=== PATIENT | female | born 1930 | race Caucasian/White ===

== ENCOUNTER → 2017-08-15 | Outpatient (CLI) | payer OTHER ==
[~2017-08-15] MED LIST: ACET-1256 PO; ASCO500T16 PO; ASPI81TA82 PO; ATEN25TA PO; CALCTAB7 PO; COEN100C15 PO; DORZ2SOL20 OPL; FESO8TAB PO; FISH OI1 PO; GABA100C13 PO; HYDR25TA4 PO; ISOS60TA PO; LATA0.009 OPL; LOSA50TA6 PO; MULTTAB58 PO; NTRGSL/4 UT; NXM/40 PO; SIMV40TA2 PO; ZNT/150 PO
--- NOTE | 2017-08-15 11:21 | DIAGNOSTIC IMAGING REPORT ---
MRI OF THE LUMBAR SPINE WITHOUT IV CONTRAST CLINICAL HISTORY: Low back pain. Bilateral lower extremity radiculopathy. COMPARISON STUDY: No priors. TECHNIQUE: MRI of the lumbar spine is performed utilizing various T1 and T2 weighted sequences in the axial and sagittal planes. IV contrast was not administered for this examination. FINDINGS: Lumbar spine: Vertebral body height is maintained throughout the lumbar spine. Marrow signal intensity is slightly heterogeneous. There is 5 mm of anterolisthesis at L4-L5. Minimal anterolisthesis is seen at L5-S1. Tiny anterior osteophytes are noted in the lower lumbar spine. Small hemangiomas are seen in the bodies of L1 and L4. No destructive osseous lesion is identified. The transverse and spinous processes appear intact. There is no evidence of spondylolysis. Mild degenerative endplate edema is seen at L5-S1. Intervertebral discs: Degenerative disc desiccation and loss of height is seen throughout the lumbar spine. Moderate loss of height is noted at L5-S1. Loss of height is moderate at the remaining lumbar levels. Spinal cord: The visualized spinal cord is normal in morphology and signal intensity. The conus medullaris terminates at the level of L1-L2. There is tethering of the nerve roots of the cauda equina at L4-L5. T12-L1: There is a small posterior disc bulge, only seen on the sagittal series. There is no significant acquired compromise of the central canal. L1-L2: There is broad-based posterior disc bulge. There is no significant acquired compromise of the central canal at this level. The disc bulge may abut the transiting bilateral nerve roots. There is mild bilateral subarticular stenosis. The neural foramina are patent. L2-L3: There is minimal posterior disc bulge. The central canal and neural foramina are patent. Facet arthropathy is of no consequence. L3-L4: There is a small posterior disc bulge with annular fissure. In conjunction with hypertrophy of the ligamentum flavum there is moderate central canal stenosis at this level with a minimum AP diameter of 4 mm. There is bilateral subarticular stenosis, left greater right. The disc bulge abuts the transiting bilateral nerve roots and the exiting left L3 nerve root. L4-L5: There is a small posterior disc bulge. In conjunction with anterolisthesis and hypertrophy of the ligamentum flavum there is severe central canal stenosis at this level with tethering of the nerve roots of the cauda equina. The minimum AP canal diameter measures 3 mm. There is bilateral subarticular stenosis, with probable impingement on the exiting bilateral L4 nerve roots. Facet arthropathy causes moderate right and mild left neural foraminal stenosis at this level. There are facet joint effusions. L5-S1: There is broad-based posterior disc bulge. In conjunction with hypertrophy of the ligamentum flavum there is moderate central canal stenosis at this level. The minimum AP diameter measures 6 mm. There is severe bilateral subarticular stenosis, left greater than right. This impinges on the exiting bilateral L5 nerve roots as well as a transiting sacral nerve roots. Bulky facet arthropathy causes at least moderate bilateral neural foraminal stenosis. Facet joint effusions are identified. Sacrum: The visualized sacrum is normal in morphology and signal intensity. Soft tissues: There is fatty atrophy of the paraspinous and iliopsoas musculature. The partially imaged kidneys demonstrate mild cortical atrophy. IMPRESSION: 1. 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 This is greatest at L4-L5. See discussion for detailed level by level analysis. 2. No large disc herniation is seen. 3. No destructive bony lesion is identified. Dictated: 08/15/2017 10:37 AM Transcribed: 08/15/2017 11:21 AM Shira Electronically signed by: Juan Carlos Whitmore M.D. 08/15/2017 11:49 AM Dictated Date/Time: 08/15/2017 10:37 AM
== END | disposition home or self-care (01) ==
LOC: C.MRIBC 09:33
PROVIDERS: ATTEND Pain Medicine Interventional Pain Medicine
DX: M48.061 Spinal stenosis, lumbar region without neurogenic claudication (principal); M47.897 Other spondylosis, lumbosacral region

== ENCOUNTER 2017-09-22 05:49 | Inpatient (IN) | payer OTHER ==
[2017-09-12 15:36] VITALS: BMI 37.0
--- NOTE | 2017-09-12 16:11 | PAT Medication Instructions ---
Service Date Sep 12, 2017. Current Home Medication List Acetaminophen (Tylenol), 1,000 MG PO PRN PRN for Pain Amlodipine (Norvasc), 2.5 MG PO QAM Ascorbic Acid (Ascorbic Acid), 500-1,500 MG PO DAILY PRN for Cold Aspirin (Aspirin Ec), 81 MG PO QPM Atorvastatin (Lipitor), 20 MG PO QPM Calcium Carbonate-Vitamin D W/ (Caltrate 600 Plus), 1 TAB PO BID Coenzyme Q10 (Ubidecarenone) (Co Q10), 100 MG PO QAM Dorzolamide Hcl-Timolol Maleat (Cosopt Oph), 1 DROP OPL BID Gabapentin (Neurontin), 200 MG PO BID Aufvwaoghoc-Zgycxcekwiu-Lps C- (Glucosamine Chondroitin), 1 TAB PO BID Hydrochlorothiazide (Hctz), 25 MG PO QAM Isosorbide Mononitrate (Imdur Ext Rel), 60 MG PO QPM Latanoprost (Xalatan 0.005% Oph Bessy), 1 DROPS OPL HS Losartan Potassium (Cozaar), 100 MG PO HS Metoprolol Tartrate (Lopressor) (Lopressor), 25 MG PO BID Multiple Vitamin (Multivitamin), 1 TAB PO QAM Nitroglycerin (Nitrostat), 0.4 MG UT UD PRN for Chest Pain [place]-3 Fatty Acids (Fish Oil), 1,000 MG PO HS Potassium Chloride (K-Tabs), 10 MEQ PO QPM Ranitidine Hcl (Zantac), 300 MG PO QAM [Prednisone Forte], 1 DROP OPR HS Medication Instructions For Your Scheduled Surgery -Continue as directed: Nitroglycerin (Nitrostat), 0.4 MG UT UD PRN for Chest Pain - Hold the following medications 2 weeks prior to surgery: Coenzyme Q10 (Ubidecarenone) (Co Q10), 100 MG PO QAM Abspkwaujfr-Zcnsacqinnm-Tuh C- (Glucosamine Chondroitin), 1 TAB PO BID [place]-3 Fatty Acids (Fish Oil), 1,000 MG PO HS - Hold the following medications 24 hours prior to surgery: Hydrochlorothiazide (Hctz), 25 MG PO QAM - Hold the following medications THE NIGHT BEFORE surgery: Losartan Potassium (Cozaar), 100 MG PO HS - Hold the following medications the morning of surgery: Ascorbic Acid (Ascorbic Acid), 500-1,500 MG PO DAILY PRN for Cold Calcium Carbonate-Vitamin D W/ (Caltrate 600 Plus), 1 TAB PO BID Multiple Vitamin (Multivitamin), 1 TAB PO QAM - Take the following medications the morning of surgery with a sip of water: Acetaminophen (Tylenol), 1,000 MG PO PRN PRN for Pain (if needed, can be taken up to four hours before surgery) Amlodipine (Norvasc), 2.5 MG PO QAM Dorzolamide Hcl-Timolol Maleat (Cosopt Oph), 1 DROP OPL BID (bring with you to the hospital) Gabapentin (Neurontin), 200 MG PO BID Metoprolol Tartrate (Lopressor) (Lopressor), 25 MG PO BID Ranitidine Hcl (Zantac), 300 MG PO QAM - Take the following medications as scheduled the night before surgery: Acetaminophen (Tylenol), 1,000 MG PO PRN PRN for Pain (if needed) Ascorbic Acid (Ascorbic Acid), 500-1,500 MG PO DAILY PRN for Cold (if needed) Aspirin (Aspirin Ec), 81 MG PO QPM Atorvastatin (Lipitor), 20 MG PO QPM Calcium Carbonate-Vitamin D W/ (Caltrate 600 Plus), 1 TAB PO BID Dorzolamide Hcl-Timolol Maleat (Cosopt Oph), 1 DROP OPL BID Gabapentin (Neurontin), 200 MG PO BID Isosorbide Mononitrate (Imdur Ext Rel), 60 MG PO QPM Latanoprost (Xalatan 0.005% Oph Bessy), 1 DROPS OPL HS (bring with you to the hospital) Metoprolol Tartrate (Lopressor) (Lopressor), 25 MG PO BID Potassium Chloride (K-Tabs), 10 MEQ PO QPM [Prednisone Forte], 1 DROP OPR HS (bring with you to the hospital) If you have any questions please call us at [phone] or [phone] or [phone]
[2017-09-12 16:54] LABS: BASO % 0.1 %; BASO ABS # 0.01 K/uL (0-0.2); EOS % 0.1 %; EOS ABS # 0.01 K/uL (0-0.5); HEMATOCRIT 39.1 % (37-47); HEMOGLOBIN 13.2 g/dL (12.0-16.0); IG# 0.03 K/uL (0.00-0.02); LYMPH % 24.4 %; LYMPH ABS # 2.14 K/uL (1.2-3.4); MEAN CELL VOLUME 86.9 fL (80-100); MEAN CORPUSCULAR HEMOGLOBIN 29.3 pg (25-34); MEAN CORPUSCULAR HGB CONC 33.8 g/dl (32-36); MEAN PLATELET VOLUME 9.6 fL (7.4-10.4); MONO % 5.9 %; MONO ABS # 0.52 K/uL (0.11-0.59); NEUT % 69.2 %; NEUT ABS # 6.06 K/uL (1.4-6.5); PLATELET COUNT 252 K/uL (130-400); RED CELL DISTRIBUTION WIDTH CV 14.7 % (11.5-14.5); RED CELL DISTRIBUTION WIDTH SD 46.2 fL (36.4-46.3); WHITE BLOOD COUNT 8.77 K/uL (4.8-10.8)
--- NOTE | 2017-09-12 17:03 | DIAGNOSTIC IMAGING REPORT ---
TWO VIEW CHEST CLINICAL HISTORY: Preoperative examination. FINDINGS: PA and lateral chest radiographs are compared to study dated 12/05/2013 and correlated with chest CT dated 08/04/2009. The heart is enlarged and there is atherosclerotic calcification of the thoracic aorta. The pulmonary vasculature is noncongested. Chronic interstitial thickening is similar to previous. No airspace consolidation or pleural effusion is identified. There is no pneumothorax. The skeletal structures are osteopenic. The bony thorax appears intact. IMPRESSION: Cardiomegaly with no active disease in the chest. Electronically signed by: Juan Carlos Whitmore M.D. 09/12/2017 5:01 PM Dictated Date/Time: 09/12/2017 5:01 PM
[2017-09-12 17:21] LABS: CALCIUM 9.4 mg/dl (8.5-10.1); CREATININE 0.86 mg/dl (0.60-1.20); POTASSIUM 4.6 mmol/L (3.5-5.1)
[~2017-09-22] VITALS: Ht 152.4 cm; Wt 87.7 kg
[2017-09-22] VITALS (10 sets, daily range): BP systolic 94–158; BP diastolic 58–85; PULSE 52–66; TEMP 36.3–37; O2SAT 95–100; Ht 152.4 cm; Wt 87.7 kg
[~2017-09-22 05:49] MED LIST changes: +AMLO2.5T PO; +ASPI81TA28 PO; -ASPI81TA82 PO; -ATEN25TA PO; +ATOR-22 PO; -FESO8TAB PO; -FISH OI1 PO; +GLUCTAB7 PO; -ISOS60TA PO; +ISOS60TA2 PO; +METO25TA56 PO; -NXM/40 PO; +OMEGCAP2 PO; +POTA10TA PO; -SIMV40TA2 PO; +[UNRECOGNIZED DRUG - OTHER] OPR
[2017-09-22] MEDS ORDERED: GABAPENTIN 300 MG CAP PO SCH (06:00)
[2017-09-22] MEDS ORDERED: ACETAMINOPHEN 500 MG TAB PO SCH (06:00)
[2017-09-22] MEDS ORDERED: LACTATED RINGER'S 1000ML 1,000 ML IV SCH (06:00)
[2017-09-22] MEDS ORDERED: CeleBREX 200 MG CAP PO SCH (06:00)
[2017-09-22] MEDS ORDERED: CEFAZOLIN 2000MG IV PUSH 15 ML IV SCH (06:00)
[2017-09-22] MEDS ORDERED: FENTANYL CITRATE INJ 50 MCG/1 ML 2 ML VIAL ONE ×3 (06:37→09:38)
[2017-09-22] MEDS ORDERED: MIDAZOLAM HCL 1 MG/ML 2ML VIAL ONE (06:37)
[2017-09-22] MEDS ORDERED: BUPIVACAINE/EPINEPHRINE 0.5% MPF 1:200,000 30 ML VIAL ONE (07:03)
[2017-09-22] MEDS ORDERED: BACITRACIN 50000 UNIT VIAL ONE (07:03)
[2017-09-22] MEDS ORDERED: ATROPINE SULFATE 0.1 MG/ML 5ML SYR IV PRN (07:15)
[2017-09-22] MEDS ORDERED: HYDROmorphone INJ 0.5 MG/0.5 ML SYR IV PRN (07:15)
[2017-09-22] MEDS ORDERED: EpHEDrine SULFATE INJ 50 MG/ML AMP IV PRN (07:15)
[2017-09-22] MEDS ORDERED: FENTANYL CITRATE INJ 50 MCG/1 ML 2 ML VIAL IV PRN (07:15)
--- NOTE | 2017-09-22 07:31 | History & Physical Bridge Note ---
H&P Re-Evaluation Bridge Note: I have examined the patient, reviewed the History & Physical and in the interval since the performance of the History & Physical I have noted the following changes of clinical significance: No changes noted
--- NOTE | 2017-09-22 07:32 | History and Physical ---
History & Physical Date Sep 22, 2017. Chief Complaint Back and leg pain History of Present Illness The patient is a 86 year old female with complaints of back and leg pain Additional History Hepatic Disease: No Endocrine Disorder: No Kidney Disease: No Hypertension: Yes Heart Disease: No Bleeding Tendencies: No Infectious Diseases: No Allergies Coded Allergies: Brimonidine (Verified Allergy, Unknown, RED ITCHY EYE, 09/22/17) Amoxicillin (Verified Adverse Reaction, Unknown, headache, 09/22/17) Clavulanic Acid (Verified Adverse Reaction, Unknown, headache, 09/22/17) Home Medications Scheduled Amlodipine (Norvasc), 2.5 MG PO QAM Aspirin (Aspirin Ec), 81 MG PO QPM Atorvastatin (Lipitor), 20 MG PO QPM Calcium Carbonate-Vitamin D W/ (Caltrate 600 Plus), 1 TAB PO BID Coenzyme Q10 (Ubidecarenone) (Co Q10), 100 MG PO QAM Dorzolamide Hcl-Timolol Maleat (Cosopt Oph), 1 DROP OPL BID Gabapentin (Neurontin), 200 MG PO BID Croihqysgmx-Tclkjnssatl-Vmq C- (Glucosamine Chondroitin), 1 TAB PO BID Hydrochlorothiazide (Hctz), 25 MG PO QAM Isosorbide Mononitrate (Imdur Ext Rel), 60 MG PO QPM Latanoprost (Xalatan 0.005% Oph Bessy), 1 DROPS OPL HS Losartan Potassium (Cozaar), 100 MG PO HS Metoprolol Tartrate (Lopressor) (Lopressor), 25 MG PO BID Multiple Vitamin (Multivitamin), 1 TAB PO QAM [place]-3 Fatty Acids (Fish Oil), 1,000 MG PO HS Potassium Chloride (K-Tabs), 10 MEQ PO QPM Ranitidine Hcl (Zantac), 300 MG PO QAM [Prednisone Forte], 1 DROP OPR HS Scheduled PRN Acetaminophen (Tylenol), 1,000 MG PO PRN PRN for Pain Ascorbic Acid (Ascorbic Acid), 500-1,500 MG PO DAILY PRN for Cold Nitroglycerin (Nitrostat), 0.4 MG UT UD PRN for Chest Pain Physical Examination Skin: warm/dry, no rash Eyes: normal inspection, EOMI, sclerae normal ENT: normal ENT inspection, pharynx normal Head: normocephalic, atraumatic Neck: supple, no adenopathy, trachea midline Respiratory/Chest: lungs clear, normal breath sounds, no respiratory distress Cardiovascular: regular rate, rhythm, no edema, no murmur Abdomen / GI: normal bowel sounds, non tender Back: normal inspection Extremities: normal inspection, normal range of motion Neurologic/Psych: no motor/sensory deficits, alert, normal reflexes, oriented x 3 Diagnosis Lumbar spinal stenosis with neurogenic claudication Plan of Treatment L3 S1 decompression and fusion
[2017-09-22] MEDS ORDERED: HYDROmorphone INJ 2 MG/ML SYR/VIAL ONE ×3 (08:14→11:04)
[2017-09-22] MEDS ORDERED: FLOSEAL HEMOSTATIC MATRIX 10ML TOP ONE (10:47)
[2017-09-22] MEDS ORDERED: SODIUM CHLORIDE 0.9% 1000ML 1,000 ML IV SCH (10:50)
[2017-09-22] MEDS: SODIUM CHLORIDE 0.9% 1000ML 1,000 ML IV SCH ×3 (10:50→18:34)
--- NOTE | 2017-09-22 10:50 | [facility] Operative Report ---
Operative Report Operative Date Sep 22, 2017. Pre-Operative Diagnosis Lumbar Spinal Stenosis with Neurogenic Claudication Post-Operative Diagnosis Lumbar Spinal Stenosis with Neurogenic Claudication Procedure(s) Performed 1. Lumbar decompression medial facetectomies foraminotomies L2-3 L3-4 L4-5 L5-S1. #2 posterior spinal fusion L3-4 L4-5 L5-S1. #3 placement posterior segmental instrumentation L3-S1. #4 interbody fusion L5-S1. #5 placement peek cage 11 x 26 mm at L5-S1. #6 placement of locally harvested morselized autograft in the posterior gutters. #7 placement InFUSE collagen sponge, master graft in the posterior lateral gutters and ostial amp in the interbody space. Surgeon Dr. Sommers Box Puller Surgeon(s) Kota Trinidad PA-C Estimated Blood Loss 400 Findings Severe spinal stenosis Specimens none per surgeon Description of Procedure Patient was met with preoperatively case discussed all questions addressed. After informed consent obtained patient was taken to the operative suite underwent intubation and placed in the prone position on the Ethan table on top of the Jorge frame. All bony prominences were well-padded eyes inspected to ensure no external pressure placed upon them. This point the lumbar spine was prepped and draped in the normal sterile fashion. Sharp dissection with the assistance Bovie cautery was performed down to and exposing the lamina and transverse processes of L3-L4-L5 and sacral ala bilaterally. From a caudal to cephalad fashion complete laminectomy of L5 L4 L3 and partial laminectomy of L2 was performed addressing severe lateral recess and foraminal disease. Pedicle screws were then placed in L3-L4 L5-S1 levels bilaterally with the assistance of fluoroscopy and the purposes anselmo placed. Through a transforaminal approach on the left complete discectomy of L5-S1 was performed endplates created to subcortical bleeding bone and a 11 x 26 mm peek cage filled with ostial amp bone graft tapped into position. Rods were then locked in position. Cross- link locked in position. The transverse processes of L3-L4-L5 and sacral ala burred to subcortical bleeding bone. Infuse collagen sponge mesh graft and locally harvested morselized autograft t was placed in the posterior lateral gutters. A 15 round GIANNA drain was inserted. Incision was closed with 1 Vicryl fascia 2-0 Vicryl subcutaneous 3 4-0 Monocryl for fashion closure Steri-Strips sterile dressing placed. Patient weakened the PACU in stable condition. Please note Danny Trinidad was present throughout the entire procedure involved in patient positioning complex portions of the surgery and final skin closure. I attest to the content of the Intraoperative Record and any orders documented therein. Any exceptions are noted below.
[2017-09-22] MEDS ORDERED: LIDOCAINE HCL 2% 2 ML VIAL (20MG/ML) ONE (10:52)
[2017-09-22] MEDS ORDERED: PROPOFOL IV EMULSION 10 MG/ML 20 ML VIAL IV ONE (10:52)
[2017-09-22] MEDS ORDERED: ONDANSETRON INJ 2 MG/ML 2 ML VIAL ONE ×2 (10:52→11:05)
[2017-09-22] MEDS ORDERED: DEXAMETHASONE SOD INJ 4 MG/ML VIAL ONE (10:52)
[2017-09-22] MEDS ORDERED: ROCURONIUM BROMIDE 10 MG/ML 5 ML VIAL IV ONE (10:52)
[2017-09-22] MEDS ORDERED: ACETAMINOPHEN IV 100 ML IV PRN (11:00)
[2017-09-22] MEDS ORDERED: MAGNESIUM HYDROXIDE SUSP 30 ML UDC PO PRN (11:00)
[2017-09-22] MEDS ORDERED: BISACODYL 10 MG SUPP PR PRN (11:00)
[2017-09-22] MEDS ORDERED: SOD PHOSPHATE/SOD BIPHOSPHATE ENEMA 132 ML BTL PR PRN (11:00)
[2017-09-22] MEDS ORDERED: LORAZEPAM INJ 0.5 MG in SYRINGE 0.75 ML IV PRN (11:00)
[2017-09-22] MEDS ORDERED: ALUMINUM/MAGNESIUM SUSP 30 ML UDC PO PRN (11:00)
[2017-09-22] MEDS ORDERED: DO NOT ADMINISTER FLU VACCINE PRN (11:00)
[2017-09-22] MEDS ORDERED: LORAZEPAM 0.5 MG TAB PO PRN (11:00)
[2017-09-22] MEDS ORDERED: DO NOT ADMINISTER PNEUMOCOCCAL VACCINE PRN (11:00)
[2017-09-22] MEDS ORDERED: ONDANSETRON INJ 2 MG/ML 2 ML VIAL IV PRN (11:00)
[2017-09-22] MEDS ORDERED: PROMETHAZINE HCL INJ 12.5 MG in SODIUM CHLORIDE 0.9% 50ML 50 ML IV PRN (11:00)
[2017-09-22] MEDS ORDERED: hydrOXYzine HCL 25 MG TAB PO PRN (11:00)
[2017-09-22] MEDS ORDERED: NALOXONE HCL 0.4 MG/1 ML VIAL/CARP IV PRN ×2 (11:00)
[2017-09-22] MEDS ORDERED: ACETAMINOPHEN 500 MG TAB PO PRN (11:00)
[2017-09-22] MEDS ORDERED: NITROGLYCERIN 0.4 MG SL PER TAB CHARGE UT PRN (11:00)
[2017-09-22] MEDS ORDERED: METOCLOPRAMIDE HCL INJ 5 MG/ML 2 ML VIAL IV PRN (11:00)
[2017-09-22] MEDS ORDERED: FAMOTIDINE 20 MG TAB PO PRN (11:00)
--- NOTE | 2017-09-22 11:03 | DIAGNOSTIC IMAGING REPORT ---
LUMBAR SPINE 2 OR 3 VIEW CLINICAL HISTORY: 86 years-old Female presenting with L3-5 DECOMPRESSION/FUSION. TECHNIQUE: 3 fluoroscopic image(s) recorded as part of an intraoperative procedure. COMPARISON: MR from 08/15/2017. FINDINGS/IMPRESSION: Bilateral transpedicular screw and anselmo fixation of L3-S1 with interbody spacer at L5-S1. Laminectomy defects from L3 to L5. Grossly normal anatomic alignment. Postsurgical changes are new from prior MR. Please see surgical report for further details. Fluoroscopy dosage (mGy): 20.99. Fluoroscopy time: 22.6 seconds. Number of fluoroscopic spot images: 0. Electronically signed by: Cayden White M.D. 09/22/2017 11:01 AM Dictated Date/Time: 09/22/2017 11:00 AM
[2017-09-22] MEDS ORDERED: GLYCOPYRROLATE INJ 0.2 MG/ML VIAL ONE (11:05)
[2017-09-22] MEDS ORDERED: NEOSTIGMINE METHYLSULFATE 1 MG/ML 10ML VIAL ONE (11:05)
[2017-09-22] MEDS ORDERED: HYDROmorphone HCL 0.5MG/ML 50 ML CASSETTE ONE (11:16)
--- NOTE | 2017-09-22 12:11 | Anesthesiology Progress Note ---
Anesthesia Post Op Note Date & Time Sep 22, 2017 at 12:10 Vital Signs Pain Intensity: 0 Vital Signs Past 12 Hours Date Time Temp Pulse Resp B/P (MAP) Pulse Ox O2 Delivery O2 Flow Rate FiO2 09/22/17 11:52 121/61 09/22/17 11:48 57 14 100 09/22/17 11:48 56 14 09/22/17 11:47 57 21 09/22/17 11:47 57 21 129/64 98 09/22/17 11:43 36.2 58 16 129/64 (81) 99 Nasal Cannula 4 09/22/17 11:42 58 13 99 09/22/17 11:42 58 13 09/22/17 11:41 139/76 09/22/17 11:37 59 13 09/22/17 11:37 59 13 99 09/22/17 11:36 138/78 09/22/17 11:32 59 13 99 09/22/17 11:32 59 13 09/22/17 11:31 60 15 136/78 100 09/22/17 11:31 60 15 136/78 100 09/22/17 11:31 60 15 09/22/17 11:31 60 15 09/22/17 11:26 62 16 122/88 100 09/22/17 11:26 62 16 09/22/17 11:26 62 16 122/88 100 09/22/17 11:26 62 16 09/22/17 11:22 156/81 09/22/17 11:22 156/81 09/22/17 11:21 65 20 100 09/22/17 11:21 65 20 09/22/17 11:21 65 20 09/22/17 11:21 65 20 100 09/22/17 11:16 66 17 09/22/17 11:16 66 17 145/96 100 09/22/17 11:16 36.2 66 16 145/96 (111) 100 Oxymask 10 09/22/17 11:16 66 17 09/22/17 11:16 66 17 145/96 100 09/22/17 06:15 37 66 20 158/82 97 Room Air Notes Mental Status: alert / awake / arousable, participated in evaluation Pt Amnestic to Procedure: Yes Nausea / Vomiting: adequately controlled Pain: adequately controlled Airway Patency, RR, SpO2: stable & adequate BP & HR: stable & adequate Hydration State: stable & adequate Anesthetic Complications: no major complications apparent Anesthetic Complications: Patient reports normal vision and no complaints of eye pain in PACU.
[2017-09-22] MEDS ORDERED: PRED1SUS3 OPR (13:32)
--- NOTE | 2017-09-22 13:55 | Medical Consult ---
Consultation Date of Consultation: Sep 22, 2017. Attending Physician: Garrett Sommers D.O. Reason for Consultation: Postoperative medical management History of Present Illness 86-year-old female who is status post L2 through S1 decompression and fusion today by Dr. Sommers. Postoperatively the patient is doing well. She reports her pain is well controlled. She denies numbness and tingling to the lower extremities. She denies chest pain and shortness of breath. No lightheadedness or dizziness. No abdominal pain or nausea. 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 (9) Mild aortic stenosis Status: Chronic (10) Osteoarthritis Status: Chronic (11) PVD (peripheral vascular disease) Status: Chronic Surgical Problems: (1) H/O hernia repair Status: Chronic (2) History of bladder surgery Status: Chronic (3) History of cataract surgery Status: Chronic (4) History of hysterectomy Status: Chronic (5) Hx of tubal ligation Status: Chronic (6) S/P tonsillectomy and adenoidectomy Status: Chronic Family History Noncontributory secondary to patient's advanced age Social History Smoking Status: Never Smoker Alcohol Use: none Allergies Coded Allergies: Brimonidine (Verified Allergy, Unknown, RED ITCHY EYE, 09/22/17) Amoxicillin (Verified Adverse Reaction, Unknown, headache, 09/22/17) Clavulanic Acid (Verified Adverse Reaction, Unknown, headache, 09/22/17) Home Medications Pred Forte 1% Oph (Prednisolone Acetate (Ophth)) 1 % Jaclyn 1 Drops OPR Q2D Fish Oil (Speed-3 Fatty Acids) 1 Cap Cap 1,000 Mg PO HS K-Tabs (Potassium Chloride) 10 Meq Tab 10 Meq PO QPM Lopressor (Metoprolol Tartrate) 25 Mg Tab 25 Mg PO BID Glucosamine Chondroitin (Nkauyfoeyeh-Ncrahruxnay-Vbs C-) 1 Tab Tab 1 Tab PO BID Xalatan 0.005% Oph Bessy (Latanoprost) 0.005 % Bessy 1 Drops OPL HS 90 Days Imdur Ext Rel (Isosorbide Mononitrate) 60 Mg Tab 60 Mg PO QPM Lipitor (Atorvastatin Calcium) 20 Mg Tab 20 Mg PO QPM Aspirin Ec (Aspirin) 81 Mg Tab 81 Mg PO QPM Norvasc (Amlodipine Besylate) 2.5 Mg Tab 2.5 Mg PO QAM Multivitamin (Multiple Vitamin) 1 Tab Tab 1 Tab PO QAM Ascorbic Acid 500 Mg Tab 500-1,500 Mg PO DAILY PRN Cosopt Oph (Dorzolamide Hcl-Timolol Maleat) 1 Bessy Bessy 1 Drop OPL BID Zantac (Ranitidine Hcl) 150 Mg Tab 300 Mg PO QAM Hctz (Hydrochlorothiazide) 25 Mg Tab 25 Mg PO QAM Co Q10 (Coenzyme Q10 (Ubidecarenone)) 100 Mg Cap 100 Mg PO QAM Neurontin (Gabapentin) 100 Mg Cap 200 Mg PO BID Cozaar (Losartan Potassium) 50 Mg Tab 100 Mg PO HS Caltrate 600 Plus (Calcium Carbonate-Vitamin D W/) 1 Tab Tab 1 Tab PO BID TAKE THIS MEDICATION WITH FOOD. Nitrostat (Nitroglycerin) 0.4 Mg Tab 0.4 Mg UT UD PRN PLACE ONE TABLET UNDER THE TONGUE EVERY 5 MINUTES FOR UP TO 3 DOSES IF NEEDED FOR CHEST PAIN. Tylenol (Acetaminophen) 500 Mg Tab 1,000 Mg PO PRN PRN Current Inpatient Medications Current Inpatient Medications Medications (Trade) Dose Ordered Sig/Akil Route Start Time Stop Time Status Last Admin Dose Admin Clindamycin Phosphate 600 mg/ Dextrose 54 ml @ 100 mls/hr Q8H IV 09/22/17 18:00 09/23/17 02:33 Promethazine HCl 12.5 mg/Sodium Chloride 50.5 ml @ 202 mls/hr Q6H PRN IV 09/22/17 11:00 10/22/17 10:59 Ondansetron HCl (Zofran Inj) 4 mg Q6H PRN IV 09/22/17 11:00 10/22/17 10:59 Metoclopramide HCl (Reglan Inj) 10 mg Q6H PRN IV 09/22/17 11:00 10/22/17 10:59 Lorazepam (Ativan Tab) 0.5 mg Q8H PRN PO 09/22/17 11:00 10/22/17 10:59 Lorazepam 0.5 mg/ Syringe 1 ml @ 1 mls/min Q8H PRN IV 09/22/17 11:00 10/22/17 10:59 Pneumococcal Polysaccharide Vaccine 1 ea PRN PRN N/A 09/22/17 11:00 10/22/17 10:59 Influenza Virus Vacc Triv Types A&B 1 ea PRN PRN N/A 09/22/17 11:00 10/22/17 10:59 Polyethylene (Miralax Powder Packet) 17 gm Q6 PO 09/24/17 06:00 10/24/17 05:59 Bisacodyl (Dulcolax Supp) 10 mg DAILY PRN ID 09/22/17 11:00 10/22/17 10:59 Magnesium Hydroxide (Milk Of Magnesia Susp) 30 ml DAILY PRN PO 09/22/17 11:00 10/22/17 10:59 Hydromorphone HCl (Dilaudid Inj) 0.5-1mg prn moder... Q3H PRN IV 09/23/17 06:00 10/07/17 05:59 Oxycodone HCl (Roxicodone Immediate Rel Tab) 5-10mg prn moderate to sev... Q4H PRN PO 09/23/17 06:00 10/07/17 05:59 Sodium Chloride 1,000 ml @ 150 mls/hr Q6H40M IV 09/22/17 10:50 10/22/17 10:49 Acetaminophen (Tylenol Tab) 1,000 mg Q8H PRN PO 09/22/17 11:00 10/22/17 10:59 Acetaminophen 100 ml @ 400 mls/hr Q8H PRN IV 09/22/17 11:00 10/22/17 10:59 Naloxone HCl (Narcan Inj) 0.1 mg Q5M PRN IV 09/22/17 11:00 10/22/17 10:59 Senna/Docusate Sodium (Senokot S Tab) 2 tab HS PO 09/22/17 21:00 10/22/17 20:59 Sodium Biphosphate/ Sodium Phosphate (Fleet Enema) 132 ml ONE PRN ID 09/22/17 11:00 10/22/17 10:59 Hydroxyzine HCl (Vistaril Tab) 25 mg Q8H PRN PO 09/22/17 11:00 10/22/17 10:59 Al Hydroxide/Mg Hydroxide (Maalox Susp) 30 ml Q6H PRN PO 09/22/17 11:00 10/22/17 10:59 Famotidine (Pepcid Tab) 20 mg Q12 PRN PO 09/22/17 11:00 10/22/17 10:59 Diphenhydramine HCl (Benadryl Cap) 25 mg Q6H PRN PO 09/22/17 11:00 10/22/17 10:59 Miscellaneous Information (Discontinue STATE EDITOR) 1 ea TODAY@0600 N/A 09/23/17 06:00 09/23/17 06:01 Naloxone HCl (Narcan Inj) 0.1 mg Q5M PRN IV 09/22/17 11:00 09/23/17 06:00 Hydromorphone HCl (Dilaudid Car Storer) 25 mg PRN PRN IV 09/22/17 11:00 09/23/17 06:00 Sodium Chloride 1,000 ml @ 15 mls/hr Q24H IV 09/22/17 10:50 09/23/17 06:00 Amlodipine Besylate (Norvasc Tab) 2.5 mg QAM PO 09/23/17 09:00 10/23/17 08:59 Aspirin (Ecotrin Tab) 81 mg QPM PO 09/22/17 21:00 10/22/17 20:59 Atorvastatin Calcium (Lipitor Tab) 20 mg QPM PO 09/22/17 21:00 10/22/17 20:59 Gabapentin (Neurontin Cap) 200 mg BID PO 09/22/17 21:00 10/22/17 20:59 Isosorbide Mononitrate (Imdur Ext Rel Tab) 60 mg QPM PO 09/22/17 21:00 10/22/17 20:59 Latanoprost (Xalatan Oph Soln) 1 drops HS OPL 09/22/17 21:00 10/22/17 20:59 Losartan Potassium (coZAAR TAB) 100 mg HS PO 09/22/17 21:00 10/22/17 20:59 Metoprolol Tartrate (Lopressor Tab) 25 mg BID PO 09/22/17 21:00 10/22/17 20:59 Nitroglycerin (Nitrostat Tab) 0.4 mg UD PRN UT 09/22/17 11:00 10/22/17 10:59 Ranitidine HCl (zANTac TAB) 300 mg QAM PO 09/23/17 09:00 10/23/17 08:59 Prednisolone Acetate (Pred Forte 1% Oph Susp) 1 drops Q2D OPR 09/22/17 13:45 10/22/17 13:44 UNV Non-Formulary Medication 1 ea UD N/A 09/22/17 13:45 10/22/17 13:44 UNV Review of Systems ROS per HPI, all other systems reviewed and negative Physical Exam Date Time Temp Pulse Resp B/P (MAP) Pulse Ox O2 Delivery O2 Flow Rate FiO2 09/22/17 13:29 61 15 126/72 (90) 100 Nasal Cannula 4.0 09/22/17 12:47 52 14 119/71 (87) 100 Nasal Cannula 4.0 09/22/17 12:30 Nasal Cannula 4.0 09/22/17 12:30 Nasal Cannula 4.0 09/22/17 12:25 36.3 55 18 135/77 (96) 100 Nasal Cannula 4.0 09/22/17 12:13 53 10 09/22/17 12:13 53 10 100 09/22/17 12:11 126/67 09/22/17 12:08 57 25 99 09/22/17 12:08 58 25 09/22/17 12:07 115/54 09/22/17 12:03 52 9 09/22/17 12:03 52 9 100 09/22/17 12:01 131/62 09/22/17 12:00 129/63 09/22/17 11:58 53 13 99 09/22/17 11:58 53 13 09/22/17 11:53 54 12 09/22/17 11:53 54 12 100 09/22/17 11:52 121/61 09/22/17 11:48 57 14 100 09/22/17 11:48 56 14 09/22/17 11:47 57 21 09/22/17 11:47 57 21 129/64 98 09/22/17 11:43 36.2 58 16 129/64 (81) 99 Nasal Cannula 4 09/22/17 11:42 58 13 99 09/22/17 11:42 58 13 09/22/17 11:41 139/76 09/22/17 11:37 59 13 09/22/17 11:37 59 13 99 09/22/17 11:36 138/78 09/22/17 11:32 59 13 99 09/22/17 11:32 59 13 09/22/17 11:31 60 15 136/78 100 09/22/17 11:31 60 15 136/78 100 09/22/17 11:31 60 15 09/22/17 11:31 60 15 09/22/17 11:26 62 16 122/88 100 09/22/17 11:26 62 16 09/22/17 11:26 62 16 122/88 100 09/22/17 11:26 62 16 09/22/17 11:22 156/81 09/22/17 11:22 156/81 09/22/17 11:21 65 20 100 09/22/17 11:21 65 20 09/22/17 11:21 65 20 09/22/17 11:21 65 20 100 09/22/17 11:16 66 17 09/22/17 11:16 66 17 145/96 100 09/22/17 11:16 36.2 66 16 145/96 (111) 100 Oxymask 10 09/22/17 11:16 66 17 09/22/17 11:16 66 17 145/96 100 09/22/17 06:15 37 66 20 158/82 97 Room Air General Appearance: WD/WN, no apparent distress Head: normocephalic, atraumatic Eyes: normal inspection, EOMI, sclerae normal ENT: hearing grossly normal, + pertinent finding (Mucous membranes moist) Neck: supple, no JVD, trachea midline Respiratory/Chest: lungs clear, normal breath sounds, no respiratory distress Cardiovascular: regular rate, rhythm, no edema, normal peripheral pulses Abdomen/GI: normal bowel sounds, non tender, soft, no organomegaly Back: + pertinent finding (S/P back surgery, drain in place draining bloody drainage, pedal pushes and pulls strong bilaterally) Extremities/Musculoskelatal: no calf tenderness, normal capillary refill, no pedal edema Neurologic/Psych: no motor/sensory deficits, alert, normal mood/affect, oriented x 3 Skin: normal color, warm/dry Assessment & Plan S/P L2 - S1 DECOMPRESSION AND FUSION - POD#0 - activity and wound care orders as per ortho - pain control with bowel regimen - PT/OT - monitor H/H for acute blood loss anemia and transfuse blood products PRN - 400 cc EBL HISTORY CAD -Appears stable, no reports of chest pain -Continue aspirin, statin, beta-laura, and nitrate HYPERTENSION -BP controlled -Continue amlodipine, isosorbide, metoprolol -Will hold hydrochlorothiazide to prevent perioperative dehydration, resume as renal functions allow HISTORY CVA -Continue aspirin and statin DVT PROPHYLAXIS -Teds and SCDs as per spine orthopedics Thank you for this consultation. We will follow the patient with you during their hospital stay. You can reach a member of the [facility] Hospitalist Team 26/12 via pager @ . ADDENDUM: I have seen and examined the patient and agree with the assessment and plan as stated above. Deni,
[2017-09-22] MEDS: HYDROmorphone HCL 0.5MG/ML 50 ML CASSETTE IV PRN ×2 (15:05→23:10)
[2017-09-22] MEDS: CLINDAMYCIN IV 600 MG in DEXTROSE 5% 50ML 50 ML IV SCH (18:35)
[2017-09-22] MEDS: DORZOLAMIDE/TIMOLOL 22.3/6.8MG/ML 10 ML BTL OPL SCH (20:56)
[2017-09-22] MEDS: LATANOPROST 0.005% OP SOLN 2.5 ML BTL OPL SCH (21:03)
[2017-09-22] MEDS: DOCUSATE SODIUM/SENNA 50/8.6MG TAB PO SCH (21:05)
[2017-09-22] MEDS: ASPIRIN 81 MG ECTAB PO SCH (21:05)
[2017-09-22] MEDS: LOSARTAN POTASSIUM 50 MG TAB PO SCH (21:05)
[2017-09-22] MEDS: GABAPENTIN 100 MG CAP PO SCH (21:05)
[2017-09-22] MEDS: ATORVASTATIN 20 MG TAB PO SCH (21:05)
[2017-09-22] MEDS: RANITIDINE HCL 150 MG TAB PO SCH (21:50)
[2017-09-22] MEDS: METOPROLOL TARTRATE 25 MG TAB PO SCH (21:50)
[2017-09-22] MEDS: DOCUSATE SODIUM 100 MG CAP PO SCH (21:50)
[2017-09-22] MEDS: ISOSORBIDE MONONITRATE 60 MG TABCR PO SCH (21:50)
[2017-09-23] MEDS: SODIUM CHLORIDE 0.9% 1000ML 1,000 ML IV SCH (00:04)
[2017-09-23] MEDS: CLINDAMYCIN IV 600 MG in DEXTROSE 5% 50ML 50 ML IV SCH (02:25)
[2017-09-23 03:23] VITALS: BP 129/76; PULSE 72; TEMP 36.9; O2SAT 97
[2017-09-23] MEDS ORDERED: DC PCA SCH (06:00)
[2017-09-23] MEDS ORDERED: NURSING DECISION MEDICATION ORDER SCH ×2 (06:00→13:15)
[2017-09-23] MEDS ORDERED: HYDROmorphone INJ 0.5 MG/0.5 ML SYR IV PRN (06:00)
[2017-09-23 06:31] LABS: HEMATOCRIT 25.3 % (37-47); HEMOGLOBIN 8.7 g/dL (12.0-16.0); IG# 0.02 K/uL (0.00-0.02); LYMPH % 12.1 %; LYMPH ABS # 1.17 K/uL (1.2-3.4); MEAN CELL VOLUME 84.9 fL (80-100); MEAN CORPUSCULAR HEMOGLOBIN 29.2 pg (25-34); MEAN CORPUSCULAR HGB CONC 34.4 g/dl (32-36); MEAN PLATELET VOLUME 9.5 fL (7.4-10.4); MONO % 10.1 %; MONO ABS # 0.98 K/uL (0.11-0.59); NEUT % 77.6 %; NEUT ABS # 7.49 K/uL (1.4-6.5); PLATELET COUNT 240 K/uL (130-400); RED CELL DISTRIBUTION WIDTH CV 14.2 % (11.5-14.5); RED CELL DISTRIBUTION WIDTH SD 44.5 fL (36.4-46.3); WHITE BLOOD COUNT 9.66 K/uL (4.8-10.8)
[2017-09-23 06:51] VITALS: BP 148/77; PULSE 66; TEMP 36.9; O2SAT 92
[2017-09-23 07:01] LABS: CREATININE 0.77 mg/dl (0.60-1.20); POTASSIUM 4.2 mmol/L (3.5-5.1)
[2017-09-23] MEDS ORDERED: RANITIDINE HCL 150 MG TAB PO SCH (09:00)
[2017-09-23] MEDS ORDERED: HYDROCHLOROTHIAZIDE 25 MG TAB PO SCH (09:00)
[2017-09-23] MEDS ORDERED: PrednisoLONE ACET 1% OP SUSP 5 ML BTL OPR SCH ×2 (09:00→21:00)
--- NOTE | 2017-09-23 09:07 | Anesthesiology Progress Note ---
Anesthesia Post Op Note Date & Time Sep 23, 2017 at 09:06 Vital Signs Pain Intensity: 0.0 Vital Signs Past 12 Hours Date Time Temp Pulse Resp B/P (MAP) Pulse Ox O2 Delivery O2 Flow Rate FiO2 09/23/17 06:51 36.9 66 20 148/77 (100) 92 Room Air 09/23/17 03:23 36.9 72 14 129/76 (93) 97 Room Air 09/22/17 23:50 Room Air 09/22/17 22:48 36.5 60 14 142/85 (104) 95 Room Air Notes Mental Status: alert / awake / arousable, participated in evaluation Pt Amnestic to Procedure: Yes Nausea / Vomiting: adequately controlled Pain: adequately controlled Airway Patency, RR, SpO2: stable & adequate BP & HR: stable & adequate Hydration State: stable & adequate Anesthetic Complications: no major complications apparent Pt states her vision is "better" than it was preop.
--- NOTE | 2017-09-23 10:20 | Progress Note ---
Progress Note Date of Service Sep 23, 2017. Progress Note Patient's back pain is controlled. She is denying any leg pain. Vital signs are stable. On exam she is in the chair at the bedside. She demonstrates good strength testing. She appears comfortable. Assessment status post multilevel lumbar decompression fusion. Plan at this time will continue physical therapy throughout the weekend monitor her hemoglobin. Hope to have her discharged to rehab on Monday.
[2017-09-23] MEDS: DORZOLAMIDE/TIMOLOL 22.3/6.8MG/ML 10 ML BTL OPL SCH ×2 (11:43→20:47)
[2017-09-23] MEDS: METOPROLOL TARTRATE 25 MG TAB PO SCH ×2 (11:44→20:51)
[2017-09-23] MEDS: DOCUSATE SODIUM 100 MG CAP PO SCH ×2 (11:44→20:49)
[2017-09-23] MEDS: GABAPENTIN 100 MG CAP PO SCH ×2 (11:45→20:54)
[2017-09-23] MEDS: AMLODIPINE BESYLATE 5 MG TAB PO SCH (11:46)
[2017-09-23] MEDS: OXYCODONE HCL IR 5 MG TAB (IMMEDIATE RELEASE) PO PRN (15:06)
[2017-09-23 16:17] VITALS: BP 116/70; PULSE 58; TEMP 36.4; O2SAT 95
--- NOTE | 2017-09-23 20:12 | Progress Note ---
Internal Med Progress Note Date of Service: Sep 23, 2017. Provider Documentation: SUBJECTIVE: Very pleasant, denies of any discomfort No fever No shortness of breath or chest discomfort OBJECTIVE: Vital Signs-as noted below Exam: General-elderly female, no sign of distress Eyes-sclera is nonicteric ENT-moist oral mucosa Neck-neck supple no JVD Lungs-clear to auscultate, no wheeze or rales Heart-regular S1 and Abdomen-soft nontender Extremities-no lower extremity Neuro-alert awake oriented 3, no focal neurological deficit Lab data as noted below. ASSESSMENT & PLAN: S/P L2 - S1 DECOMPRESSION AND FUSION - POD#1 - activity and wound care orders as per ortho - pain control with bowel regimen - PT/OT -Post of H&H remained stable ACUTE BLOOD LOSS ANEMIA: Hemoglobin dropped from 13 to 8.7 Due to juan ramon and postop surgical blood loss due to surgery Continue to monitor Transfuse for hemoglobin less than 8 or any symptom of dizziness spell dyspnea on exertion /poor exercise tolerance HYPONATREMIA -Possible secondary to volume -Was on HCTZ which has been kept on hold -Given IV fluid -Repeat PRP in a.m. HISTORY CAD -Appears stable, -Continue aspirin, statin, beta-laura, and nitrate HYPERTENSION -BP stable -Continue amlodipine, isosorbide, metoprolol -HCTZ kept on hold secondary to hyponatremia HISTORY CVA -Continue aspirin and statin DVT PROPHYLAXIS -Teds and SCDs as per spine orthopedics DISPOSITION Per primary team Vital Signs: Date Time Temp Pulse Resp B/P (MAP) Pulse Ox O2 Delivery O2 Flow Rate FiO2 09/23/17 16:17 36.4 58 16 116/70 (85) 95 Room Air 09/23/17 16:00 Room Air 09/23/17 10:22 Room Air 09/23/17 06:51 36.9 66 20 148/77 (100) 92 Room Air 09/23/17 03:23 36.9 72 14 129/76 (93) 97 Room Air 09/22/17 23:50 Room Air 09/22/17 22:48 36.5 60 14 142/85 (104) 95 Room Air Lab Results: Results Past 24 Hours Test 09/23/17 05:57 Range/Units White Blood Count 9.66 4.8-10.8 K/uL Red Blood Count 2.98 4.2-5.4 M/uL Hemoglobin 8.7 12.0-16.0 g/dL Hematocrit 25.3 37-47 % Mean Corpuscular Volume 84.9 80-100 fL Mean Corpuscular Hemoglobin 29.2 25-34 pg Mean Corpuscular Hemoglobin Concent 34.4 32-36 g/dl Platelet Count 240 130-400 K/uL Mean Platelet Volume 9.5 7.4-10.4 fL Neutrophils (%) (Auto) 77.6 % Lymphocytes (%) (Auto) 12.1 % Monocytes (%) (Auto) 10.1 % Eosinophils (%) (Auto) 0.0 % Basophils (%) (Auto) 0.0 % Neutrophils # (Auto) 7.49 1.4-6.5 K/uL Lymphocytes # (Auto) 1.17 1.2-3.4 K/uL Monocytes # (Auto) 0.98 0.11-0.59 K/uL Eosinophils # (Auto) 0.00 0-0.5 K/uL Basophils # (Auto) 0.00 0-0.2 K/uL RDW Standard Deviation 44.5 36.4-46.3 fL RDW Coefficient of Variation 14.2 11.5-14.5 % Immature Granulocyte % (Auto) 0.2 % Immature Granulocyte # (Auto) 0.02 0.00-0.02 K/uL Red Blood Cell Morphology Unremarkable Sodium Level 130 136-145 mmol/L Potassium Level 4.2 3.5-5.1 mmol/L Chloride Level 97 98-107 mmol/L Carbon Dioxide Level 28 21-32 mmol/L Anion Gap 5.0 3-11 mmol/L Blood Urea Nitrogen 14 7-18 mg/dl Creatinine 0.77 0.60-1.20 mg/dl Est Creatinine Clear Calc Drug Dose 53.6 ml/min Estimated GFR () 82.2 Estimated GFR (Non- 70.9 BUN/Creatinine Ratio 17.8 10-20 Random Glucose 126 70-99 mg/dl Calcium Level 8.0 8.5-10.1 mg/dl
[2017-09-23] MEDS: LATANOPROST 0.005% OP SOLN 2.5 ML BTL OPL SCH (20:48)
[2017-09-23] MEDS: LOSARTAN POTASSIUM 50 MG TAB PO SCH (20:50)
[2017-09-23] MEDS: ATORVASTATIN 20 MG TAB PO SCH (20:50)
[2017-09-23] MEDS: ASPIRIN 81 MG ECTAB PO SCH (20:50)
[2017-09-23] MEDS: ISOSORBIDE MONONITRATE 60 MG TABCR PO SCH (20:50)
[2017-09-23] MEDS: RANITIDINE HCL 150 MG TAB PO SCH (20:51)
[2017-09-23] MEDS: DOCUSATE SODIUM/SENNA 50/8.6MG TAB PO SCH (20:54)
[2017-09-23] MEDS ORDERED: SODIUM CHLORIDE 0.9% 1000ML 1,000 ML IV SCH (21:00)
[2017-09-23 22:46] VITALS: BP 152/61; PULSE 71; TEMP 37.3; O2SAT 94
[2017-09-24] MEDS: POLYETHYLENE (MIRALAX) 17 GM PACK PO SCH ×4 (06:01→23:27)
[2017-09-24] MEDS: OXYCODONE HCL IR 5 MG TAB (IMMEDIATE RELEASE) PO PRN ×2 (06:06→11:44)
[2017-09-24 06:29] VITALS: BP 148/72; PULSE 78; TEMP 37.3; O2SAT 96
[2017-09-24 07:14] VITALS: BP 146/83; PULSE 61; TEMP 36.6; O2SAT 97
[2017-09-24 07:40] LABS: HEMATOCRIT 25.8 % (37-47); HEMOGLOBIN 8.7 g/dL (12.0-16.0); MEAN CELL VOLUME 85.1 fL (80-100); MEAN CORPUSCULAR HEMOGLOBIN 28.7 pg (25-34); MEAN CORPUSCULAR HGB CONC 33.7 g/dl (32-36); MEAN PLATELET VOLUME 9.3 fL (7.4-10.4); PLATELET COUNT 263 K/uL (130-400); RED CELL DISTRIBUTION WIDTH CV 14.5 % (11.5-14.5); RED CELL DISTRIBUTION WIDTH SD 45.5 fL (36.4-46.3); WHITE BLOOD COUNT 13.77 K/uL (4.8-10.8)
[2017-09-24] MEDS: DOCUSATE SODIUM 100 MG CAP PO SCH ×2 (07:46→21:07)
[2017-09-24] MEDS: DORZOLAMIDE/TIMOLOL 22.3/6.8MG/ML 10 ML BTL OPL SCH ×2 (07:46→21:20)
[2017-09-24] MEDS: GABAPENTIN 100 MG CAP PO SCH ×2 (07:46→21:08)
[2017-09-24] MEDS: METOPROLOL TARTRATE 25 MG TAB PO SCH ×2 (07:46→21:08)
[2017-09-24] MEDS: AMLODIPINE BESYLATE 5 MG TAB PO SCH (07:47)
[2017-09-24 08:05] LABS: CALCIUM 8.1 mg/dl (8.5-10.1); CREATININE 0.67 mg/dl (0.60-1.20); POTASSIUM 3.8 mmol/L (3.5-5.1)
--- NOTE | 2017-09-24 10:01 | Progress Note ---
Progress Note Date of Service Sep 24, 2017. Progress Note Patient's back pain is controlled. Leg symptoms improved. On exam she is good strength testing appears comfortable. Assessment status post multilevel lumbar decompression fusion. Plan at this time will continue physical therapy maintain the drain another 24 hours anticipate rehab Monday or Monday.
[2017-09-24] MEDS ORDERED: RXC5 PO (10:07)
--- NOTE | 2017-09-24 10:08 | Discharge Instructions ---
Discharge Instructions Date of Service Sep 24, 2017. Admission Reason for Admission: Lumbar Spinal Stenosis Discharge Discharge Diagnosis / Problem: lumbar stenosis Discharge Goals Goal(s): Improve function Activity Recommendations Activity Limitations: per Instructions/Follow-up section . Instructions / Follow-Up Instructions / Follow-Up ACTIVITY RECOMMENDATIONS: SELF CARE INSTRUCTIONS AFTER THORACIC/LUMBAR FUSIONS 1. You may walk to your tolerance. It is good exercise for your legs and back. Expect some back and intermittent leg aches and pains. 2. You may perform "counter-top" level activities (make a sandwich, stan with a project, etc.). 3. No bending or lifting of more than 10 pounds or back twisting of any nature (roll like a log when turning in bed). 4. You may ride in a car for 20-30 minutes at a time. No driving until after your first visit with your doctor. 5. Frequent changes of position and restricting sitting to 30 minutes at a time will help limit the amount of back spasms and stiffness you may experience. 6. You may discontinue the use of ambulatory aids (cane, crutches, etc.) once your strength and confidence allow. 7. You may geographic information system surveyor the shower and let water strike your incision when you arrive home at least once daily. Do not take a tub bath, sit in a hot tub or go into a swimming pool until after your first recheck in the office. SPECIAL CARE INSTRUCTIONS: VERY IMPORTANT TO READ AND REVIEW A. Your surgical incision has been closed with a cosmetic suture under the skin that will dissolve in about 6 weeks. In 14 days, you can use a pair of clean scissors and cut the suture that is left outside of the skin at the ends of your incision. 1. The small skin tapes can be removed 7 days after surgery if they have not fallen off by that point. 2. You may keep the wound open to air as much as possible to promote healing after post-op day number 5 unless told otherwise by your doctor. 3. If you think the wound looks like it is becoming infected (redness or worsening drainage) and/or you are experiencing fever, chill or worsening back pain and muscle spasms, contact the office so that we may evaluate you as soon as possible. B. Complications are uncommon, but please contact us if you have any signs or symptoms of: 1. wound infection (fever higher than 102.5 degrees F, redness, separation of wound, drainage, or increasing pain from the incision) 2. blood clots in legs (pain, swelling, redness and warmth in legs) 3. urinary tract infection (fever higher than 102.5 degrees F, burning upon urination or increased frequency of urination) 4. nerve problems (inability to walk on your toes or heels, numbness, loss of bowel or bladder control) 5. any other symptoms that concern you C. Please call the office at if you have any concerns or questions about your operation or recovery. D. No smoking! Smoking drastically decreases the chance of a solid fusion. E. Do not take any anti-inflammatory medications (Indocin, Advil, Motrin, Aspirin, Naprosyn, etc.) as these may inhibit the chance of a solid fusion. Tylenol is okay to take for pain. MANAGING PAIN AFTER SPINAL SURGERY 1. Narcotic medication is intended for short-term use and will be provided for surgical pain. Surgical pain usually lasts for a period of 4-6 weeks. Narcotic medication includes Percocet, Vicodin, Darvocet, Tylenol #3 or Lortab. 2. Longer-term pain is more appropriately treated with non-narcotic medication such as Tylenol ES. 3. Muscle spasm is not appropriately treated with narcotics. Muscle relaxers such as Soma, Flexeril or Skelaxin can be used along with Tylenol ES. 4. Remember that we all live with some "aches and pains". This is not unusual or uncommon after an injury or as we get older. a. Back pain is expected and may include muscle spasms for 4 to 6 weeks after surgery. The pain should gradually improve. If the pain worsens for no apparent reason, please contact the office. b. Intermittent leg pain may also be experienced and should not be concerned about unless it worsens for no apparent reason. If so, please contact the office. 5. We will provide appropriate medication within the normal guidelines of their prescribed use. We will also be very cautious and aware of potential abuse and extended duration of patients' medication needs. a. Pain medications are for your comfort and to assist with sleep and rest so that the tissue can heal. They are not provided in order to return to normal activity and should not be used through the day. To do so or worsening pain at night can result from ongoing tissue damage and development of tolerance to the prescribed medicine. 6. Please allow 2-3 days to process refills. Prescriptions will not be mailed but must be picked up at the office. FOLLOW UP VISIT: Keep your scheduled follow-up appointment. Any questions, please call the office at . Current Hospital Diet Patient's current hospital diet: Regular Diet Discharge Diet Recommended Diet: Regular Diet Procedures Procedures Performed: 1. Lumbar decompression medial facetectomies foraminotomies L2-3 L3-4L4-5 L5-S1. #2 posterior spinal fusion L3-4 L4-5 L5-S1. #3 placementposterior segmental instrumentation L3-S1. #4 interbody fusion L5-S1. #5placement peek cage 11 x 26 mm at L5-S1. #6 placement of locallyharvested morselized autograft in the posterior gutters. #7 placementInFUSE collagen sponge, master graft in the posterior lateral gutters andostial amp in the interbody space. Pending Studies Studies pending at discharge: no Medical Emergencies . Who to Call and When: Medical Emergencies: If at any time you feel your situation is an emergency, please call 911 immediately. . Non-Emergent Contact Non-Emergency issues call your: Primary Care Provider . "Provider Documentation" section prepared by Garrett Sommers. .
[2017-09-24 16:27] VITALS: BP 148/74; PULSE 68; TEMP 37.1; O2SAT 92
[2017-09-24 21:05] VITALS: BP 124/71; PULSE 69
[2017-09-24] MEDS: LATANOPROST 0.005% OP SOLN 2.5 ML BTL OPL SCH (21:05)
[2017-09-24] MEDS: ASPIRIN 81 MG ECTAB PO SCH (21:07)
[2017-09-24] MEDS: RANITIDINE HCL 150 MG TAB PO SCH (21:08)
[2017-09-24] MEDS: DOCUSATE SODIUM/SENNA 50/8.6MG TAB PO SCH (21:08)
[2017-09-24] MEDS: ISOSORBIDE MONONITRATE 60 MG TABCR PO SCH (21:08)
[2017-09-24] MEDS: LOSARTAN POTASSIUM 50 MG TAB PO SCH (21:09)
[2017-09-24] MEDS: ATORVASTATIN 20 MG TAB PO SCH (21:09)
--- NOTE | 2017-09-24 21:11 | Progress Note ---
Internal Med Progress Note Date of Service: Sep 24, 2017. Provider Documentation: SUBJECTIVE: very pleasant sitting on chair has minimum pain at back , surgical site doing well with PT/OT denies of any complain of dizzy spell ,lightheadedness or PARRA OBJECTIVE: Vital Signs-as noted below Exam: General-elderly female, no sign of distress Eyes-sclera is nonicteric ENT-moist oral mucosa Neck-neck supple no JVD Lungs-clear to auscultate, no wheeze or rales Heart-regular S1 and Abdomen-soft nontender Extremities-no lower extremity Neuro-alert awake oriented 3, no focal neurological deficit Lab data as noted below. ASSESSMENT & PLAN: S/P L2 - S1 DECOMPRESSION AND FUSION - POD# 2 - activity and wound care orders as per ortho - pain control with bowel regimen - PT/OT -Post of H&H remained stable ACUTE BLOOD LOSS ANEMIA: Hemoglobin dropped from 13 to 8.7 -> 8.7 Due to juan ramon and postop surgical blood loss due to surgery pt denies of any symptoms of dizziness spell dyspnea on exertion /poor exercise tolerance Continue to monitor Transfuse for hemoglobin less than 8 HYPONATREMIA -Possible secondary to volume -Was on HCTZ which has been kept on hold -Given IV fluid, Na level dropped to 130-129 IV fluid D/donato remove Salt restriction -Repeat PRP in a.m. HISTORY CAD -Appears stable, -Continue aspirin, statin, beta-laura, and nitrate HYPERTENSION -BP stable -Continue amlodipine, isosorbide, metoprolol -HCTZ kept on hold secondary to hyponatremia HISTORY CVA -Continue aspirin and statin DVT PROPHYLAXIS -Teds and SCDs as per spine orthopedics DISPOSITION Per primary team Vital Signs: Date Time Temp Pulse Resp B/P (MAP) Pulse Ox O2 Delivery O2 Flow Rate FiO2 09/25/17 07:30 Room Air 09/25/17 06:13 36.9 61 16 161/88 (112) 95 Room Air 09/24/17 23:20 Room Air 09/24/17 22:54 36.8 54 16 146/82 (103) 93 Room Air 09/24/17 21:05 69 124/71 (88) 09/24/17 16:27 37.1 68 17 148/74 (98) 92 Room Air 09/24/17 16:10 Room Air Lab Results: Results Past 24 Hours Test 09/25/17 05:15 Range/Units Sodium Level 128 136-145 mmol/L Potassium Level 3.6 3.5-5.1 mmol/L Chloride Level 96 98-107 mmol/L Carbon Dioxide Level 28 21-32 mmol/L Anion Gap 4.0 3-11 mmol/L Blood Urea Nitrogen 13 7-18 mg/dl Creatinine 0.58 0.60-1.20 mg/dl Est Creatinine Clear Calc Drug Dose 71.1 ml/min Estimated GFR () 98.1 Estimated GFR (Non- 84.6 BUN/Creatinine Ratio 22.7 10-20 Random Glucose 145 70-99 mg/dl Calcium Level 8.4 8.5-10.1 mg/dl
[2017-09-24 21:13] VITALS: BP 124/71
[2017-09-24 22:54] VITALS: BP 146/82; PULSE 54; TEMP 36.8; O2SAT 93
[2017-09-25] MEDS: POLYETHYLENE (MIRALAX) 17 GM PACK PO SCH (05:41)
[2017-09-25] MEDS ORDERED: NURSING VERBAL MED ORDER ONE (06:00)
[2017-09-25 06:13] VITALS: BP 161/88; PULSE 61; TEMP 36.9; O2SAT 95
[2017-09-25 06:18] LABS: CALCIUM 8.4 mg/dl (8.5-10.1); CREATININE 0.58 mg/dl (0.60-1.20); POTASSIUM 3.6 mmol/L (3.5-5.1)
[2017-09-25] MEDS: DORZOLAMIDE/TIMOLOL 22.3/6.8MG/ML 10 ML BTL OPL SCH (07:28)
[2017-09-25] MEDS: GABAPENTIN 100 MG CAP PO SCH (07:29)
[2017-09-25] MEDS: DOCUSATE SODIUM 100 MG CAP PO SCH (07:29)
[2017-09-25] MEDS: AMLODIPINE BESYLATE 5 MG TAB PO SCH (07:29)
[2017-09-25] MEDS: METOPROLOL TARTRATE 25 MG TAB PO SCH (07:29)
[2017-09-25 12:13] VITALS: BP 161/88; PULSE 61; TEMP 36.9; O2SAT 95
--- NOTE | 2017-09-25 13:02 | Consultant Recommendations ---
Boiler Room Operator Recommendations Date of Service Sep 25, 2017. Boiler Room Operator Recommendations HYPONATREMIA/LOW SODIUM LEVEL -DO NOT TAKE HYDROCHLOROTHIAZIDE TILL EVALUATED BY YOUR FAMILY PHYSICIAN HOSPITAL FOLLOW UP : 09/28/2017 @ 9:[address] Linden Jarrell DO General Internal Medicine [facility] -NEED REPEAT LAB WORK : CBC /BASIC METABOLIC PANEL IN Monday09/28/17
--- NOTE | 2017-09-25 13:11 | Progress Note ---
Progress Note Date of Service Sep 25, 2017. Progress Note INTERNAL MEDICINE NOTE /RECOMMENDATION AM Lab reviewed : Na level continues to decline -Na 134-> 130-> 129-> 128 HCTZ has been kept on hold since admission pt is asked not to take HCTZ has Appointment scheduled with Her family physician on 09/28/17 /lab check on same day for CBC ( anemia ) /BMP ) ( hyponatremia ) may need out pt Nephrology follow up with Na level continues be low OK to discharge to rehab today
--- NOTE | 2017-09-25 15:52 | Discharge Summary ---
Orthopedic Discharge Summary Admission Date/Reason Sep 22, 2017 at 07:30 Lumbar Spinal Stenosis. Discharge Date/Disposition Sep 25, 2017 Rehab Diagnosis Principal Diagnosis: Lumbar spinal stenosis with neurogenic claudication Admission Physical Exam As per Admitting History & Physical. Hospital Course Patient underwent lumbar decompression and fusion tolerated as well as taken to the orthopedic floor postoperatively. Postop day #1 she was up and ambulatory progress throughout the weekend. The GIANNA drain decreased appropriately. Pain well controlled. Subsequently she was discharged to rehab. Discharge orders and instructions can be found in the chart for further review. Discharge Instructions Please refer to the electronic Patient Visit Report (Discharge Instructions) for additional information.
== END 2017-09-25 15:11 | DRG 454 ==
LOC: C.ACU 05:49 → C.3E 07:30 → ENRESERV 11:48
PROVIDERS: ADMIT Orthopaedic Surgery Orthopaedic Surgery of the Spine; ATTEND Orthopaedic Surgery Orthopaedic Surgery of the Spine
PROC: 0ST40ZZ Resection of Lumbosacral Disc, Open Approach (ICD-10-PCS; principal; 2017-09-22 07:45)
PROC: 0SG1071 Fusion of 2 or more Lumbar Vertebral Joints with Autologous Tissue Substitute, Posterior Approach, Posterior Column, Open Approach (ICD-10-PCS; principal; 2017-09-22 07:45)
PROC: 0SG3071 Fusion of Lumbosacral Joint with Autologous Tissue Substitute, Posterior Approach, Posterior Column, Open Approach (ICD-10-PCS; principal; 2017-09-22 07:45)
PROC: 0SG30AJ Fusion of Lumbosacral Joint with Interbody Fusion Device, Posterior Approach, Anterior Column, Open Approach (ICD-10-PCS; principal; 2017-09-22 07:45)
DX: M48.062 Spinal stenosis, lumbar region with neurogenic claudication (principal); D62 Acute posthemorrhagic anemia; E87.1 Hypo-osmolality and hyponatremia; I25.10 Atherosclerotic heart disease of native coronary artery without angina pectoris; K21.9 Gastro-esophageal reflux disease without esophagitis; H40.9 Unspecified glaucoma; I10 Essential (primary) hypertension; I73.9 Peripheral vascular disease, unspecified; Z79.82 Long term (current) use of aspirin; Z79.899 Other long term (current) drug therapy; Z85.3 Personal history of malignant neoplasm of breast; Z86.73 Personal history of transient ischemic attack (TIA), and cerebral infarction without residual deficits; Z88.1 Allergy status to other antibiotic agents; Z88.8 Allergy status to other drugs, medicaments and biological substances

== ENCOUNTER → 2017-10-24 | Outpatient (CLI) | payer OTHER ==
[~2017-10-24] MED LIST changes: -HYDR25TA4 PO; +PRED1SUS3 OPR; +RXC5 PO; -[UNRECOGNIZED DRUG - OTHER] OPR
[2017-10-24 13:16] LABS: BLOOD UREA NITROGEN 16 mg/dl (7-18); CALCIUM 8.9 mg/dl (8.5-10.1); CARBON DIOXIDE 28 mmol/L (21-32); GLUCOSE 111 mg/dl (70-99); POTASSIUM 3.9 mmol/L (3.5-5.1); SODIUM 136 mmol/L (136-145)
== END | disposition home or self-care (01) ==
LOC: C.LABOAKS 18:02
PROVIDERS: ATTEND Internal Medicine
DX: R79.9 Abnormal finding of blood chemistry, unspecified (principal)

== ENCOUNTER 2020-08-07 16:30 | Inpatient (IN) ==
[2020-08-07] MEDS ORDERED: SODIUM CHLORIDE 0.9% 500 ML IV SCH (17:00)
[2020-08-07] MEDS ORDERED: SODIUM CHLORIDE 0.9% 1000ML 1,000 ML IV SCH (17:00)
--- NOTE | 2020-08-07 17:10 | Emergency Department Note ---
Impression & Plan AMS (altered mental status), UTI (urinary tract infection) ED Provider Note INFORMANT: Patient ED PROVIDER(S): Jose Otero MD CHIEF COMPLAINT: UTI, confusion PLAN: Disposition: Admitted Condition: Good Outpatient prescription management: none Referral: None MEDICAL DECISION MAKING: Patient presented in department with complaints of urinary symptoms and confusion. She has a history of UTI. She was concerned that she lives alone. An IV was tablets. Twelve-lead ECG performed. The patient underwent blood work, cath urinalysis specimen, and head CT chest x-ray imaging. ECG unremarkable for acute problems. Patient's blood work was unremarkable except for a mild elevation of her total CK. Imaging did not reveal any acute findings. Her urinalysis was very concerning for infection. The patient was started on IV Rocephin. Given her confusion and the fact that she lives alone further treatment in the hospital is warranted. Consultation was made with the [facility] hospitalist service. Case was discussed with Dr. Zhu. The patient was evaluated in the ER for further management. Triage Nursing notes reviewed and agree them. Vital Signs: reviewed and remarkable for significant hypertension Differential diagnosis: Infection, hypoglycemia, electrolyte abnormalities, toxicologic, cardiac sources, intracerebral event, neurologic, trauma, as well as other pathologies. Diagnostics interpreted by me: ECG: Twelve-lead ECG reveals sinus rhythm with first-degree block at 72 bpm. LVH present. Poor R wave progression. No ST elevation or depression. Normal axis. No PVCs or PACs. Cardiac Monitoring: Cardiac monitoring ordered by me: The patient was placed on continuous cardiac monitoring and observed. It revealed a normal sinus rhythm at 87 beats per minute without ectopy or evidence of dysrhythmia. Imaging studies: Chest x-ray. Findings: A chest x-ray was performed and revealed no pneumothorax, effusion, infiltrate, pulmonary edema, free air under the diaphragm, or wide mediastinum. Impression: No acute disease. Head CT: A noncontrast CT scan of the head was performed and was negative for tumor, fracture, intracranial hemorrhage, or other acute pathology. Consultation(s): Hospitalist service HPI: The patient is a 89 year old female who presents to the Emergency Room with complaints of confusion and UTI symptoms. This started over the last few days and is persisting. The patient also notes the following associated symptoms, poor sleep 4 days ago, generalized weakness. The patient question if this was from receiving her second Covid vaccination although she noted feeling well the day of and day after. The patient has found no relieving factors. Current pain is rated as 0/10. Patient was concerned as she lives alone. She noted that she had periods of confusion. Attempts were made to contact the patient yesterday by friends and they were unsuccessful. Pt denies LOC, headache, fevers, chills, diaphoresis, visual changes, neck pain, chest pain, breathing difficulties, nausea, vomiting, abdominal pain, back pain, melena, hematochezia, numbness, focal weakness, lymphadenopathy, rash, or other complaints. ROS: See above HPI for pertinent positives & negatives. A total of 10 systems reviewed and were otherwise negative. PAST MEDICAL HISTORY:See Below , UTI, SC PAST SURGICAL HISTORY:See Below, FAMILY HISTORY:See Below SOCIAL HISTORY:See Below, lives alone HOME MEDICATIONS:See Below ALLERGIES:See Below VITALS:See Below PHYSICAL EXAMINATION: GENERAL: Awake, alert, tired-appearing, in no distress HENT: Normocephalic, atraumatic. Oropharynx unremarkable. EYES: Normal conjunctiva. Sclera non-icteric. NECK: Inspection normal. Non-tender. Supple. No nuchal rigidity. FROM. No masses. RESPIRATORY: Clear to auscultation. No wheezes. No rales. Normal respiratory effort. CARDIAC: Normal rate. Normal rhythm. No murmurs. No rubs. Extremities warm and well perfused. Pulses equal. No JVD. GI: Soft, non-distended. No tenderness to palpation. No rebound or guarding. No masses. RECTAL: Deferred. MUSCULOSKELETAL: Atraumatic. Chest examination reveals no tenderness. The back is symmetrical on inspection without obvious abnormality. There is no CVA tenderness to palpation. No joint edema. LOWER EXTREMITIES: Calves are equal size bilaterally and non-tender. 1+ edema. No discoloration. NEURO: Relatively normal sensorium. No sensory or motor deficits noted. SKIN: No rash or jaundice noted. Jose Otero MD Past Med/Surg History Social History Smoking Status: Never smoker Feels Safe at Home: Yes Allergies Allergies Allergy/AdvReac Type Severity Reaction Status Date / Time brimonidine Allergy Mild RED ITCHY Verified 08/07/20 17:40 EYE clavulanic acid Allergy Mild headache Verified 08/07/20 17:40 sulfamethoxazole AdvReac Intermediate CHILLS/RIGORS-PER Verified 08/07/20 17:40 [From Bactrim] GMG trimethoprim [From Bactrim] AdvReac Intermediate CHILLS/RIGORS-PER Verified 08/07/20 17:40 GMG amoxicillin AdvReac Mild headache Verified 08/07/20 17:40 Home Meds Home Medications Medication Instructions Recorded Confirmed Stool Softener W/Additives 1 tab PO DAILY 08/07/20 08/07/20 acetaminophen [Tylenol Extra 1,000 mg PO Q4H PRN 08/07/20 08/07/20 Strength] amlodipine 2.5 mg PO DAILY 08/07/20 08/07/20 aspirin 81 mg PO HS 08/07/20 08/07/20 atorvastatin 20 mg PO DAILY 08/07/20 08/07/20 baclofen 10 mg PO HS PRN 08/07/20 08/07/20 calcium carbonate-vitamin D3 1 tab PO BIDM 08/07/20 08/07/20 [Calcium 600 + D(3)] coenzyme Q10 [CoQ-10] 100 mg PO DAILY 08/07/20 08/07/20 dorzolamide-timolol [Cosopt] 1 drp OPL BID 08/07/20 08/07/20 gabapentin 600 mg PO DAILY 08/07/20 08/07/[address]os sul [id number] 1 cap PO BID 08/07/20 08/07/20 [Glucosamine Chondroitin] hydrochlorothiazide 25 mg PO DAILY 08/07/20 08/07/20 isosorbide mononitrate 60 mg PO DAILY 08/07/20 08/07/20 latanoprost 1 drp OPHTHALMIC (EYE) DIRECTED 08/07/20 08/07/20 losartan 100 mg PO DAILY 08/07/20 08/07/20 multivitamin 1 tab PO DAILY 08/07/20 08/07/20 nitroglycerin [Nitrostat] 0.4 mg SUBLINGUAL DIRECTED PRN 08/07/20 08/07/20 pantoprazole [Protonix] 20 mg PO DAILY 08/07/20 08/07/20 potassium chloride 10 meq PO DAILY 08/07/20 08/07/20 prednisolone acetate [Pred Forte] 1 drp OPHTHALMIC (EYE) DIRECTED 08/07/20 08/07/20 sotalol 80 mg PO BID 08/07/20 08/07/20 warfarin See Rx Instructions .ROUTE .COMPLEX 08/07/20 08/07/20 Results & Data (ED) Vital Signs Vital Signs - 24 hr 08/07/20 16:32 08/07/20 17:34 Temperature 36.7 C Temperature Source Temporal Artery Scan Pulse Rate 87 87 Pulse Rhythm Regular Regular Pulse Strength Normal Respiratory Rate 18 18 Respiratory Effort / Characteristics Non-Labored Spontaneous Respiratory Depth Normal Respiratory Pattern Regular Blood Pressure 195/125 H Blood Pressure Mean 148 Blood Pressure Position Sitting Pulse Oximetry 95 95 Oxygen Delivery Method Room Air Room Air Sepsis Recent Fever Within 48 Hours No Sepsis New/Unexplained Change in Mental Status N/A Sepsis Action Taken by Nursing No Action Required Laboratory Data Result diagrams: 08/07/20 17:20 08/07/20 17:20 Lab Results 08/07/20 08/07/20 08/07/20 Range/Units 17:20 17:20 17:20 WBC 6.34 (4.8-10.8) K/uL RBC 5.04 (4.2-5.4) M/uL Hgb 14.2 (12.0-16.0) g/dL Hct 40.9 (37-47) % MCV 81.2 (80-100) fL MCH 28.2 (25-34) pg MCHC 34.7 (32-36) g/dL RDW Std Deviation 44.0 (36.4-46.3) fL RDW Coeff of Elke 14.8 H (11.5-14.5) % Plt Count 239 (130-400) K/uL MPV 9.6 (7.4-10.4) fL Immature Gran % (Auto) 0.2 % Neut % (Auto) 46.4 % Lymph % (Auto) 36.1 % Gilliam % (Auto) 16.2 % Eos % (Auto) 0.8 % Baso % (Auto) 0.3 % Neut # (Auto) 2.94 (1.4-6.5) K/uL Lymph # (Auto) 2.29 (1.2-3.4) K/uL Gilliam # (Auto) 1.03 H (0.11-0.59) K/uL Eos # (Auto) 0.05 (0-0.5) K/uL Baso # (Auto) 0.02 (0-0.2) K/uL Immature Gran # (Auto) 0.01 (0.00-0.02) K/uL PT 15.6 H (9.0-12.0) Seconds INR 1.6 H (0.9-1.1) Sodium 132 L (136-145) mmol/L Potassium 3.6 (3.5-5.1) mmol/L Chloride 98 (98-107) mmol/L Carbon Dioxide 26 (21-32) mmol/L Anion Gap 8.0 (3-11) BUN 16 (7-18) mg/dl Creatinine 0.69 (0.6-1.2) mg/dl Est Cr Clr Drug Dosing Not Reportable Est GFR ( Amer) 90.7 Est GFR (Non-Af Amer) 78.3 BUN/Creatinine Ratio 23.4 H (10-20) Glucose 99 (70-99) mg/dl Calcium 8.9 (8.5-10.1) mg/dl Magnesium 2.1 (1.8-2.4) mg/dl Total Bilirubin 0.5 (0.2-1) mg/dl AST 30 (15-37) U/L ALT 23 (12-78) U/L Alkaline Phosphatase 80 (45-117) U/L Total Creatine Kinase 496 H (26-192) U/L Troponin I < 0.015 (0-0.045) ng/ml Total Protein 7.8 (6.4-8.2) gm/dl Albumin 3.5 (3.4-5.0) gm/dl Globulin 4.3 H (2.5-4.0) gm/dl Albumin/Globulin Ratio 0.8 L (0.9-2) TSH 1.720 (0.300-4.500) uIu/ml Urine Color Urine Appearance (Clear) Urine pH (4.5-7.5) Ur Specific [place] (1.000-1.030) Urine Protein (Negative) Urine Glucose (UA) (Negative) Urine Ketones (Negative) Urine Blood (Negative) Urine Nitrite (Negative) Urine Bilirubin (Negative) Urine Urobilinogen (Negative) Ur Leukocyte Esterase (Negative) Urine WBC (Auto) (0-5) /hpf Urine RBC (Auto) (0-4) /hpf U Hyaline Cast (Auto) (0-5) /lpf U Epithel Cells (Auto) (0-5) /lpf Urine Bacteria (Auto) (Negative) 08/07/20 Range/Units 17:45 WBC (4.8-10.8) K/uL RBC (4.2-5.4) M/uL Hgb (12.0-16.0) g/dL Hct (37-47) % MCV (80-100) fL MCH (25-34) pg MCHC (32-36) g/dL RDW Std Deviation (36.4-46.3) fL RDW Coeff of Elke (11.5-14.5) % Plt Count (130-400) K/uL MPV (7.4-10.4) fL Immature Gran % (Auto) % Neut % (Auto) % Lymph % (Auto) % Gilliam % (Auto) % Eos % (Auto) % Baso % (Auto) % Neut # (Auto) (1.4-6.5) K/uL Lymph # (Auto) (1.2-3.4) K/uL Gilliam # (Auto) (0.11-0.59) K/uL Eos # (Auto) (0-0.5) K/uL Baso # (Auto) (0-0.2) K/uL Immature Gran # (Auto) (0.00-0.02) K/uL PT (9.0-12.0) Seconds INR (0.9-1.1) Sodium (136-145) mmol/L Potassium (3.5-5.1) mmol/L Chloride (98-107) mmol/L Carbon Dioxide (21-32) mmol/L Anion Gap (3-11) BUN (7-18) mg/dl Creatinine (0.6-1.2) mg/dl Est Cr Clr Drug Dosing Est GFR ( Amer) Est GFR (Non-Af Amer) BUN/Creatinine Ratio (10-20) Glucose (70-99) mg/dl Calcium (8.5-10.1) mg/dl Magnesium (1.8-2.4) mg/dl Total Bilirubin (0.2-1) mg/dl AST (15-37) U/L ALT (12-78) U/L Alkaline Phosphatase (45-117) U/L Total Creatine Kinase (26-192) U/L Troponin I (0-0.045) ng/ml Total Protein (6.4-8.2) gm/dl Albumin (3.4-5.0) gm/dl Globulin (2.5-4.0) gm/dl Albumin/Globulin Ratio (0.9-2) TSH (0.300-4.500) uIu/ml Urine Color Yellow Urine Appearance Turbid A (Clear) Urine pH 6.0 (4.5-7.5) Ur Specific [place] 1.018 (1.000-1.030) Urine Protein 1+ H (Negative) Urine Glucose (UA) Negative (Negative) Urine Ketones 1+ H (Negative) Urine Blood 1+ H (Negative) Urine Nitrite Positive A (Negative) Urine Bilirubin Negative (Negative) Urine Urobilinogen Negative (Negative) Ur Leukocyte Esterase 3+ H (Negative) Urine WBC (Auto) >30 H (0-5) /hpf Urine RBC (Auto) 0-4 (0-4) /hpf U Hyaline Cast (Auto) 1-5 (0-5) /lpf U Epithel Cells (Auto) 0-5 (0-5) /lpf Urine Bacteria (Auto) 1+ H (Negative) Administered Medications Sodium Chloride (Nss 1000ml) 1,000 mls @ 125 mls/hr IV .Q8H REPLACED BY [facility] Stop: 08/08/20 00:59 Last Admin: 08/07/20 17:27 Dose: 125 mls/hr Documented by: [id number] Discontinued Medications Sodium Chloride (Nss) 500 mls @ 999 mls/hr IV .Q31M REPLACED BY [facility] Stop: 08/07/20 17:30 Last Admin: 08/07/20 17:27 Dose: 999 mls/hr Documented by: [id number] Discharge Plan Visit Data Chief Complaint: Urinary Symptoms Stated Complaint: uti, altered mental status ED Provider: Jose Otero Discharge Problem: AMS (altered mental status), UTI (urinary tract infection) Forms Stand Alone Forms: [facility] Prescriptions Prescriptions: No Action multivitamin Tablet 1 tab PO DAILY RF: 0 latanoprost 0.005 % Drops 1 drp OPHTHALMIC (EYE) DIRECTED RF: 0 gabapentin 600 mg Tablet 600 mg PO DAILY RF: 0 atorvastatin 20 mg Tablet 20 mg PO DAILY RF: 0 sotalol 80 mg Tablet 80 mg PO BID RF: 0 amlodipine 2.5 mg Tablet 2.5 mg PO DAILY RF: 0 potassium chloride 10 mEq Tablet Extended Release 10 meq PO DAILY RF: 0 aspirin 81 mg Tablet,Delayed Release (Dr/Ec) 81 mg PO HS RF: 0 acetaminophen [Tylenol Extra Strength] 500 mg Tablet 1,000 mg PO Q4H PRN (Reason: FEVER/PAIN) RF: 0 pantoprazole [Protonix] 20 mg Tablet,Delayed Release (Dr/Ec) 20 mg PO DAILY RF: 0 isosorbide mononitrate 60 mg Tablet Extended Release 24 Hr 60 mg PO DAILY RF: 0 prednisolone acetate [Pred Forte] 1 % Drops,Suspension 1 drp OPHTHALMIC (EYE) DIRECTED RF: 0 baclofen 10 mg Tablet 10 mg PO HS PRN (Reason: LEG CRAMPS) RF: 0 nitroglycerin [Nitrostat] 0.4 mg Tablet, Sublingual 0.4 mg sublingual DIRECTED PRN (Reason: Chest Pain) RF: 0 dorzolamide-timolol [Cosopt] 22.3-6.8 mg/mL Drops 1 drp OPL BID RF: 0 hydrochlorothiazide 25 mg Tablet 25 mg PO DAILY RF: 0 losartan 100 mg Tablet 100 mg PO DAILY RF: 0 coenzyme Q10 [CoQ-10] 100 mg Capsule 100 mg PO DAILY RF: 0 calcium carbonate-vitamin D3 [Calcium 600 + D(3)] 600 mg(1,500mg) -400 unit Tablet 1 tab PO BIDM RF: 0 Glucosamine Chondroitin 550-30-1 mg Capsule 1 cap PO BID RF: 0 warfarin 7.5 mg tablet 7.5 mg PO SUMOFR RF: 0 warfarin 7.5 mg tablet 3.75 mg PO TUWETHSA RF: 0
[2020-08-07 17:32] LABS: Basophils # (auto) 0.02 K/uL (0-0.2); Basophils % (auto) 0.3 %; Eosinophils # (auto) 0.05 K/uL (0-0.5); Eosinophils % (auto) 0.8 %; Hematocrit (blood only) 40.9 % (37-47); Hemoglobin 14.2 g/dL (12.0-16.0); Immature Granulocytes # (auto) 0.01 K/uL (0.00-0.02); Immature Granulocytes % (auto) 0.2 %; Lymphocytes # (auto) 2.29 K/uL (1.2-3.4); Lymphocytes % (auto) 36.1 %; Mean Corpuscular Hemoglobin 28.2 pg (25-34); Mean Corpuscular Hgb Conc 34.7 g/dL (32-36); Mean Corpuscular Volume 81.2 fL (80-100); Mean Platelet Volume 9.6 fL (7.4-10.4); Monocytes # (auto) 1.03 K/uL (0.11-0.59); Monocytes % (auto) 16.2 %; Neutrophils # (auto) 2.94 K/uL (1.4-6.5); Neutrophils % (auto) 46.4 %; Platelet Count 239 K/uL (130-400); RDW Coefficient of Variation 14.8 % (11.5-14.5); Red Blood Count 5.04 M/uL (4.2-5.4); White Blood Count 6.34 K/uL (4.8-10.8)
--- NOTE | 2020-08-07 17:47 | XRay Report ---
SINGLE VIEW CHEST CLINICAL HISTORY: Generalized weakness. FINDINGS: An AP, portable, upright chest radiograph is compared to study dated 11/06/2017. A 2-lead car diac pacemaker is new from previous. The heart is enlarged noting atherosclerotic calcification of th e thoracic aorta. The pulmonary vasculature is noncongested. Chronic residual thickening is similar t o previous. There is mild bibasilar scarring/atelectasis. No airspace consolidation or large pleural effusion is identified. Scattered calcified granulomas are noted. No pneumothorax is seen. The skelet al structures are osteopenic. The bony thorax is grossly intact. Arthritic change is seen in the left shoulder. IMPRESSION: 1. Cardiomegaly and cardiac pacemaker. There is no radiographic evidence of congestive failure. 2. No airspace consolidation or large pleural effusion is identified. ACT 112: Negative or not required by law. Electronically signed by: Juan Carlos Whitmore M.D. 08/07/2020 5:45 PM
[2020-08-07 17:56] LABS: Alanine Aminotransferase 23 U/L (12-78); Albumin Level 3.5 gm/dl (3.4-5.0); Aspartate Aminotransferase 30 U/L (15-37); BUN Creatinine Ratio 23.4 (10-20); Blood Urea Nitrogen 16 mg/dl (7-18); Calcium 8.9 mg/dl (8.5-10.1); Carbon Dioxide 26 mmol/L (21-32); Chloride 98 mmol/L (98-107); Est GFR (African American) 90.7; Est GFR (Non-African American) 78.3; Glucose 99 mg/dl (70-99); Magnesium 2.1 mg/dl (1.8-2.4); Potassium 3.6 mmol/L (3.5-5.1); Sodium 132 mmol/L (136-145)
[2020-08-07 17:57] LABS: Appearance Urine Turbid (Clear); Bacteria Urine Automated 1+ (Negative); Bilirubin Urine Negative (Negative); Blood Urine 1+ (Negative); Color Urine Yellow; Epithelial Cell Urine Auto 0-5 /lpf (0-5); Glucose Urine UA Negative (Negative); Ketones Urine 1+ (Negative); Leukocyte Esterase Urine 3+ (Negative); Nitrite Urine Positive (Negative); Protein Urine 1+ (Negative); RBC Urine Automated 0-4 /hpf (0-4); Specific Gravity Urine 1.018 (1.000-1.030); Urobilinogen Urine Negative (Negative); WBC Urine Automated >30 /hpf (0-5)
--- NOTE | 2020-08-07 17:59 | CT Scan Report ---
CT SCAN OF THE BRAIN WITHOUT IV CONTRAST CLINICAL HISTORY: Change in mental status. COMPARISON STUDY: CT of the brain dated 11/26/2017. TECHNIQUE: Unenhanced axial CT scan of the brain is performed from the vertex to the skull base. A do se lowering technique was utilized adhering to the principles of ALARA. CT DOSE: 537.48 mGy.cm FINDINGS: Brain parenchyma: There are age-related involutional changes noting moderate subcortical and periven tricular microangiopathic change. There is no hemorrhage, mass effect, or evidence of acute territori al ischemia by CT criteria. Nolan-white matter differentiation is preserved. No extra-axial fluid lydia ection is seen. Ventricles, sulci, cisterns: Prominent secondary to involutional change. Intracranial vasculature: There is atherosclerotic calcification of the cavernous carotid and vertebr al arteries. Calvarium: Unremarkable. Sinuses and mastoids: There is moderate mucosal thickening within the ethmoid sinuses. Mild mucosal t hickening is noted within the frontal, sphenoid, and maxillary sinuses. The mastoid air cells are wel l pneumatized. Orbits: The bony orbits are grossly intact. There are bilateral ocular lens implants. IMPRESSION: There is no hemorrhage, mass effect, or evidence of acute territorial ischemia by CT mckenna hoff. ACT 112: Negative or not required by law. Electronically signed by: Juan Carlos Whitmore M.D. 08/07/2020 5:58 PM
[2020-08-07] MEDS ORDERED: cefTRIAXone SODIUM 2,000 MG/70 ML BAG IV STA (18:04)
[2020-08-07 18:07] LABS: Albumin Globulin Ratio 0.8 (0.9-2); Alkaline Phosphatase 80 U/L (45-117); Bilirubin,Total 0.5 mg/dl (0.2-1); Creatine Kinase 496 U/L (26-192); Globulin 4.3 gm/dl (2.5-4.0); Total Protein 7.8 gm/dl (6.4-8.2); Troponin I < 0.015 ng/ml (0-0.045)
[2020-08-07] MEDS ORDERED: POLYETHYLENE (MIRALAX) 17 GM PACK PO PRN (18:14)
[2020-08-07] MEDS ORDERED: ONDANSETRON INJ 2 MG/ML 2 ML VIAL IV PRN (18:14)
[2020-08-07] MEDS ORDERED: ALUMINUM/MAGNESIUM SUSP 30 ML UDC PO PRN (18:14)
[2020-08-07] MEDS ORDERED: hydrALAZINE HCL 20 MG/ML VIAL IV STA ×2 (18:16→21:43)
[2020-08-07 18:43] LABS: INR 1.6 (0.9-1.1); Prothrombin Time 15.6 Seconds (9.0-12.0)
[2020-08-07 19:39] LABS: BUN Creatinine Ratio 22.3 (10-20); Blood Urea Nitrogen 15 mg/dl (7-18); Calcium 8.7 mg/dl (8.5-10.1); Carbon Dioxide 28 mmol/L (21-32); Chloride 99 mmol/L (98-107); Est GFR (African American) 91.2; Est GFR (Non-African American) 78.6; Glucose 95 mg/dl (70-99); Potassium 3.5 mmol/L (3.5-5.1); Sodium 133 mmol/L (136-145)
--- NOTE | 2020-08-07 19:46 | History & Physical Report ---
Date of Service August 07, 2020 Assessment & Plan (1) UTI (urinary tract infection): -Admit to [facility] w/ telemetry -Patient presenting from home with self-reports of confusion -In the ED, UA suggestive of UTI. Confusion likely due to metabolic encephalopathy from UTI. -Patient reports that she is near her baseline -Prior urine cultures reviewed, start IV ceftriaxone based upon previous sensitivities -Does not appear septic (2) COVID-19: -Tested positive for COVID-19 on admission screening -No symptoms, saturating well on room air therefore no indication for treatment -Received a second COVID-19 vaccination on 08/04 (3) Hypertension: -BP elevated, likely secondary to missed doses of medications -Hydralazine 10 mg IV x1 -Continue home medications HCTZ, losartan, isosorbide, amlodipine -make adju stments as needed (4) Paroxysmal atrial fibrillation: (5) Tachy-garret syndrome: (6) Pacemaker: -No acute issues -Rhythm controlled on sotalol, anticoagulated on Coumadin -INR 1.6 -Continue Coumadin, making adjustments as needed (7) CAD (coronary artery disease): -Appears stable, no reports of chest pain -Continue aspirin, statin, nitrate (8) DVT prophylaxis: -SQ heparin until INR > 2.0 History of Present Illness Chief Complaint: Confusion Primary Care Provider: Linden Jarrell DO 89-year-old female with PMH CAD, paroxysmal atrial fibrillation anticoagulant on Coumadin, tachybradycardia syndrome s/p pacemaker, history of CVA, glaucoma, HTN, history of breast cancer s/p partial mastectomy, and other problems listed below who presents to the ED for evaluation of confusion. Patient reports she received her second COVID-19 vaccination 4 days ago. Reports that shortly after she felt somewhat confused. Today, she had an appointment that her neighbor was going to take her to. Her neighbor came to check on her and found her in her living room unaware of having to go to the appointment. Patient reports she did not take her medications today and believes she did not take her medications yesterday either. Denies fevers and chills. No dysuria or urinary frequency. Denies chest pain or shortness of breath. No lightheadedness, dizziness, diaphoresis, syncopal events. Denies abdominal pain, nausea, vomiting, diarrhea. She reports that she is feeling back to her baseline mentally. In the ED, UA suggest UTI. BP is elevated, otherwise hemodynamically stable. Labs are unremarkable. Patient was given IV ceftriaxone and IVF. Allergies Allergy/AdvReac Type Severity Reaction Status Date / Time brimonidine Allergy Mild RED ITCHY Verified 08/07/20 17:40 EYE clavulanic acid Allergy Mild headache Verified 08/07/20 17:40 sulfamethoxazole AdvReac Intermediate CHILLS/RIGORS-PER Verified 08/07/20 17:40 [From Bactrim] GMG trimethoprim [From Bactrim] AdvReac Intermediate CHILLS/RIGORS-PER Verified 08/07/20 17:40 GMG amoxicillin AdvReac Mild headache Verified 08/07/20 17:40 Home Medications Medication Instructions Recorded Confirmed Type acetaminophen [Tylenol Extra 1,000 mg PO Q4H PRN 08/07/20 08/07/20 History Strength] amlodipine 2.5 mg PO DAILY 08/07/20 08/07/20 History aspirin 81 mg PO HS 08/07/20 08/07/20 History atorvastatin 20 mg PO DAILY 08/07/20 08/07/20 History baclofen 10 mg PO HS PRN 08/07/20 08/07/20 History calcium carbonate-vitamin D3 1 tab PO BIDM 08/07/20 08/07/20 History [Calcium 600 + D(3)] coenzyme Q10 [CoQ-10] 100 mg PO DAILY 08/07/20 08/07/20 History dorzolamide-timolol [Cosopt] 1 drp OPL BID 08/07/20 08/07/20 History gabapentin 600 mg PO DAILY 08/07/20 08/07/20 History glucos sul [id number] 1 cap PO BID 08/07/20 08/07/20 History [Glucosamine Chondroitin] hydrochlorothiazide 25 mg PO DAILY 08/07/20 08/07/20 History isosorbide mononitrate 60 mg PO DAILY 08/07/20 08/07/20 History latanoprost 1 drp OPHTHALMIC (EYE) DIRECTED 08/07/20 08/07/20 History losartan 100 mg PO DAILY 08/07/20 08/07/20 History multivitamin 1 tab PO DAILY 08/07/20 08/07/20 History nitroglycerin [Nitrostat] 0.4 mg SUBLINGUAL DIRECTED PRN 08/07/20 08/07/20 History pantoprazole [Protonix] 20 mg PO DAILY 08/07/20 08/07/20 History potassium chloride 10 meq PO DAILY 08/07/20 08/07/20 History prednisolone acetate [Pred Forte] 1 drp OPHTHALMIC (EYE) DIRECTED 08/07/20 08/07/20 History sotalol 80 mg PO BID 08/07/20 08/07/20 History warfarin 3.75 mg PO TUWETHSA 08/07/20 08/07/20 History warfarin 7.5 mg PO SUMOFR 08/07/20 08/07/20 History Past Med/Surg History Medical History CAD (coronary artery disease) "PTCA/stent to LAD, balloon angioplasty to LAD diagonal branch" Carotid stenosis, non-symptomatic CVA (cerebral vascular accident) GERD (gastroesophageal reflux disease) Glaucoma History of breast cancer Hypertension MGUS (monoclonal gammopathy of unknown significance) Mild aortic stenosis Osteoarthritis Pacemaker Paroxysmal atrial fibrillation PVD (peripheral vascular disease) Tachy-garret syndrome Surgical History H/O hernia repair H/O partial mastectomy History of bladder surgery History of cataract surgery History of hysterectomy History of spinal fusion Hx of tubal ligation Family History Father Heart disease Social History (Updated 08/07/20 @ 19:39 by CAMILLE Posada) Smoking Status: Never smoker Hx Alcohol Use: No Hx Substance Use: No Preferred Language: Azeri Communication Ability: Effective Drilling Fluids Specialist Required: No Beliefs That Will Affect Care: None Current Living Situation: Alone Feels Safe at Home: Yes Assistive Devices: Glasses Review of Systems Review of Systems: ROS per HPI, all other systems reviewed and negative Physical Exam Constitutional: WD/WN, vitals as above Eyes: PERRL, conjunctivae normal, anicteric sclerae ENMT: external ear and nose normal, oropharynx normal Respiratory: normal respiratory effort, lungs clear to auscultation Cardiovascular: Rate/Rhythm: regular rate and regular rhythm Vessels: normal peripheral pulses Extremities: no edema Gastrointestinal (Abdomen): normal bowel sounds, soft, nontender, no hepatosplenomegaly Musculoskeletal: no cyanosis or clubbing, extremities motor strength 5/5 Skin: no rashes, warm and dry Neurologic: PERRL, EOMI, accommodation nl, no face palsy, no dysarthria Psychiatric: A+Ox3, euthymic affect Results & Data Results & Data ([facility]) Vital Signs (Past 12 Hours) Vital Signs Temp Pulse Resp BP Pulse Ox 08/07/20 19:19 70 19 140/85 97 08/07/20 19:01 70 20 131/65 97 08/07/20 17:34 87 18 95 08/07/20 16:32 36.7 C 87 18 195/125 H 95 Laboratory Results Short CBC 08/07/20 Range/Units 17:20 WBC 6.34 (4.8-10.8) K/uL Hgb 14.2 (12.0-16.0) g/dL Hct 40.9 (37-47) % Plt Count 239 (130-400) K/uL BMP 08/07/20 08/07/20 17:20 19:11 Sodium 132 L 133 L Potassium 3.6 3.5 Chloride 98 99 Carbon Dioxide 26 28 BUN 16 15 Creatinine 0.69 0.68 Glucose 99 95 Calcium 8.9 8.7 Cardiac Enzymes 08/07/20 Range/Units 17:20 Total Creatine Kinase 496 H (26-192) U/L Troponin I < 0.015 (0-0.045) ng/ml Liver Function 08/07/20 Range/Units 17:20 Total Bilirubin 0.5 (0.2-1) mg/dl AST 30 (15-37) U/L ALT 23 (12-78) U/L Alkaline Phosphatase 80 (45-117) U/L Albumin 3.5 (3.4-5.0) gm/dl Urine 08/07/20 Range/Units 17:45 Urine Color Yellow Urine Appearance Turbid A (Clear) Urine pH 6.0 (4.5-7.5) Ur Specific [place] 1.018 (1.000-1.030) Urine Protein 1+ H (Negative) Urine Glucose (UA) Negative (Negative) Diagnostic Findings CXR IMPRESSION: 1. Cardiomegaly and cardiac pacemaker. There is no radiographic evidence of congestive failure. 2. No airspace consolidation or large pleural effusion is identified. HEAD CT IMPRESSION: There is no hemorrhage, mass effect, or evidence of acute territorial ischemia by CT criteria. Code Status & VTE Plan Code Status Patient is a full code as per my discussion with her. VTE Prophylaxis Plan VTE Prophylaxis will be ordered: Yes Supervising Physician Co-Signing Physician Notes pt admitted with weakness, confusion -metabolic encephalopathy due to UTI , infection CT head negative for acute change monitor in tele empiric Abx Please refer to futher documentation by Olga Kurtz for discussion of other medical issues , Mariosl Mei
[2020-08-07] MEDS ORDERED: BACLOFEN 10 MG TAB PO PRN (21:04)
[2020-08-07] MEDS ORDERED: NITROGLYCERIN SL 0.4 MG/TAB TAB SL PRN (21:04)
[2020-08-07] MEDS ORDERED: WARFARIN SOD 7.5 MG TAB PO SCH ×2 (21:04)
[2020-08-07] MEDS ORDERED: ACETAMINOPHEN 500 MG TAB PO PRN (21:26)
[2020-08-07] MEDS: SOTALOL HCL 80 MG TAB PO SCH (21:52)
[2020-08-07] MEDS: GLUCOSAMINE SULFATE 500 MG CAP PO SCH (21:53)
[2020-08-07] MEDS: ASPIRIN 81 MG ECTAB PO SCH (21:54)
[2020-08-07] MEDS: DORZOLAMIDE/TIMOLOL 22.3/6.8MG/ML 10 ML BTL OPL SCH (21:55)
[2020-08-07] MEDS: hydroCHLOROthiazide 25 MG TAB PO SCH (21:58)
[2020-08-07] MEDS: LATANOPROST 0.005% OP SOLN 2.5 ML BTL OP SCH (21:59)
[2020-08-07] MEDS: HEPARIN SOD 5,000 UNIT/0.5 ML VIAL SQ SCH (22:00)
[2020-08-07] MEDS: amLODIPine BESYLATE 5 MG TAB PO SCH (22:00)
[2020-08-08 06:36] LABS: INR 1.6 (0.9-1.1); Prothrombin Time 15.5 Seconds (9.0-12.0)
[2020-08-08 06:56] LABS: BUN Creatinine Ratio 20.9 (10-20); Calcium 8.3 mg/dl (8.5-10.1); Est GFR (African American) 97.2; Est GFR (Non-African American) 83.8; Potassium 3.1 mmol/L (3.5-5.1)
[2020-08-08] MEDS: DORZOLAMIDE/TIMOLOL 22.3/6.8MG/ML 10 ML BTL OPL SCH ×2 (07:51→20:01)
[2020-08-08] MEDS: GLUCOSAMINE SULFATE 500 MG CAP PO SCH ×2 (07:52→20:02)
[2020-08-08] MEDS: CALCIUM 600MG + VIT D 400 IU TAB PO SCH ×2 (07:53→17:43)
[2020-08-08] MEDS: DOCUSATE SODIUM 100 MG CAP PO SCH (07:53)
[2020-08-08] MEDS: hydroCHLOROthiazide 25 MG TAB PO SCH (07:53)
[2020-08-08] MEDS: SOTALOL HCL 80 MG TAB PO SCH ×2 (07:53→20:02)
[2020-08-08] MEDS: LOSARTAN POTASSIUM 50 MG TAB PO SCH (07:54)
[2020-08-08] MEDS: POTASSIUM CHLORIDE 10 MEQ TABCR PO SCH (07:54)
[2020-08-08] MEDS: PANTOprazole 40 MG TAB PO SCH (07:54)
[2020-08-08] MEDS: ISOSORBIDE MONO EXTENDED REL 60 MG TABCR PO SCH (07:55)
[2020-08-08] MEDS: amLODIPine BESYLATE 5 MG TAB PO SCH (07:56)
[2020-08-08] MEDS: MULTIVITAMIN TAB PO SCH (07:56)
[2020-08-08] MEDS: GABAPENTIN 600 MG TAB PO SCH (07:57)
[2020-08-08] MEDS: HEPARIN SOD 5,000 UNIT/0.5 ML VIAL SQ SCH (07:57)
[2020-08-08] MEDS: prednisoLONE acetate 1% OP SUSP 5 ML BTL OPR SCH (07:58)
[2020-08-08] MEDS ORDERED: NON-FORMULARY MEDICATION (Coenzyme Q10 [Coq-10] 100 mg Capsule) PO SCH (09:00)
[2020-08-08] MEDS ORDERED: ATORVASTATIN 20 MG TAB PO SCH (09:00)
[2020-08-08] MEDS ORDERED: PHARMACIST DISCHARGE MED REC CONSULT PRN (12:17)
--- NOTE | 2020-08-08 12:27 | CT Scan Report ---
CT head/brain wo con CLINICAL HISTORY: Strokelike symptoms COMPARISON STUDY: 08/07/2020 TECHNIQUE: Axial CT of the brain is performed from the vertex to the skull base. IV contrast was not administered for this examination. A dose lowering technique was utilized adhering to the principles of ALARA. CT DOSE: 537.48 mGy.cm FINDINGS: No intra or extra-axial mass lesions are visualized. There is no CT evidence of acute cortical infarc tion. There is no evidence of midline shift. There is no acute hemorrhage. No calvarial fractures ar e visualized. There are patchy white matter hypodensities likely on a small vessel basis. Is an old left basal gang joselito infarct. There are prominent carotid and vertebral atheromatous calcifications. There is no evidence of pathologic ventricular dilatation. There is a small left maxillary sinus air-fluid level. IMPRESSION: No acute intracranial findings ACT 112: Negative or not required by law. Electronically signed by: Bashir Sorto M.D. 08/08/2020 12:24 PM
[2020-08-08] MEDS ORDERED: OPTIRAY 320 125ml IV ONE (12:28)
--- NOTE | 2020-08-08 12:37 | Communication Note ---
Date of Service: August 08, 2020 Attending note : pt was awake and alert , fluent speech this AM per nursing evaluation @ 12 pM Lunch was served ,pt was sitting on chair pt's Primary nurse was in the room , talking to patient , normal speech , nurse was on the computer in pt's s room documenting , as he turned around to check on pt found her staring blank , unable to follow instructions, Sudden onset slurred speech, no droop, confusion, slow motor response. 89/50 BP bilateral extremity weakness, no over flaccid paralysis CODE STROKE alert was called pt given IV NSS 1 liter wide open taken to stat CT head per stroke alert protocol CT head /CTA : shows no acute CVA , no hge monitor shows normal sinus rhythm Hx of Afib /tachybrady syndrome s/p Pacemaker , on Sotalol chronic Coumadin . INR 1.6 pt transferred to ICU room 103 did brief eval at bedside , no slurred speech , awake and alert , no facial droop pt does not remember brief episode at noon , recalls that lunch arrived , she was on the chair later Nurse was asking her name -and she could not talk bedside eval show no neurological deficit was hypoxic spo2 in low 80's briefly improved after supplement 02 on 4 o2 via nasal canula spo2 95% pt denies of any feeling of SOB , chest heaviness or chest tightness BP 146/82 HR 67 sinus I spoke with [facility] stroke team /Neurologist Dr Case pt is being evaluated by [facility] Marisol Mei MD
--- NOTE | 2020-08-08 12:43 | CT Scan Report ---
CT angio head w con CLINICAL HISTORY: Acute stroke like symptoms TECHNIQUE: CT angiography of the head was performed in a dynamic helical fashion during intravenous a dministration of 118 cc of Optiray 320. MIP imaging was performed. A dose lowering technique was util ized adhering to the principles of ALARA. CT DOSE: 539.23 mGy.cm COMPARISON STUDY: No previous studies for comparison. FINDINGS: There are extensive atheromatous calcifications within the distal vertebral arteries, as we ll as within the cavernous and supraclinoid carotids. There is mild bilateral internal carotid artery narrowing, and mild bilateral vertebral artery narrowing. There are no major intracranial branch occ lusions. There is mild atheromatous narrowing within the M1 segments bilaterally. No aneurysms are vi sualized. The dural venous sinuses appear patent as visualized. Inflammatory changes are present within the paranasal sinuses. IMPRESSION: 1. 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 2. No evidence of major branch occlusion 3. No evidence of aneurysm ACT 112: Negative or not required by law. Electronically signed by: Bashir Sorto M.D. 08/08/2020 12:41 PM
--- NOTE | 2020-08-08 12:57 | CT Scan Report ---
CT angio neck with con CLINICAL HISTORY: Acute stroke like symptoms COMPARISON STUDY: No previous studies for comparison. TECHNIQUE: CT angiography was performed from the aortic arch to the skull base. MIP imaging was perfo rmed. The patient was scanned in a dynamic helical fashion during intravenous administration of cc of Optiray 320. A dose lowering technique was utilized adhering to the principles of ALARA. CT DOSE: Technique: CT angiogram of the carotid and vertebral arteries was obtained using intravenous contrast and 3-D reconstruction. NASCET criteria was utilized. Findings: There is a multinodular thyroid gland. There is dense calcific plaque at the level the carotid bifurcation. This results in approximately 40 % diameter stenosis. There is no evidence of carotid dissection. There is calcification in the region of the cavernous carotids. There is extensive atheromatous calcification at the level of the left carotid bulb. This results in a less than 40% diameter stenosis. There is calcification within the cavernous carotids. There is atheromatous plaque involving both distal vertebral arteries, with a less than 50% stenosis. There is paranasal sinus inflammatory change. IMPRESSION: 1. Moderate atherosclerotic disease involving the carotid and vertebral arteries, with 40% or less di ameter stenoses of the internal carotids, and less than 50% stenoses of the distal vertebral arteries . ACT 112: Negative or not required by law. Electronically signed by: Bashir Sorto M.D. 08/08/2020 12:55 PM
[2020-08-08] MEDS ORDERED: Heparin IV Adult Wt-Based Low-Dose *NO* Bolus Protocol IV SCH (13:53)
[2020-08-08] MEDS ORDERED: HEPARIN SODIUM/DEXTROSE 25,000 UNITS/500 ML BAG IV SCH (14:00)
--- NOTE | 2020-08-08 14:03 | Hospitalist Progress Note ---
Date of Service August 08, 2020 Assessment & Plan (1) TIA (transient ischemic attack): Stroke like episode /TIA this morning please see Prior documenation for detail (2) UTI (urinary tract infection): UA positive -Prior urine cultures reviewed, start IV ceftriaxone based upon previous sensitivities -follow urine culture result (3) COVID-19: -Tested positive for COVID-19 on admission screening -symptomatic -Received a second COVID-19 vaccination on 08/04 -cont standard Isolation protocol per COVID 19 guideline (4) Hypertension: -presented with Hypertensive Urgency ( SBP in 190's ) brief period of hypotension noted during TIA BP improved after fluid bolus will hold off diuretics ( HCTZ ) and Norvasc to prevent low BP (5) Paroxysmal atrial fibrillation: rate controlled and sinus on Sotalol Coumadin continued , INR subtherapeutic IV heparin bridge therapy till INR ~2 (6) Tachy-garret syndrome: s/p Medtronic Pacemaker placement in 2018 (7) Pacemaker: (8) CAD (coronary artery disease): no acute issues - (9) DVT prophylaxis: -Coumadin /IV heparin update given to daughter over phone Admission and Anticipated Discharge Date Admission Date: August 07, 2020 Subjective Follow up visit for post stroke alert : pt is awake and alert conversing back to baseline , no weakness or paresthesia NIH stroke scale 0 evaluated by [facility] stroke Neurology-possible TIA , ( no tPA indicated : neurological symptoms resolved /on Coumadin already ) recommends IV heparin bridge therapy for subtherapeutic INR no EEG indicated as presentation highly unlikely for Seizure keep SBP between 130-140 ( does not need permissive Hypertension ) -No acute CVA in CT head and CTA prevent hypotension : pt is transferred back to PCU dysphagia screen negative diet resumed ECHO ordered per stroke work up , [facility] consulted has MEdtronic pacemaker -placed in 2018 @ [facility] will D/w Neurology if MRI and MRA brain needed will need to check MRI compatibility of the pacemaker Review of Systems Review of Systems: All systems reviewed & are unremarkable except as noted in Subjective Physical Exam Constitutional: WD/WN, vitals as above Eyes: PERRL, conjunctivae normal, anicteric sclerae ENMT: external ear and nose normal, oropharynx normal Neck: trachea midline, no thyromegaly Respiratory: normal respiratory effort, lungs clear to auscultation Cardiovascular: RRR, no murmur, no edema Gastrointestinal (Abdomen): normal bowel sounds, soft, nontender, no hepatosplenomegaly Musculoskeletal: no cyanosis or clubbing, extremities motor strength 5/5 Skin: no rashes, warm and dry Neurologic: PERRL, EOMI, accommodation nl, no face palsy, no dysarthria normal touch/pain/proprioception, moves all extremities and awake; no focal motor deficits Motor/Sensory: no pronator drift and no sensory deficit Cranial Nerves: EOM intact bilaterally, normal facial strength, tongue midline and able to elevate shoulders bilaterally; + no PERRL Psychiatric: A+Ox3, euthymic affect Results & Data Results & Data ([facility]) Vital Signs (Past 12 Hours) Vital Signs Temp Pulse Pulse Resp BP BP Pulse Ox 08/08/20 12:09 153/93 H 08/08/20 12:07 74/46 L 08/08/20 11:01 36.4 C L 65 18 143/75 H 95 08/08/20 08:00 62 08/08/20 07:44 08/08/20 07:42 36.7 C 63 18 175/102 H 96 08/08/20 03:58 36.6 C 58 L 19 136/84 95 Pulse Ox 08/08/20 12:09 08/08/20 12:07 08/08/20 11:01 08/08/20 08:00 08/08/20 07:44 96 08/08/20 07:42 08/08/20 03:58
[2020-08-08] MEDS ORDERED: POTASSIUM CHLORIDE CRTAB 20 MEQ TABCR PO STA (14:48)
[2020-08-08] MEDS ORDERED: NSS + 20MEQ KCL 20 MEQ/1,000 ML BAG IV SCH (15:00)
[2020-08-08 15:12] LABS: Basophils # (auto) 0.02 K/uL (0-0.2); Basophils % (auto) 0.2 %; Eosinophils # (auto) 0.07 K/uL (0-0.5); Eosinophils % (auto) 0.8 %; Hemoglobin 14.2 g/dL (12.0-16.0); Immature Granulocytes # (auto) 0.02 K/uL (0.00-0.02); Immature Granulocytes % (auto) 0.2 %; Lymphocytes # (auto) 2.56 K/uL (1.2-3.4); Lymphocytes % (auto) 28.9 %; Mean Corpuscular Hemoglobin 27.6 pg (25-34); Mean Corpuscular Volume 81.7 fL (80-100); Mean Platelet Volume 9.7 fL (7.4-10.4); Monocytes % (auto) 13.5 %; Neutrophils % (auto) 56.4 %; Platelet Count 262 K/uL (130-400); RDW Coefficient of Variation 14.8 % (11.5-14.5); RDW Standard Deviation 44.3 fL (36.4-46.3); Red Blood Count 5.14 M/uL (4.2-5.4); White Blood Count 8.87 K/uL (4.8-10.8)
[2020-08-08 15:19] LABS: Mean Corpuscular Hgb Conc 33.8 g/dL (32-36)
[2020-08-08 15:24] LABS: Partial Thromboplastin Ratio 1.4; Partial Thromboplastin Time 35.6 Seconds (21.0-31.0)
[2020-08-08] MEDS: WARFARIN SOD 7.5 MG TAB PO SCH (15:38)
[2020-08-08] MEDS ORDERED: cefTRIAXone SODIUM 2,000 MG in DEXTROSE 5% 50 ML IV SCH (18:00)
[2020-08-08] MEDS ORDERED: WARFARIN SOD 1.25 MG TAB PO SCH (19:02)
[2020-08-08] MEDS: ASPIRIN 81 MG ECTAB PO SCH (20:02)
[2020-08-08] MEDS: LATANOPROST 0.005% OP SOLN 2.5 ML BTL OP SCH (20:02)
[2020-08-08] MEDS: ACETAMINOPHEN 325 MG TAB PO PRN (20:06)
[2020-08-08 22:11] LABS: Partial Thromboplastin Ratio 2.6; Prothrombin Time 18.8 Seconds (9.0-12.0)
[2020-08-08 22:18] LABS: Partial Thromboplastin Time 67.8 Seconds (21.0-31.0)
[2020-08-09 06:27] LABS: Basophils # (auto) 0.01 K/uL (0-0.2); Basophils % (auto) 0.2 %; Eosinophils # (auto) 0.15 K/uL (0-0.5); Eosinophils % (auto) 3.1 %; Hematocrit (blood only) 38.9 % (37-47); Lymphocytes # (auto) 1.99 K/uL (1.2-3.4); Lymphocytes % (auto) 40.7 %; Mean Corpuscular Hemoglobin 27.1 pg (25-34); Mean Corpuscular Hgb Conc 33.4 g/dL (32-36); Mean Corpuscular Volume 81.2 fL (80-100); Mean Platelet Volume 9.5 fL (7.4-10.4); Monocytes % (auto) 14.3 %; Neutrophils # (auto) 2.04 K/uL (1.4-6.5); Neutrophils % (auto) 41.7 %; Platelet Count 210 K/uL (130-400); RDW Coefficient of Variation 14.5 % (11.5-14.5); RDW Standard Deviation 43.2 fL (36.4-46.3); Red Blood Count 4.79 M/uL (4.2-5.4); White Blood Count 4.89 K/uL (4.8-10.8)
[2020-08-09 06:35] LABS: INR 2.1 (0.9-1.1); Prothrombin Time 20.4 Seconds (9.0-12.0)
[2020-08-09 07:03] LABS: BUN Creatinine Ratio 24.1 (10-20); Calcium 9.1 mg/dl (8.5-10.1); Creatinine Clr Calc Pharmacy 54.1 ml/min; Est GFR (African American) 92.1; Est GFR (Non-African American) 79.4; Potassium 3.5 mmol/L (3.5-5.1)
[2020-08-09] MEDS: DORZOLAMIDE/TIMOLOL 22.3/6.8MG/ML 10 ML BTL OPL SCH ×2 (07:54→21:04)
[2020-08-09] MEDS: prednisoLONE acetate 1% OP SUSP 5 ML BTL OPR SCH (07:55)
[2020-08-09] MEDS: ASPIRIN 81 MG ECTAB PO SCH (07:55)
[2020-08-09] MEDS: SOTALOL HCL 80 MG TAB PO SCH ×2 (07:56→21:08)
[2020-08-09] MEDS: GLUCOSAMINE SULFATE 500 MG CAP PO SCH ×2 (07:56→21:07)
[2020-08-09] MEDS: POTASSIUM CHLORIDE 10 MEQ TABCR PO SCH (07:57)
[2020-08-09] MEDS: DOCUSATE SODIUM 100 MG CAP PO SCH (07:57)
[2020-08-09] MEDS: GABAPENTIN 600 MG TAB PO SCH (08:01)
[2020-08-09] MEDS: PANTOprazole 40 MG TAB PO SCH (08:01)
[2020-08-09] MEDS: MULTIVITAMIN TAB PO SCH (08:02)
[2020-08-09] MEDS: CALCIUM 600MG + VIT D 400 IU TAB PO SCH ×2 (08:03→17:04)
[2020-08-09] MEDS: LOSARTAN POTASSIUM 50 MG TAB PO SCH (08:18)
[2020-08-09] MEDS: amLODIPine BESYLATE 5 MG TAB PO SCH (08:19)
[2020-08-09] MEDS: ISOSORBIDE MONO EXTENDED REL 60 MG TABCR PO SCH (08:19)
[2020-08-09] MEDS ORDERED: ATORVASTATIN 40 MG TAB PO SCH (09:00)
--- NOTE | 2020-08-09 09:00 | Electrocardiogram Report ---
Test Reason : Blood Pressure : / mmHG Vent. Rate : 072 BPM Atrial Rate : 072 BPM P-R Int : 210 ms QRS Dur : 104 ms QT Int : 410 ms P-R-T Axes : 068 -06 032 degrees QTc Int : 448 ms Poor data quality, interpretation may be adversely affected Sinus rhythm with 1st degree A-V block Minimal voltage criteria for LVH, may be normal variant Cannot rule out Anterior infarct (cited on or before 07-AUG-2020) Abnormal ECG When compared with ECG of 01-DEC-2017 08:51, Sinus rhythm has replaced Electronic atrial pacemaker Confirmed by Giorgio Singh ([id number]) on 08/09/2020 9:00:32 AM Referred By: Linden Jarrell Confirmed By:Giorgio Singh
--- NOTE | 2020-08-09 09:04 | XRay Report ---
XR chest 1V portable HISTORY: cough COMPARISON: Chest 08/07/2020. FINDINGS: There is a left-sided dual-chamber pacemaker. The leads appear intact. The cardiac silhouet te remains mildly enlarged. Small linear scarlike density within the left lung base, unchanged. No ne w focal lung consolidations to suggest pneumonia. No evidence for pulmonary edema. No pleural effusio ns. No pneumothorax. IMPRESSION: No significant change compared to the prior study. No acute process. ACT 112: Negative or not required by law. Electronically signed by: Silviano Ramos M.D. 08/09/2020 9:03 AM
[2020-08-09] MEDS: DOXYCYCLINE HYCLATE 100 MG CAP PO SCH ×2 (09:07→21:08)
[2020-08-09] MEDS ORDERED: [UNRECOGNIZED DRUG - REMARK] ONE (09:30)
[2020-08-09] MEDS ORDERED: FUROSEMIDE 20 MG in SYRINGE 0 ML IV ONE (09:45)
[2020-08-09] MEDS: ACETAMINOPHEN 325 MG TAB PO PRN ×2 (10:11→21:00)
--- NOTE | 2020-08-09 13:28 | Consultation Report ---
DATE OF CONSULTATION: 08/09/2020 REASON FOR CONSULTATION: Possible transient ischemic attack. HISTORY OF PRESENT ILLNESS: The patient is an 89-year-old right-handed female with a history of coronary artery disease, paroxysmal atrial fibrillation on Coumadin and aspirin, tachybrady syndrome, status post pacemaker, glaucoma, hypertension, breast cancer, status post partial mastectomy, who presented to the Emergency Room after several days of confusion. Apparently, the patient received her COVID vaccine about 4 days prior to admission. Home health came to see her and reported her as not being at her baseline. She described a nonthrobbing headache of several days' duration without neck stiffness, nausea, vomiting or photophobia. She also had a cough for about 1 day. The patient was admitted, a CT of the head showed chronic vascular changes. When she was up in her room, she had an episode where she suddenly was staring blankly, unable to follow instructions then when she could speak, her speech was slurred and she was mildly generally weak. Her blood pressure was 89/50. The spell lasted 8-16 minutes and the patient improved when she was put in Trendelenburg and given fluids. The patient reports recalling this episode. She did not feel unwell specifically did not notice any symptoms of hypoperfusion such as visual dimming, hearing muffling, lightheadedness, vertigo, there was no change in vision, sudden blindness, double vision. She believes she had trouble finding the right words rather than having slurred speech per se. The headache was at its baseline. She was not overtly short of breath at that time. CT of the head shows chronic vascular changes. There is a left internal capsule lacune. CTA showed no high-grade vertebrobasilar stenosis. I have reviewed those images and shows mild narrowing of the distal verts, cavernous and clinoid, internal carotids, and both middle cerebral arteries. No evidence of major branch occlusion and no aneurysm. CTA of the neck showed moderate atherosclerotic disease involving the carotids and verts with 40% or less diameter stenosis of the internal carotid and less than 50% stenosis of the distal vertebral arteries. The patient's INR was 1.6. A stroke alert was called. I do not see the documentation for that. It appears that her blood sugar was normal and that her serum sodium was mildly low at 131. The patient reports a prior history of a transient ischemic attack with weakness on the left side and a change in speech. That episode was in 2009 and she was in atrial fibrillation at that time. She has otherwise been well, has not had any head or neck trauma, chest pain, palpitations or shortness of breath preceding this weight loss. She has no significant history of headache. When she had initially come to the Emergency Room, there was some transient hypoxemia, which was not reproduced at the time of her inpatient spell and she tested positive for COVID-19 in spite of the fact that she had just received her second vaccination. LABORATORY DATA: On admission were notable for normal white count, H and H, and platelet count. Her INR on admission was 1.6, but today it is 2.0. Her serum sodium was 133, BUN and creatinine 17/0.69, calcium 8.3. Her urinalysis showed 1+ ketones, 1+ blood, positive nitrites, leukocyte esterase positive, greater than 30 white cells. The culture is growing out E. coli. With regard to that the patient denies any symptoms of urinary tract infection such as frequency, urgency, burning or pain or fever. PAST MEDICAL HISTORY: As above. Additionally, transient ischemic attack, glaucoma, monoclonal gammopathy of uncertain significance, mild aortic stenosis, osteoarthritis, permanent pacemaker, peripheral vascular disease, history of hernia repair, mastectomy, bladder surgery, cataract surgery, hysterectomy, spinal fusion, tubal ligation. FAMILY HISTORY: No family history of stroke. SOCIAL HISTORY: The patient is a nonsmoker, rarely drinks alcohol. Lives alone, has a supportive family who lives out of state. ALLERGIES: BRIMONIDINE, CLAVULANIC ACID, SULFAMETHOXAZOLE, TRIMETHOPRIM, AMOXICILLIN. HOME MEDICATIONS: Tylenol, amlodipine, aspirin 81, atorvastatin, baclofen p.r.n., calcium, Cosopt, CoQ10, gabapentin, HCTZ, isosorbide, latanoprost, losartan, multiple vitamins, pantoprazole, sotalol and warfarin. PHYSICAL EXAMINATION: CURRENT VITAL SIGNS: 96/62, 36.4, pulse is 64, O2 sat 97 on room air. Her EKG on admission was a sinus rhythm. GENERAL: The patient is awake and alert, oriented x3. Speech and language are normal, naming, repetitions and 3-step commands are normal. NECK: There are no carotid bruits. HEART: No heart murmurs. Heart is regular rate and rhythm. NEUROLOGIC: Pupils are postsurgical. Visual prakash are full. Motility is normal. There is no facial asymmetry or dysarthria. Tongue is midline. Motor 5/5, no drift. Normal rapid alternating movements. Symmetric reflexes. Downgoing toes. Tyhgiq-tb-mgud and vfni-el-anyn are normal. Intact light touch bilaterally. IMPRESSION: Transient ischemic attack, most likely affecting the left hemisphere versus global hypoperfusion and selective neurologic deficit related to hypotension. PLAN: Agree with therapeutic anticoagulation with Coumadin, which has been achieved today. Good control of blood pressure, avoiding hypotension. Lipids seem well managed. Recommend EEG as there was some reported confusion at home. Rule out partial complex seizure. Echo,CPK was elevated on admission unclear if history of fall. I have ordered a repeat to make sure this returns to normal. If it does not, one could raise the question of whether or not it is related to statin use. We will sign off, but will check in to see the report of the CK and EEG tomorrow. LISA
--- NOTE | 2020-08-09 16:59 | Hospitalist Progress Note ---
Date of Service August 09, 2020 Assessment & Plan (1) UTI (urinary tract infection): Urine culture + E coli abx changed PO Keflex (2) COVID-19: -Tested positive for COVID-19 on admission screening -symptomatic -Received a second COVID-19 vaccination on 08/04 -cont standard Isolation protocol per COVID 19 guideline (3) Hypertension: -blood pressure been stable (4) Paroxysmal atrial fibrillation: rate controlled and sinus on Sotalol Coumadin continued , INR therapeutic IV heparin bridge therapy (5) Tachy-garret syndrome: s/p [employer] Pacemaker placement in 2018 (6) Pacemaker: -No acute issues -Rhythm controlled on sotalol, anticoagulated on Coumadin -INR 2.1 ' (7) CAD (coronary artery disease): no acute issues (8) DVT prophylaxis: -Coumadin called pt's daughter to give update , left message ` Admission and Anticipated Discharge Date Admission Date: August 07, 2020 Subjective pt reports she is feeling great no recurrence of TIA or stroke like symptoms no confusion or disorientation in room air , cough has improved independent in ADL's Review of Systems Review of Systems: All systems reviewed & are unremarkable except as noted in Subjective Physical Exam Constitutional: WD/WN, vitals as above Eyes: PERRL, conjunctivae normal, anicteric sclerae ENMT: external ear and nose normal, oropharynx normal Neck: trachea midline, no thyromegaly Respiratory: normal respiratory effort, lungs clear to auscultation Cardiovascular: RRR, no murmur, no edema Gastrointestinal (Abdomen): normal bowel sounds, soft, nontender, no hepatosplenomegaly Musculoskeletal: no cyanosis or clubbing, extremities motor strength 5/5 Skin: no rashes, warm and dry Neurologic: PERRL, EOMI, accommodation nl, no face palsy, no dysarthria normal touch/pain/proprioception, moves all extremities and awake; no focal motor deficits Motor/Sensory: no pronator drift and no sensory deficit Cranial Nerves: EOM intact bilaterally, normal facial strength, tongue midline and able to elevate shoulders bilaterally; + no PERRL Psychiatric: A+Ox3, euthymic affect Results & Data Results & Data ([facility]) Vital Signs (Past 12 Hours) Vital Signs Temp Pulse Pulse Resp BP Pulse Ox Pulse Ox 08/09/20 15:44 36.6 C 68 19 123/78 93 08/09/20 15:02 60 08/09/20 12:06 36.4 C L 64 19 96/62 L 97 08/09/20 07:51 36.6 C 61 19 175/95 H 97 08/09/20 07:06 61 08/09/20 07:00 96
[2020-08-09] MEDS: WARFARIN SOD 5 MG TAB PO SCH (17:01)
[2020-08-09] MEDS: WARFARIN SOD 7.5 MG TAB PO SCH (17:06)
[2020-08-09] MEDS: LATANOPROST 0.005% OP SOLN 2.5 ML BTL OP SCH (21:05)
[2020-08-09] MEDS: cephALEXin 250 MG CAP PO SCH (21:07)
[2020-08-10] MEDS: ACETAMINOPHEN 325 MG TAB PO PRN (06:17)
[2020-08-10 06:31] LABS: Estimated Average Glucose 126 mg/dl
[2020-08-10 06:39] LABS: INR 2.8 (0.9-1.1)
[2020-08-10 07:00] LABS: BUN Creatinine Ratio 24.3 (10-20); Calcium 8.8 mg/dl (8.5-10.1); Creatinine Clr Calc Pharmacy 51.5 ml/min; Est GFR (African American) 90.7; Est GFR (Non-African American) 78.3; Potassium 3.6 mmol/L (3.5-5.1)
[2020-08-10] MEDS: SOTALOL HCL 80 MG TAB PO SCH (08:30)
[2020-08-10] MEDS: DOXYCYCLINE HYCLATE 100 MG CAP PO SCH (08:30)
[2020-08-10] MEDS: ISOSORBIDE MONO EXTENDED REL 60 MG TABCR PO SCH (08:31)
[2020-08-10] MEDS: LOSARTAN POTASSIUM 50 MG TAB PO SCH (08:32)
[2020-08-10] MEDS: GABAPENTIN 600 MG TAB PO SCH (08:32)
[2020-08-10] MEDS: DOCUSATE SODIUM 100 MG CAP PO SCH (08:32)
[2020-08-10] MEDS: amLODIPine BESYLATE 5 MG TAB PO SCH (08:33)
[2020-08-10] MEDS: PANTOprazole 40 MG TAB PO SCH (08:34)
[2020-08-10] MEDS: MULTIVITAMIN TAB PO SCH (08:35)
[2020-08-10] MEDS: DORZOLAMIDE/TIMOLOL 22.3/6.8MG/ML 10 ML BTL OPL SCH (08:35)
[2020-08-10] MEDS: hydroCHLOROthiazide 25 MG TAB PO SCH (08:36)
[2020-08-10] MEDS: CALCIUM 600MG + VIT D 400 IU TAB PO SCH (08:36)
[2020-08-10] MEDS: POTASSIUM CHLORIDE 10 MEQ TABCR PO SCH (08:37)
[2020-08-10] MEDS: GLUCOSAMINE SULFATE 500 MG CAP PO SCH (08:37)
[2020-08-10] MEDS: prednisoLONE acetate 1% OP SUSP 5 ML BTL OPR SCH (08:38)
[2020-08-10] MEDS: cephALEXin 250 MG CAP PO SCH ×3 (08:38→16:08)
[2020-08-10] MEDS ORDERED: ATORVASTATIN 20 MG TAB PO SCH (09:00)
--- NOTE | 2020-08-10 13:19 | Electroencephalogram ---
EEG Procedure Note Date of Service August 10, 2020 Start / End Times Start Time: 1145 End Time: 1205 Referring Physician Nedra Encinas MD History Episodic confusion Home Medication List Medication Instructions Recorded Confirmed Type acetaminophen [Tylenol Extra 1,000 mg PO Q4H PRN 08/07/20 08/07/20 History Strength] amlodipine 2.5 mg PO DAILY 08/07/20 08/07/20 History aspirin 81 mg PO HS 08/07/20 08/07/20 History atorvastatin 20 mg PO DAILY 08/07/20 08/07/20 History baclofen 10 mg PO HS PRN 08/07/20 08/07/20 History calcium carbonate-vitamin D3 1 tab PO BIDM 08/07/20 08/07/20 History [Calcium 600 + D(3)] coenzyme Q10 [CoQ-10] 100 mg PO DAILY 08/07/20 08/07/20 History dorzolamide-timolol [Cosopt] 1 drp OPL BID 08/07/20 08/07/20 History gabapentin 600 mg PO DAILY 08/07/20 08/07/20 History glucos sul [id number] 1 cap PO BID 08/07/20 08/07/20 History [Glucosamine Chondroitin] hydrochlorothiazide 25 mg PO DAILY 08/07/20 08/07/20 History isosorbide mononitrate 60 mg PO DAILY 08/07/20 08/07/20 History latanoprost 1 drp OPHTHALMIC (EYE) DIRECTED 08/07/20 08/07/20 History losartan 100 mg PO DAILY 08/07/20 08/07/20 History multivitamin 1 tab PO DAILY 08/07/20 08/07/20 History nitroglycerin [Nitrostat] 0.4 mg SUBLINGUAL DIRECTED PRN 08/07/20 08/07/20 History pantoprazole [Protonix] 20 mg PO DAILY 08/07/20 08/07/20 History potassium chloride 10 meq PO DAILY 08/07/20 08/07/20 History prednisolone acetate [Pred Forte] 1 drp OPHTHALMIC (EYE) DIRECTED 08/07/20 08/07/20 History sotalol 80 mg PO BID 08/07/20 08/07/20 History warfarin 3.75 mg PO TUWETHSA 08/07/20 08/07/20 History warfarin 7.5 mg PO SUMOFR 08/07/20 08/07/20 History Inpatient Medication List Acetaminophen (Acetaminophen 325 Mg Tab) 650 mg PO Q4H PRN PRN Reason: Pain or Fever Stop: 09/06/20 18:13 Last Admin: 08/10/20 06:17 Dose: 650 mg Documented by: [id number] Admin: 08/09/20 21:00 Dose: 650 mg Documented by: [id number] Admin: 08/09/20 10:11 Dose: 650 mg Documented by: [id number] Admin: 08/08/20 20:06 Dose: 650 mg Documented by: [id number] Amlodipine Besylate (Amlodipine Besylate 5 Mg Tab) 2.5 mg PO DAILY RONDA Stop: 09/06/20 21:03 Last Admin: 08/10/20 08:33 Dose: 2.5 mg Documented by: [id number] Admin: 08/09/20 08:19 Dose: 2.5 mg Documented by: [id number] Admin: 08/08/20 07:56 Dose: 2.5 mg Documented by: [id number] Admin: 08/07/20 22:00 Dose: 2.5 mg Documented by: [id number] Aspirin (Aspirin 81 Mg Ectab) 81 mg PO HS [facility] Stop: 09/06/20 21:03 Last Admin: 08/09/20 07:55 Dose: 81 mg Documented by: [id number] Admin: 08/08/20 20:02 Dose: 81 mg Documented by: [id number] Admin: 08/07/20 21:54 Dose: 81 mg Documented by: [id number] Atorvastatin Calcium (Atorvastatin 20 Mg Tab) 20 mg PO DAILY RONDA Stop: 09/09/20 08:59 Last Admin: 08/10/20 08:35 Dose: 20 mg Documented by: [id number] Cephalexin HCl (Cephalexin 250 Mg Cap) 250 mg PO QID RONDA Stop: 08/14/20 20:59 Last Admin: 08/10/20 13:02 Dose: 250 mg Documented by: [id number] Admin: 08/10/20 08:38 Dose: 250 mg Documented by: [id number] Admin: 08/09/20 21:07 Dose: 250 mg Documented by: [id number] Docusate Sodium (Docusate Sodium 100 Mg Cap) 100 mg PO DAILY RONDA Stop: 09/07/20 08:59 Last Admin: 08/10/20 08:32 Dose: 100 mg Documented by: [id number] Admin: 08/09/20 07:57 Dose: 100 mg Documented by: [id number] Admin: 08/08/20 07:53 Dose: 100 mg Documented by: [id number] Dorzolamide/Timolol (Dorzolamide/Timolol 22.3/6.8mg/Ml 10 Ml Btl) 1 drops OPL BID [facility] Stop: 09/06/20 21:03 Last Admin: 08/10/20 08:35 Dose: 1 drops Documented by: [id number] Admin: 08/09/20 21:04 Dose: 1 drops Documented by: [id number] Admin: 08/09/20 07:54 Dose: 1 drops Documented by: [id number] Admin: 08/08/20 20:01 Dose: 1 drops Documented by: [id number] Admin: 08/08/20 07:51 Dose: 1 drops Documented by: [id number] Admin: 08/07/20 21:55 Dose: 1 drops Documented by: [id number] Doxycycline Hyclate (Doxycycline Hyclate 100 Mg Cap) 100 mg PO BID [facility]; Protocol Stop: 08/16/20 08:59 Last Admin: 08/10/20 08:30 Dose: 100 mg Documented by: [id number] Admin: 08/09/20 21:08 Dose: 100 mg Documented by: [id number] Admin: 08/09/20 09:07 Dose: 100 mg Documented by: [id number] Gabapentin (Gabapentin 600 Mg Tab) 600 mg PO DAILY [facility] Stop: 09/07/20 08:59 Last Admin: 08/10/20 08:32 Dose: 600 mg Documented by: [id number] Admin: 08/09/20 08:01 Dose: 600 mg Documented by: [id number] Admin: 08/08/20 07:57 Dose: 600 mg Documented by: [id number] Glucosamine Sulfate (Glucosamine Sulfate 500 Mg Cap) 500 mg PO BID [facility] Stop: 09/06/20 21:04 Last Admin: 08/10/20 08:37 Dose: 500 mg Documented by: [id number] Admin: 08/09/20 21:07 Dose: 500 mg Documented by: [id number] Admin: 08/09/20 07:56 Dose: 500 mg Documented by: [id number] Admin: 08/08/20 20:02 Dose: 500 mg Documented by: [id number] Admin: 08/08/20 07:52 Dose: 500 mg Documented by: [id number] Admin: 08/07/20 21:53 Dose: 500 mg Documented by: [id number] Hydrochlorothiazide (Hydrochlorothiazide 25 Mg Tab) 25 mg PO DAILY RONDA Stop: 09/06/20 21:03 Last Admin: 08/10/20 08:36 Dose: 25 mg Documented by: [id number] Admin: 08/08/20 07:53 Dose: 25 mg Documented by: [id number] Admin: 08/07/20 21:58 Dose: 25 mg Documented by: [id number] Isosorbide Mononitrate (Isosorbide Mcduffie Extended Rel 60 Mg Tabcr) 60 mg PO DAILY RONDA Stop: 09/07/20 08:59 Last Admin: 08/10/20 08:31 Dose: 60 mg Documented by: [id number] Admin: 08/09/20 08:19 Dose: 60 mg Documented by: [id number] Admin: 08/08/20 07:55 Dose: 60 mg Documented by: [id number] Latanoprost (Latanoprost 0.005% Op Soln 2.5 Ml Btl) 1 drops OP HS RONDA Stop: 09/06/20 21:03 Last Admin: 08/09/20 21:05 Dose: 1 drops Documented by: [id number] Admin: 08/08/20 20:02 Dose: 1 drops Documented by: [id number] Admin: 08/07/20 21:59 Dose: 1 drops Documented by: [id number] Losartan Potassium (Losartan Potassium 50 Mg Tab) 100 mg PO DAILY RONDA Stop: 09/07/20 08:59 Last Admin: 08/10/20 08:32 Dose: 100 mg Documented by: [id number] Admin: 08/09/20 08:18 Dose: 100 mg Documented by: [id number] Admin: 08/08/20 07:54 Dose: 100 mg Documented by: [id number] Multivitamins (Multivitamin Tab) 1 tab PO DAILY RONDA Stop: 09/07/20 08:59 Last Admin: 08/10/20 08:35 Dose: 1 tab Documented by: [id number] Admin: 08/09/20 08:02 Dose: 1 tab Documented by: [id number] Admin: 08/08/20 07:56 Dose: 1 tab Documented by: [id number] Multivitamins/Minerals (Calcium 600mg + Vit D 400 Iu Tab) 1 tab PO BIDM RONDA Stop: 09/07/20 07:59 Last Admin: 08/10/20 08:36 Dose: 1 tab Documented by: [id number] Admin: 08/09/20 17:04 Dose: 1 tab Documented by: [id number] Admin: 08/09/20 08:03 Dose: 1 tab Documented by: [id number] Admin: 08/08/20 17:43 Dose: 1 tab Documented by: [id number] Admin: 08/08/20 07:53 Dose: 1 tab Documented by: [id number] Pantoprazole Sodium (Pantoprazole 40 Mg Tab) 20 mg PO DAILY RONDA Stop: 09/07/20 08:59 Last Admin: 08/10/20 08:34 Dose: 20 mg Documented by: [id number] Admin: 08/09/20 08:01 Dose: 20 mg Documented by: [id number] Admin: 08/08/20 07:54 Dose: 20 mg Documented by: [id number] Potassium Chloride (Potassium Chloride 10 Meq Tabcr) 10 meq PO DAILY RONDA Stop: 09/07/20 08:59 Last Admin: 08/10/20 08:37 Dose: 10 meq Documented by: [id number] Admin: 08/09/20 07:57 Dose: 10 meq Documented by: [id number] Admin: 08/08/20 07:54 Dose: 10 meq Documented by: [id number] Prednisolone Acetate (Prednisolone Acetate 1% Op Susp 5 Ml Btl) 1 drops OPR DAILY RONDA Stop: 09/07/20 08:59 Last Admin: 08/10/20 08:38 Dose: 1 drops Documented by: [id number] Admin: 08/09/20 07:55 Dose: 1 drops Documented by: [id number] Admin: 08/08/20 07:58 Dose: 1 drops Documented by: [id number] Sotalol HCl (Sotalol Hcl 80 Mg Tab) 80 mg PO BID RONDA Stop: 09/06/20 21:03 Last Admin: 08/10/20 08:30 Dose: 80 mg Documented by: [id number] Admin: 08/09/20 21:08 Dose: 80 mg Documented by: [id number] Admin: 08/09/20 07:56 Dose: 80 mg Documented by: [id number] Admin: 08/08/20 20:02 Dose: 80 mg Documented by: [id number] Admin: 08/08/20 07:53 Dose: 80 mg Documented by: [id number] Admin: 08/07/20 21:52 Dose: 80 mg Documented by: [id number] Warfarin Sodium (Warfarin Sod 5 Mg Tab) 5 mg PO DAILY@1600 [facility] Stop: 09/08/20 16:29 Last Admin: 08/09/20 17:01 Dose: 5 mg Documented by: [id number] Discontinued Medications Atorvastatin Calcium (Atorvastatin 20 Mg Tab) 20 mg PO DAILY RONDA Stop: 09/07/20 08:59 Last Admin: 08/08/20 07:57 Dose: 20 mg Documented by: [id number] Atorvastatin Calcium (Atorvastatin 40 Mg Tab) 40 mg PO DAILY RONDA Stop: 09/08/20 08:59 Last Admin: 08/09/20 08:18 Dose: 40 mg Documented by: [id number] Heparin Sodium (Porcine) (Heparin Sod 5,000 Unit/0.5 Ml Vial) 5,000 units SQ Q8 RONDA Stop: 09/06/20 21:59 Last Admin: 08/08/20 07:57 Dose: 5,000 units Documented by: [id number] Admin: 08/07/20 22:00 Dose: 5,000 units Documented by: [id number] Hydralazine HCl (Hydralazine Hcl 20 Mg/Ml Vial) 10 mg IV NOW STA Stop: 08/07/20 18:17 Last Admin: 08/07/20 19:20 Dose: Not Given Documented by: [id number] Hydralazine HCl (Hydralazine Hcl 20 Mg/Ml Vial) 10 mg IV NOW STA Stop: 08/07/20 21:44 Last Admin: 08/07/20 21:49 Dose: 10 mg Documented by: [id number] Sodium Chloride (Nss) 500 mls @ 999 mls/hr IV .Q31M RONDA Stop: 08/07/20 17:30 Last Infusion: 08/07/20 19:05 Dose: 0 mls/hr Documented by: [id number] Admin: 08/07/20 17:27 Dose: 999 mls/hr Documented by: [id number] Sodium Chloride (Nss 1000ml) 1,000 mls @ 125 mls/hr IV .Q8H [facility] Stop: 08/08/20 00:59 Last Infusion: 08/07/20 20:01 Dose: 0 mls/hr Documented by: [id number] Admin: 08/07/20 17:27 Dose: 125 mls/hr Documented by: [id number] Ceftriaxone Sodium (Rocephin) 2,000 mg in 70 mls @ 140 mls/hr IV NOW STA Stop: 08/07/20 18:33 Last Infusion: 08/07/20 19:36 Dose: 0 mls/hr Documented by: [id number] Admin: 08/07/20 19:05 Dose: 140 mls/hr Documented by: [id number] Ceftriaxone Sodium 2,000 mg/ (Dextrose) 50 mls @ 100 mls/hr IV Q24H RONDA; Protocol Stop: 08/13/20 17:59 Last Infusion: 08/08/20 18:26 Dose: 0 mls/hr Documented by: [id number] Admin: 08/08/20 17:43 Dose: 100 mls/hr Documented by: [id number] Heparin Sodium/Dextrose (Heparin Sodium/Dextrose) 25,000 units in 500 mls @ 13 mls/hr IV .Q24H RONDA; Protocol Stop: 09/07/20 13:59 Last Titration: 08/08/20 22:25 Dose: 0 units/hr, 0 mls/hr Documented by: [id number] Cosigned by: [id number] Admin: 08/08/20 15:27 Dose: 650 units/hr, 13 mls/hr Documented by: [id number] Cosigned by: [id number] Potassium Chloride/Sodium Chloride (Normal Saline W/20 Meq Kcl) 20 meq in 1,000 mls @ 100 mls/hr IV .Q10H RONDA Stop: 08/09/20 00:59 Last Infusion: 08/09/20 01:38 Dose: 0 mls/hr Documented by: [id number] Admin: 08/08/20 15:37 Dose: 100 mls/hr Documented by: [id number] Furosemide 20 mg/ Syringe 2 mls @ 4 mls/min IV ONE ONE Stop: 08/09/20 09:46 Last Admin: 08/09/20 10:11 Dose: 4 mls/min Documented by: [id number] Ioversol (Optiray 320 125ml) 118 ml IV ONCE ONE Stop: 08/08/20 12:29 Last Admin: 08/08/20 12:28 Dose: 118 ml Documented by: [id number] Potassium Chloride (Potassium Chloride Crtab 20 Meq Tabcr) 20 meq PO NOW STA Stop: 08/08/20 14:49 Last Admin: 08/08/20 15:36 Dose: 20 meq Documented by: [id number] Warfarin Sodium (Warfarin Sod 7.5 Mg Tab) 7.5 mg PO MoFr@1600 [facility] Stop: 08/08/20 12:00 Last Admin: 08/07/20 21:55 Dose: 7.5 mg Documented by: [id number] Warfarin Sodium (Warfarin Sod 7.5 Mg Tab) 7.5 mg PO SUMOFR RONDA Stop: 09/06/20 21:03 Last Admin: 08/07/20 22:26 Dose: Not Given Documented by: [id number] Warfarin Sodium (Warfarin Sod 7.5 Mg Tab) 7.5 mg PO DAILY@1600 [facility] Stop: 09/07/20 15:59 Last Admin: 08/09/20 17:06 Dose: Not Given Documented by: [id number] Admin: 08/08/20 15:38 Dose: 7.5 mg Documented by: [id number] Description This is a 21 electrode EEG with a single channel dedicated to limited EKG. The electrodes were placed in accordance with the International 10-20 system. This EEG was done as it bedside tracing is of excellent technical quality with simultaneous video analysis of patient movement and behavior, performance of photic stimulation but drowsiness and light sleep not recorded. Under the conditions evidence for normal-appearing background rhythm in the alpha range of up to 10 Hz maximal frequency and 30 V maximal amplitude. This is maximum posterior head regions bilaterally symmetrical. Polymorphic mid frequency centrally predominant and symmetrical theta activity is seen. Beta activity seen bifrontally Photic simulation was minimal driving response There is no evidence for potentially epileptogenic activity at any time during the waking recording Interpretation Normal EEG during wakefulness Clinical Correlation This is normal EEG failing reveal evidence for focal/ generalized encephalopathy and with out evidence for potential epileptogenic activity Jose Harris MD
--- NOTE | 2020-08-10 14:25 | Communication Note ---
Date of Service: August 10, 2020 on tele monitor -pt remains sinus /paced rate controlled in 60's -70s No rapid A. fib or arrhythmia noted. Stable to transfer to medical floor Patient had OT evaluation, which showed some deconditioning, awaiting PT eval Plan to discharge home with home health end of today Marisol Mei MD
[2020-08-10] MEDS ORDERED: STROKE PATIENT DISCHARGE STA (14:45)
--- NOTE | 2020-08-10 14:49 | Communication Note ---
Date of Service: August 10, [address] Encinas note for exam and plan. EEG was done and findings as follows. This is a 21 electrode EEG with a single channel dedicated to limited EKG. The electrodes were placed in accordance with the International 10-20 system. This EEG was done as it bedside tracing is of excellent technical quality with simultaneous video analysis of patient movement and behavior, performance of photic stimulation but drowsiness and light sleep not recorded. Under the conditions evidence for normal-appearing background rhythm in the alpha range of up to 10 Hz maximal frequency and 30 V maximal amplitude. This is maximum posterior head regions bilaterally symmetrical. Polymorphic mid frequency centrally predominant and symmetrical theta activity is seen. Beta activity seen bifrontally Photic simulation was minimal driving response There is no evidence for potentially epileptogenic activity at any time during the waking recording CK was somewhat elevated on repeat normal. I have discussed above patient with Dr Nedra Encinas, neurology. No evidence of sz. LISE Encinas MD
--- NOTE | 2020-08-10 15:00 | Discharge Summary ---
Date of Service August 10, 2020 Admission HPI Per Admitting Provider 89-year-old female with PMH CAD, paroxysmal atrial fibrillation anticoagulant on Coumadin, tachybradycardia syndrome s/p pacemaker, history of CVA, glaucoma, HTN, history of breast cancer s/p partial mastectomy, and other problems listed below who presents to the ED for evaluation of confusion. Patient reports she received her second COVID-19 vaccination 4 days ago. Reports that shortly after she felt somewhat confused. Today, she had an appointment that her neighbor was going to take her to. Her neighbor came to check on her and found her in her living room unaware of having to go to the appointment. Patient reports she did not take her medications today and believes she did not take her medications yesterday either. Denies fevers and chills. No dysuria or urinary frequency. Denies chest pain or shortness of breath. No lightheadedness, dizziness, diaphoresis, syncopal events. Denies abdominal pain, nausea, vomiting, diarrhea. She reports that she is feeling back to her baseline mentally. In [facility] ED, UA suggest UTI. BP is elevated, otherwise hemodynamically stable. Labs are unremarkable. Patient was given IV ceftriaxone and IVF. Principal Diagnosis TIA UTI History of paroxysmal A. fib on Coumadin Discharge Exam Constitutional WD/WN, vitals as above Eyes PERRL, conjunctivae normal, anicteric sclerae ENMT external ear and nose normal, oropharynx normal Neck trachea midline, no thyromegaly Respiratory normal respiratory effort, lungs clear to auscultation Cardiovascular RRR, no murmur, no edema Gastrointestinal (Abdomen) normal bowel sounds, soft, nontender, no hepatosplenomegaly Musculoskeletal no cyanosis or clubbing, extremities motor strength 5/5 Skin no rashes, warm and dry Neurologic PERRL, EOMI, accommodation nl, no face palsy, no dysarthria normal touch/pain/proprioception, moves all extremities and awake; no focal motor deficits Motor/Sensory: no pronator drift and no sensory deficit Cranial Nerves: EOM intact bilaterally, normal facial strength, tongue midline and able to elevate shoulders bilaterally; + no PERRL Psychiatric A+Ox3, euthymic affect Discharge Data Allergies Allergy/AdvReac Type Severity Reaction Status Date / Time brimonidine Allergy Mild RED ITCHY Verified 08/07/20 17:40 EYE clavulanic acid Allergy Mild headache Verified 08/07/20 17:40 sulfamethoxazole AdvReac Intermediate CHILLS/RIGORS-PER Verified 08/07/20 17:40 [From Bactrim] GMG trimethoprim [From Bactrim] AdvReac Intermediate CHILLS/RIGORS-PER Verified 08/07/20 17:40 GMG amoxicillin AdvReac Mild headache Verified 08/07/20 17:40 Consultations 08/07/20 18:16 Consult Case Management - Discharge Planning Routine 08/07/20 18:23 ED Decision to Admit Stat 08/08/20 12:17 Consult Case Management - Discharge Planning Routine Consult Neurology Routine Ordered Studies 08/07/20 16:51 CT head/brain wo con Stat 08/08/20 12:17 CT head/brain wo con Stat 08/08/20 12:18 CT angio head w con Routine 08/08/20 12:19 CT angio neck with con Routine Hospital Course (1) UTI (urinary tract infection): Urine culture + E coli abx changed PO Keflex complete 5 days tx TIA like symptoms: no further episode no weakness , or numbness or paresthesia no episode of confusion , speech is fluent in agreement with recommendation with Neurology EEG shows no seizure like activity stable to be discharged home today (2) COVID-19: -Tested positive for COVID-19 on admission screening -no symptoms of cough , no fever or chills -Received a second COVID-19 vaccination on 08/04 -cont standard Isolation protocol per COVID 19 guideline stable to be discharged home today strict home quarantine can be discontinued after 10 days of positive test needs to be completely symptoms free , no fever with out fever reducing meds for 24 hrs pt will still continue on precaution -face mask , hand washing , social distancing while outside plan of care updated to pt TIA /stroke like symptoms : no complain of dizzy spell , no weakness or paresthesia speech is fluent , vitals stable CT head and CTA head/neck -no acute change no hemodynamically significant carotid artery stenosis /disease cont Aspirin , statin PT/OT eval appreciated, stable to be discharged home today with home health and Home PT . Hyperlipidemia CK level remains mildly elevated , improved after IV hydration Fasting lipid panel LDL within goal ( < 70) cont Statin Lipitor 20 mg daily High intensity statin ( Lipitor dose 40-80 mg daily treatment /CVA -not ordered (3) Hypertension: -blood pressure been stable continued home meds (4) Paroxysmal atrial fibrillation: rate controlled and sinus on Sotalol Coumadin continued , INR therapeutic IV heparin bridge therapy d/donato (5) Tachy-garret syndrome: s/p Med[employer] Pacemaker placement in 2018 (6) Pacemaker: -No acute issues -Rhythm controlled on sotalol, anticoagulated on Coumadin -INR 2.1 ' (7) CAD (coronary artery disease): no acute issues (8) DVT prophylaxis: -Coumadin stable to be discharged home today Total Time Total Time Spent Total Time Spent (In Minutes): 35 mins Total Time Includes: Examination of the Patient, Discharge Planning and Medication Reconciliation Discharge Plan Discharge Items Patient Disposition: Home - Home Health Services Reason For Visit: URINARY SYMPTOMS, HYPERTENSION Discharge Diagnosis: TIA UTI History of paroxysmal A. fib on Coumadin Activity: Resume your previous activity Non-emergency contact: Primary Care Provider Call non-emergency contact if: you have any medication questions Follow-up/Referrals: Linden Jarrell, [Primary Care Provider] - 08/14/20 9:00 am (Date & Time 08/14/2020 9:00 AM Provider Maria Elena Sierra MD Department General Internal Medicine [facility] PLEASE NOTE THAT THIS IS A TELEPHONE APPOINTMENT. YOUR PHYSICIAN WILL CALL YOU AT THE APPOINTMENT TIME. IF YOU HAVE ANY QUESTIONS REGARDING THIS APPOINTMENT, PLEASE CALL ) Diet: Heart Healthy Addtl Attending Provider Instructions: Risk Factors for Stroke: You can reduce your chances of stroke by working with your medical provider to adopt a healthy lifestyle. Some specific ways to lower your chance of stroke are: * If you are a smoker, now is the time to stop smoking cigarettes * If you are diabetic, improve the control of your blood sugars * Avoid excessive amounts of alcohol * Control high blood pressure * Lose weight if you are overweight * Be sure to lead an active lifestyle * Eat a healthy diet low in salt, cholesterol and fat You should know about other risk factors for stroke that you are unable to control. These include: * Age 55 years or older * Male gender * Certain racial groups: , or / * Family History of Stroke, Mini stroke or Heart Attack * Sickle Cell Disease Follow Up: It is important for you to keep your follow up appointments with your medical provider. Who to Call and When: Medical Emergencies: Call 911 immediately if you experience any of the following warning signs and symptoms of Stroke: * Sudden numbness or weakness of the face, arm or leg, especially on one side of the body * Sudden confusion, trouble speaking or understanding * Sudden trouble seeing in one or both eyes * Sudden trouble walking, dizziness, loss of balance or coordination * Sudden severe headache with no cause Do not delay calling 911 if you experience any warning signs or symptoms of a stroke. Delay in seeking medical attention may affect what treatments can be given to you. . Please take all medications as instructed on discharge list below. You were discharged with antibiotic: Keflex 250 mg 4 times daily for 3 days: For urine tract infection. Doxycycline 100 mg tablets twice daily for 3 days: Bronchitis Continue current dose of Lipitor 20 mg daily -your CPK level was high on admission ( need repeat lab BMP and CPK level check with next physician visit on 02/15/21 ) High intensity /Higher dose of Lipitor not utilized as LDL was already at goal , pt had mild elevation of CPK's Please take [id number] probiotics once daily while taking antibiotic to prevent diarrhea/loose stool Please call if you have any questions or problems. You can reach a [facility] hospitalist on duty at [facility] 24 hours a day by calling [phone] [facility] Requisition Approver Provider Instructions: Home Isolation COVID-19 Instructions The following information about Home Isolation is from the CDC Website: https://www.cdc.gov/coronavirus/2019-ncov/hcp/wzqsigpw-dyirghh-gkonem.html Stay home except to get medical care People who are mildly ill with COVID-19 are able to isolate at home during their illness. You should restrict activities outside your home, except for getting medical care. Do not go to work, school, or public areas. Avoid using public transportation, ride-sharing, or taxis. Separate yourself from other people and animals in your home People: As much as possible, you should stay in a specific room and away from other people in your home. Also, you should use a separate bathroom, if available. Animals: You should restrict contact with pets and other animals while you are sick with COVID-19, just like you would around other people. Although there have not been reports of pets or other animals becoming sick with COVID-19, it is still recommended that people sick with COVID-19 limit contact with animals until more information is known about the virus. When possible, have another member of your household care for your animals while you are sick. If you are sick with COVID-19, avoid contact with your pet, including petting, snuggling, being kissed or licked, and sharing food. If you must care for your pet or be around animals while you are sick, wash your hands before and after you interact with pets and wear a face mask. Call ahead before visiting your doctor If you have a medical appointment, call the healthcare provider and tell them that you have or may have COVID-19. This will help the healthcare providers office take steps to keep other people from getting infected or exposed. Wear a face mask You should wear a face mask when you are around other people (e.g., sharing a room or vehicle) or pets and before you enter a healthcare providers office. If you are not able to wear a face mask (for example, because it causes trouble breathing), then people who live with you should not stay in the same room with you, or they should wear a face mask if they enter your room. Cover your coughs and sneezes Cover your mouth and nose with a tissue when you cough or sneeze. Throw used tissues in a lined trash can. Immediately wash your hands with soap and water for at least 20 seconds or, if soap and water are not available, clean your hands with an alcohol-based hand finish carpenter that contains at least 60% alcohol. Clean your hands often Wash your hands often with soap and water for at least 20 seconds, especially after blowing your nose, coughing, or sneezing; going to the bathroom; and before eating or preparing food. If soap and water are not readily available, use an alcohol-based hand finish carpenter with at least 60% alcohol, covering all surfaces of your hands and rubbing them together until they feel dry. Soap and water are the best option if hands are visibly dirty. Avoid touching your eyes, nose, and mouth with unwashed hands. Avoid sharing personal household items You should not share dishes, drinking glasses, cups, eating utensils, towels, or bedding with other people or pets in your home. After using these items, they should be washed thoroughly with soap and water. Clean all high-touch surfaces everyday High touch surfaces include counters, tabletops, doorknobs, bathroom fixtures, toilets, phones, keyboards, tablets, and bedside tables. Also, clean any surfaces that may have blood, stool, or body fluids on them. Use a household cleaning spray or wipe, according to the label instructions. Labels contain instructions for safe and effective use of the cleaning product including precautions you should take when applying the product, such as wearing gloves and making sure you have good ventilation during use of the product. Monitor your symptoms Seek prompt medical attention if your illness is worsening (e.g., difficulty breathing).Beforeseeking care, call your healthcare provider and tell them that you have, or are being evaluated for, COVID-19. Put on a face mask before you enter the facility. These steps will help the healthcare providers office to keep other people in the office or waiting room from getting infected or exposed. Ask your healthcare provider to call the local or [facility] health department. Persons who are placed under active monitoring or facilitated self- monitoring should follow instructions provided by their local health department or occupational health professionals, as appropriate. When working with your local health department check their available hours. If you have a medical emergency and need to call 911, notify the dispatch personnel that you have, or are being evaluated for COVID-19. If possible, put on a face mask before emergency medical services arrive. Discontinuing home isolation Patients with confirmed COVID-19 should remain under home isolation precautions until the risk of secondary transmission to others is thought to be low. discontinue home isolation precautions can be done after 10 days of positive Covid test, need to be without fever or cough for 24 hours without any fever reducing medication before discontinuing home isolation Pending Studies at Discharge: No Stand-Alone Forms: Medications to Prevent Stroke, [facility] [employer], Smoking Cessation Medications and DC Order Prescriptions: New cephalexin 250 mg Capsule 250 mg PO QID 3 Days Qty: 12 RF: 0 doxycycline hyclate 100 mg Capsule 100 mg PO BID 3 Days Qty: 6 RF: 0 Continued multivitamin Tablet 1 tab PO DAILY RF: 0 latanoprost 0.005 % Drops 1 drp OPHTHALMIC (EYE) DIRECTED RF: 0 gabapentin 600 mg Tablet 600 mg PO DAILY RF: 0 atorvastatin 20 mg Tablet 20 mg PO DAILY RF: 0 sotalol 80 mg Tablet 80 mg PO BID RF: 0 amlodipine 2.5 mg Tablet 2.5 mg PO DAILY RF: 0 potassium chloride 10 mEq Tablet Extended Release 10 meq PO DAILY RF: 0 aspirin 81 mg Tablet,Delayed Release (Dr/Ec) 81 mg PO HS RF: 0 acetaminophen [Tylenol Extra Strength] 500 mg Tablet 1,000 mg PO Q4H PRN (Reason: FEVER/PAIN) RF: 0 pantoprazole [Protonix] 20 mg Tablet,Delayed Release (Dr/Ec) 20 mg PO DAILY RF: 0 isosorbide mononitrate 60 mg Tablet Extended Release 24 Hr 60 mg PO DAILY RF: 0 prednisolone acetate [Pred Forte] 1 % Drops,Suspension 1 drp OPHTHALMIC (EYE) DIRECTED RF: 0 baclofen 10 mg Tablet 10 mg PO HS PRN (Reason: LEG CRAMPS) RF: 0 nitroglycerin [Nitrostat] 0.4 mg Tablet, Sublingual 0.4 mg sublingual DIRECTED PRN (Reason: Chest Pain) RF: 0 dorzolamide-timolol [Cosopt] 22.3-6.8 mg/mL Drops 1 drp OPL BID RF: 0 hydrochlorothiazide 25 mg Tablet 25 mg PO DAILY RF: 0 losartan 100 mg Tablet 100 mg PO DAILY RF: 0 coenzyme Q10 [CoQ-10] 100 mg Capsule 100 mg PO DAILY RF: 0 calcium carbonate-vitamin D3 [Calcium 600 + D(3)] 600 mg(1,500mg) -400 unit Tablet 1 tab PO BIDM RF: 0 Glucosamine Chondroitin 550-30-1 mg Capsule 1 cap PO BID RF: 0 warfarin 7.5 mg tablet 7.5 mg PO SUMOFR RF: 0 warfarin 7.5 mg tablet 3.75 mg PO WEA RF: 0 Discharge Orders: Discharge Order (Routine); Ordered 08/10/20 Ordered By: Marisol Catherine/Other Patient Handouts: A1C Admission Data Admit Date/Time: 08/07/20 18:14 Attending Provider: Marisol Mei Admit Provider: Marisol Mei Primary Care Provider: Linden Jarrell Other Providers: Marisol Mei ; Nedra Parra ; Jose Harris ; Nedra Encinas ; Siva Chiu ; [facility] Other Interventions: Discharge Summary Assessment (RN) Last Done: 08/10/20 14:58
--- NOTE | 2020-08-10 15:07 | Pharmacy Report ---
Pharmacist Stroke Counseling - Date of Service August 10, 2020 - Scope: Pharmacy has been consulted to provide medication discharge counseling for this patient admitted with [ischemic stroke] [hemorrhagic stroke] [transient ischemic attack] as per the Pharmacist Discharge Counseling for Stroke Patients Flory martinez - Medications on Discharge: Home Medications Medication Instructions Recorded Confirmed acetaminophen [Tylenol Extra 1,000 mg PO Q4H PRN 08/07/20 08/07/20 Strength] amlodipine 2.5 mg PO DAILY 08/07/20 08/07/20 aspirin 81 mg PO HS 08/07/20 08/07/20 atorvastatin 20 mg PO DAILY 08/07/20 08/07/20 baclofen 10 mg PO HS PRN 08/07/20 08/07/20 calcium carbonate-vitamin D3 1 tab PO BIDM 08/07/20 08/07/20 [Calcium 600 + D(3)] coenzyme Q10 [CoQ-10] 100 mg PO DAILY 08/07/20 08/07/20 dorzolamide-timolol [Cosopt] 1 drp OPL BID 08/07/20 08/07/20 gabapentin 600 mg PO DAILY 08/07/20 08/07/[address] [id number] 1 cap PO BID 08/07/20 08/07/20 [Glucosamine Chondroitin] hydrochlorothiazide 25 mg PO DAILY 08/07/20 08/07/20 isosorbide mononitrate 60 mg PO DAILY 08/07/20 08/07/20 latanoprost 1 drp OPHTHALMIC (EYE) DIRECTED 08/07/20 08/07/20 losartan 100 mg PO DAILY 08/07/20 08/07/20 multivitamin 1 tab PO DAILY 08/07/20 08/07/20 nitroglycerin [Nitrostat] 0.4 mg SUBLINGUAL DIRECTED PRN 08/07/20 08/07/20 pantoprazole [Protonix] 20 mg PO DAILY 08/07/20 08/07/20 potassium chloride 10 meq PO DAILY 08/07/20 08/07/20 prednisolone acetate [Pred Forte] 1 drp OPHTHALMIC (EYE) DIRECTED 08/07/20 08/07/20 sotalol 80 mg PO BID 08/07/20 08/07/20 warfarin 3.75 mg PO TUWETHSA 08/07/20 08/07/20 warfarin 7.5 mg PO SUMOFR 08/07/20 08/07/20 New Rx's Medication Instructions Recorded cephalexin 250 mg PO QID 3 Days #12 cap 08/10/20 doxycycline hyclate 100 mg PO BID 3 Days #6 cap 08/10/20 - Action: The above medications, specifically ones for stroke treatment/prophylaxis, have been reviewed in detail with the patient prior to discharge. This includes indication, common adverse reactions, drug interactions, and medication administration. Medication counseling has been employed using the teach-back method to ensure understanding. - Outcome: The patient has demonstrated understanding of the medications. Additional comments: -reviewed antibiotics with patient including administration timing in regards to other medications. Instructed her to call warfarin clinic for any dose adjustments. -reviewed warfarin, aspirin, and Lipitor basics with the patient. She is understanding. -reviewed with Dr Mei why patient not on high intensity statin -- she will document accordingly. Thank you for allowing pharmacy to be involved in the care of this patient. Please call [phone] with any additional questions
[2020-08-10] MEDS: WARFARIN SOD 5 MG TAB PO SCH (16:07)
== END 2020-08-10 17:05 | disposition home health service (06) | DRG 689 ==
LOC: ED 16:30 → 2S 18:14

== ENCOUNTER 2021-10-05 12:56 | Inpatient (IN) ==
--- NOTE | 2021-10-05 13:09 | Emergency Department Note ---
Impression & Plan Weakness, Acute hyponatremia, Recurrent falls ED Provider Note NAME: JET MUNOZ AGE: 89 SEX: F : 1930 ARRIVES VIA: Ambulance INFORMANT: Patient ED PROVIDER(S): Christiano Calzada DO CHIEF COMPLAINT: fall HPI: Patient is an 87-year-old female who presents to the ER. She turned around in her house and started having tremors in her legs and lost her balance and went down. She has fallen 3 times in the past week. She has tremors that are getting worse. When she hit the ground and she fell onto her buttocks and hit her head. She did not lose consciousness. She does take Coumadin. Mild headache of the posterior aspect of her head. No neck pain. No chest pain, belly pain, nausea, vomiting, or diarrhea. No other exacerbating or remitting factors. She notes that she was not dizzy prior to falling but just lost her balance. When she hit the ground and open her eyes she felt like things were moving for about a second and that resolved. ROS: See above HPI for pertinent positives & negatives. A total of 10 systems re viewed and were otherwise negative. PAST MEDICAL HISTORY:See Below PAST SURGICAL HISTORY:See Below FAMILY HISTORY:See Below SOCIAL HISTORY:See Below HOME MEDICATIONS:See Below ALLERGIES:See Below VITALS:See Below PHYSICAL EXAMINATION: GENERAL: alert, well appearing, well nourished, no distress, non-toxic HEAD: normal cephalic, small contusion to posterior occiput EYE EXAM: normal conjunctiva, PERRL and EOM's grossly intact OROPHARYNX: no exudate, no erythema, lips, buccal mucosa, and tongue normal and mucous membranes are moist NECK: supple, no nuchal rigidity, no adenopathy, non-tender CHEST: stable to compression anteriorly and posteriorly LUNGS: clear to auscultation. Normal chest wall mechanics HEART: no murmurs, S1 normal and S2 normal ABDOMEN: abdomen soft, non-tender, normo-active bowel sounds, no masses, no rebound or guarding. PELVIS: stable to compression anteriorly and posteriorly BACK: Back is symmetrical on inspection and there is no deformity, no midline tenderness, no CVA tenderness. UPPER EXTREMITIES: full active and passive range of motion of all joints without tenderness to palpation LOWER EXTREMITIES: full active and passive range of motion of all joints without tenderness to palpation NEURO EXAM: Normal sensorium, cranial nerves II-XII intact, normal speech, no weakness of arms, no weakness of legs. GCS: 15. MEDICAL DECISION MAKING: Patient is an 89-year-old female who presents ER following mechanical fall but has recurrent falls. She also has worsening tremors. As she is taking Coumadin she was referred in. IV was established blood work was obtained. Labs show no significant leukocytosis or anemia. INR therapeutic at 2.4. BMP with mild hyponatremia 125. LFTs bilirubin and lipase are unremarkable. Troponin was negative. CT of the head was unremarkable. She had no C-spine tenderness. Chest x-ray was unremarkable as well. With the hyponatremia and recurrent falls and weakness and worsening tremors I discussed case with the hospitalist for further evaluation. Triage Nursing notes reviewed. Limited review of prior medical records performed Vital Signs: reviewed and remarkable for HTN Differential diagnosis: Differential diagnoses include major intracranial, cervical, spinal, thoracic, abdominal, pelvic and neurologic injury. Fracture, contusion, sprain, strain, laceration, abrasions included as well. ER treatment provided: See below Diagnostics interpreted by me: ECG: Atrial paced rate of 64 PVC Left axis Inferior Q waves QTC 460 Cardiac Monitoring: An order was placed for continuous cardiac monitoring. The monitor shows a rate of 64 with sinus rhythm. Laboratory studies: As stated above and show below. Imaging studies: CT head was negative Consultation(s): Discussed with [facility] hospitalist for further evaluation Procedures: none Critical Care: None Past Med/Surg History Medical History CAD (coronary artery disease) "PTCA/stent to LAD, balloon angioplasty to LAD diagonal branch" Carotid stenosis, non-symptomatic CVA (cerebral vascular accident) GERD (gastroesophageal reflux disease) Glaucoma History of breast cancer Hypertension MGUS (monoclonal gammopathy of unknown significance) Mild aortic stenosis Osteoarthritis Pacemaker Paroxysmal atrial fibrillation PVD (peripheral vascular disease) Tachy-garret syndrome Surgical History H/O hernia repair H/O partial mastectomy History of bladder surgery History of cataract surgery History of hysterectomy History of spinal fusion Hx of tubal ligation Family History Father Heart disease Social History (Reviewed 11/06/20 @ 18:38 by JOSHUA Cross Smoking Status: Never smoker Hx Alcohol Use: No Hx Substance Use: No Preferred Language: Ukrainian Communication Ability: Effective [employer] Required: No Beliefs That Will Affect Care: None Current Living Situation: Alone Feels Safe at Home: Yes Assistive Devices: Walker Allergies Allergies Allergy/AdvReac Type Severity Reaction Status Date / Time brimonidine Allergy Mild RED ITCHY Verified 10/05/21 14:54 EYE clavulanic acid Allergy Mild headache Verified 10/05/21 14:54 sulfamethoxazole AdvReac Intermediate CHILLS/RIGORS-PER Verified 10/05/21 14:54 [From Bactrim] GMG trimethoprim [From Bactrim] AdvReac Intermediate CHILLS/RIGORS-PER Verified 10/05/21 14:54 GMG amoxicillin AdvReac Mild headache Verified 10/05/21 14:54 Home Meds Home Medications Medication Instructions Recorded Confirmed acetaminophen 500 mg tablet 1,000 mg PO Q4H PRN 08/07/20 10/05/21 (Tylenol Extra Strength) amlodipine 2.5 mg tablet 2.5 mg PO QAM 08/07/20 10/05/21 aspirin 81 mg tablet,delayed 81 mg PO HS 08/07/20 10/05/21 release baclofen 10 mg tablet 10 mg PO HS PRN 08/07/20 10/05/21 calcium carbonate 600 mg-vitamin 1 tab PO BIDM 08/07/20 10/05/21 D3 10 mcg (400 unit) tablet (Calcium 600 + D(3)) coenzyme Q10 100 mg capsule 100 mg PO QAM 08/07/20 10/05/21 (CoQ-10) dorzolamide 22.3 mg-timolol 6.8 1 drp OPL BID 08/07/20 10/05/21 mg/mL eye drops (Cosopt) gabapentin 600 mg tablet 600 mg PO QAM 08/07/20 10/05/21 glucosamine sulf dipot 1 cap PO BID 08/07/20 10/05/21 chlr,msm,chond 550 mg-C 30 mg-farhad 1 mg capsule (Glucosamine Chondroitin) hydrochlorothiazide 25 mg tablet 25 mg PO QAM 08/07/20 10/05/21 isosorbide mononitrate 60 mg 60 mg PO QAM 08/07/20 10/05/21 tablet,extended release 24 hr latanoprost 0.005 % eye drops 1 drp OPL HS 08/07/20 10/05/21 losartan 100 mg tablet 100 mg PO QAM 08/07/20 10/05/21 multivitamin 1 tab PO QAM 08/07/20 10/05/21 nitroglycerin 0.4 mg sublingual 0.4 mg SUBLINGUAL DIRECTED PRN 08/07/20 10/05/21 tablet (Nitrostat) pantoprazole 20 mg tablet,delayed 20 mg PO QAM 08/07/20 10/05/21 release (Protonix) potassium chloride 10 mEq 10 meq PO QAM 08/07/20 10/05/21 tablet,extended release prednisolone acetate 1 % eye 1 drp OPR QAM 08/07/20 10/05/21 drops,suspension (Pred Forte) sotalol 80 mg tablet 80 mg PO BID 08/07/20 10/05/21 warfarin 7.5 mg tablet 3.75 mg PO TUWETHSA 08/07/20 10/05/21 warfarin 7.5 mg tablet 7.5 mg PO SUMOFR 08/07/20 10/05/21 Results & Data (ED) Vital Signs Vital Signs - 24 hr 10/05/21 13:02 10/05/21 13:29 10/05/21 13:34 Temperature 36.8 C Temperature Source Oral Pulse Rate 77 61 Pulse Rhythm Regular Pulse Strength Normal Respiratory Rate 18 14 Respiratory Effort / Characteristics Non-Labored Spontaneous Respiratory Depth Normal Blood Pressure 186/119 H 168/95 H Blood Pressure Mean 141 119 Blood Pressure Position Lying Pulse Oximetry 96 98 97 Oxygen Delivery Method Room Air Room Air Sepsis Recent Fever Within 48 Hours No Sepsis New/Unexplained Change in Mental Status No Sepsis Action Taken by Nursing No Action Required 10/05/21 14:00 10/05/21 14:31 10/05/21 15:00 Temperature Temperature Source Pulse Rate 60 60 59 L Pulse Rhythm Pulse Strength Respiratory Rate 22 18 14 Respiratory Effort / Characteristics Respiratory Depth Blood Pressure 149/104 H 171/92 H 180/101 H Blood Pressure Mean 119 118 127 Blood Pressure Position Pulse Oximetry 97 98 94 Oxygen Delivery Method Sepsis Recent Fever Within 48 Hours Sepsis New/Unexplained Change in Mental Status Sepsis Action Taken by Nursing 10/05/21 15:31 10/05/21 16:00 Temperature Temperature Source Pulse Rate 71 66 Pulse Rhythm Pulse Strength Respiratory Rate 17 19 Respiratory Effort / Characteristics Respiratory Depth Blood Pressure 160/84 H 162/89 H Blood Pressure Mean 109 113 Blood Pressure Position Pulse Oximetry 96 96 Oxygen Delivery Method Sepsis Recent Fever Within 48 Hours Sepsis New/Unexplained Change in Mental Status Sepsis Action Taken by Nursing Laboratory Data Result diagrams: 10/05/21 13:11 10/05/21 14:56 Lab Results 10/05/21 10/05/21 10/05/21 Range/Units 13:11 13:11 13:11 WBC 6.26 (4.8-10.8) K/uL RBC 4.98 (4.2-5.4) M/uL Hgb 13.6 (12.0-16.0) g/dL Hct 39.8 (37-47) % MCV 79.9 L (80-100) fL MCH 27.3 (25-34) pg MCHC 34.2 (32-36) g/dL RDW Std Deviation 47.9 H (36.4-46.3) fL RDW Coeff of Elke 16.6 H (11.5-14.5) % Plt Count 280 (130-400) K/uL MPV 10.0 (7.4-10.4) fL Immature Gran % (Auto) 0.2 % Neut % (Auto) 55.8 % Lymph % (Auto) 33.7 % [place] % (Auto) 8.8 % Eos % (Auto) 1.3 % Baso % (Auto) 0.2 % Neut # (Auto) 3.50 (1.4-6.5) K/uL Lymph # (Auto) 2.11 (1.2-3.4) K/uL [place] # (Auto) 0.55 (0.11-0.59) K/uL Eos # (Auto) 0.08 (0-0.5) K/uL Baso # (Auto) 0.01 (0-0.2) K/uL Immature Gran # (Auto) 0.01 (0.00-0.02) K/uL PT (9.0-12.0) Seconds INR (0.9-1.1) Sodium 125 L (136-145) mmol/L Potassium TNP Chloride 90 L (98-107) mmol/L Carbon Dioxide 29 (21-32) mmol/L Anion Gap 6 (3-11) BUN 23 (6-23) mg/dl Creatinine 0.78 (0.6-1.2) mg/dl Est Cr Clr Drug Dosing 43.7 ml/min Est GFR ( Amer) 78.1 ml/min Est GFR (Non-Af Amer) 67.4 ml/min BUN/Creatinine Ratio 29.5 H (10-20) Glucose 95 (70-99(Fasting)) mg/dl Calcium 9.5 (8.5-10.1) mg/dl Total Bilirubin 0.8 (0.2-1.0) mg/dl AST TNP ALT 12 (7-52) U/L Alkaline Phosphatase 62 (34-104) U/L Troponin I High Sens 5.7 (0-14) pg/ml Total Protein 7.2 (6.0-8.3) gm/dl Albumin 4.0 (3.4-5.0) gm/dl Globulin 3.2 (2.5-4.0) gm/dl Albumin/Globulin Ratio 1.3 (0.9-2) Lipase 51 (11-82) U/L 10/05/21 10/05/21 10/05/21 Range/Units 13:11 14:56 14:56 WBC (4.8-10.8) K/uL RBC (4.2-5.4) M/uL Hgb (12.0-16.0) g/dL Hct (37-47) % MCV (80-100) fL MCH (25-34) pg MCHC (32-36) g/dL RDW Std Deviation (36.4-46.3) fL RDW Coeff of Elke (11.5-14.5) % Plt Count (130-400) K/uL MPV (7.4-10.4) fL Immature Gran % (Auto) % Neut % (Auto) % Lymph % (Auto) % [place] % (Auto) % Eos % (Auto) % Baso % (Auto) % Neut # (Auto) (1.4-6.5) K/uL Lymph # (Auto) (1.2-3.4) K/uL [place] # (Auto) (0.11-0.59) K/uL Eos # (Auto) (0-0.5) K/uL Baso # (Auto) (0-0.2) K/uL Immature Gran # (Auto) (0.00-0.02) K/uL PT 24.0 H (9.0-12.0) Seconds INR 2.4 H (0.9-1.1) Sodium (136-145) mmol/L Potassium 3.9 Chloride (98-107) mmol/L Carbon Dioxide (21-32) mmol/L Anion Gap (3-11) BUN (6-23) mg/dl Creatinine (0.6-1.2) mg/dl Est Cr Clr Drug Dosing ml/min Est GFR ( Amer) ml/min Est GFR (Non-Af Amer) ml/min BUN/Creatinine Ratio (10-20) Glucose (70-99(Fasting)) mg/dl Calcium (8.5-10.1) mg/dl Total Bilirubin (0.2-1.0) mg/dl AST 18 ALT (7-52) U/L Alkaline Phosphatase (34-104) U/L Troponin I High Sens 5.6 (0-14) pg/ml Total Protein (6.0-8.3) gm/dl Albumin (3.4-5.0) gm/dl Globulin (2.5-4.0) gm/dl Albumin/Globulin Ratio (0.9-2) Lipase (11-82) U/L Imaging Data Radiologist's Impression: Chest X-Ray 10/05/21 13:03 XR chest 1V portable HISTORY: Atypical Chest Pain COMPARISON: Chest 11/06/2020. FINDINGS: There is a left-sided dual-chamber pacemaker. The heart remains mildly enlarged. Mild diffuse interstitial thickening which is likely chronic. Small linear density at the left lung base favor scarring or atelectasis. Otherwise, no new focal lung consolidations to suggest pneumonia. No evidence for pulmonary edema. No pleural effusions. No pneumothorax. IMPRESSION: Stable mild cardiomegaly. Otherwise, no acute process within the chest. ACT 112: Negative or not required by law. Electronically signed by: Silviano Ramos M.D. 10/05/2021 2:[address] 10/05/21 13:[address] DOSE: 614.27 mGy.cm HISTORY: dizzy TECHNIQUE: Multiaxial CT images of the head were performed without the use of intravenous contrast. Automated exposure control was utilized for this study. A dose lowering technique was utilized adhering to the principles of ALARA. Comparison: Head CT 11/06/2020. Findings: The paranasal sinuses and mastoid air cells are clear. The calvarium a nd skull base are intact. There is no mass, hematoma, midline shift, acute infarct. White matter hypodensity is nonspecific but suggestive of microvascular ischemic change. The ventricles and sulci demonstrate mild age-related involutional changes. Old left basal ganglia infarct again noted. Mild right parietal scalp swelling. Impression: No acute intracranial abnormality. Atrophy and microvascular ischemic changes. Mild right parietal scalp swelling. ACT 112: Negative or not required by law. Electronically signed by: Silviano Ramos M.D. 10/05/2021 2:00 PM Discharge Plan Visit Data Chief Complaint: Fall ED Provider: Christiano Calzada Discharge Problem: Weakness, Acute hyponatremia, Recurrent falls Forms Stand Alone Forms: [facility] Prescriptions Prescriptions: No Action multivitamin Tablet 1 tab PO QAM RF: 0 latanoprost 0.005 % Drops 1 drp OPL HS RF: 0 gabapentin 600 mg Tablet 600 mg PO QAM RF: 0 sotalol 80 mg Tablet 80 mg PO BID RF: 0 amlodipine 2.5 mg Tablet 2.5 mg PO QAM RF: 0 potassium chloride 10 mEq Tablet Extended Release 10 meq PO QAM RF: 0 aspirin 81 mg Tablet,Delayed Release (Dr/Ec) 81 mg PO HS RF: 0 acetaminophen [Tylenol Extra Strength] 500 mg Tablet 1,000 mg PO Q4H PRN (Reason: FEVER/PAIN) RF: 0 pantoprazole [Protonix] 20 mg Tablet,Delayed Release (Dr/Ec) 20 mg PO QAM RF: 0 isosorbide mononitrate 60 mg Tablet Extended Release 24 Hr 60 mg PO QAM RF: 0 prednisolone acetate [Pred Forte] 1 % Drops,Suspension 1 drp OPR QAM RF: 0 baclofen 10 mg Tablet 10 mg PO HS PRN (Reason: LEG CRAMPS) RF: 0 nitroglycerin [Nitrostat] 0.4 mg Tablet, Sublingual 0.4 mg sublingual DIRECTED PRN (Reason: Chest Pain) RF: 0 dorzolamide-timolol [Cosopt] 22.3-6.8 mg/mL Drops 1 drp OPL BID RF: 0 hydrochlorothiazide 25 mg Tablet 25 mg PO QAM RF: 0 losartan 100 mg Tablet 100 mg PO QAM RF: 0 coenzyme Q10 [CoQ-10] 100 mg Capsule 100 mg PO QAM RF: 0 calcium carbonate-vitamin D3 [Calcium 600 + D(3)] 600 mg(1,500mg) -400 unit Tablet 1 tab PO BIDM RF: 0 Glucosamine Chondroitin 550-30-1 mg Capsule 1 cap PO BID RF: 0 warfarin 7.5 mg tablet 7.5 mg PO SUMOFR RF: 0 warfarin 7.5 mg tablet 3.75 mg PO TUWETHSA RF: 0 Referrals Referrals: Linden Jarrell DO [Physician] -
[2021-10-05 13:44] LABS: INR 2.4 (0.9-1.1)
--- NOTE | 2021-10-05 14:02 | CT Scan Report ---
HEAD CT NONCONTRAST CT DOSE: 614.27 mGy.cm HISTORY: dizzy TECHNIQUE: Multiaxial CT images of the head were performed without the use of intravenous contrast. A utomated exposure control was utilized for this study. A dose lowering technique was utilized adheri ng to the principles of ALARA. Comparison: Head CT 11/06/2020. Findings: The paranasal sinuses and mastoid air cells are clear. The calvarium and skull base are int act. There is no mass, hematoma, midline shift, acute infarct. White matter hypodensity is nonspecifi c but suggestive of microvascular ischemic change. The ventricles and sulci demonstrate mild age-rela nitza involutional changes. Old left basal ganglia infarct again noted. Mild right parietal scalp swell ing. Impression: No acute intracranial abnormality. Atrophy and microvascular ischemic changes. Mild right parietal sc alp swelling. ACT 112: Negative or not required by law. Electronically signed by: Silviano Ramos M.D. 10/05/2021 2:00 PM
[2021-10-05 14:08] LABS: Basophils # (auto) 0.01 K/uL (0-0.2); Basophils % (auto) 0.2 %; Eosinophils # (auto) 0.08 K/uL (0-0.5); Eosinophils % (auto) 1.3 %; Hematocrit (blood only) 39.8 % (37-47); Hemoglobin 13.6 g/dL (12.0-16.0); Immature Granulocytes # (auto) 0.01 K/uL (0.00-0.02); Immature Granulocytes % (auto) 0.2 %; Lymphocytes # (auto) 2.11 K/uL (1.2-3.4); Lymphocytes % (auto) 33.7 %; Mean Corpuscular Hemoglobin 27.3 pg (25-34); Mean Corpuscular Hgb Conc 34.2 g/dL (32-36); Mean Corpuscular Volume 79.9 fL (80-100); Monocytes # (auto) 0.55 K/uL (0.11-0.59); Monocytes % (auto) 8.8 %; Neutrophils % (auto) 55.8 %; Platelet Count 280 K/uL (130-400); RDW Coefficient of Variation 16.6 % (11.5-14.5); RDW Standard Deviation 47.9 fL (36.4-46.3); Red Blood Count 4.98 M/uL (4.2-5.4); White Blood Count 6.26 K/uL (4.8-10.8)
[2021-10-05 14:34] LABS: Alanine Aminotransferase 12 U/L (7-52); Albumin Globulin Ratio 1.3 (0.9-2); Alkaline Phosphatase 62 U/L (34-104); Anion Gap 6 (3-11); BUN Creatinine Ratio 29.5 (10-20); Bilirubin,Total 0.8 mg/dl (0.2-1.0); Blood Urea Nitrogen 23 mg/dl (6-23); Calcium 9.5 mg/dl (8.5-10.1); Carbon Dioxide 29 mmol/L (21-32); Chloride 90 mmol/L (98-107); Creatinine Clr Calc Pharmacy 43.7 ml/min; Est GFR (African American) 78.1 ml/min; Est GFR (Non-African American) 67.4 ml/min; Globulin 3.2 gm/dl (2.5-4.0); Glucose 95 mg/dl (70-99(Fasting)); Lipase 51 U/L (11-82); Sodium 125 mmol/L (136-145); Total Protein 7.2 gm/dl (6.0-8.3)
--- NOTE | 2021-10-05 14:53 | XRay Report ---
XR chest 1V portable HISTORY: Atypical Chest Pain COMPARISON: Chest 11/06/2020. FINDINGS: There is a left-sided dual-chamber pacemaker. The heart remains mildly enlarged. Mild diffu se interstitial thickening which is likely chronic. Small linear density at the left lung base favor scarring or atelectasis. Otherwise, no new focal lung consolidations to suggest pneumonia. No evidenc e for pulmonary edema. No pleural effusions. No pneumothorax. IMPRESSION: Stable mild cardiomegaly. Otherwise, no acute process within the chest. ACT 112: Negative or not required by law. Electronically signed by: Silviano Ramos M.D. 10/05/2021 2:52 PM
[2021-10-05 15:38] LABS: Potassium 3.9 mmol/L (3.5-5.1)
--- NOTE | 2021-10-05 16:12 | History & Physical Report ---
Date of Service October 05, 2021 Assessment & Plan (1) Recurrent falls: Plan: Suspect multifactorial etiology - worsening tremors, weakness - Admit to PCU - monitor for arrhythmia on telemetry - PT/OT evaluations - Fall precautions - Changing gabapentin to HS dosing - Consider neurology evaluation for further recommendations regarding worsening tremor although none noted on examination in the ED. Pt reports that Baclofen was ineffective so discontinued. (2) Acute hyponatremia: Plan: Chronic hyponatremia noted in outpatient records with baseline of 130-135. However, labs from August with a sodium of 137 and today is 125. - 500 cc of NS - Recheck sodium this evening - if same or worse, hold HCTZ in AM - Urine sodium, urine and serum osmolality - Labs in AM (3) Weakness: Plan: See plan for #1 (4) CAD (coronary artery disease): (5) Paroxysmal atrial fibrillation: Plan: On Sotalol (6) Hypertension: (7) Tachy-garret syndrome: Plan: s/p PPM (8) Pacemaker: Plan: Interrogated in August - normal functioning Plan: Continue other home medications as appropriate. Pt seen and examined with collaborating physician, Dr. Quevedo. Plan of care discussed and as outlined above. Code Status: Full Code DVT Prophylaxis: pt on chronic anticoagulation - will continue Wilton Villanueva PA-C History of Present Illness Chief Complaint: Falls, leg weakness Primary Care Provider: Johnathon Jamison MD This is an 89 y/o female with a PMH of CAD s/p angioplasty and stent, tachy- garret syndrome s/p PPM, paroxysmal atrial fibrillation and sotalol and chronic anticoagulation, moderate aortic stenosis, HTN, hyperlipidemia, GERD, prior breast cancer, PVD, urge incontinence, hx TIA, and glaucoma who presents to the ED today with recurrent falls, reporting falling the past three days in a row and being unable to get back up. Pt is also concerned about worsening tremor over the past year. She describes episodic tremor with typical episodes lasting two days. Initially, these were happening once a month but more recently have been occurring as often as twice a week. The tremors occur in both UE and LE and are worse with intention. Pt does think that these have contributed to her falls. The tremors in her legs seem to get worse if she attempts to turn. She has noted LE weakness over the last several days that is gradually worsening. Today, she was standing in the doorway and went to turn around and "went down" but does not recall the specifics of her fall. She states that she did not lose consciousness. She did hit her buttocks, back, and the back of her head when she fell today. When she opened her eyes, she felt like things were spinning around her. She has had similar episodes of spinning over the last several weeks, which she did mention to her rheologist last month. He changed her amlodipine to nighttime dosing. At baseline, she uses a Rollator for ambulation. She has prior hx of TIA but reports no residual effects. The weakness and tremors have been variable from day-to-day. Allergies Allergy/AdvReac Type Severity Reaction Status Date / Time brimonidine Allergy Mild RED ITCHY Verified 10/05/21 14:54 EYE clavulanic acid Allergy Mild headache Verified 10/05/21 14:54 sulfamethoxazole AdvReac Intermediate CHILLS/RIGORS-PER Verified 10/05/21 14:54 [From Bactrim] GMG trimethoprim [From Bactrim] AdvReac Intermediate CHILLS/RIGORS-PER Verified 10/05/21 14:54 GMG amoxicillin AdvReac Mild headache Verified 10/05/21 14:54 Home Medications Medication Instructions Recorded Confirmed Type amlodipine 2.5 mg tablet 2.5 mg PO HS 08/07/20 10/05/21 History aspirin 81 mg tablet,delayed 81 mg PO DAILY 08/07/20 10/05/21 History release calcium carbonate 600 mg-vitamin 1 tab PO BIDM 08/07/20 10/05/21 History D3 10 mcg (400 unit) tablet (Calcium 600 + D(3)) coenzyme Q10 100 mg capsule 100 mg PO QAM 08/07/20 10/05/21 History (CoQ-10) gabapentin 600 mg tablet 600 mg PO QAM 08/07/20 10/05/21 History hydrochlorothiazide 25 mg tablet 25 mg PO QAM 08/07/20 10/05/21 History isosorbide mononitrate 60 mg 60 mg PO QAM 08/07/20 10/05/21 History tablet,extended release 24 hr latanoprost 0.005 % eye drops 1 drp OPL 08/07/20 10/05/21 History losartan 100 mg tablet 100 mg PO QAM 08/07/20 10/05/21 History multivitamin 1 tab PO QAM 08/07/20 10/05/21 History nitroglycerin 0.4 mg sublingual 0.4 mg SUBLINGUAL DIRECTED PRN 08/07/20 10/05/21 History tablet (Nitrostat) pantoprazole 20 mg tablet,delayed 20 mg PO QAM 08/07/20 10/05/21 History release (Protonix) prednisolone acetate 1 % eye 1 drp OPR QAM 08/07/20 10/05/21 History drops,suspension (Pred Forte) sotalol 80 mg tablet 80 mg PO BID 08/07/20 10/05/21 History warfarin 7.5 mg tablet 3.75 mg PO SUTUWETHSA 08/07/20 10/05/21 History warfarin 7.5 mg tablet 7.5 mg PO MOFR 08/07/20 10/05/21 History Past Med/Surg History Medical History (Updated 10/05/21 @ 16:26 by Saadia Villanueva PA-C) CAD (coronary artery disease) "PTCA/stent to LAD, balloon angioplasty to LAD diagonal branch" Carotid stenosis, non-symptomatic COVID-19 CVA (cerebral vascular accident) GERD (gastroesophageal reflux disease) Glaucoma History of breast cancer Hypertension MGUS (monoclonal gammopathy of unknown significance) Moderate aortic stenosis Osteoarthritis Pacemaker Paroxysmal atrial fibrillation PVD (peripheral vascular disease) Tachy-garret syndrome TIA (transient ischemic attack) Surgical History (Updated 10/05/21 @ 16:26 by Saadia Villanueva PA-C) H/O hernia repair H/O partial mastectomy History of bladder surgery History of cataract surgery History of hysterectomy History of spinal fusion Hx of tubal ligation S/P tonsillectomy and adenoidectomy Family History Father Heart disease Social History Smoking Status: Never smoker Hx Alcohol Use: No Hx Substance Use: No Preferred Language: Macedonian Communication Ability: Effective Lead Qa Analyst Required: No Beliefs That Will Affect Care: None Current Living Situation: Alone Feels Safe at Home: Yes Assistive Devices: Walker Review of Systems Review of Systems: All systems reviewed & are unremarkable except as noted in HPI & below Constitutional: + weakness; no fever Eyes: no diplopia and no worsening vision Respiratory: no cough and no dyspnea Cardiovascular: + edema; no chest pain, no palpitations and no syncope Gastrointestinal: no abdominal pain, no nausea and no vomiting Genitourinary: + urinary frequency, + urinary incontinence and + nocturia Musculoskeletal: + joint pain Integumentary: no yellowing of the skin Neurologic: + unsteadiness, + falls and + dizziness (describes vertigo sensation - see HPI); no headache(s) Psychiatric: no depression and no anxiety Physical Exam Constitutional: well developed and well nourished; no acute distress Eyes: + anicteric sclerae, PERRL, normal accommodation and EOM intact bilaterally ENMT: external ear and nose normal, oropharynx normal Neck: trachea midline Respiratory: no respiratory distress and no labored breathing Auscultation: lungs clear to auscultation bilaterally; no rales, no rhonchi and no wheezes Cardiovascular: Rate/Rhythm: regular rate and regular rhythm Heart Sounds: + murmur Vessels: radial pulses present Extremities: + edema (left > right) Gastrointestinal (Abdomen): Inspection/Auscultation: normal bowel sounds; abdomen not distended Percussion/Palpation: abdomen soft; abdomen nontender Musculoskeletal: Head/Neck/Chest: neck supple Bilateral LE strength 3/5 Skin: no jaundice Neurologic: Speech / Cognition: no expressive aphasia Motor/Sensory: no tremor, normal movement and no pronator drift Cranial Nerves: PERRL, normal accommodation, EOM intact bilaterally, normal facial strength, tongue midline and able to rotate head bilaterally Coordination: normal [id number] test Psychiatric: A+Ox3, euthymic affect Results & Data Results & Data ([facility]) Vital Signs (Past 12 Hours) Vital Signs Temp Pulse Resp BP Pulse Ox 10/05/21 16:00 66 19 162/89 H 96 10/05/21 15:31 71 17 160/84 H 96 10/05/21 15:00 59 L 14 180/101 H 94 10/05/21 14:31 60 18 171/92 H 98 10/05/21 14:00 60 22 149/104 H 97 10/05/21 13:34 61 14 168/95 H 97 10/05/21 13:29 98 10/05/21 13:02 36.8 C 77 18 186/119 H 96 Laboratory Results Laboratory Results - last 24 hr 10/05/21 10/05/21 10/05/21 13:11 13:11 13:11 WBC 6.26 RBC 4.98 Hgb 13.6 Hct 39.8 MCV 79.9 L MCH 27.3 MCHC 34.2 RDW Std Deviation 47.9 H RDW Coeff of Elke 16.6 H Plt Count 280 MPV 10.0 Immature Gran % (Auto) 0.2 Neut % (Auto) 55.8 Lymph % (Auto) 33.7 [place] % (Auto) 8.8 Eos % (Auto) 1.3 Baso % (Auto) 0.2 Neut # (Auto) 3.50 Lymph # (Auto) 2.11 [place] # (Auto) 0.55 Eos # (Auto) 0.08 Baso # (Auto) 0.01 Immature Gran # (Auto) 0.01 PT INR Sodium 125 L Potassium TNP Chloride 90 L Carbon Dioxide 29 Anion Gap 6 BUN 23 Creatinine 0.78 Est Cr Clr Drug Dosing 43.7 Est GFR ( Amer) 78.1 Est GFR (Non-Af Amer) 67.4 BUN/Creatinine Ratio 29.5 H Glucose 95 Calcium 9.5 Total Bilirubin 0.8 AST TNP ALT 12 Alkaline Phosphatase 62 Troponin I High Sens 5.7 Total Protein 7.2 Albumin 4.0 Globulin 3.2 Albumin/Globulin Ratio 1.3 Lipase 51 10/05/21 10/05/21 10/05/21 13:11 14:56 14:56 WBC RBC Hgb Hct MCV MCH MCHC RDW Std Deviation RDW Coeff of Elke Plt Count MPV Immature Gran % (Auto) Neut % (Auto) Lymph % (Auto) [place] % (Auto) Eos % (Auto) Baso % (Auto) Neut # (Auto) Lymph # (Auto) [place] # (Auto) Eos # (Auto) Baso # (Auto) Immature Gran # (Auto) PT 24.0 H INR 2.4 H Sodium Potassium 3.9 Chloride Carbon Dioxide Anion Gap BUN Creatinine Est Cr Clr Drug Dosing Est GFR ( Amer) Est GFR (Non-Af Amer) BUN/Creatinine Ratio Glucose Calcium Total Bilirubin AST 18 ALT Alkaline Phosphatase Troponin I High Sens 5.6 Total Protein Albumin Globulin Albumin/Globulin Ratio Lipase Diagnostic Findings CT Head 10/05/21 - Impression: No acute intracranial abnormality. Atrophy and microvascular ischemic changes. Mild right parietal scalp swelling. CXR 10/05/21 - IMPRESSION: Stable mild cardiomegaly. Otherwise, no acute process within the chest. Code Status & VTE Plan VTE Prophylaxis Plan VTE Prophylaxis will be ordered: Yes Supervising Physician Co-Signing Physician Notes Pt is a 89 y/o F with hx of Afib on Coumadin, CAD s/p stent, Tachy garret syndrome, s/p dual chamber pacemaker, Moderate Aortic stenosis, HTN, HLD, prediabetes, HTN, DDD s/p lumbar spinal fusion, TIA (2004), polyneuropathy admitted for recent mechanical fall and hypoNa+ PE: NAD, well developed HEENT: mild swelling of the R occipital region, no skin break or bleeding, EOMI, PERRLA, moist oropharynx Lungs: CTA, no wheezing or crackles Card: Normal S1/S2, systolic murmur Abd: soft, NT, ND MSK: slightly decreased strength of the b/l LE. Normal finger to nose test Psych: AAOx3, normal Affect A/P: Mechanical fall: -CT head: no acute finding -Likely multifactorial: increase in tremor, DDD and possible Meds SE -pt is currently taking gabapentin daily: will change that to qhs -hold baclofen -will get PT/OT -did not have any tremor on exam: no need for inpt neuro consult ---- follow up out: has an apt with neuro on 10/18 HypoNa+: -could be 2/2 HCTZ use -appeared euvolemic -will get urine osm, Na+, and serum osm -500 cc NS bolus and repeat BMP in 6 hrs HTN: -for now will continue Isosorbide mononitrate, losartan, HCTZ bc pt is hypertensive in the ER -if repeat BMP shows decreasing Na+ then will hold HCTZ dose Other chronic medical conditions: plan as above Agree with A/P by Saadia Villanueva PA-C
[2021-10-05] MEDS ORDERED: SODIUM CHLORIDE 0.9% 1000ML 1,000 ML IV SCH (16:45)
[2021-10-05] MEDS: amLODIPine BESYLATE 5 MG TAB PO SCH (20:07)
[2021-10-05] MEDS: LATANOPROST 0.005% OP SOLN 2.5 ML BTL OPL SCH (20:07)
[2021-10-05] MEDS: WARFARIN SOD 1.25 MG TAB PO SCH (20:08)
[2021-10-05] MEDS: SOTALOL HCL 80 MG TAB PO SCH (20:08)
[2021-10-06 07:44] LABS: BUN Creatinine Ratio 30.8 (10-20); Calcium 8.5 mg/dl (8.5-10.1); Creatinine Clr Calc Pharmacy 51.9 ml/min; Est GFR (African American) 91.2 ml/min; Est GFR (Non-African American) 78.7 ml/min; Potassium 3.6 mmol/L (3.5-5.1)
[2021-10-06] MEDS ORDERED: hydroCHLOROthiazide 25 MG TAB PO SCH (09:00)
[2021-10-06] MEDS: CALCIUM 600MG + VIT D 400 IU TAB PO SCH ×2 (09:16→16:59)
[2021-10-06] MEDS: ISOSORBIDE MONO EXTENDED REL 60 MG TABCR PO SCH (09:16)
[2021-10-06] MEDS: LOSARTAN POTASSIUM 50 MG TAB PO SCH (09:16)
[2021-10-06] MEDS: ASPIRIN 81 MG ECTAB PO SCH (09:16)
[2021-10-06] MEDS: MULTIVITAMIN TAB PO SCH (09:16)
[2021-10-06] MEDS: prednisoLONE acetate 1% OP SUSP 5 ML BTL OPR SCH (09:17)
[2021-10-06] MEDS: SOTALOL HCL 80 MG TAB PO SCH ×2 (09:17→20:08)
[2021-10-06] MEDS: PANTOprazole 40 MG TAB PO SCH (09:17)
--- NOTE | 2021-10-06 13:37 | Hospitalist Progress Note ---
Date of Service October 06, 2021 Assessment & Plan (1) Recurrent falls: Plan: -Does not appear to have resting or intention tremor -Reports "tremors" with what is described as weight bearing activity--> I wonder if it is due to deconditioning/muscle fasciculations? -She already sees Neurology for these episodes, will ask for consult while she is here. She missed her appt with them yesterday due to being in the hospital -PT/OT evaluation (2) Acute hyponatremia: Plan: -Serum and urine osmolality are low -likely from effects of HCTZ and/or poor oral intake -will d/c HCTZ -improved with IVF from yesterday, would place on regular diet and monitor BMP daily (3) Weakness: (4) CAD (coronary artery disease): (5) Paroxysmal atrial fibrillation: Plan: On Sotalol and coumadin. If patient will be going to rehab or other supervised setting, would be OK to continue AC. I would be hesitant to continue coumadin if she were to return home with her frequent falls recently (6) Hypertension: (7) Tachy-garret syndrome: Plan: s/p PPM (8) Pacemaker: Plan: Interrogated in August - normal functioning Admission and Anticipated Discharge Date Admission Date: October 05, 2021 Subjective Feels well currently Reports she has fallen 4 times in the past 1 week. Each time associated with tremors of her arms/legs when she is trying to walk. She reportedly sees Neurology and was prescribed Baclofen for this but it has not helped. At times, she also reports feeling like the room is spinning. She denies that the vertigo is related to her falls but instead is a result of it. Physical Exam Physical Exam: Appears stated age, pleasant, no acute distress Respiratory: Breathing comfortably on room air, no wheezing/rhonchi/rales Cardiovascular: regular rate and rhythm, no murmurs/rubs/gallops Gastrointestinal (Abdomen): soft,non tender Musculoskeletal: no edema Neurologic: awake, alert, spontaneously moving extremities, no resting or intention tremor observed Results & Data Results & Data ([facility]) Vital Signs (Past 12 Hours) Vital Signs Temp Pulse Pulse Resp BP Pulse Ox 10/06/21 08:01 36.7 C 69 20 132/70 96 10/06/21 04:08 36.5 C 61 20 123/77 95 10/06/21 02:12 60 Laboratory Results Short CBC 10/05/21 Range/Units 13:11 WBC 6.26 (4.8-10.8) K/uL Hgb 13.6 (12.0-16.0) g/dL Hct 39.8 (37-47) % Plt Count 280 (130-400) K/uL BMP 10/05/21 10/05/21 10/05/21 13:11 14:56 20:06 Sodium 125 L 130 L Potassium TNP 3.9 Chloride 90 L Carbon Dioxide 29 BUN 23 Creatinine 0.78 Glucose 95 Calcium 9.5 10/06/21 06:29 Sodium 131 L Potassium 3.6 Chloride 96 L Carbon Dioxide 29 BUN 20 Creatinine 0.65 Glucose 93 Calcium 8.5 Liver Function 10/05/21 10/05/21 Range/Units 13:11 14:56 Total Bilirubin 0.8 (0.2-1.0) mg/dl AST TNP 18 ALT 12 (7-52) U/L Alkaline Phosphatase 62 (34-104) U/L Albumin 4.0 (3.4-5.0) gm/dl Medications Administered Current Inpatient Medications Amlodipine Besylate (Amlodipine Besylate 5 Mg Tab) 2.5 mg PO RONDA Stop: 11/04/21 20:59 Last Admin: 10/05/21 20:07 Dose: 2.5 mg Documented by: Aspirin (Aspirin 81 Mg Ectab) 81 mg PO DAILY RONDA Stop: 11/05/21 08:59 Last Admin: 10/06/21 09:16 Dose: 81 mg Documented by: Gabapentin (Gabapentin 600 Mg Tab) 600 mg PO RONDA Stop: 11/05/21 20:59 Isosorbide Mononitrate (Isosorbide [place] Extended Rel 60 Mg Tabcr) 60 mg PO QA RONDA Stop: 11/05/21 08:59 Last Admin: 10/06/21 09:16 Dose: 60 mg Documented by: Latanoprost (Latanoprost 0.005% Op Soln 2.5 Ml Btl) 1 drops OPL RONDA Stop: 11/04/21 20:59 Last Admin: 10/05/21 20:07 Dose: 1 drops Documented by: Losartan Potassium (Losartan Potassium 50 Mg Tab) 100 mg PO QA RONDA Stop: 11/05/21 08:59 Last Admin: 10/06/21 09:16 Dose: 100 mg Documented by: Multivitamins ([facility]ivitamin Tab) [facility] Stop: 11/05/21 08:59 Last Admin: 10/06/21 09:16 Dose: 1 tab Documented by: Multivitamins/Minerals (Calcium 600mg + Vit D 400 Iu Tab) 1 tab PO BIDM [facility] [place] Stop: 11/05/21 07:59 Last Admin: 10/06/21 09:16 Dose: 1 tab Documented by: Pantoprazole Sodium (Pantoprazole 40 Mg Tab) [facility] [place] Stop: 11/05/21 08:59 Last Admin: 10/06/21 09:17 Dose: 40 mg Documented by: Prednisolone Acetate (Prednisolone Acetate 1% Op Susp 5 Ml Btl) 1 drops OPR [facility] Stop: 11/05/21 08:59 Last Admin: 10/06/21 09:17 Dose: 1 drops Documented by: Sotalol HCl (Sotalol Hcl 80 Mg Tab) 80 mg PO BID [facility] [place] [place] Stop: 11/04/21 20:59 Last Admin: 10/06/21 09:17 Dose: 80 mg Documented by: Warfarin Sodium (Warfarin Sod 7.5 Mg Tab) 7.5 mg PO [email or web address] [facility] [place] Stop: 11/07/21 15:59 Warfarin Sodium (Warfarin Sod 1.25 Mg Tab) 3.75 mg PO [email or web address] [facility] Stop: 11/04/21 18:48 Last Admin: 10/05/21 20:08 Dose: 3.75 mg Documented by:
--- NOTE | 2021-10-06 13:51 | Neurology Consultation ---
Date of Consultation October 06, 2021 Assessment & Plan (1) Recurrent falls: 1. orthostatic blood pressures if not already done-ordered 2. PT/OT for discharge needs 3. correct lytes - chronic low sodium 4. EMG - may be helpful for weakness as an outpatient but may need physical therapy prior 5. B12, folate ordered for tomorrow am 6. fall precautions (2) Weakness: 1. does not appear weak at this time Supervising Physician Co-Signing Physician Notes I have seen and discussed above patient with Dr Nedra Encinas, neurology.Pt known to Dr Harris for gait dysfunction of several years duration. he has hypothesized a poss peripheral neuropathy, spinal stenosis and vascular etiology to gait dysfunction.She has recently tried baclofen for shaking. I suspect there was thought to be an upper motor neuron cause. PT seen and examined via video with RAYSA Matute. Pt is known to Dr Harris. Pt reports episodic tremulous arms and legs while standing without sx of lightheadedness or spencer weakness. The tremor does not necess resolve with prolonged standing. on exam gait unremarkable, no tremor, or weakness. Signs of neuropathy on exam with poor posterior column function. P Pt could be orthostatic. 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 Neuropathy should be worked up, labs, emg. at some point in the future could consider gabapentin which has occasionally been used for orthostatic tremor. Pt should have PT. MD Teodora History of Present Illness Reason for Consultation: tremor and frequent falls Requesting Physician: Cheryl Turner MD Attending Physician: Cheryl Turner MD History of Present Illness Lisseth is an89 year old female with a PMH- CAD s/p angioplasty and stent, tachy- garret syndrome s/p PPM, pAfib and sotalol and chronic anticoagulation, moderate aortic stenosis, HTN, HLD, GERD, breast cancer, PVD, urge incontinence, TIA, and glaucoma who presents to [facility] 10/05/21 with recurrent falls in the past three days in a row and being unable to get back up.Her tremor is worsening over the past year.it is an episodic tremor with typical episodes lasting two days.they were happening once a month but more recently have been occurring as often as twice a week. The tremors occur in both UE and LE and are worse with intention. The tremors in her legs seem to get worse if she attempts to turn. She has noted LE weakness over the last several days that is gradually worsening. She was standing in the doorway and went to turn around and "went down" but does not recall the specifics of her fall but no lose consciousness. She did hit her buttocks, back, and the back of her head when she fell today.S he felt like things were spinning around her. She has had similar episodes of spinning over the last several weeks, which she did mention to her remediation bioanalytics consultant last month. He changed her amlodipine to nighttime dosing. At baseline, she uses a Rollator for ambulation. Today she is not having the shaking feeling in her arms or legs. She was having this feeling 1-2 a month now several times a week. it happens most often when she stands or when she is turning. then she just slowly sits down on the floor. she sometimes gets a spinning feeling in the morning when she wakes but if she closes her eyes it goes away. denies CP ,SOB, abdominal pain, N, V. vision changes. Allergies Allergy/AdvReac Type Severity Reaction Status Date / Time brimonidine Allergy Mild RED ITCHY Verified 10/05/21 14:54 EYE clavulanic acid Allergy Mild headache Verified 10/05/21 14:54 sulfamethoxazole AdvReac Intermediate CHILLS/RIGORS-PER Verified 10/05/21 14:54 [From Bactrim] GMG trimethoprim [From Bactrim] AdvReac Intermediate CHILLS/RIGORS-PER Verified 10/05/21 14:54 GMG amoxicillin AdvReac Mild headache Verified 10/05/21 14:54 Home Medications Medication Instructions Recorded Confirmed Type amlodipine 2.5 mg tablet 2.5 mg PO HS 08/07/20 10/05/21 History aspirin 81 mg tablet,delayed 81 mg PO DAILY 08/07/20 10/05/21 History release calcium carbonate 600 mg-vitamin 1 tab PO BIDM 08/07/20 10/05/21 History D3 10 mcg (400 unit) tablet (Calcium 600 + D(3)) coenzyme Q10 100 mg capsule 100 mg PO QAM 08/07/20 10/05/21 History (CoQ-10) gabapentin 600 mg tablet 600 mg PO QAM 08/07/20 10/05/21 History hydrochlorothiazide 25 mg tablet 25 mg PO QAM 08/07/20 10/05/21 History isosorbide mononitrate 60 mg 60 mg PO QAM 08/07/20 10/05/21 History tablet,extended release 24 hr latanoprost 0.005 % eye drops 1 drp OPL HS 08/07/20 10/05/21 History losartan 100 mg tablet 100 mg PO QAM 08/07/20 10/05/21 History multivitamin 1 tab PO QAM 08/07/20 10/05/21 History nitroglycerin 0.4 mg sublingual 0.4 mg SUBLINGUAL DIRECTED PRN 08/07/20 10/05/21 History tablet (Nitrostat) pantoprazole 20 mg tablet,delayed 20 mg PO QAM 08/07/20 10/05/21 History release (Protonix) prednisolone acetate 1 % eye 1 drp OPR QAM 08/07/20 10/05/21 History drops,suspension (Pred Forte) sotalol 80 mg tablet 80 mg PO BID 08/07/20 10/05/21 History warfarin 7.5 mg tablet 3.75 mg PO SUTUWETHSA 08/07/20 10/05/21 History warfarin 7.5 mg tablet 7.5 mg PO MOFR 08/07/20 10/05/21 History Patient History Medical History (Updated 10/05/21 @ 16:26 by Saadia Villanueva PA-C) CAD (coronary artery disease) "PTCA/stent to LAD, balloon angioplasty to LAD diagonal branch" Carotid stenosis, non-symptomatic COVID-19 CVA (cerebral vascular accident) GERD (gastroesophageal reflux disease) Glaucoma History of breast cancer Hypertension MGUS (monoclonal gammopathy of unknown significance) Moderate aortic stenosis Osteoarthritis Pacemaker Paroxysmal atrial fibrillation PVD (peripheral vascular disease) Tachy-garret syndrome TIA (transient ischemic attack) Surgical History (Updated 10/05/21 @ 16:26 by Saadia Villanueva PA-C) H/O hernia repair H/O partial mastectomy History of bladder surgery History of cataract surgery History of hysterectomy History of spinal fusion Hx of tubal ligation S/P tonsillectomy and adenoidectomy Family History Father Heart disease Social History Smoking Status: Never smoker Hx Alcohol Use: No Hx Substance Use: No Preferred Language: Kyrgyz Communication Ability: Effective Otr Truck Driver Required: Yes and No Beliefs That Will Affect Care: None Current Living Situation: Alone Current Living Situation Comment: Lives with dog, friend nearby Other Information That Helps Us Care for You: No Feels Safe at Home: Yes Safety Concerns: Feels Safe At This Time Assistive Devices: Walker Review of Systems Review of Systems: All systems reviewed & are unremarkable except as noted in HPI & below Physical Exam Physical Exam: Physical Exam: Constitutional: appearance over nourished, healthy Ears, Nose, Mouth and Throat: mucous membranes moist, no injection and skin norm al, eyes normal Cardiovascular: RRR opening murmur Respiratory: clear to auscultation (CTA) and no rales, rhonchi or wheeze Musculoskeletal: mild peripheral edema and distant distal pulses Skin: no stigmata of neurocutaneous disease noted and normal and intact Eyes: extraocular muscles intact (EOMI) and pupils equal, round and reactive to light (PERRL) NEUROLOGIC EXAMINATION: Mental status: Alert and interactive Oriented to person Speech fluent with no evidence of aphasia Cranial Nerves smile eye brow raise symmetric Reflexes: Deep tendon reflexes were decreased bilateral LE Sensory: decrease sensation to vibration to knees bilaterally GT proprioception intact, motified Maxi with no nystagmus no reproduction of symptoms Coordination: finger to nose, no resting tremor cogwheel rigidity Gait/Stance: Posture normal. Gait using a walker able to turn around with walker, stand from sitting in bed Motor: Negative for pronator drift of out stretched arms with eyes closed. no reaching tremor Strength: biceps triceps deltoids hand corn miller 5/5 bilaterally hip flex patellar flex ext plantar flex 5/5 Results & Data ([facility]) Vital Signs (Past 12 Hours) Vital Signs Temp Pulse Pulse Resp BP Pulse Ox 10/06/21 08:01 36.7 C 69 20 132/70 96 10/06/21 04:08 36.5 C 61 20 123/77 95 10/06/21 02:12 60 Laboratory Results Abnormal lab results 10/05/21 10/05/21 10/05/21 Range/Units 13:11 13:11 20:06 MCV 79.9 L (80-100) fL RDW Std Deviation 47.9 H (36.4-46.3) fL RDW Coeff of Elke 16.6 H (11.5-14.5) % Sodium 125 L 130 L (136-145) mmol/L Chloride 90 L (98-107) mmol/L BUN/Creatinine Ratio 29.5 H (10-20) Osmolality (280-300) mOsm/kg Urine Osmolality (500-800) mOsm/kg 10/05/21 10/05/21 10/06/21 Range/Units 20:06 20:30 06:29 MCV (80-100) fL RDW Std Deviation (36.4-46.3) fL RDW Coeff of Elke (11.5-14.5) % Sodium 131 L (136-145) mmol/L Chloride 96 L (98-107) mmol/L BUN/Creatinine Ratio 30.8 H (10-20) Osmolality 279 L (280-300) mOsm/kg Urine Osmolality 307 L (500-800) mOsm/kg Diagnostic Findings CXR-Stable mild cardiomegaly. Otherwise, no acute process within the chest. CT head-No acute intracranial abnormality. Atrophy and microvascular ischemic changes. Mild right parietal scalp swelling.
[2021-10-06] MEDS: WARFARIN SOD 1.25 MG TAB PO SCH (17:00)
[2021-10-06] MEDS: LATANOPROST 0.005% OP SOLN 2.5 ML BTL OPL SCH (20:06)
[2021-10-06] MEDS: amLODIPine BESYLATE 5 MG TAB PO SCH (20:09)
[2021-10-06] MEDS: GABAPENTIN 600 MG TAB PO SCH (20:09)
[2021-10-07] MEDS: SOTALOL HCL 80 MG TAB PO SCH ×2 (08:12→20:08)
[2021-10-07] MEDS: PANTOprazole 40 MG TAB PO SCH (08:13)
[2021-10-07] MEDS: MULTIVITAMIN TAB PO SCH (08:13)
[2021-10-07] MEDS: LOSARTAN POTASSIUM 50 MG TAB PO SCH (08:13)
[2021-10-07] MEDS: ASPIRIN 81 MG ECTAB PO SCH (08:13)
[2021-10-07] MEDS: ISOSORBIDE MONO EXTENDED REL 60 MG TABCR PO SCH (08:14)
[2021-10-07] MEDS: CALCIUM 600MG + VIT D 400 IU TAB PO SCH ×2 (08:14→16:47)
[2021-10-07] MEDS: prednisoLONE acetate 1% OP SUSP 5 ML BTL OPR SCH (08:14)
--- NOTE | 2021-10-07 09:04 | Electrocardiogram Report ---
Test Reason : Blood Pressure : / mmHG Vent. Rate : 064 BPM Atrial Rate : 071 BPM P-R Int : 304 ms QRS Dur : 102 ms QT Int : 446 ms P-R-T Axes : 066 -09 016 degrees QTc Int : 460 ms Poor data quality, interpretation may be adversely affected Atrial-paced rhythm with prolonged AV conduction Possible Anterolateral infarct (cited on or before 07-AUG-2020) Abnormal ECG When compared with ECG of 06-NOV-2020 18:37, No significant change was found Confirmed by Giorgio Singh ([id number]) on 10/07/2021 9:03:50 AM Referred By: REFERRED SELF Confirmed By:Giorgio Singh
[2021-10-07 09:06] LABS: BUN Creatinine Ratio 21.9 (10-20); Calcium 8.9 mg/dl (8.5-10.1); Creatinine Clr Calc Pharmacy 52.9 ml/min; Est GFR (African American) 91.7 ml/min; Est GFR (Non-African American) 79.1 ml/min; Potassium 3.7 mmol/L (3.5-5.1)
[2021-10-07 09:33] LABS: Folate (Folic Acid) > 22.30 ng/ml (>5.38); Vitamin B12 1106 pg/ml (180-914)
[2021-10-07] MEDS: SODIUM CHLORIDE 0.9% 1000ML 1,000 ML IV SCH ×2 (10:42→23:28)
--- NOTE | 2021-10-07 13:35 | Hospitalist Progress Note ---
Date of Service October 07, 2021 Assessment & Plan (1) Recurrent falls: Plan: -Does not appear to have resting or intention tremor -Reports "tremors" with what is described as weight bearing activity--> I wonder if it is due to deconditioning/muscle fasciculations? -Appreciate Neurology input -B12, folate normal. -Order Vitamin D with AM labs -Found to be +orthostasis despite holding 2 of her home antihypertensives already (see below) (2) Acute hyponatremia: Plan: -Serum and urine osmolality are low -likely from effects of HCTZ and/or poor oral intake -Improved initially with NSS -Despite good appetite, Na down trended again to 127 today. Review of her Na reveals chronic mild hyponatremia. Possibility of siADH? -Will ask for Nephrology consult (3) Weakness: (4) CAD (coronary artery disease): (5) Paroxysmal atrial fibrillation: Plan: On Sotalol and coumadin. If patient will be going to rehab or other supervised setting, would be OK to continue AC. I would be hesitant to continue coumadin if she were to return home with her frequent falls recently (6) Hypertension: Plan: At risk for polypharmacy -On amlodipine, HCTZ, Imdur and Losartan at home. Found to have +orthostasis here -Currently amlodipine and HCTZ are held. Her HTN is managed by Dr Martinez whom she has been seeing for years. Will ask for Cardiology consult while she is here for optimization of her medications. (7) Tachy-garret syndrome: Plan: s/p PPM (8) Pacemaker: Plan: Interrogated in August - normal functioning (9) Orthostasis: Plan: -Orthostatic BP measured, Significant drop with standing but no hypotension. Patient with no symptoms -This is despite amlodipine and HCTZ being held (she is also on Imdur and Losartan). Plan: Disposition- Needs Rehab, CM was made aware. I expect she would be medically stable for discharge in the next 1-2 days pending HTN optimization and Na normalization. Admission and Anticipated Discharge Date Admission Date: October 05, 2021 Subjective Denies feeling light headed or dizzy currently Agreeable for rehab Reports good appetite, "I think I'm putting on weight being in here!" Physical Exam Physical Exam: Appears stated age, well nourished, no acute dsitress Respiratory: breathing comfortably on room air, no wheezing/rhonchi/rales Cardiovascular: regular rate and rhythm, no murmurs/rubs/gallops Gastrointestinal (Abdomen): soft, non tender, non distended Musculoskeletal: no edema Neurologic: awake, alert, spontaneously moving extremities Results & Data Results & Data ([facility]) Vital Signs (Past 12 Hours) Vital Signs Temp Pulse Pulse Resp BP Pulse Ox 10/07/21 11:02 36.8 C 64 18 114/67 94 10/07/21 07:39 67 10/07/21 07:37 36.7 C 60 18 124/78 95 10/07/21 03:43 36.8 C 60 18 153/67 H 95 Laboratory Results BMP 10/07/21 08:29 Sodium 127 L Potassium 3.7 Chloride 93 L Carbon Dioxide 26 BUN 14 Creatinine 0.64 Glucose 145 H Calcium 8.9 Medications Administered Current Inpatient Medications Aspirin (Aspirin 81 Mg Ectab) 81 mg PO DAILY [facility] Stop: 11/05/21 08:59 Last Admin: 10/07/21 08:13 Dose: 81 mg Documented by: Gabapentin (Gabapentin 600 Mg Tab) 600 mg PO [facility] Stop: 11/05/21 20:59 Last Admin: 10/06/21 20:09 Dose: 600 mg Documented by: Sodium Chloride (Nss 1000ml) 1,000 mls @ 80 mls/hr IV .[id number] [facility] Stop: 11/06/21 10:29 Last Admin: 10/07/21 10:42 Dose: 80 mls/hr Documented by: Isosorbide Mononitrate (Isosorbide [place] Extended Rel 60 Mg Tabcr) 60 mg PO [facility] Stop: 11/05/21 08:59 Last Admin: 10/07/21 08:14 Dose: 60 mg Documented by: Latanoprost (Latanoprost 0.005% Op Soln 2.5 Ml Btl) 1 drops OPL [facility] Stop: 11/04/21 20:59 Last Admin: 10/06/21 20:06 Dose: 1 drops Documented by: Losartan Potassium (Losartan Potassium 50 Mg Tab) 100 mg PO [facility] Stop: 11/05/21 08:59 Last Admin: 10/07/21 08:13 Dose: 100 mg Documented by: Multivitamins (Multivitamin Tab) 1 tab PO [facility] Stop: 11/05/21 08:59 Last Admin: 10/07/21 08:13 Dose: 1 tab Documented by: Multivitamins/Minerals (Calcium 600mg + Vit D 400 Iu Tab) 1 tab PO BIDM [facility] Stop: 11/05/21 07:59 Last Admin: 10/07/21 08:14 Dose: 1 tab Documented by: Pantoprazole Sodium (Pantoprazole 40 Mg Tab) 40 mg PO [facility] Stop: 11/05/21 08:59 Last Admin: 10/07/21 08:13 Dose: 40 mg Documented by: Prednisolone Acetate (Prednisolone Acetate 1% Op Susp 5 Ml Btl) 1 drops OPR [facility] Stop: 11/05/21 08:59 Last Admin: 10/07/21 08:14 Dose: 1 drops Documented by: Sotalol HCl (Sotalol Hcl 80 Mg Tab) 80 mg PO BID [facility] Stop: 11/04/21 20:59 Last Admin: 10/07/21 08:12 Dose: 80 mg Documented by: Urea (Urea (Urea-Na) 15 Gm Pack) 15 gm PO DAILY [facility] Stop: 11/06/21 13:14 Warfarin Sodium (Warfarin Sod 7.5 Mg Tab) 7.5 mg PO [id number] [facility] Stop: 11/07/21 15:59 Warfarin Sodium (Warfarin Sod 1.25 Mg Tab) 3.75 mg PO [id number] [facility] Stop: 11/04/21 18:48 Last Admin: 10/06/21 17:00 Dose: 3.75 mg Documented by:
[2021-10-07] MEDS: UREA (UREA-NA) 15 GM PACK PO SCH (14:28)
--- NOTE | 2021-10-07 14:36 | Neurology Progress Note ---
Date of Service October 07, 2021 Assessment & Plan (1) Recurrent falls: Plan: 1. orthostatic blood pressures lying 151/80 sitting 182/102 standing 138/73 2. PT/OT for discharge needs 3. correct lytes - chronic low sodium 4. EMG - may be helpful for weakness as an outpatient but may need physical therapy prior 5. B12, folate both normal range but sodium is back down to 125 6. fall precautions 7. cardiology adjusting diuretic (2) Weakness: Plan: 1. does not appear weak at this time Admission and Anticipated Discharge Date Admission Date: October 05, 2021 Supervising Physician Co-Signing Physician Notes I have seen and discussed above patient with Dr Nedra Encinas, neurology.. pT seen and examined. Labs reviewed. Orthostatic hypotension noted. gait is unremarkable for age with walker. I see no evidence of an orthostatic tremor, bradyskinesia or PD. Gait dysfunction likely polyfactorial related to orthostasis, hyponatremia, chronic vascular changes seen on CT. Rec rehab with fu post dc with Dr. Harris.Will sign off. MD Teodora Jessica Montanez is an89 year old female with a PMH- CAD s/p angioplasty and stent, tachy- garret syndrome s/p PPM, pAfib and sotalol and chronic anticoagulation, moderate aortic stenosis, HTN, HLD, GERD, breast cancer, PVD, urge incontinence, TIA, and glaucoma who presents to [facility] ED 10/05/21 with recurrent falls in the past three days in a row and being unable to get back up.Her tremor is worsening over the past year.it is an episodic tremor with typical episodes lasting two days.they were happening once a month but more recently have been occurring as often as twice a week. The tremors occur in both UE and LE and are worse with intention. The tremors in her legs seem to get worse if she attempts to turn. She has noted LE weakness over the last several days that is gradually worsening. She was standing in the doorway and went to turn around and "went down" but does not recall the specifics of her fall but no lose consciousness. She did hit her buttocks, back, and the back of her head when she fell today.She felt like things were spinning around her. She has had similar episodes of spinning over the last several weeks, which she did mention to her numerical tool programmer last month. He changed her amlodipine to nighttime dosing. At baseline, she uses a Rollator for ambulation. Today she is not having the shaking feeling in her arms or legs. She was having this feeling 1-2 a month now several times a week. it happens most often when she stands or when she is turning. then she just slowly sits down on the floor. she sometimes gets a spinning feeling in the morning when she wakes but if she closes her eyes it goes away. she is doing well today had been up and walking with the walker and assistance. she is going to [facility] tomorrow. denies CP ,SOB, abdominal pain, N, V. vision changes. Physical Exam Physical Exam: Physical Exam: Constitutional: appearance over nourished, healthy Respiratory: clear to auscultation (CTA) and no rales, rhonchi or wheeze Musculoskeletal: mild peripheral edema and distant distal pulses Skin: no stigmata of neurocutaneous disease noted and normal and intact Eyes: extraocular muscles intact (EOMI) and pupils equal NEUROLOGIC EXAMINATION: Mental status: Alert and interactive Oriented to person Speech fluent with no evidence of aphasia Cranial Nerves smile eye brow raise symmetric Sensory: decrease sensation to vibration to mid dahl bilaterally GT proprioception intact Coordination: finger to nose, no resting tremor cogwheel rigidity Gait/Stance: Posture normal. Gait using a walker able to turn around with walker, stand from sitting in bed and walking to chair Motor: Negative for pronator drift of out stretched arms with eyes closed. no reaching tremor Results & Data ([facility]) Vital Signs (Past 12 Hours) Vital Signs Temp Pulse Pulse Resp BP Pulse Ox 10/07/21 11:02 36.8 C 64 18 114/67 94 10/07/21 07:39 67 10/07/21 07:37 36.7 C 60 18 124/78 95 10/07/21 03:43 36.8 C 60 18 153/67 H 95 Laboratory Results Abnormal lab results 10/07/21 10/07/21 Range/Units 08:29 08:29 Sodium 127 L (136-145) mmol/L Chloride 93 L (98-107) mmol/L BUN/Creatinine Ratio 21.9 H (10-20) Glucose 145 H (70-99(Fasting)) mg/dl Vitamin B12 1106 H (180-914) pg/ml Diagnostic Findings no new imaging
[2021-10-07 14:53] LABS: BUN Creatinine Ratio 21.1 (10-20); Calcium 8.6 mg/dl (8.5-10.1); Creatinine Clr Calc Pharmacy 47.6 ml/min; Est GFR (African American) 87.5 ml/min; Est GFR (Non-African American) 75.5 ml/min; Potassium 4.1 mmol/L (3.5-5.1)
--- NOTE | 2021-10-07 15:42 | Cardiology Consultation ---
Date of Consultation October 07, 2021 Assessment & Plan (1) Recurrent falls: (2) Weakness: (3) Orthostasis: (4) Acute hyponatremia: (5) Paroxysmal atrial fibrillation: (6) Pacemaker: 89 year old female admitted with recurrent falls, weakness, and hyponatremia. Agree with discontinuation of hydrochlorothiazide and gentle IV hydration with normal saline. Follow serum sodium closely. Careful attention to correct sodium slowly to avoid complications. I also agree with holding amlodipine and continue to monitor blood pressure which has been borderline hypotensive since admission. No evidence of dysrhythmia or recurrent atrial fibrillation since admission to explain patient's symptoms. QT within acceptable range. Other cardiovascular medications be continued as previously ordered including sotalol and warfarin. History of Present Illness Reason for Consultation: Blood pressure medication optimization. Requesting Physician: Dr. Turner Attending Physician: Cheryl Turner MD History of Present Illness 89-year-old female presented to the emergency department with recurrent falls. Patient describes vertigo while lying in bed. States "this is never happened to me before. Found to be hyponatremic and hypotensive on admission. Hydrochlorothiazide and amlodipine placed on hold. Her symptoms have improved with IV hydration. Family present at bedside. Patient denies any chest discomfort, shortness of breath, orthopnea, PND, or lower extremity edema. No recent medication changes, sick contacts, fever, chills, or cough. Telemetry reveals a atrial paced rhythm at 60 bpm. Complex cardiovascular history copied from the [facility] medical record: 1. Atherosclerotic coronary disease status post prior PTCA and stenting of the left anterior descending and balloon angioplasty of the left anterior descending diagonal branch in 2009. 2. Follow upcardiac catheterization in 2010, without progression of coronary disease. 3. 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 4. Stress nuclear imaging August 2016, OCTOBER 2019 with hyperdynamic LV function and no ischemia. 5. Moderateaortic stenosis. 6. Hypertension 7. Hyperlipidemia. 8. 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, [employer] [place] [id number] Allergies Allergy/AdvReac Type Severity Reaction Status Date / Time brimonidine Allergy Mild RED ITCHY Verified 10/05/21 14:54 EYE clavulanic acid Allergy Mild headache Verified 10/05/21 14:54 sulfamethoxazole AdvReac Intermediate CHILLS/RIGORS-PER Verified 10/05/21 14:54 [From Bactrim] GMG trimethoprim [From Bactrim] AdvReac Intermediate CHILLS/RIGORS-PER Verified 10/05/21 14:54 GMG amoxicillin AdvReac Mild headache Verified 10/05/21 14:54 hydrochlorothiazide AdvReac Hyponatremi Verified 10/10/21 17:30 a Home Medications Medication Instructions Recorded Confirmed Type amlodipine 2.5 mg tablet 2.5 mg PO HS 08/07/20 10/05/21 History aspirin 81 mg tablet,delayed 81 mg PO DAILY 08/07/20 10/05/21 History release calcium carbonate 600 mg-vitamin 1 tab PO BIDM 08/07/20 10/05/21 History D3 10 mcg (400 unit) tablet (Calcium 600 + D(3)) coenzyme Q10 100 mg capsule 100 mg PO QAM 08/07/20 10/05/21 History (CoQ-10) gabapentin 600 mg tablet 600 mg PO QAM 08/07/20 10/05/21 History isosorbide mononitrate 60 mg 60 mg PO QAM 08/07/20 10/05/21 History tablet,extended release 24 hr latanoprost 0.005 % eye drops 1 drp OPL HS 08/07/20 10/05/21 History losartan 100 mg tablet 100 mg PO QAM 08/07/20 10/05/21 History multivitamin 1 tab PO QAM 08/07/20 10/05/21 History nitroglycerin 0.4 mg sublingual 0.4 mg SUBLINGUAL DIRECTED PRN 08/07/20 10/05/21 History tablet (Nitrostat) pantoprazole 20 mg tablet,delayed 20 mg PO QAM 08/07/20 10/05/21 History release (Protonix) prednisolone acetate 1 % eye 1 drp OPR QAM 08/07/20 10/05/21 History drops,suspension (Pred Forte) sotalol 80 mg tablet 80 mg PO BID 08/07/20 10/05/21 History urea 15 gram oral powder packet 15 g PO DAILY 30 Days #8 ea 10/10/21 Rx (Ure-Na) warfarin 7.5 mg tablet See Rx Instructions .ROUTE 10/10/21 10/05/21 Rx .COMPLEX #0 tab Patient History Medical History CAD (coronary artery disease) "PTCA/stent to LAD, balloon angioplasty to LAD diagonal branch" Carotid stenosis, non-symptomatic COVID-19 CVA (cerebral vascular accident) GERD (gastroesophageal reflux disease) Glaucoma History of breast cancer Hypertension MGUS (monoclonal gammopathy of unknown significance) Moderate aortic stenosis Osteoarthritis Pacemaker Paroxysmal atrial fibrillation PVD (peripheral vascular disease) Tachy-garret syndrome TIA (transient ischemic attack) Surgical History H/O hernia repair H/O partial mastectomy History of bladder surgery History of cataract surgery History of hysterectomy History of spinal fusion Hx of tubal ligation S/P tonsillectomy and adenoidectomy Family History Father Heart disease Social History Smoking Status: Never smoker Hx Alcohol Use: No Hx Substance Use: No Preferred Language: [place] Communication Ability: Effective Electrical Plumbing Supervisor Required: Yes and No Beliefs That Will Affect Care: None Current Living Situation: Alone Current Living Situation Comment: Lives with dog, friend nearby Other Information That Helps Us Care for You: No Feels Safe at Home: Yes Safety Concerns: Feels Safe At This Time Assistive Devices: Walker Review of Systems Review of Systems: All systems reviewed & are unremarkable except as noted in Subjective Physical Exam Constitutional: well nourished; no acute distress Respiratory: no respiratory distress, no labored breathing and no retractions Auscultation: lungs clear to auscultation bilaterally; no crackles, no rales, no rhonchi and no wheezes Cardiovascular: Rate/Rhythm: regular rate and regular rhythm Heart Sounds: normal S1 and normal S2; no murmur Vessels: radial pulses present; no JVD and no carotid bruit Extremities: no edema Gastrointestinal (Abdomen): Inspection/Auscultation: abdomen normal to inspect ion and normal bowel sounds; abdomen not distended Percussion/Palpation: abdomen soft; abdomen nontender, no guarding and abdomen not rigid Neurologic: CN's II-XI intact bilaterally and moves all extremities; no focal motor deficits Motor/Sensory: no tremor Psychiatric: A+Ox3, euthymic affect Results & Data ([facility]) Vital Signs (Past 12 Hours) Vital Signs Temp Pulse Pulse Resp BP Pulse Ox 10/07/21 11:02 36.8 C 64 18 114/67 94 10/07/21 07:39 67 10/07/21 07:37 36.7 C 60 18 124/78 95 10/07/21 03:43 36.8 C 60 18 153/67 H 95
[2021-10-07] MEDS: WARFARIN SOD 1.25 MG TAB PO SCH (16:26)
[2021-10-07] MEDS: GABAPENTIN 600 MG TAB PO SCH (20:07)
[2021-10-07] MEDS: LATANOPROST 0.005% OP SOLN 2.5 ML BTL OPL SCH (20:08)
[2021-10-08 01:46] LABS: BUN Creatinine Ratio 38.7 (10-20); Calcium 8.6 mg/dl (8.5-10.1); Creatinine Clr Calc Pharmacy 45.1 ml/min; Est GFR (African American) 81.9 ml/min; Est GFR (Non-African American) 70.7 ml/min; Potassium 4.5 mmol/L (3.5-5.1)
[2021-10-08 06:34] LABS: BUN Creatinine Ratio 38.6 (10-20); Calcium 8.5 mg/dl (8.5-10.1); Creatinine Clr Calc Pharmacy 59.3 ml/min; Est GFR (African American) 95.3 ml/min; Est GFR (Non-African American) 82.2 ml/min; Potassium 3.9 mmol/L (3.5-5.1)
[2021-10-08] MEDS: SOTALOL HCL 80 MG TAB PO SCH ×2 (07:52→20:54)
[2021-10-08] MEDS: ISOSORBIDE MONO EXTENDED REL 60 MG TABCR PO SCH (07:52)
[2021-10-08] MEDS: LOSARTAN POTASSIUM 50 MG TAB PO SCH (07:52)
[2021-10-08] MEDS: ASPIRIN 81 MG ECTAB PO SCH (07:52)
[2021-10-08] MEDS: PANTOprazole 40 MG TAB PO SCH (07:52)
[2021-10-08] MEDS: MULTIVITAMIN TAB PO SCH (07:53)
[2021-10-08] MEDS: prednisoLONE acetate 1% OP SUSP 5 ML BTL OPR SCH (07:53)
[2021-10-08] MEDS: UREA (UREA-NA) 15 GM PACK PO SCH (07:53)
[2021-10-08] MEDS: CALCIUM 600MG + VIT D 400 IU TAB PO SCH ×2 (07:53→16:10)
--- NOTE | 2021-10-08 09:27 | Neurology Progress Note ---
Date of Service October 08, 2021 Assessment & Plan Admission and Anticipated Discharge Date Admission Date: October 05, 2021 Review of Systems Review of Systems: All systems reviewed & are unremarkable except as noted in HPI & below Physical Exam Eyes: PERRL, conjunctivae normal, anicteric sclerae Results & Data ([facility]) Vital Signs (Past 12 Hours) Vital Signs Temp Pulse Pulse Resp BP BP Pulse Ox 10/08/21 08:22 61 10/08/21 07:30 36.6 C 60 20 169/104 H 161/109 H 97 10/08/21 02:54 36.5 C 61 16 163/94 H 97 10/07/21 21:59 36.9 C 63 18 127/78 94
--- NOTE | 2021-10-08 10:43 | Cardiology Progress Note ---
Date of Service October 08, 2021 Assessment & Plan (1) Recurrent falls: (2) Weakness: (3) Orthostasis: (4) Acute hyponatremia: (5) Paroxysmal atrial fibrillation: (6) Pacemaker: Plan: 89 yo female admitted with recurrent falls, weakness, and hyponatremia. Agree with discontinuation of hydrochlorothiazide and gentle IV hydration with normal saline. Follow serum sodium closely. Careful attention to correct sodium slowly to avoid complications. I also agree with holding amlodipine and continue to monitor blood pressure which has been borderline hypotensive since admission. No evidence of dysrhythmia or recurrent atrial fibrillation since admission to explain patient's symptoms. QT within acceptable range. Other cardiovascular medications be continued as previously ordered including sotalol and warfarin. Cardiology 10/08/2021 initial plan as above No signs or arrhythmias or further cardiac concerns though blood pressure trending higher after hydration. Hyponatremia improved with hydration. Patient notes increased free water intake at home Continue to hold diuretic Will likely need to resume amlodipine 2-1/2 mg nightly due to past labile hypertension. Will place order Admission and Anticipated Discharge Date Admission Date: October 05, 2021 Subjective Patient seen and examined, chart, medications, telemetry reviewed. Patient feeling improved this morning no further dizziness or lightheadedness. Notes difficulties with intermittent tremors at home and 3 falls in the last week and a half secondary to gait instability. No overt orthostasis. Blood pressure elevated this morning. Hyponatremic on presentation Notes has been drinking large amounts of free fluid due to concerns regarding recurrent urinary tract infection Review of Systems Review of Systems: All systems reviewed & are unremarkable except as noted in Subjective Physical Exam Constitutional: well nourished; no acute distress Respiratory: no respiratory distress, no labored breathing and no retractions Auscultation: lungs clear to auscultation bilaterally; no crackles, no rales, no rhonchi and no wheezes Cardiovascular: Rate/Rhythm: regular rate and regular rhythm Heart Sounds: normal S1 and normal S2; no murmur Vessels: radial pulses present; no JVD and no carotid bruit Extremities: no edema Gastrointestinal (Abdomen): Inspection/Auscultation: abdomen normal to inspection and normal bowel sounds; abdomen not distended Percussion/Palpation: abdomen soft; abdomen nontender, no guarding and abdomen not rigid Neurologic: CN's II-XI intact bilaterally and moves all extremities; no focal motor deficits Motor/Sensory: no tremor Psychiatric: A+Ox3, euthymic affect Results & Data ([facility]) Vital Signs (Past 12 Hours) Vital Signs Temp Pulse Pulse Resp BP BP Pulse Ox 10/08/21 08:22 61 10/08/21 07:30 36.6 C 60 20 169/104 H 161/109 H 97 10/08/21 02:54 36.5 C 61 16 163/94 H 97 Laboratory Results Laboratory Results - last 24 hr 10/07/21 10/08/21 10/08/21 13:49 00:59 05:40 Sodium 125 L 129 L 130 L Potassium 4.1 4.5 3.9 Chloride 91 L 95 L 98 Carbon Dioxide 30 30 26 Anion Gap 4 4 6 BUN 15 29 H 22 Creatinine 0.71 0.75 0.57 L Est Cr Clr Drug Dosing 47.6 45.1 59.3 Est GFR ( Amer) 87.5 81.9 95.3 Est GFR (Non-Af Amer) 75.5 70.7 82.2 BUN/Creatinine Ratio 21.1 H 38.7 H 38.6 H Glucose 108 H 106 H 93 Calcium 8.6 8.6 8.5
[2021-10-08] MEDS: SODIUM CHLORIDE 0.9% 1000ML 1,000 ML IV SCH (11:09)
[2021-10-08 13:41] LABS: BUN Creatinine Ratio 59.3 (10-20); Calcium 8.5 mg/dl (8.5-10.1); Creatinine Clr Calc Pharmacy 57.2 ml/min; Est GFR (African American) 94.2 ml/min; Est GFR (Non-African American) 81.3 ml/min; Potassium 3.9 mmol/L (3.5-5.1)
--- NOTE | 2021-10-08 14:05 | Hospitalist Progress Note ---
Date of Service October 08, 2021 Assessment & Plan (1) Recurrent falls: Plan: -Does not appear to have resting or intention tremor -Appreciate Neurology input -B12, folate normal. -Vitamin D level ordered -Found to be +orthostasis (2) Acute hyponatremia: Plan: -Serum and urine osmolality are low -likely from effects of HCTZ and/or poor oral intake -Improved initially with NSS -Despite good appetite, Na down trended again Nephrology consulted (3) Weakness: Plan: Evaluated by PT and SNF recommended (4) CAD (coronary artery disease): (5) Paroxysmal atrial fibrillation: Plan: On Sotalol and coumadin. (6) Hypertension: Plan: At risk for polypharmacy -On amlodipine, HCTZ, Imdur and Losartan at home. Found to have +orthostasis here -hold HCTZ -Cardiology consulted for medication management, she sees Dr Martinez in office. Appreciate input (7) Tachy-garret syndrome: Plan: s/p PPM (8) Pacemaker: Plan: Interrogated in August - normal functioning (9) Orthostasis: Plan: Labile BP BP medications being adjusted by Cardiology Plan: Disposition: Placement pending BP and Na stabilization. Expect medical stability in next 24 -48 hours Admission and Anticipated Discharge Date Admission Date: October 05, 2021 Subjective Reports some leg tremors again today (from the knees down) "It's starting to act up again" Otherwise no new complaints Tolerating diet BP somewhat labile Physical Exam Physical Exam: Pleasant, comfortable, sitting in bed eating lunch Respiratory: breathing comfortably on room air, no wheezing/rhonchi/rales Cardiovascular: regular rate and rhythm, no murmurs/rubs/gallops Gastrointestinal (Abdomen): soft, non tender Musculoskeletal: no edema Neurologic: awake, alert, spontaneously moving extremities Results & Data Results & Data ([facility]) Vital Signs (Past 12 Hours) Vital Signs Temp Pulse Pulse Resp BP BP Pulse Ox 10/08/21 11:31 36.4 C L 59 L 18 144/86 H 94 10/08/21 08:22 61 10/08/21 07:30 36.6 C 60 20 169/104 H 161/109 H 97 10/08/21 02:54 36.5 C 61 16 163/94 H 97 Laboratory Results BMP 05/05/22 05/06/22 05/06/22 13:49 00:59 05:40 Sodium 125 L 129 L 130 L Potassium 4.1 4.5 3.9 Chloride 91 L 95 L 98 Carbon Dioxide 30 30 26 BUN 15 29 H 22 Creatinine 0.71 0.75 0.57 L Glucose 108 H 106 H 93 Calcium 8.6 8.6 8.5 10/08/21 13:11 Sodium 130 L Potassium 3.9 Chloride 100 Carbon Dioxide 26 BUN 35 H Creatinine 0.59 L Glucose 113 H Calcium 8.5 Medications Administered Current Inpatient Medications Amlodipine Besylate (Amlodipine Besylate 5 Mg Tab) 2.5 mg PO QPM [facility] Stop: 11/07/21 20:59 Aspirin (Aspirin 81 Mg Ectab) 81 mg PO DAILY [facility] Stop: 11/05/21 08:59 Last Admin: 10/08/21 07:52 Dose: 81 mg Documented by: Gabapentin (Gabapentin 600 Mg Tab) 600 mg PO [facility] Stop: 11/05/21 20:59 Last Admin: 10/07/21 20:07 Dose: 600 mg Documented by: Sodium Chloride (Nss 1000ml) 1,000 mls @ 80 mls/hr IV .[id number] [facility] Stop: 11/06/21 10:29 Last Admin: 10/08/21 11:09 Dose: 80 mls/hr Documented by: Isosorbide Mononitrate (Isosorbide [place] Extended Rel 60 Mg Tabcr) 60 mg PO [facility] Stop: 11/05/21 08:59 Last Admin: 10/08/21 07:52 Dose: 60 mg Documented by: Latanoprost (Latanoprost 0.005% Op Soln 2.5 Ml Btl) 1 drops OPL [facility] Stop: 11/04/21 20:59 Last Admin: 10/07/21 20:08 Dose: 1 drops Documented by: Losartan Potassium (Losartan Potassium 50 Mg Tab) [facility] Stop: 11/05/21 08:59 Last Admin: 10/08/21 07:52 Dose: 100 mg Documented by: Multivitamins (Multivitamin Tab) 1 tab [facility] [place] Stop: 11/05/21 08:59 Last Admin: 10/08/21 07:53 Dose: 1 tab Documented by: Multivitamins/Minerals (Calcium 600mg + Vit D 400 Iu Tab) 1 tab PO BIDM [facility] Stop: 11/05/21 07:59 Last Admin: 10/08/21 07:53 Dose: 1 tab Documented by: Pantoprazole Sodium (Pantoprazole 40 Mg Tab) 40 mg PO QAM [facility] Stop: 11/05/21 08:59 Last Admin: 10/08/21 07:52 Dose: 40 mg Documented by: Prednisolone Acetate (Prednisolone Acetate 1% Op Susp 5 Ml Btl) 1 drops OPR [facility] Stop: 11/05/21 08:59 Last Admin: 10/08/21 07:53 Dose: 1 drops Documented by: Sotalol HCl (Sotalol Hcl 80 Mg Tab) 80 mg PO BID [facility] Stop: 11/04/21 20:59 Last Admin: 10/08/21 07:52 Dose: 80 mg Documented by: Urea (Urea (Urea-Na) 15 Gm Pack) 15 gm PO DAILY [facility] Stop: 11/06/21 13:14 Last Admin: 10/08/21 07:53 Dose: 15 gm Documented by: Warfarin Sodium (Warfarin Sod 7.5 Mg Tab) 7.5 mg PO [id number]@1600 [facility] Stop: 11/07/21 15:59 Warfarin Sodium (Warfarin Sod 1.25 Mg Tab) 3.75 mg PO [id number]@1600 [facility] Stop: 11/04/21 18:48 Last Admin: 10/07/21 16:26 Dose: 3.75 mg Documented by:
[2021-10-08] MEDS ORDERED: WARFARIN SOD 7.5 MG TAB PO SCH (16:00)
[2021-10-08] MEDS: amLODIPine BESYLATE 5 MG TAB PO SCH (20:50)
[2021-10-08] MEDS: GABAPENTIN 600 MG TAB PO SCH (20:52)
[2021-10-08] MEDS: LATANOPROST 0.005% OP SOLN 2.5 ML BTL OPL SCH (20:53)
--- NOTE | 2021-10-08 21:57 | Consultation Report ---
NEPHROLOGY CONSULTATION NOTE DATE OF SERVICE: 10/08/2021. REASON FOR CONSULTATION: Hyponatremia. HISTORY OF PRESENT ILLNESS: The patient is an 89-year-old female who was admitted 2 days ago because of recurrent falls and lower extremity weakness. She has history of coronary artery disease, status post angioplasty and stent, tachybrady syndrome, paroxysmal atrial fibrillation, on sotalol and mechanical apprentice kenya anticoagulation. Also has hypertension and moderate aortic stenosis. Since admission, she has h ad low sodium and it appears she has chronic hyponatremia for the last few years. At the time of adm ission, serum sodium was 125, then went up briefly to 131, but then dropped again. This morning was 130. Hydrochlorothiazide has been stopped, which was one of her medication as an outpatient, and she is getting normal saline. No obvious cause of weakness has been found as of now. She has also been seen by cardiology for blood pressure medication adjustment with regard to atrial fibrillation. At t his point, amlodipine has been stopped and hydrochlorothiazide has been stopped. Blood pressure is s till reasonable. ALLERGIES: ALLERGY LIST IS REVIEWED IN DETAIL. MEDICATIONS: Home medications include amlodipine, aspirin, calcium carbonate, coenzyme Q, gabapentin , hydrochlorothiazide 25, isosorbide, losartan 100, multivitamin, Protonix, sotalol 80 twice daily an d Coumadin. PAST MEDICAL AND SURGICAL HISTORY: Coronary artery disease, stent to LAD, carotid stenosis, COVID-19 , history of cerebrovascular accident, GERD, glaucoma, history of breast cancer, hypertension, MGUS, moderate aortic stenosis, osteoarthritis, pacemaker, paroxysmal atrial fibrillation, peripheral vascu lar disease, tachybrady syndrome, transient ischemic attack, hernia repair, mastectomy, bladder surge ry, cataract surgery, hysterectomy, spinal fusion, tubal ligation, tonsillectomy and adenoidectomy. FAMILY HISTORY: Unremarkable for renal disease. SOCIAL HISTORY: Never smoked. No alcohol. She lives alone. She uses walker for ambulation. No ox ygen. REVIEW OF SYSTEMS: At this point, she has some unsteadiness and some dizziness on standing up and ge neralized weakness. Denies any nausea, vomiting, chest pain, shortness of breath, orthopnea, PND or lower extremity edema. She does have some urinary complaints with frequency and some incontinence. PHYSICAL EXAMINATION: GENERAL: Elderly white female who actually looks younger than her stated age. She is awake, alert, oriented x3 and able to give a detailed account of her medical problem list. VITAL SIGNS: Blood pressure is 144/86, pulse rate 59, temperature 36.4 degrees Celsius, 94% on room air. CHEST: Bilaterally clear to auscultation. CARDIOVASCULAR: S1 and S2 regular. ABDOMEN: Soft, nontender. EXTREMITIES: Show no edema. NEUROLOGIC: Awake, alert and oriented. No focal deficit. Moving all 4 extremities. Normal speech. LABORATORY TEST: She has chronic mild hyponatremia for the last few years. Serum sodium yesterday w as as low as 125, this morning is 130, BUN 35, creatinine 0.59. Urine osmolality 307. Urine sodium 77. Chest x-ray, no CHF. ASSESSMENT AND PLAN: An 89-year-old female with chronic mild hyponatremia secondary to hydrochloroth iazide, now admitted with recurrent falls and generalized weakness. 1. Hyponatremia: She has had chronic mild hyponatremia for the last few years. Given this, I do no t think she should be on hydrochlorothiazide and should be permanently stopped. If she ever gets in a situation where she needs diuretics, it can only be a loop diuretic. For the time being, continue with normal saline at least until tomorrow, but then after that, we can stop it. She may also have s ome component of syndrome of inappropriate antidiuretic hormone on top of hydrochlorothiazide, but th is will be evident only after a few weeks. In any case, serum sodium did go up from 125 to 130 and s he is no longer in a dangerous state. She needs to increase her protein intake and maybe cut down he r fluid intake. She does admit that she was drinking massive amount of liquid thinking she was dehyd rated and that was the cause of her weakness. 2. Hypertension: She did have somewhat low blood pressure and some orthostatic symptoms prior to ho spitalization. Given her age and recurrent fall, it is reasonable to have a higher blood pressure go al. Cardiology has been managing this in conjunction with her atrial fibrillation history. No furth er workup is needed. Job ID: [id number]
[2021-10-09] MEDS: SODIUM CHLORIDE 0.9% 1000ML 1,000 ML IV SCH (00:25)
[2021-10-09 01:25] LABS: Calcium 8.3 mg/dl (8.5-10.1); Creatinine Clr Calc Pharmacy 56.3 ml/min; Est GFR (African American) 93.7 ml/min; Est GFR (Non-African American) 80.8 ml/min; Potassium 3.9 mmol/L (3.5-5.1)
[2021-10-09 06:30] LABS: Prothrombin Time 39.2 Seconds (9.0-12.0)
[2021-10-09] MEDS: MULTIVITAMIN TAB PO SCH (07:53)
[2021-10-09] MEDS: CALCIUM 600MG + VIT D 400 IU TAB PO SCH ×2 (07:53→17:26)
[2021-10-09] MEDS: SOTALOL HCL 80 MG TAB PO SCH ×2 (07:53→21:51)
[2021-10-09] MEDS: ASPIRIN 81 MG ECTAB PO SCH (07:53)
[2021-10-09] MEDS: LOSARTAN POTASSIUM 50 MG TAB PO SCH (07:54)
[2021-10-09] MEDS: ISOSORBIDE MONO EXTENDED REL 60 MG TABCR PO SCH (07:55)
[2021-10-09] MEDS: prednisoLONE acetate 1% OP SUSP 5 ML BTL OPR SCH (07:55)
[2021-10-09] MEDS: PANTOprazole 40 MG TAB PO SCH (07:55)
[2021-10-09] MEDS: UREA (UREA-NA) 15 GM PACK PO SCH (07:55)
--- NOTE | 2021-10-09 14:53 | Nephrology Progress Note ---
Date of Service October 09, 2021 Assessment & Plan (1) Chronic hyponatremia: Plan: She has had chronic mild hyponatremia for the last few years.d/t this, hydrochlorothiazide permanently stopped. If she ever gets in a situation where she needs diuretics, it can only be a loop diuretic. For the time being, continue with normal saline at least until tomorrow, but then after that, we can stop it. -sNa has improved at apporpriate rate, 133 today -bmp weelkly x 3 -list HCTZ as med intolerance -needs to increase her protein intake and maybe cut down her fluid intake. She does admit that she was drinking massive amount of liquid MUSICAL THERAPIST; ->liberalize FR to 1.5L daily at d/c -would d/c on urea 15 gm bid - may be difficult/ $$ to get as OP Recommedn f/u w/ nephro 2-4 wks after d/c in [facility] (2) Hypertension: Plan: She did have somewhat low blood pressure and some orthostatic symptoms prior to hospitalization. Given her age and recurrent fals and aortic stenosisl, it is reasonable to have a higher blood pressure goal. No further workup is needed. -amllodipien just resumed low dose on 10/08; cont to monitor Admission and Anticipated Discharge Date Admission Date: October 05, 2021 Subjective no acute intervall clinical events; no sob or N; feels pain well controlled. eating well; no voiding conerns; has rrehab bed today; her biggest worry is leg tremors and weakness she had MUSICAL THERAPIST; tremors not recurred Review of Systems Review of Systems: All systems reviewed & are unremarkable except as noted in Subjective Physical Exam Constitutional: well developed and well nourished; no acute distress Eyes: EOM intact bilaterally ENMT: Ears: no external ear abnormality Nose: no external nose abnormality Mouth: + dry oral mucous membranes Neck: no nuchal rigidity Respiratory: normal respiratory effort Auscultation: + diminished lung sounds Cardiovascular: Rate/Rhythm: regular rate and regular rhythm Extremities: no edema Gastrointestinal (Abdomen): Inspection/Auscultation: normal bowel sounds Percussion/Palpation: abdomen soft; abdomen nontender Musculoskeletal: Extremities: strength 5/5 throughout Skin: no rashes, warm and dry Neurologic: foster, fluent speech, no tremor Psychiatric: Orientation: oriented x 3 Results & Data ([facility]) Vital Signs (Past 12 Hours) Vital Signs Temp Pulse Resp BP Pulse Ox 10/09/21 11:23 36.5 C 58 L 16 171/91 H 95 10/09/21 07:41 36.4 C L 60 18 173/88 H 95 10/09/21 03:58 36.5 C 64 16 166/88 H 96 Laboratory Results 10/05/21 13:11 10/09/21 00:48
--- NOTE | 2021-10-09 16:07 | Hospitalist Progress Note ---
Date of Service October 09, 2021 Assessment & Plan (1) Recurrent falls: Plan: -Does not appear to have resting or intention tremor -Appreciate Neurology input -B12, folate normal. -Vitamin D level normal -Found to be +orthostasis (2) Acute hyponatremia: Plan: -Serum and urine osmolality are low -likely from effects of HCTZ and/or poor oral intake but may have component of SIADH -Appreciate Nephrology input (3) Weakness: Plan: Evaluated by PT and SNF recommended (4) CAD (coronary artery disease): (5) Paroxysmal atrial fibrillation: Plan: On Sotalol and coumadin. INR today elevated at 4. Holding coumadin and repeat INR tomorrow (6) Hypertension: Plan: At risk for polypharmacy -On amlodipine, HCTZ, Imdur and Losartan at home. Found to have +orthostasis here -HCTZ discontinued -Cardiology consulted for medication management, amlodipine 2.5mg QHS restarted / for elevated BP. BP noted to be labile. -She will need to follow up with Dr Ingram after discharge for further medication titration (7) Tachy-garret syndrome: Plan: s/p PPM (8) Pacemaker: Plan: Interrogated in August - normal functioning (9) Orthostasis: Plan: Labile BP BP medications being adjusted by Cardiology Plan: Disposition: Patient is medically stable for discharge to [facility]. When arrangements can be made Admission and Anticipated Discharge Date Admission Date: October 05, 2021 Subjective Feels well BP remains labile Tolerating diet, ate most of her meals Still very unsteady on her feet when getting up with assistance Physical Exam Physical Exam: Appears well, non toxic, no acute distress Respiratory: breathing comfortably on room air, no wheezing/rhonchi/rales Cardiovascular: regular rate and rhythm, no murmurs/rubs/gallops Gastrointestinal (Abdomen): soft, non tender Musculoskeletal: no edema Neurologic: awake, alert, spontaneously moving extremities Results & Data Results & Data ([facility]) Vital Signs (Past 12 Hours) Vital Signs Temp Pulse Resp BP Pulse Ox 10/09/21 15:16 36.8 C 59 L 16 149/81 H 95 10/09/21 11:23 36.5 C 58 L 16 171/91 H 95 10/09/21 07:41 36.4 C L 60 18 173/88 H 95 Laboratory Results BMP 10/09/21 00:48 Sodium 133 L Potassium 3.9 Chloride 101 Carbon Dioxide 28 BUN 27 H Creatinine 0.60 Glucose 101 H Calcium 8.3 L Medications Administered Current Inpatient Medications Amlodipine Besylate (Amlodipine Besylate 5 Mg Tab) 2.5 mg PO QPM [facility] Stop: 11/07/21 20:59 Last Admin: 10/08/21 20:50 Dose: 2.5 mg Documented by: Aspirin (Aspirin 81 Mg Ectab) 81 mg PO DAILY [facility] Stop: 11/05/21 08:59 Last Admin: 10/09/21 07:53 Dose: 81 mg Documented by: Gabapentin (Gabapentin 600 Mg Tab) 600 mg PO [facility] Stop: 11/05/21 20:59 Last Admin: 10/08/21 20:52 Dose: 600 mg Documented by: Isosorbide Mononitrate (Isosorbide Stanton Extended Rel 60 Mg Tabcr) 60 mg PO [facility] Stop: 11/05/21 08:59 Last Admin: 10/09/21 07:55 Dose: 60 mg Documented by: Latanoprost (Latanoprost 0.005% Op Soln 2.5 Ml Btl) 1 drops OPL [facility] Stop: 11/04/21 20:59 Last Admin: 10/08/21 20:53 Dose: 1 drops Documented by: Losartan Potassium (Losartan Potassium 50 Mg Tab) 100 mg PO [facility] Stop: 11/05/21 08:59 Last Admin: 10/09/21 07:54 Dose: 100 mg Documented by: [facility]ivit[facility] ([facility]amin Tab) [facility] [place]: 11/05/21 08:59 Last Admin: 10/09/21 07:53 Dose: 1 tab Documented by: Multivitamins/Minerals (Calcium 600mg + Vit D 400 Iu Tab) [facility]: 11/05/21 07:59 Last Admin: 10/09/21 07:53 Dose: 1 tab Documented by: Pantoprazole Sodium (Pantoprazole 40 Mg Tab) 40 mg PO [facility] Stop: 11/05/21 08:59 Last Admin: 10/09/21 07:55 Dose: 40 mg Documented by: Prednisolone Acetate (Prednisolone Acetate 1% Op Susp 5 Ml Btl) 1 drops OPR [facility] Stop: 11/05/21 08:59 Last Admin: 10/09/21 07:55 Dose: 1 drops Documented by: Sotalol HCl (Sotalol Hcl 80 Mg Tab) 80 mg PO BID [facility] Stop: 11/04/21 20:59 Last Admin: 10/09/21 07:53 Dose: 80 mg Documented by: Urea (Urea (Urea-Na) 15 Gm Pack) 15 gm PO DAILY [facility] Stop: 11/06/21 13:14 Last Admin: 10/09/21 07:55 Dose: 15 gm Documented by: Warfarin Sodium (Warfarin Sod 7.5 Mg Tab) 7.5 mg PO [id number]@1600 [facility] Stop: 11/07/21 15:59 Last Admin: 10/08/21 16:10 Dose: 7.5 mg Documented by: Warfarin Sodium (Warfarin Sod 1.25 Mg Tab) 3.75 mg PO [id number]@1600 [facility] Stop: 11/04/21 18:48 Last Admin: 10/07/21 16:26 Dose: 3.75 mg Documented by:
[2021-10-09] MEDS ORDERED: ACETAMINOPHEN 325 MG TAB PO PRN (18:26)
[2021-10-09] MEDS: amLODIPine BESYLATE 5 MG TAB PO SCH (21:50)
[2021-10-09] MEDS: GABAPENTIN 600 MG TAB PO SCH (21:50)
[2021-10-09] MEDS: LATANOPROST 0.005% OP SOLN 2.5 ML BTL OPL SCH (21:52)
[2021-10-10 04:18] LABS: INR 3.4 (0.9-1.1); Prothrombin Time 34.1 Seconds (9.0-12.0)
[2021-10-10 04:29] LABS: BUN Creatinine Ratio 47.2 (10-20); Calcium 8.9 mg/dl (8.5-10.1); Creatinine Clr Calc Pharmacy 64.3 ml/min; Est GFR (African American) 97.6 ml/min; Est GFR (Non-African American) 84.2 ml/min; Potassium 3.9 mmol/L (3.5-5.1)
[2021-10-10] MEDS: SOTALOL HCL 80 MG TAB PO SCH (07:58)
[2021-10-10] MEDS: ASPIRIN 81 MG ECTAB PO SCH (07:59)
[2021-10-10] MEDS: PANTOprazole 40 MG TAB PO SCH (07:59)
[2021-10-10] MEDS: MULTIVITAMIN TAB PO SCH (07:59)
[2021-10-10] MEDS: UREA (UREA-NA) 15 GM PACK PO SCH (07:59)
[2021-10-10] MEDS: LOSARTAN POTASSIUM 50 MG TAB PO SCH (07:59)
[2021-10-10] MEDS: ISOSORBIDE MONO EXTENDED REL 60 MG TABCR PO SCH (08:00)
[2021-10-10] MEDS: CALCIUM 600MG + VIT D 400 IU TAB PO SCH (08:00)
[2021-10-10] MEDS: prednisoLONE acetate 1% OP SUSP 5 ML BTL OPR SCH (08:00)
--- NOTE | 2021-10-10 17:14 | Discharge Summary ---
Date of Service October 10, 2021 Admission HPI Per Admitting Provider This is an 89 y/o female with a PMH of CAD s/p angioplasty and stent, tachy- garret syndrome s/p PPM, paroxysmal atrial fibrillation and sotalol and chronic anticoagulation, moderate aortic stenosis, HTN, hyperlipidemia, GERD, prior breast cancer, PVD, urge incontinence, hx TIA, and glaucoma who presents to the ED today with recurrent falls, reporting falling the past three days in a row and being unable to get back up. Pt is also concerned about worsening tremor over the past year. She describes episodic tremor with typical episodes lasting two days. Initially, these were happening once a month but more recently have been occurring as often as twice a week. The tremors occur in both UE and LE and are worse with intention. Pt does think that these have contributed to her falls. The tremors in her legs seem to get worse if she attempts to turn. She has noted LE weakness over the last several days that is gradually worsening. Today, she was standing in the doorway and went to turn around and "went down" but does not recall the specifics of her fall. She states that she did not lose consciousness. She did hit her buttocks, back, and the back of her head when she fell today. When she opened her eyes, she felt like things were spinning around her. She has had similar episodes of spinning over the last several weeks, which she did mention to her catshovel driver last month. He changed her amlodipine to nighttime dosing. At baseline, she uses a Rollator for ambulation. She has prior hx of TIA but reports no residual effects. The weakness and tremors have been variable from day-to-day. Principal Diagnosis Frequent Falls Deconditioning Orthostasis Hyponatremia Labile HTN Discharge Exam Patient feels well, pleasant and comfortable Respiratory breathing comfortably on room air, no wheezing/rhonchi/rales Cardiovascular regular rate and rhythm, no murmurs/rubs Gastrointestinal (Abdomen) soft, non tender Musculoskeletal no edema, no cyanosis Neurologic awake, alert, spontaneously moving extremities Discharge Data Allergies Allergy/AdvReac Type Severity Reaction Status Date / Time brimonidine Allergy Mild RED ITCHY Verified 10/05/21 14:54 EYE clavulanic acid Allergy Mild headache Verified 10/05/21 14:54 sulfamethoxazole AdvReac Intermediate CHILLS/RIGORS-PER Verified 10/05/21 14:54 [From Bactrim] GMG trimethoprim [From Bactrim] AdvReac Intermediate CHILLS/RIGORS-PER Verified 10/05/21 14:54 GMG amoxicillin AdvReac Mild headache Verified 10/05/21 14:54 hydrochlorothiazide AdvReac Hyponatremi Verified 10/10/21 17:30 a Consultations 10/05/21 15:30 ED Decision to Admit Stat 10/06/21 13:18 Consult Neurology Routine 10/07/21 11:46 Consult Nephrology Routine 10/07/21 11:47 Consult Cardiology Routine Ordered Studies 10/05/21 13:03 CT head/brain wo con Stat Hospital Course (1) Recurrent falls: (2) Acute hyponatremia: (3) Weakness: (4) CAD (coronary artery disease): (5) Paroxysmal atrial fibrillation: (6) Hypertension: (7) Tachy-garret syndrome: (8) Pacemaker: (9) Orthostasis: Mrs Lisseth Redding is a 89 year old female with history of PAF on coumadin, tachy-garret syndrome s/p PPM, CAD, HTN and history of infrequent "tremors" was admitted 10/05 after a series of falls at home. Patient describes having tremors chronically but that they have become more freq uent, "tremors" described as legs shaking when she attempts to bear weight or walk. 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 Her HCTZ was discontinued, she was placed on IVF for several days and was started on Ure-Na by Nephrology. With these interventions, her sodium stabilized at 133. She was placed on heart healthy diet with 1.5L fluid restriction. She will need to follow up with Nephrology and have weekly BMP x 3 weeks. In addition, she was also noted to have positive orthostasis and labile HTN. She was seen by Cardiology while here for BP optimization and will follow up with Dr Ingram after discharge for further management of her blood pressure. She was discharged on losartan 100mg daily, amlodipine 2.5mg QHS and Imdur 60mg daily which is what she was on previously (HCTZ was permanently discontinued) She was seen by Neurology while here and will follow up with them after discharge. She was seen by PT and rehab was recommended. She was discharged to [facility] in stable condition. Her BP was elevated at discharge but with her frequent falls and labile HTN, it was accepted for her BP to be on the higher side. Total Time Total Time Spent Total Time Spent (In Minutes): 40 Discharge Plan Discharge Items Patient Disposition: Transfer Inpatient Rehab Fac Reason For Visit: FALLS, HYPONATREMIA Discharge Diagnosis: Frequent Falls Deconditioning Orthostasis Hyponatremia Condition on Discharge: Good Activity: Resume your previous activity Non-emergency contact: Primary Care Provider and Stone Setter Apprentice Call non-emergency contact if: you have any medication questions Follow-up/Referrals: Johnathon Jamison MD [Primary Care Provider] - Juan Ingram MD [Physician] - Jamey Vaughan MD [Surgeon] - Diet: Heart Healthy Fluids: 1500ml (6 cups) Addtl Attending Provider Instructions: You were admitted for frequent falls Found to have low sodium. Because of this, your Hydrochlorothiazide (HCTZ) was permanently discontinued. You should have weekly BMP for 3 weeks Your blood pressure has been labile. But because of your frequent falls and orthostasis here (BP drop with standing), we are Ok with your BP being on the higher side. Please follow up with Dr Ingram Your INR 5/7 was 4 and 5/8 was 3.4. Your coumadin was HELD both days Repeat INR on 10/11. Resume coumadin at 3.75mg daily when INR < 3 You should be on a Hearth Healthy diet with 1.5L fluid restriction Pending Studies at Discharge: No Stand-Alone Forms: My [employer], Smoking Cessation Skilled Items Patient informed of condition?: Yes DNR: No Discharge Level of Care: Skilled Communicable Disease: No Discharge Prognosis: Stable Lines: None Urinary Catheter: No Medications and DC Order Prescriptions: New Ure-Na 15 gram Powder In Packet 15 g PO DAILY 30 Days Qty: 8 RF: 0 Continued multivitamin Tablet 1 tab PO QAM RF: 0 latanoprost 0.005 % Drops 1 drp OPL HS RF: 0 gabapentin 600 mg Tablet 600 mg PO QAM RF: 0 sotalol 80 mg Tablet 80 mg PO BID RF: 0 amlodipine 2.5 mg Tablet 2.5 mg PO HS RF: 0 aspirin 81 mg Tablet,Delayed Release (Dr/Ec) 81 mg PO DAILY RF: 0 pantoprazole [Protonix] 20 mg Tablet,Delayed Release (Dr/Ec) 20 mg PO QAM RF: 0 isosorbide mononitrate 60 mg Tablet Extended Release 24 Hr 60 mg PO QAM RF: 0 prednisolone acetate [Pred Forte] 1 % Drops,Suspension 1 drp OPR QAM RF: 0 nitroglycerin [Nitrostat] 0.4 mg Tablet, Sublingual 0.4 mg sublingual DIRECTED PRN (Reason: Chest Pain) RF: 0 losartan 100 mg Tablet 100 mg PO QAM RF: 0 coenzyme Q10 [CoQ-10] 100 mg Capsule 100 mg PO QAM RF: 0 calcium carbonate-vitamin D3 [Calcium 600 + D(3)] 600 mg(1,500mg) -400 unit Tablet 1 tab PO BIDM RF: 0 Changed warfarin 7.5 mg tablet See Rx Instructions .ROUTE .COMPLEX Qty: 0 RF: 0 Discontinued hydrochlorothiazide 25 mg Tablet 25 mg PO QAM RF: 0 warfarin 7.5 mg tablet 7.5 mg PO MOFR RF: 0 Discharge Orders: Discharge Order (Routine); Ordered 10/10/21 Ordered By: Cheryl Turner Admission Data Admit Date/Time: 10/05/21 16:02 Attending Provider: Cheryl Turner Admit Provider: Krystal Quevedo Primary Care Provider: Johnathon Jamison Other Providers: Krystal Quevedo ; Nedra Encinas ; Yoni Trinh ; [facility] Other Interventions: Discharge Summary Assessment (RN) Last Done: 10/10/21 13:41
== END 2021-10-10 13:05 | DRG 641 ==
LOC: ED 12:56 → 2S 16:02 → SUATTDRO 16:02 → 2S 17:55

== ENCOUNTER 2022-03-18 14:36 | Inpatient (IN) ==
[2022-03-18 15:31] LABS: Basophils # (auto) 0.03 K/uL (0-0.2); Basophils % (auto) 0.3 %; Eosinophils # (auto) 0.06 K/uL (0-0.50); Eosinophils % (auto) 0.6 %; Hematocrit (blood only) 42.2 % (34.1-44.9); Immature Granulocytes # (auto) 0.02 K/uL (0.00-0.02); Immature Granulocytes % (auto) 0.2 %; Lymphocytes # (auto) 2.16 K/uL (1.2-3.4); Lymphocytes % (auto) 23.3 %; Mean Corpuscular Hemoglobin 27.7 pg (25.0-34.0); Mean Corpuscular Hgb Conc 33.2 g/dL (32.0-36.0); Mean Corpuscular Volume 83.4 fL (80.0-100.0); Monocytes # (auto) 0.69 K/uL (0.24-0.82); Monocytes % (auto) 7.4 %; Neutrophils # (auto) 6.33 K/uL (1.4-6.5); Neutrophils % (auto) 68.2 %; Platelet Count 257 K/uL (130-400); RDW Coefficient of Variation 16.6 % (11.5-14.5); RDW Standard Deviation 50.5 fL (36.4-46.3); Red Blood Count 5.06 M/uL (3.93-5.22); White Blood Count 9.29 K/ul (4.8-10.8)
--- NOTE | 2022-03-18 15:37 | XRay Report ---
XR chest 2V PA/lateral CLINICAL HISTORY: Generalized weakness. COMPARISON STUDY: Chest radiograph January 27, 2022. FINDINGS: Dual lead left subclavian pacer is in place. Lung volumes are normal. Lungs are clear. Ther e is no pneumothorax or pleural effusion. Cardiomegaly is unchanged. Mediastinal contours are normal. There is no evidence for pulmonary edema. IMPRESSION: No acute cardiopulmonary findings. No change in appearance of the chest. ACT 112: Negative or not required by law. Electronically signed by: Jose Alejandro Disla M.D. 03/18/2022 3:35 PM
[2022-03-18 15:45] LABS: INR 2.8 (0.9-1.1); Prothrombin Time 28.4 Seconds (9.0-12.0)
[2022-03-18 16:15] LABS: Alanine Aminotransferase 9 U/L (7-52); Albumin Globulin Ratio 1.3 (0.9-2); Albumin Level 3.9 gm/dl (3.4-5.0); Alkaline Phosphatase 66 U/L (34-104); Anion Gap 6 (3-11); Aspartate Aminotransferase 17 U/L (13-39); BUN Creatinine Ratio 27.6 (10-20); Bilirubin,Total 0.5 mg/dl (0.2-1.0); Blood Urea Nitrogen 24 mg/dl (6-23); Carbon Dioxide 27 mmol/L (21-32); Chloride 101 mmol/L (98-107); Est GFR (African American) 68.5 ml/min; Est GFR (Non-African American) 59.1 ml/min; Globulin 2.9 gm/dl (2.5-4.0); Glucose 104 mg/dl (70-99(Fasting)); Potassium 4.2 mmol/L (3.5-5.1); Sodium 134 mmol/L (136-145); Total Protein 6.8 gm/dl (6.0-8.3)
[2022-03-18] MEDS ORDERED: ASPIRIN 81 MG CHEW PO STA (16:53)
[2022-03-18] MEDS ORDERED: LOSARTAN POTASSIUM 50 MG TAB PO ONE (16:55)
[2022-03-18] MEDS ORDERED: ISOSORBIDE MONONITRATE 20 MG TAB PO ONE (16:56)
--- NOTE | 2022-03-18 17:04 | Emergency Department Note ---
Impression & Plan Weakness, Recurrent falls, Diarrhea ED Provider Note Provider: Grupo Ge MD DATE OF SERVICE: 03/18/2022 CHIEF COMPLAINT: Weakness, diarrhea HISTORY OF PRESENT ILLNESS: Patient is a 89-year-old female history of chronic hyponatremia, aortic stenosis, hypertension, paroxysmal atrial fibrillation with tachybradycardia syndrome and AICD presenting here today with her niece from home. Patient evidently is having some weak spells for some time. Has had several falls from this. States yesterday was try to get up from her bed to a chair and got weak and slid slowly to the ground landing on her buttock but did not strike her head. Denies significant trauma with this. Police assisted her up back into bed. States she was too weak to get a bed this morning and niece came to help and she had significant mount of diarrhea made with a little bit of blood. Denies significant abdominal pain does have some mild irritation to the lower sacral area. Patient denies URI symptoms or fever or chills. Denies significant chest pain or shortness of breath. Denies nausea or vomiting. Remigio hassan denies any headache. States she just gets shaky at times and is feeling more weak. No other sick contacts reported. Did not take her morning medications REVIEW OF SYSTEMS: A total of 10 review of systems was obtained and negative except as stated above in the HPI. PAST MEDICAL HISTORY: As noted above MEDICATIONS: Reviewed home medications SOCIAL HISTORY: Lives at home PHYSICAL EXAM: GENERAL: alert and oriented in no acute distress on stretcher Head: normocephalic and atraumatic EYES: No injection, discharge or icterus. NECK: Trachea midline. ENT: Mucous membranes pink and moist. LUNGS: Airway patent. No retractions. Breath sounds clear with good air entry bilaterally. HEART: Regular rate and rhythm. No chest wall tenderness with left chest wall AICD subcutaneously palpated ABDOMEN: Soft and non-tender, without guarding or rebound. SKIN: Acyanotic, warm, dry EXTREMITIES: Without swelling, tenderness or deformity NEUROLOGICAL: No focal deficits. No aphasia. No facial droop or slurred speech. Normal strength and tone in the extremities. Sensation to gross touch normal. EK bpm atrially paced rhythm without PVC or PAC. No acute ST segment elevation or depression with a QTC of 425. CONTINUOUS CARDIAC MONITORING: was ordered and showed a heart rate of 60s-80s bpm in atrially paced rhythm Patient's laboratory studies and imaging reviewed. Differential includes Infection, dehydration, metabolic abnormality, hypo/hyperglycemia, electrolyte disturbance, anemia, hypoxia, cardiac sources, intracerebral event, toxicologic, neurologic, as well as other pathologies. IMPRESSION/MEDICAL DECISION MAKING: No significant risk factors reported for C. difficile at this time. Reports of small amount of blood may be in the diarrhea. Benign abdomen otherwise. Blood work here is reassuring without leukocytosis or significant anemia. Does have appropriate INR for Coumadin given her A. fib history. Some slight hyponatremia but well above previous lows. No significant renal dysfunction noted. No signs of liver dysfunction. TSH and troponin sent as well. EKG reviewed. Chest x- ray without significant pathology. Some questionable urinary symptoms and UA will be sent. Patient without significant focal weakness I doubt CVA with this. Even if patient has a positive urinalysis this time given the fact that she normally lives alone with generalized weakness while on Coumadin trying to use walkers and still having multiple falls patient and family do not feel she is safe to be at home at this point. Discussed with the patient and family at [facility] and requesting further care here at the hospital. Hospitalist contacted. Will likely need some rehab. DIAGNOSIS: Weakness, diarrhea DISPOSITION: Hospitalist will evaluate Patient was agreeable with this plan. Past Med/Surg History Medical History CAD (coronary artery disease) "2009 - PTCA/stent to LAD, balloon angioplasty to LAD diagonal branch" Carotid stenosis, non-symptomatic COVID-19 CVA (cerebral vascular accident) GERD (gastroesophageal reflux disease) Glaucoma History of breast cancer Hypertension MGUS (monoclonal gammopathy of unknown significance) Moderate aortic stenosis Osteoarthritis Pacemaker Paroxysmal atrial fibrillation PVD (peripheral vascular disease) Tachy-garret syndrome TIA (transient ischemic attack) Surgical History H/O hernia repair H/O partial mastectomy History of bladder surgery History of cataract surgery History of hysterectomy History of spinal fusion Hx of tubal ligation S/P tonsillectomy and adenoidectomy Family History Father Heart disease Social History Smoking Status: Never smoker Hx Alcohol Use: No Hx Substance Use: No Preferred Language: Cymraes Communication Ability: Effective Helicopter Specialist Required: Yes and No Beliefs That Will Affect Care: None Current Living Situation: Alone Current Living Situation Comment: Lives with dog, friend nearby Feels Safe at Home: Yes Assistive Devices: Walker Allergies Allergies Allergy/AdvReac Type Severity Reaction Status Date / Time brimonidine Allergy Mild RED ITCHY Verified 03/18/22 18:10 EYE clavulanic acid Allergy Mild headache Verified 03/18/22 18:10 sulfamethoxazole AdvReac Intermediate CHILLS/RIGORS-PER Verified 03/18/22 18:10 [From Bactrim] GMG trimethoprim [From Bactrim] AdvReac Intermediate CHILLS/RIGORS-PER Verified 03/18/22 18:10 GMG amoxicillin AdvReac Mild headache Verified 03/18/22 18:10 hydrochlorothiazide AdvReac Hyponatremi Verified 03/18/22 18:10 a Home Meds Home Medications Medication Instructions Recorded Confirmed amlodipine 2.5 mg tablet 2.5 mg PO QA 08/07/20 03/18/22 aspirin 81 mg tablet,delayed 81 mg PO DAILY 08/07/20 03/18/22 release calcium carbonate 600 mg-vitamin 2 tab PO QAM 08/07/20 03/18/22 D3 10 mcg (400 unit) tablet (Calcium 600 + D(3)) coenzyme Q10 100 mg capsule 100 mg PO QA 08/07/20 03/18/22 (CoQ-10) gabapentin 600 mg tablet 600 mg PO 08/07/20 03/18/22 isosorbide mononitrate 60 mg 60 mg PO [facility] 08/07/20 03/18/22 tablet,extended release 24 hr latanoprost 0.005 % eye drops 1 drp OPL 08/07/20 03/18/22 losartan 100 mg tablet 100 mg PO QAM 08/07/20 03/18/22 multivitamin 1 tab PO QA 08/07/20 03/18/22 nitroglycerin 0.4 mg sublingual 0.4 mg sublingual DIRECTED PRN 08/07/20 03/18/22 tablet (Nitrostat) Chest Pain pantoprazole 20 mg tablet,delayed 20 mg PO QAM 08/07/20 03/18/22 release (Protonix) prednisolone acetate 1 % eye 1 drp OPR QAM 08/07/20 03/18/22 drops,suspension (Pred Forte) sotalol 80 mg tablet 80 mg PO BID 08/07/20 03/18/22 magnesium oxide 400 mg PO DAILY 03/18/22 03/18/22 omega 8-arx-wct-fish oil 1,200 mg 1 cap PO DAILY 03/18/22 03/18/22 (144 mg-216 mg) capsule (Fish Oil) urea 15 gram oral powder packet 1 packet PO AMHS 03/18/22 03/18/22 (Ure-Na) warfarin 7.5 mg tablet 7.5 mg PO DAILY 03/18/22 03/18/22 Results & Data (ED) Vital Signs Vital Signs - 24 hr 03/18/22 14:48 03/18/22 16:50 03/18/22 17:30 Temperature 36.8 C Temperature Source Temporal Artery Scan Pulse Rate 83 Pulse Rate [Finger] 102 H 61 Respiratory Rate 17 18 18 Respiratory Effort / Characteristics Non-Labored Spontaneous Respiratory Depth Normal Respiratory Pattern Regular Blood Pressure 182/115 H Blood Pressure [Right Arm] 213/95 H 170/100 H Blood Pressure Mean 137 Blood Pressure Mean [Right Arm] 134 123 Blood Pressure Position Sitting Blood Pressure Position [Right Arm] Semi-fowlers Pulse Oximetry 95 96 96 Oxygen Delivery Method Room Air Room Air Room Air Sepsis Recent Fever Within 48 Hours No Sepsis New/Unexplained Change in Mental Status No Sepsis Action Taken by Nursing No Action Required Laboratory Data Result diagrams: 03/18/22 15:15 03/18/22 15:15 Lab Results 03/18/22 03/18/22 03/18/22 Range/Units 15:15 15:15 15:15 WBC 9.29 (4.8-10.8) K/ul RBC 5.06 (3.93-5.22) M/uL Hgb 14.0 (12.0-16.0) g/dl Hct 42.2 (34.1-44.9) % MCV 83.4 (80.0-100.0) fL MCH 27.7 (25.0-34.0) pg MCHC 33.2 (32.0-36.0) g/dL RDW Std Deviation 50.5 H (36.4-46.3) fL RDW Coeff of Elke 16.6 H (11.5-14.5) % Plt Count 257 (130-400) K/uL MPV 10.0 (9.4-12.3) fL Immature Gran % (Auto) 0.2 % Neut % (Auto) 68.2 % Lymph % (Auto) 23.3 % [place] % (Auto) 7.4 % Eos % (Auto) 0.6 % Baso % (Auto) 0.3 % Neut # (Auto) 6.33 (1.4-6.5) K/uL Lymph # (Auto) 2.16 (1.2-3.4) K/uL [place] # (Auto) 0.69 (0.24-0.82) K/uL Eos # (Auto) 0.06 (0-0.50) K/uL Baso # (Auto) 0.03 (0-0.2) K/uL Immature Gran # (Auto) 0.02 (0.00-0.02) K/uL PT 28.4 H (9.0-12.0) Seconds INR 2.8 H (0.9-1.1) Sodium 134 L (136-145) mmol/L Potassium 4.2 (3.5-5.1) mmol/L Chloride 101 (98-107) mmol/L Carbon Dioxide 27 (21-32) mmol/L Anion Gap 6 (3-11) BUN 24 H (6-23) mg/dl Creatinine 0.87 (0.6-1.2) mg/dl Est Cr Clr Drug Dosing Not Reportable Est GFR ( Amer) 68.5 ml/min Est GFR (Non-Af Amer) 59.1 ml/min BUN/Creatinine Ratio 27.6 H (10-20) Glucose 104 H (70-99(Fasting)) mg/dl Calcium 9.0 (8.5-10.1) mg/dl Total Bilirubin 0.5 (0.2-1.0) mg/dl AST 17 (13-39) U/L ALT 9 (7-52) U/L Alkaline Phosphatase 66 (34-104) U/L Troponin I High Sens (0-14) pg/ml Total Protein 6.8 (6.0-8.3) gm/dl Albumin 3.9 (3.4-5.0) gm/dl Globulin 2.9 (2.5-4.0) gm/dl Albumin/Globulin Ratio 1.3 (0.9-2) TSH (0.300-4.500) uIu/ml Urine Color Urine Appearance (Clear) Urine pH (4.5-7.5) Ur Specific [place] (1.000-1.030) Urine Protein (Negative) Urine Glucose (UA) (Negative) Urine Ketones (Negative) Urine Blood (Negative) Urine Nitrite (Negative) Urine Bilirubin (Negative) Urine Urobilinogen (Negative) Ur Leukocyte Esterase (Negative) Urine WBC (Auto) (0-5) /hpf Urine RBC (Auto) (0-4) /hpf U Hyaline Cast (Auto) (0-5) /lpf U Epithel Cells (Auto) (0-5) /lpf Urine Bacteria (Auto) (Negative) SARS-CoV-2, RNA, NAAT (NEGATIVE) 03/18/22 03/18/22 03/18/22 Range/Units 17:20 17:23 17:30 WBC (4.8-10.8) K/ul RBC (3.93-5.22) M/uL Hgb (12.0-16.0) g/dl Hct (34.1-44.9) % MCV (80.0-100.0) fL MCH (25.0-34.0) pg MCHC (32.0-36.0) g/dL RDW Std Deviation (36.4-46.3) fL RDW Coeff of Elke (11.5-14.5) % Plt Count (130-400) K/uL MPV (9.4-12.3) fL Immature Gran % (Auto) % Neut % (Auto) % Lymph % (Auto) % [place] % (Auto) % Eos % (Auto) % Baso % (Auto) % Neut # (Auto) (1.4-6.5) K/uL Lymph # (Auto) (1.2-3.4) K/uL [place] # (Auto) (0.24-0.82) K/uL Eos # (Auto) (0-0.50) K/uL Baso # (Auto) (0-0.2) K/uL Immature Gran # (Auto) (0.00-0.02) K/uL PT (9.0-12.0) Seconds INR (0.9-1.1) Sodium (136-145) mmol/L Potassium (3.5-5.1) mmol/L Chloride (98-107) mmol/L Carbon Dioxide (21-32) mmol/L Anion Gap (3-11) BUN (6-23) mg/dl Creatinine (0.6-1.2) mg/dl Est Cr Clr Drug Dosing Est GFR ( Amer) ml/min Est GFR (Non-Af Amer) ml/min BUN/Creatinine Ratio (10-20) Glucose (70-99(Fasting)) mg/dl Calcium (8.5-10.1) mg/dl Total Bilirubin (0.2-1.0) mg/dl AST (13-39) U/L ALT (7-52) U/L Alkaline Phosphatase (34-104) U/L Troponin I High Sens 11.7 D (0-14) pg/ml Total Protein (6.0-8.3) gm/dl Albumin (3.4-5.0) gm/dl Globulin (2.5-4.0) gm/dl Albumin/Globulin Ratio (0.9-2) TSH (0.300-4.500) uIu/ml Urine Color Yellow Urine Appearance Cloudy A (Clear) Urine pH 8.0 H (4.5-7.5) Ur Specific [place] 1.011 (1.000-1.030) Urine Protein Trace H (Negative) Urine Glucose (UA) Negative (Negative) Urine Ketones Negative (Negative) Urine Blood 1+ H (Negative) Urine Nitrite Negative (Negative) Urine Bilirubin Negative (Negative) Urine Urobilinogen Negative (Negative) Ur Leukocyte Esterase 3+ H (Negative) Urine WBC (Auto) >30 H (0-5) /hpf Urine RBC (Auto) 0-4 (0-4) /hpf U Hyaline Cast (Auto) 5-10 H (0-5) /lpf U Epithel Cells (Auto) >30 H (0-5) /lpf Urine Bacteria (Auto) 4+ H (Negative) SARS-CoV-2, RNA, NAAT NEGATIVE (NEGATIVE) 03/18/22 Range/Units 17:30 WBC (4.8-10.8) K/ul RBC (3.93-5.22) M/uL Hgb (12.0-16.0) g/dl Hct (34.1-44.9) % MCV (80.0-100.0) fL MCH (25.0-34.0) pg MCHC (32.0-36.0) g/dL RDW Std Deviation (36.4-46.3) fL RDW Coeff of Elke (11.5-14.5) % Plt Count (130-400) K/uL MPV (9.4-12.3) fL Immature Gran % (Auto) % Neut % (Auto) % Lymph % (Auto) % [place] % (Auto) % Eos % (Auto) % Baso % (Auto) % Neut # (Auto) (1.4-6.5) K/uL Lymph # (Auto) (1.2-3.4) K/uL [place] # (Auto) (0.24-0.82) K/uL Eos # (Auto) (0-0.50) K/uL Baso # (Auto) (0-0.2) K/uL Immature Gran # (Auto) (0.00-0.02) K/uL PT (9.0-12.0) Seconds INR (0.9-1.1) Sodium (136-145) mmol/L Potassium (3.5-5.1) mmol/L Chloride (98-107) mmol/L Carbon Dioxide (21-32) mmol/L Anion Gap (3-11) BUN (6-23) mg/dl Creatinine (0.6-1.2) mg/dl Est Cr Clr Drug Dosing Est GFR ( Amer) ml/min Est GFR (Non-Af Amer) ml/min BUN/Creatinine Ratio (10-20) Glucose (70-99(Fasting)) mg/dl Calcium (8.5-10.1) mg/dl Total Bilirubin (0.2-1.0) mg/dl AST (13-39) U/L ALT (7-52) U/L Alkaline Phosphatase (34-104) U/L Troponin I High Sens (0-14) pg/ml Total Protein (6.0-8.3) gm/dl Albumin (3.4-5.0) gm/dl Globulin (2.5-4.0) gm/dl Albumin/Globulin Ratio (0.9-2) TSH 1.287 (0.300-4.500) uIu/ml Urine Color Urine Appearance (Clear) Urine pH (4.5-7.5) Ur Specific [place] (1.000-1.030) Urine Protein (Negative) Urine Glucose (UA) (Negative) Urine Ketones (Negative) Urine Blood (Negative) Urine Nitrite (Negative) Urine Bilirubin (Negative) Urine Urobilinogen (Negative) Ur Leukocyte Esterase (Negative) Urine WBC (Auto) (0-5) /hpf Urine RBC (Auto) (0-4) /hpf U Hyaline Cast (Auto) (0-5) /lpf U Epithel Cells (Auto) (0-5) /lpf Urine Bacteria (Auto) (Negative) SARS-CoV-2, RNA, NAAT (NEGATIVE) Administered Medications Acetaminophen (Acetaminophen 325 Mg Tab) 650 mg PO Q4H PRN PRN Reason: pain/fever Stop: 04/17/22 21:35 Last Admin: 03/18/22 22:42 Dose: 650 mg Documented By: PEDRO Gabapentin (Gabapentin 600 Mg Tab) 600 mg PO HS RONDA Stop: 04/17/22 21:35 Last Admin: 03/18/22 22:44 Dose: 600 mg Documented By: PEDRO Ceftriaxone Sodium 1,000 mg/ (Dextrose) 60 mls @ 100 mls/hr IV Q24H RONDA; Protocol Stop: 03/23/22 21:59 Last Admin: 03/18/22 22:44 Dose: 100 mls/hr Documented By: PEDRO Latanoprost (Latanoprost 0.005% Op Soln 2.5 Ml Btl) 1 drops OPL HS RONDA Stop: 04/17/22 21:35 Last Admin: 03/18/22 22:43 Dose: 1 drops Documented By: LY Sotalol HCl (Sotalol Hcl 80 Mg Tab) 80 mg PO BID RONDA Stop: 04/17/22 21:35 Last Admin: 03/18/22 22:44 Dose: 80 mg Documented By: LY Urea (Urea (Urea-Na) 15 Gm Pack) 15 gm PO AMHS RONDA Stop: 04/17/22 21:35 Last Admin: 03/18/22 22:43 Dose: 15 gm Documented By: LY Discontinued Medications Aspirin (Aspirin 81 Mg Chew) 81 mg PO NOW STA Stop: 03/18/22 16:54 Last Admin: 03/18/22 18:43 Dose: 81 mg Documented By: TRH Isosorbide Mononitrate (Isosorbide Mononitrate 20 Mg Tab) 60 mg PO ONCE ONE Stop: 03/18/22 16:57 Last Admin: 03/18/22 18:10 Dose: 60 mg Documented By: TRH Losartan Potassium (Losartan Potassium 50 Mg Tab) 100 mg PO ONCE ONE Stop: 03/18/22 16:56 Last Admin: 03/18/22 18:09 Dose: 100 mg Documented By: TRH Miscellaneous (Patient's Height &/Or Weight Needed) 1 each N/A Q2H RONDA Stop: 04/17/22 19:59 Last Admin: 03/18/22 21:53 Dose: 1 each Documented By: Admin: 03/18/22 21:53 Dose: 1 each Documented By: LY Imaging Data Radiologist's Impression: Chest X-Ray 03/18/22 14:52 XR chest 2V PA/lateral CLINICAL HISTORY: Generalized weakness. COMPARISON STUDY: Chest radiograph January 27, 2022. FINDINGS: Dual lead left subclavian pacer is in place. Lung volumes are normal. Lungs are clear. There is no pneumothorax or pleural effusion. Cardiomegaly is unchanged. Mediastinal contours are normal. There is no evidence for pulmonary edema. IMPRESSION: No acute cardiopulmonary findings. No change in appearance of the chest. ACT 112: Negative or not required by law. Electronically signed by: Jose Alejandro Disla M.D. 03/18/2022 3:35 PM Discharge Plan Visit Data Chief Complaint: Illness Stated Complaint: WEAKNESS, DIARRHEA, UTI SX ED Provider: Grupo Ge Discharge Problem: Weakness, Recurrent falls, Diarrhea Patient Disposition: Admitted As Inpatient Discharge Instructions Interventions: ED Discharge Assessment Last Done: 03/18/22 20:00
--- NOTE | 2022-03-18 18:36 | History & Physical Report ---
Date of Service March 18, 2022 Assessment & Plan (1) Recurrent falls: (2) Generalized weakness: Plan: Observation to [facility] Patient presenting from home with reports of increasing generalized weakness, frequent falls (3 falls in 2 weeks), and diarrhea Labs unremarkable, UA pending Due to reports of right hip pain radiating down the leg, will check CT lumbar spine and CT hip PT/OT, may need placement for rehab (3) Hypertensive urgency: Plan: Presenting BP 182/115 Likely due to missed doses of home medications Patient received home doses of isosorbide and losartan in ED with improvement in BP Continue home isosorbide, losartan, amlodipine. Make adjustments as needed. (4) Diarrhea: Plan: ? Due to food sensitivity with sauerkraut Check stool studies (5) Tachy-garret syndrome: (6) Paroxysmal atrial fibrillation: (7) Pacemaker: Plan: No acute issues Rhythm controlled on sotalol, anticoagulated on Coumadin, INR 2.8 (8) CAD (coronary artery disease): Plan: Appears stable, no reports of chest pain Continue ASA (9) Chronic hyponatremia: Plan: Na+ 134, at baseline Continue urea (10) DVT prophylaxis: Plan: On Coumadin, INR 2.8 History of Present Illness Chief Complaint: Generalized weakness Primary Care Provider: Johnathon Jamison MD 89-year-old female with PMH CAD, tachybradycardia syndrome s/p pacemaker, paroxysmal atrial fibrillation on sotalol and Coumadin therapy, history of CVA, HTN, aortic stenosis, GERD, osteoarthritis, history of breast cancer, and other problems listed below who presents to the ED for evaluation of generalized weakness. Patient notes increasing generalized weakness over the past few weeks. She has had 3 falls in 2 weeks. Patient states that during her first 2 falls, she started to feel very weak and her legs started to shake and she was able to lower herself to the ground. Patient had a similar episode yesterday while her daughter was helping her from the bed to the chair. Patient states that she needed to turn around to sit in the chair however her legs would not move. Patient states she then lowered herself to the ground. EMS was called to help the patient off of the floor. This morning, patient's daughter found her incontinent of a large amount of loose stool and urine. Patient states that she has chronic urinary incontinence however stool incontinence this morning was new. Patient also reports eating sauerkraut yesterday. Patient was then brought to the ED for further evaluation. Patient also reports right hip pain radiating down the lateral side of the right leg for the past 10 days. Patient denies chest pain, shortness of breath, palpitations. No lightheadedness, dizziness, diaphoresis, syncopal events. Denies any other recent illnesses, fevers, chills. No urinary symptoms. In the ED, patient was hypertensive at 185/115. Patient states not taking her medications this morning. She was given her home doses of isosorbide and losartan. Labs are unremarkable. CXR negative for acute findings. Allergies Allergy/AdvReac Type Severity Reaction Status Date / Time brimonidine Allergy Mild RED ITCHY Verified 03/18/22 18:10 EYE clavulanic acid Allergy Mild headache Verified 03/18/22 18:10 sulfamethoxazole AdvReac Intermediate CHILLS/RIGORS-PER Verified 03/18/22 18:10 [From Bactrim] GMG trimethoprim [From Bactrim] AdvReac Intermediate CHILLS/RIGORS-PER Verified 03/18/22 18:10 GMG amoxicillin AdvReac Mild headache Verified 03/18/22 18:10 hydrochlorothiazide AdvReac Hyponatremi Verified 03/18/22 18:10 a Home Medications Medication Instructions Recorded Confirmed Type amlodipine 2.5 mg tablet 2.5 mg PO [facility] 08/07/20 03/18/22 History aspirin 81 mg tablet,delayed 81 mg PO DAILY 08/07/20 03/18/22 History release calcium carbonate 600 mg-vitamin 2 tab PO [facility] 08/07/20 03/18/22 History D3 10 mcg (400 unit) tablet (Calcium 600 + D(3)) coenzyme Q10 100 mg capsule 100 mg PO [facility] 08/07/20 03/18/22 History (CoQ-10) gabapentin 600 mg tablet 600 mg PO 08/07/20 03/18/22 History isosorbide mononitrate 60 mg 60 mg PO [facility] 08/07/20 03/18/22 History tablet,extended release 24 hr latanoprost 0.005 % eye drops 1 drp OPL 08/07/20 03/18/22 History losartan 100 mg tablet 100 mg PO [facility] 08/07/20 03/18/22 History multivitamin 1 tab PO QAM 08/07/20 03/18/22 History nitroglycerin 0.4 mg sublingual 0.4 mg sublingual DIRECTED PRN 08/07/20 03/18/22 History tablet (Nitrostat) Chest Pain pantoprazole 20 mg tablet,delayed 20 mg PO QAM 08/07/20 03/18/22 History release (Protonix) prednisolone acetate 1 % eye 1 drp OPR QAM 08/07/20 03/18/22 History drops,suspension (Pred Forte) sotalol 80 mg tablet 80 mg PO BID 08/07/20 03/18/22 History magnesium oxide 400 mg PO DAILY 03/18/22 03/18/22 History omega 4-xnd-aru-fish oil 1,200 mg 1 cap PO DAILY 03/18/22 03/18/22 History (144 mg-216 mg) capsule (Fish Oil) urea 15 gram oral powder packet 1 packet PO AMHS 03/18/22 03/18/22 History (Ure-Na) warfarin 7.5 mg tablet 7.5 mg PO DAILY 03/18/22 03/18/22 History Past Med/Surg History Medical History CAD (coronary artery disease) "2010 - PTCA/stent to LAD, balloon angioplasty to LAD diagonal branch" Carotid stenosis, non-symptomatic COVID-19 CVA (cerebral vascular accident) GERD (gastroesophageal reflux disease) Glaucoma History of breast cancer Hypertension MGUS (monoclonal gammopathy of unknown significance) Moderate aortic stenosis Osteoarthritis Pacemaker Paroxysmal atrial fibrillation PVD (peripheral vascular disease) Tachy-garret syndrome TIA (transient ischemic attack) Surgical History H/O hernia repair H/O partial mastectomy History of bladder surgery History of cataract surgery History of hysterectomy History of spinal fusion Hx of tubal ligation S/P tonsillectomy and adenoidectomy Family History Father Heart disease Social History Smoking Status: Never smoker Hx Alcohol Use: No Hx Substance Use: No Preferred Language: Greek Communication Ability: Effective Hog Worker Required: Yes and No Beliefs That Will Affect Care: None Current Living Situation: Alone Current Living Situation Comment: Lives with dog, friend nearby Feels Safe at Home: Yes Assistive Devices: Walker Review of Systems Review of Systems: ROS per HPI, all other systems reviewed and negative Physical Exam Constitutional: WD/WN, vitals as above Eyes: PERRL, conjunctivae normal, anicteric sclerae ENMT: external ear and nose normal, oropharynx normal Respiratory: normal respiratory effort, lungs clear to auscultation Cardiovascular: Rate/Rhythm: regular rate and regular rhythm Heart Sounds: + murmur (Grade 2/6, systolic) Vessels: normal peripheral pulses Extremities: no edema Gastrointestinal (Abdomen): normal bowel sounds, soft, nontender, no hepatosplenomegaly Musculoskeletal: no cyanosis or clubbing, extremities motor strength 5/5 Skin: no rashes, warm and dry Neurologic: PERRL, EOMI, accommodation nl, no face palsy, no dysarthria no focal motor deficits Psychiatric: A+Ox3, euthymic affect Results & Data Results & Data ([facility]) Vital Signs (Past 12 Hours) Vital Signs Temp Pulse Pulse Resp BP BP Pulse Ox 03/18/22 17:30 61 18 170/100 H 96 03/18/22 16:50 102 H 18 213/95 H 96 03/18/22 14:48 36.8 C 83 17 182/115 H 95 O2 Del Method 03/18/22 17:30 Room Air 03/18/22 16:50 Room Air 03/18/22 14:48 Room Air Laboratory Results Short CBC 03/18/22 Range/Units 15:15 WBC 9.29 (4.8-10.8) K/ul Hgb 14.0 (12.0-16.0) g/dl Hct 42.2 (34.1-44.9) % Plt Count 257 (130-400) K/uL BMP 03/18/22 15:15 Sodium 134 L Potassium 4.2 Chloride 101 Carbon Dioxide 27 BUN 24 H Creatinine 0.87 Glucose 104 H Calcium 9.0 Liver Function 03/18/22 Range/Units 15:15 Total Bilirubin 0.5 (0.2-1.0) mg/dl AST 17 (13-39) U/L ALT 9 (7-52) U/L Alkaline Phosphatase 66 (34-104) U/L Albumin 3.9 (3.4-5.0) gm/dl Diagnostic Findings Chest X-Ray 03/18/22 14:52 XR chest 2V PA/lateral CLINICAL HISTORY: Generalized weakness. COMPARISON STUDY: Chest radiograph January 27, 2022. FINDINGS: Dual lead left subclavian pacer is in place. Lung volumes are normal. Lungs are clear. There is no pneumothorax or pleural effusion. Cardiomegaly is unchanged. Mediastinal contours are normal. There is no evidence for pulmonary edema. IMPRESSION: No acute cardiopulmonary findings. No change in appearance of the chest. ACT 112: Negative or not required by law. Electronically signed by: Jose Alejandro Disla M.D. 03/18/2022 3:35 PM Code Status & VTE Plan Code Status Patient is a DNR as per my discussion with her. VTE Prophylaxis Plan VTE Prophylaxis will be ordered: No Supervising Physician Co-Signing Physician Notes Pt seen and examined by me , care coordinated w/ L. Tessie OBRIEN, pls refer to her note above for further detail. Pt is an 89 yo F w/CAD, tachybradycardia syndrome s/p pacemaker, paroxysmal atrial fibrillation on sotalol and Coumadin therapy, history of CVA, HTN, aortic stenosis, GERD, osteoarthritis, history of breast cancer, who presents w/ generalized weakness, fall and episode of stool incontinence. Patient also reports right hip pain radiating down the lateral side of the right leg for the past 10 days. Patient denies chest pain, shortness of breath, palpitations. No lightheadedness, dizziness, diaphoresis, syncopal events. She is currently laying in bed, in no acute distress. Patient's niece, who is also RN previously working in [employer], is present at the bedside and also helps with history. Patient is awake alert oriented answering questions appropriately. Currently her daughter is also visiting (daughter lives in [facility]). Lungs are clear to auscultation bilaterally without any wheezing rhonchi crackles. Heart sounds regular. Abdomen soft nontender nondistended. No lower extremity edema noted. Patient moves extremities. Skin is warm and dry. Patient's niece reports that patient had constipation, and ate sauerkraut, however stool incontinence is new for her. We will obtain stool studies, FOBT. As they felt that maybe there was some blood in it. UA is pending. We will also image patient's spine and hip as she is complaining of pain radiating from right hip towards her lower thigh. Given her age, and the fact that she lives alone, she will likely need a placement after discharge. Continue to closely monitor while hospitalized. MD Pedro
--- NOTE | 2022-03-18 19:11 | CT Scan Report ---
CT lumbar spine wo con CLINICAL HISTORY: fall, leg weakness TECHNIQUE: Multidetector row helical CT of the lumbar spine was performed without administration of i ntravenous contrast. Coronal and sagittal reformations were obtained. Automated dose lowering techniq ues and/or adjustment according to patient size were utilized for this exam. Comparison: Comparison is made to lumbar spine radiograph 09/22/2017 FINDINGS: Posterior fixation hardware is seen. No acute fractures are identified. Degenerative changes are noted in the visualized spine. Grade 1 re trolisthesis of L2 on L3. Aortic atherosclerosis is seen. Partial visualization of cholelithiasis. Th ickening of the bilateral adrenal glands noted. Partial visualization of renal and hepatic cysts. IMPRESSION: No evidence of acute fracture. Redemonstration of postsurgical changes of posterior fixation hardware . Additional incidental findings as above. ACT 112: Negative or not required by law. Electronically signed by: Victoriano Gallagher M.D. 03/18/2022 7:09 PM
--- NOTE | 2022-03-18 19:24 | CT Scan Report ---
CT hip RT wo con CLINICAL HISTORY: fall, right hip pain TECHNIQUE: Multidetector row helical CT of the right hip was performed without intravenous contrast. Coronal and sagittal reformations were obtained. Automated dose lowering techniques and/or adjustment according to patient size were utilized for this examination. CT DOSE: 1128.25 mGy.cm Comparison: None available at the time of this dictation. FINDINGS: The osseous structures are without fracture or dislocation. Degenerative changes are seen in the righ t hip joint. No joint effusion is seen. Atherosclerotic calcifications are seen. IMPRESSION: Degenerative changes are seen. No evidence of acute fracture. ACT 112: Negative or not required by law. Electronically signed by: Victoriano Gallagher M.D. 03/18/2022 7:22 PM
[2022-03-18 19:30] LABS: Appearance Urine Cloudy (Clear); Bacteria Urine Automated 4+ (Negative); Bilirubin Urine Negative (Negative); Blood Urine 1+ (Negative); Color Urine Yellow; Epithelial Cell Urine Auto >30 /lpf (0-5); Glucose Urine UA Negative (Negative); Ketones Urine Negative (Negative); Leukocyte Esterase Urine 3+ (Negative); Nitrite Urine Negative (Negative); Specific Gravity Urine 1.011 (1.000-1.030); Urobilinogen Urine Negative (Negative); WBC Urine Automated >30 /hpf (0-5)
[2022-03-18 19:38] LABS: Protein Urine Trace (Negative)
[2022-03-18 19:47] LABS: RBC Urine Automated 0-4 /hpf (0-4)
[2022-03-18] MEDS: Patient's HEIGHT &/or WEIGHT Needed SCH (21:53)
[2022-03-18] MEDS: ACETAMINOPHEN 325 MG TAB PO PRN (22:42)
[2022-03-18] MEDS: LATANOPROST 0.005% OP SOLN 2.5 ML BTL OPL SCH (22:43)
[2022-03-18] MEDS: UREA (UREA-NA) 15 GM PACK PO SCH (22:43)
[2022-03-18] MEDS: GABAPENTIN 600 MG TAB PO SCH (22:44)
[2022-03-18] MEDS: SOTALOL HCL 80 MG TAB PO SCH (22:44)
[2022-03-18] MEDS: cefTRIAXone SODIUM 1,000 MG in DEXTROSE 5% 50 ML IV SCH (22:44)
[2022-03-19] MEDS: ASPIRIN 81 MG ECTAB PO SCH (07:44)
[2022-03-19] MEDS: amLODIPine BESYLATE 5 MG TAB PO SCH (07:44)
[2022-03-19] MEDS: MAGNESIUM OXIDE 400 MG TAB PO SCH (07:44)
[2022-03-19] MEDS: LOSARTAN POTASSIUM 50 MG TAB PO SCH (07:44)
[2022-03-19] MEDS: PANTOprazole 40 MG TAB PO SCH (07:44)
[2022-03-19] MEDS: SOTALOL HCL 80 MG TAB PO SCH ×2 (07:44→20:31)
[2022-03-19] MEDS: prednisoLONE acetate 1% OP SUSP 5 ML BTL OPR SCH (07:45)
[2022-03-19] MEDS: ISOSORBIDE MONO EXTENDED REL 60 MG TABCR PO SCH (07:45)
[2022-03-19] MEDS: UREA (UREA-NA) 15 GM PACK PO SCH ×2 (07:45→20:31)
[2022-03-19 07:57] LABS: Hematocrit (blood only) 40.2 % (34.1-44.9); Hemoglobin 13.4 g/dl (12.0-16.0); Mean Corpuscular Hemoglobin 27.5 pg (25.0-34.0); Mean Corpuscular Hgb Conc 33.3 g/dL (32.0-36.0); Mean Corpuscular Volume 82.4 fL (80.0-100.0); Mean Platelet Volume 10.2 fL (9.4-12.3); Platelet Count 241 K/uL (130-400); RDW Standard Deviation 48.4 fL (36.4-46.3); Red Blood Count 4.88 M/uL (3.93-5.22); White Blood Count 5.89 K/ul (4.8-10.8)
[2022-03-19 08:09] LABS: INR 2.7 (0.9-1.1); Prothrombin Time 27.1 Seconds (9.0-12.0)
[2022-03-19 08:35] LABS: BUN Creatinine Ratio 49.2 (10-20); Calcium 8.8 mg/dl (8.5-10.1); Creatinine Clr Calc Pharmacy 52.3 ml/min; Est GFR (African American) 92.2 ml/min; Est GFR (Non-African American) 79.5 ml/min
--- NOTE | 2022-03-19 11:43 | Hospitalist Progress Note ---
Date of Service March 19, 2022 Assessment & Plan (1) Recurrent falls: Plan: - seems to have a history of recurent falls and recnetly was discharged from rehab 10/2021 - patient denies any other complaints, no urinary symptoms - has positive UA - will treat given presentation - NA stable on urea - PT/OT evaluation (2) Generalized weakness: Plan: Observation to [facility] [place] [place] Patient presenting from home with reports of increasing generalized weakness, frequent falls (3 falls in 2 weeks), and diarrhea Labs unremarkable, UA pending - CT hip and lumbar spine negative for acute pathology - UA positive for infection however without active symptoms - given presentation of weakness and falls will treat for 3-5 days - continue ceftriaxone PT/OT (3) Hypertensive urgency: Plan: Presenting BP 182/115 Likely due to missed doses of home medications Patient received home doses of isosorbide and losartan in ED with improvement in BP Continue home isosorbide, losartan, amlodipine. Make adjustments as needed. (4) Diarrhea: Plan: - patient reports had normal stools today - will monitor 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 (6) Paroxysmal atrial fibrillation: Plan: - on coumadin and rate controlled on sotalol - daily INR while inpatient (7) CAD (coronary artery disease): Plan: - Appears stable, no reports of chest pain - Continue ASA - unclear why not on a statin - will start moderate dose today and monitor tolerance (8) Chronic hyponatremia: Plan: Na+ 134, at baseline Continue urea Plan DVT ppx: coumadin Code Status: DNR/DNI Dispo: med/surg Darrian Dupont MD [facility] Medicine Admission and Anticipated Discharge Date Admission Date: March 18, 2022 Subjective 89 year old woman with pmh CAD, SSS s/p PPM, pAF on coumdin, 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 CT of hip and lumbar spine were unremarkable. UA positive for infection, started on ceftriaxone, IVF. Patient feels well today, denies dysuria, frequency, chest pain, shortness of breath, abdominal pain, n/v/d, cough. Reports she feels like her legs might be weak but is unsure until she walks. Review of Systems 2 Review of Systems: All systems reviewed & are unremarkable except as noted in Subjective Physical Exam Physical Exam: Constitutional:L WD/WN, vitals as a guera Eyes: PERRL, conjunctiva e normal, anicteri c sclerae ENMT: external ear and n ose normal, oropha rynx normal Respiratory: normal respiratory effort, lungs darshan ar to auscultation Cardiovascular:L Rate/Rhythm: regul ar rate and regula r rhythm Heart So unds: + murmur (Gr rock 2/6, systolic) Vessels: normal peripheral pulses Extremities: no e kristine Gastrointestinal ( Abdomen): normal bowel sound s, soft, nontender , no hepatosplenom egaly Musculoskeletal: no cyanosis or clu bbing, extremities motor strength 5/ 5 Skin: no rashes, warm an d dry Neurologic: PERRL, EOMI, accom modation nl, no fa ce palsy, no dysar thria no focal mo tor deficits Psychiatric: A+Ox3, euthymic af fect Results & Data Results & Data ([facility]) Vital Signs (Past 12 Hours) Vital Signs Temp Pulse Resp BP Pulse Ox O2 Del Method 03/19/22 08:00 Room Air 03/19/22 07:06 36.7 C 61 16 169/73 H 95 Room Air Diagnostic Findings Laboratory Results WBC 5.89 K/ul (4.8-10.8) 03/19/22 07:08 RBC 4.88 M/uL (3.93-5.22) 03/19/22 07:08 Hgb 13.4 g/dl (12.0-16.0) 03/19/22 07:08 Hct 40.2 % (34.1-44.9) 03/19/22 07:08 MCV 82.4 fL (80.0-100.0) 03/19/22 07:08 MCH 27.5 pg (25.0-34.0) 03/19/22 07:08 MCHC 33.3 g/dL (32.0-36.0) 03/19/22 07:08 RDW Std Deviation 48.4 fL (36.4-46.3) H 03/19/22 07:08 RDW Coeff of Elke 16.0 % (11.5-14.5) H 03/19/22 07:08 Plt Count 241 K/uL (130-400) 03/19/22 07:08 MPV 10.2 fL (9.4-12.3) 03/19/22 07:08 Immature Gran % (Auto) 0.2 % 03/18/22 15:15 Neut % (Auto) 68.2 % 03/18/22 15:15 Lymph % (Auto) 23.3 % 03/18/22 15:15 [place] % (Auto) 7.4 % 03/18/22 15:15 Eos % (Auto) 0.6 % 03/18/22 15:15 Baso % (Auto) 0.3 % 03/18/22 15:15 Neut # (Auto) 6.33 K/uL (1.4-6.5) 03/18/22 15:15 Lymph # (Auto) 2.16 K/uL (1.2-3.4) 03/18/22 15:15 [place] # (Auto) 0.69 K/uL (0.24-0.82) 03/18/22 15:15 Eos # (Auto) 0.06 K/uL (0-0.50) 03/18/22 15:15 Baso # (Auto) 0.03 K/uL (0-0.2) 03/18/22 15:15 Immature Gran # (Auto) 0.02 K/uL (0.00-0.02) 03/18/22 15:15 PT 27.1 Seconds (9.0-12.0) H 03/19/22 07:08 INR 2.7 (0.9-1.1) H 03/19/22 07:08 Sodium 133 mmol/L (136-145) L 03/19/22 07:08 Potassium 4.0 mmol/L (3.5-5.1) 03/19/22 07:08 Chloride 100 mmol/L (98-107) 03/19/22 07:08 Carbon Dioxide 29 mmol/L (21-32) 03/19/22 07:08 Anion Gap 4 (3-11) 03/19/22 07:08 BUN 31 mg/dl (6-23) H 03/19/22 07:08 Creatinine 0.63 mg/dl (0.6-1.2) 03/19/22 07:08 Est Cr Clr Drug Dosing 52.3 ml/min 03/19/22 07:08 Est GFR ( Amer) 92.2 ml/min 03/19/22 07:08 Est GFR (Non-Af Amer) 79.5 ml/min 03/19/22 07:08 BUN/Creatinine Ratio 49.2 (10-20) H 03/19/22 07:08 Glucose 91 mg/dl (70-99(Fasting)) 03/19/22 07:08 Calcium 8.8 mg/dl (8.5-10.1) 03/19/22 07:08 Total Bilirubin 0.5 mg/dl (0.2-1.0) 03/18/22 15:15 AST 17 U/L (13-39) 03/18/22 15:15 ALT 9 U/L (7-52) 03/18/22 15:15 Alkaline Phosphatase 66 U/L (34-104) 03/18/22 15:15 Troponin I High Sens 11.7 pg/ml (0-14) D 03/18/22 17:30 Total Protein 6.8 gm/dl (6.0-8.3) 03/18/22 15:15 Albumin 3.9 gm/dl (3.4-5.0) 03/18/22 15:15 Globulin 2.9 gm/dl (2.5-4.0) 03/18/22 15:15 Albumin/Globulin Ratio 1.3 (0.9-2) 03/18/22 15:15 TSH 1.287 uIu/ml (0.300-4.500) 03/18/22 17:30 Urine Color Yellow 03/18/22 17:23 Urine Appearance Cloudy (Clear) A 03/18/22 17: Urine pH 8.0 (4.5-7.5) H 03/18/22 17:23 Ur Specific [place] 1.011 (1.000-1.030) 03/18/22 17: Urine Protein Trace (Negative) H 03/18/22 17: Urine Glucose (UA) Negative (Negative) 03/18/22 17: Urine Ketones Negative (Negative) 03/18/22 17: Urine Blood 1+ (Negative) H 03/18/22 17: Urine Nitrite Negative (Negative) 03/18/22 17: Urine Bilirubin Negative (Negative) 03/18/22 17: Urine Urobilinogen Negative (Negative) 03/18/22 17:23 Ur Leukocyte Esterase 3+ (Negative) H 03/18/22 17:23 Urine WBC (Auto) >30 /hpf (0-5) H 03/18/22 17:23 Urine RBC (Auto) 0-4 /hpf (0-4) 03/18/22 17:23 U Hyaline Cast (Auto) 5-10 /lpf (0-5) H 03/18/22 17:23 U Epithel Cells (Auto) >30 /lpf (0-5) H 03/18/22 17:23 Urine Bacteria (Auto) 4+ (Negative) H 03/18/22 17:23 SARS-CoV-2, RNA, NAAT NEGATIVE (NEGATIVE) 03/18/22 17:20 Impressions Chest X-Ray 03/18/22 14:52 XR chest 2V PA/lateral CLINICAL HISTORY: Generalized weakness. COMPARISON STUDY: Chest radiograph January 27, 2022. FINDINGS: Dual lead left subclavian pacer is in place. Lung volumes are normal. Lungs are clear. There is no pneumothorax or pleural effusion. Cardiomegaly is unchanged. Mediastinal contours are normal. There is no evidence for pulmonary edema. IMPRESSION: No acute cardiopulmonary findings. No change in appearance of the chest. ACT 112: Negative or not required by law. Electronically signed by: Jose Alejandro Disla M.D. 03/18/2022 3:[address] 03/18/22 18:17 CT hip RT wo con CLINICAL HISTORY: fall, right hip pain TECHNIQUE: Multidetector row helical CT of the right hip was performed without intravenous contrast. Coronal and sagittal reformations were obtained. Automated dose lowering techniques and/or adjustment according to patient size were utili zed for this examination. CT DOSE: 1128.25 mGy.cm Comparison: None available at the time of this dictation. FINDINGS: The osseous structures are without fracture or dislocation. Degenerative changes are seen in the right hip joint. No joint effusion is seen. Atherosclerotic calcifications are seen. IMPRESSION: Degenerative changes are seen. No evidence of acute fracture. ACT 112: Negative or not required by law. Electronically signed by: Victoriano Gallagher M.D. 03/18/2022 7:[address] 03/18/22 18:17 CT lumbar spine wo con CLINICAL HISTORY: fall, leg weakness TECHNIQUE: Multidetector row helical CT of the lumbar spine was performed without administration of intravenous contrast. Coronal and sagittal reformations were obtained. Automated dose lowering techniques and/or adjustment according to patient size were utilized for this exam. Comparison: Comparison is made to lumbar spine radiograph 09/22/2017 FINDINGS: Posterior fixation hardware is seen. No acute fractures are identified. Degenerative changes are noted in the visualized spine. Grade 1 retrolisthesis of L2 on L3. Aortic atherosclerosis is seen. Partial visualization of cholelithiasis. Thickening of the bilateral adrenal glands noted. Partial visualization of renal and hepatic cysts. IMPRESSION: No evidence of acute fracture. Redemonstration of postsurgical changes of posterior fixation hardware. Additional incidental findings as above. ACT 112: Negative or not required by law. Electronically signed by: Victoriano Gallahger M.D. 03/18/2022 7:09 PM Medications Administered Current Inpatient Medications Acetaminophen (Acetaminophen 325 Mg Tab) 650 mg PO Q4H PRN PRN Reason: pain/fever Stop: 04/17/22 21:35 Last Admin: 03/18/22 22:42 Dose: 650 mg Amlodipine Besylate (Amlodipine Besylate 5 Mg Tab) 2.5 mg PO QAM RONDA Stop: 04/18/22 08:59 Last Admin: 03/19/22 07:44 Dose: 2.5 mg Aspirin (Aspirin 81 Mg Ectab) 81 mg PO DAILY RODNA Stop: 04/18/22 08:59 Last Admin: 03/19/22 07:44 Dose: 81 mg Gabapentin (Gabapentin 600 Mg Tab) 600 mg PO HS RONDA Stop: 04/17/22 21:35 Last Admin: 03/18/22 22:44 Dose: 600 mg Ceftriaxone Sodium 1,000 mg/ (Dextrose) 60 mls @ 100 mls/hr IV Q24H RONDA; Protocol Stop: 03/23/22 21:59 Last Infusion: 03/18/22 23:23 Dose: Infused Isosorbide Mononitrate (Isosorbide [place] Extended Rel 60 Mg Tabcr) 60 mg PO QAM RONDA Stop: 04/18/22 08:59 Last Admin: 03/19/22 07:45 Dose: 60 mg Latanoprost (Latanoprost 0.005% Op Soln 2.5 Ml Btl) 1 drops OPL HS RONDA Stop: 04/17/22 21:35 Last Admin: 03/18/22 22:43 Dose: 1 drops Losartan Potassium (Losartan Potassium 50 Mg Tab) 100 mg PO QAM [facility] Stop: 04/18/22 08:59 Last Admin: 03/19/22 07:44 Dose: 100 mg Magnesium Oxide (Magnesium Oxide 400 Mg Tab) 400 mg PO DAILY RONDA Stop: 04/18/22 08:59 Last Admin: 03/19/22 07:44 Dose: 400 mg Pantoprazole Sodium (Pantoprazole 40 Mg Tab) 40 mg PO QAM [facility] Stop: 04/18/22 08:59 Last Admin: 03/19/22 07:44 Dose: 40 mg Prednisolone Acetate (Prednisolone Acetate 1% Op Susp 5 Ml Btl) 1 drops OPR QAM RONDA Stop: 04/18/22 08:59 Last Admin: 03/19/22 07:45 Dose: 1 drops Sotalol HCl (Sotalol Hcl 80 Mg Tab) 80 mg PO BID [facility] Stop: 04/17/22 21:35 Last Admin: 03/19/22 07:44 Dose: 80 mg Urea (Urea (Urea-Na) 15 Gm Pack) 15 gm PO AMHS RONDA Stop: 04/17/22 21:35 Last Admin: 03/19/22 07:45 Dose: 15 gm Warfarin Sodium (Warfarin Sod 7.5 Mg Tab) 7.5 mg PO DAILY@1600 [facility] Stop: 04/18/22 15:59 (1) Diarrhea Diarrhea type: unspecified type Qualified Code(s): R19.7 - Diarrhea, unspecified
[2022-03-19] MEDS: ATORVASTATIN 20 MG TAB PO SCH (12:35)
--- NOTE | 2022-03-19 14:35 | Electrocardiogram Report ---
Test Reason : Blood Pressure : / mmHG Vent. Rate : 087 BPM Atrial Rate : 340 BPM P-R Int : 288 ms QRS Dur : 092 ms QT Int : 354 ms P-R-T Axes : 000 -04 027 degrees QTc Int : 425 ms Atrial-paced rhythm with prolonged AV conduction Possible Old Anterior infarct (cited on or before 07-AUG-2020) Abnormal ECG When compared with ECG of 27-JAN-2022 19:08, Criteria for Anterolateral infarct no longer present Confirmed by Arslan Burns ([id number]) on 03/19/2022 2:34:35 PM Referred By: Confirmed By:Arslan Burns
[2022-03-19] MEDS: ACETAMINOPHEN 325 MG TAB PO PRN (15:43)
[2022-03-19] MEDS ORDERED: WARFARIN SOD 7.5 MG TAB PO SCH (16:00)
[2022-03-19] MEDS: GABAPENTIN 600 MG TAB PO SCH (20:31)
[2022-03-19] MEDS: LATANOPROST 0.005% OP SOLN 2.5 ML BTL OPL SCH (20:31)
[2022-03-19] MEDS: cefTRIAXone SODIUM 1,000 MG in DEXTROSE 5% 50 ML IV SCH (21:18)
[2022-03-20 06:35] LABS: BUN Creatinine Ratio 63.2 (10-20); Creatinine Clr Calc Pharmacy 48.4 ml/min; Est GFR (African American) 89.9 ml/min; Est GFR (Non-African American) 77.6 ml/min; Magnesium 1.9 mg/dl (1.7-2.4); Phosphorus 3.1 mg/dl (2.5-4.9); Potassium 4.2 mmol/L (3.5-5.1)
[2022-03-20 06:36] LABS: INR 3.5 (0.9-1.1); Prothrombin Time 34.8 Seconds (9.0-12.0)
[2022-03-20] MEDS: PANTOprazole 40 MG TAB PO SCH (08:14)
[2022-03-20] MEDS: ASPIRIN 81 MG ECTAB PO SCH (08:14)
[2022-03-20] MEDS: SOTALOL HCL 80 MG TAB PO SCH ×2 (08:15→21:10)
[2022-03-20] MEDS: ATORVASTATIN 20 MG TAB PO SCH (08:15)
[2022-03-20] MEDS: MAGNESIUM OXIDE 400 MG TAB PO SCH (08:15)
[2022-03-20] MEDS: ISOSORBIDE MONO EXTENDED REL 60 MG TABCR PO SCH (08:15)
[2022-03-20] MEDS: amLODIPine BESYLATE 5 MG TAB PO SCH (08:16)
[2022-03-20] MEDS: LOSARTAN POTASSIUM 50 MG TAB PO SCH (08:17)
[2022-03-20] MEDS: UREA (UREA-NA) 15 GM PACK PO SCH ×2 (08:17→21:08)
[2022-03-20] MEDS: prednisoLONE acetate 1% OP SUSP 5 ML BTL OPR SCH (08:42)
--- NOTE | 2022-03-20 12:04 | Hospitalist Progress Note ---
Date of Service March 20, 2022 Assessment & Plan (1) UTI (urinary tract infection): Plan: - given presentation of weakness and fall with positive UA - treat for UTI - continue ceftriaxone while inpatient day 2 - transition to cipro fo 1 more day if discharge tomorrow 03/21/2022 pending placement (2) Recurrent falls: Plan: - seems to have a history of recurrent falls and recently was discharged from rehab 10/2021 - patient denies any other complaints, no urinary symptoms - has positive UA - ceftriaxone day 07/10 - NA stable on urea - PT/OT evaluation - SNF (3) Generalized weakness: Plan: Observation to [facility] Patient presenting from home with reports of increasing generalized weakness, frequent falls (3 falls in 2 weeks), and diarrhea Labs unremarkable, UA pending - CT hip and lumbar spine negative for acute pathology - UA positive for infection however without active symptoms - given presentation of weakness and falls will treat for 3-5 days as above - continue ceftriaxone PT/OT- SNF (4) Hypertensive urgency: Plan: Presenting BP 182/115 Likely due to missed doses of home medications Patient received home doses of isosorbide and losartan in ED with improvement in BP Continue home isosorbide, losartan, amlodipine. Make adjustments as needed. 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 (6) Paroxysmal atrial fibrillation: Plan: - on coumadin and rate controlled on sotalol - daily INR while inpatient (7) CAD (coronary artery disease): Plan: - Appears stable, no reports of chest pain - Continue ASA - unclear why not on a statin - will start moderate dose today and monitor tolerance (8) Chronic hyponatremia: Plan: Na+ 134, at baseline Continue urea Plan DVT ppx: coumadin Code Status: DNR/DNI Dispo: med/surg Darrian Dupont MD [facility] Medicine Admission and Anticipated Discharge Date Admission Date: March 19, 2022 Subjective 89 year old woman with pmh CAD, SSS s/p PPM, pAF on coumdin, 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 CT of hip and lumbar spine were unremarkable. UA positive for infection, started on ceftriaxone, IVF. Patient feels well today, denies dysuria, frequency, chest pain, shortness of br eath, abdominal pain, n/v/d, cough. Reports she feels weak and is fatigued transferring from bed to chair, chair to commode, etc Review of Systems 2 Review of Systems: ROS per HPI, all other systems reviewed and negative Physical Exam Physical Exam: Constitutional:L WD/WN, vitals as a guera Eyes: PERRL, conjunctiva e normal, anicteri c sclerae ENMT: external ear and n ose normal, oropha rynx normal Respiratory: normal respiratory effort, lungs darshan ar to auscultation Cardiovascular:L Rate/Rhythm: regul ar rate and regula r rhythm Heart So unds: + murmur (Gr rock 2/6, systolic) Vessels: normal peripheral pulses Extremities: no e kristine Gastrointestinal ( Abdomen): normal bowel sound s, soft, nontender , no hepatosplenom egaly Musculoskeletal: no cyanosis or clu bbing, extremities motor strength 5/ 5 Skin: no rashes, warm an d dry Neurologic: PERRL, EOMI, accom modation nl, no fa ce palsy, no dysar thria no focal mo tor deficits Psychiatric: A+Ox3, euthymic af fect Results & Data Results & Data ([facility]) Vital Signs (Past 12 Hours) Vital Signs Temp Pulse Resp BP Pulse Ox O2 Del Method 03/20/22 07:50 Room Air 03/20/22 07:29 36.5 C 59 L 16 168/84 H 94 Room Air Diagnostic Findings Laboratory Results WBC 5.89 K/ul (4.8-10.8) 03/19/22 07:08 RBC 4.88 M/uL (3.93-5.22) 03/19/22 07:08 Hgb 13.4 g/dl (12.0-16.0) 03/19/22 07:08 Hct 40.2 % (34.1-44.9) 03/19/22 07:08 MCV 82.4 fL (80.0-100.0) 03/19/22 07:08 MCH 27.5 pg (25.0-34.0) 03/19/22 07:08 MCHC 33.3 g/dL (32.0-36.0) 03/19/22 07:08 RDW Std Deviation 48.4 fL (36.4-46.3) H 03/19/22 07:08 RDW Coeff of Elke 16.0 % (11.5-14.5) H 03/19/22 07:08 Plt Count 241 K/uL (130-400) 03/19/22 07:08 MPV 10.2 fL (9.4-12.3) 03/19/22 07:08 Immature Gran % (Auto) 0.2 % 03/18/22 15:15 Neut % (Auto) 68.2 % 03/18/22 15:15 Lymph % (Auto) 23.3 % 03/18/22 15:15 Cotton % (Auto) 7.4 % 03/18/22 15:15 Eos % (Auto) 0.6 % 03/18/22 15:15 Baso % (Auto) 0.3 % 03/18/22 15:15 Neut # (Auto) 6.33 K/uL (1.4-6.5) 03/18/22 15:15 Lymph # (Auto) 2.16 K/uL (1.2-3.4) 03/18/22 15:15 Cotton # (Auto) 0.69 K/uL (0.24-0.82) 03/18/22 15:15 Eos # (Auto) 0.06 K/uL (0-0.50) 03/18/22 15:15 Baso # (Auto) 0.03 K/uL (0-0.2) 03/18/22 15:15 Immature Gran # (Auto) 0.02 K/uL (0.00-0.02) 03/18/22 15:15 PT 34.8 Seconds (9.0-12.0) H 03/20/22 05:52 INR 3.5 (0.9-1.1) H 03/20/22 05:52 Sodium 133 mmol/L (136-145) L 03/20/22 05:52 Potassium 4.2 mmol/L (3.5-5.1) 03/20/22 05:52 Chloride 99 mmol/L (98-107) 03/20/22 05:52 Carbon Dioxide 29 mmol/L (21-32) 03/20/22 05:52 Anion Gap 5 (3-11) 03/20/22 05:52 BUN 43 mg/dl (6-23) H 03/20/22 05:52 Creatinine 0.68 mg/dl (0.6-1.2) 03/20/22 05:52 Est Cr Clr Drug Dosing 48.4 ml/min 03/20/22 05:52 Est GFR ( Amer) 89.9 ml/min 03/20/22 05:52 Est GFR (Non-Af Amer) 77.6 ml/min 03/20/22 05:52 BUN/Creatinine Ratio 63.2 (10-20) H 03/20/22 05:52 Glucose 116 mg/dl (70-99(Fasting)) H 03/20/22 05:52 Calcium 9.0 mg/dl (8.5-10.1) 03/20/22 05:52 Phosphorus 3.1 mg/dl (2.5-4.9) 03/20/22 05:52 Magnesium 1.9 mg/dl (1.7-2.4) 03/20/22 05:52 Total Bilirubin 0.5 mg/dl (0.2-1.0) 03/18/22 15:15 AST 17 U/L (13-39) 03/18/22 15:15 ALT 9 U/L (7-52) 03/18/22 15:15 Alkaline Phosphatase 66 U/L (34-104) 03/18/22 15:15 Troponin I High Sens 11.7 pg/ml (0-14) D 03/18/22 17:30 Total Protein 6.8 gm/dl (6.0-8.3) 03/18/22 15:15 Albumin 3.9 gm/dl (3.4-5.0) 03/18/22 15:15 Globulin 2.9 gm/dl (2.5-4.0) 03/18/22 15:15 Albumin/Globulin Ratio 1.3 (0.9-2) 03/18/22 15:15 TSH 1.287 uIu/ml (0.300-4.500) 03/18/22 17:30 Urine Color Yellow 03/18/22 17:23 Urine Appearance Cloudy (Clear) A 03/18/22 17:23 Urine pH 8.0 (4.5-7.5) H 03/18/22 17:23 Ur Specific [place] 1.011 (1.000-1.030) 03/18/22 17:23 Urine Protein Trace (Negative) H 03/18/22 17:23 Urine Glucose (UA) Negative (Negative) 03/18/22 17: Urine Ketones Negative (Negative) 03/18/22 17:23 Urine Blood 1+ (Negative) H 03/18/22 17:23 Urine Nitrite Negative (Negative) 03/18/22 17:23 Urine Bilirubin Negative (Negative) 03/18/22 17: Urine Urobilinogen Negative (Negative) 03/18/22 17:23 Ur Leukocyte Esterase 3+ (Negative) H 03/18/22 17:23 Urine WBC (Auto) >30 /hpf (0-5) H 03/18/22 17: Urine RBC (Auto) 0-4 /hpf (0-4) 03/18/22 17: U Hyaline Cast (Auto) 5-10 /lpf (0-5) H 03/18/22 17: U Epithel Cells (Auto) >30 /lpf (0-5) H 03/18/22 17: Urine Bacteria (Auto) 4+ (Negative) H 03/18/22 17:23 SARS-CoV-2, RNA, NAAT NEGATIVE (NEGATIVE) 03/18/22 17:20 Impressions Chest X-Ray 03/18/22 14:52 XR chest 2V PA/lateral CLINICAL HISTORY: Generalized weakness. COMPARISON STUDY: Chest radiograph January 27, 2022. FINDINGS: Dual lead left subclavian pacer is in place. Lung volumes are normal. Lungs are clear. There is no pneumothorax or pleural effusion. Cardiomegaly is unchanged. Mediastinal contours are normal. There is no evidence for pulmonary edema. IMPRESSION: No acute cardiopulmonary findings. No change in appearance of the chest. ACT 112: Negative or not required by law. Electronically signed by: Jose Alejandro Disla M.D. 03/18/2022 3:[address] 03/18/22 18:17 CT hip RT wo con CLINICAL HISTORY: fall, right hip pain TECHNIQUE: Multidetector row helical CT of the right hip was performed without intravenous contrast. Coronal and sagittal reformations were obtained. Automated dose lowering techniques and/or adjustment according to patient size were utilized for this examination. CT DOSE: 1128.25 mGy.cm Comparison: None available at the time of this dictation. FINDINGS: The osseous structures are without fracture or dislocation. Degenerative changes are seen in the right hip joint. No joint effusion is seen. Atherosclerotic calcifications are seen. IMPRESSION: Degenerative changes are seen. No evidence of acute fracture. ACT 112: Negative or not required by law. Electronically signed by: Victoriano Gallagher M.D. 03/18/2022 7:[address] 03/18/22 18:17 CT lumbar spine wo con CLINICAL HISTORY: fall, leg weakness TECHNIQUE: Multidetector row helical CT of the lumbar spine was performed without administration of intravenous contrast. Coronal and sagittal reformations were obtained. Automated dose lowering techniques and/or adjustment according to patient size were utilized for this exam. Comparison: Comparison is made to lumbar spine radiograph 09/22/2017 FINDINGS: Posterior fixation hardware is seen. No acute fractures are identified. Degenerative changes are noted in the visualized spine. Grade 1 retrolisthesis of L2 on L3. Aortic atherosclerosis is seen. Partial visualization of cholelithiasis. Thickening of the bilateral adrenal glands noted. Partial visualization of renal and hepatic cysts. IMPRESSION: No evidence of acute fracture. Redemonstration of postsurgical changes of posterior fixation hardware. Additional incidental findings as above. ACT 112: Negative or not required by law. Electronically signed by: Victoriano Gallagher M.D. 03/18/2022 7:09 PM Medications Administered Current Inpatient Medications Acetaminophen (Acetaminophen 325 Mg Tab) 650 mg PO Q4H PRN PRN Reason: pain/fever Stop: 04/17/22 21:35 Last Admin: 03/19/22 15:43 Dose: 650 mg Amlodipine Besylate (Amlodipine Besylate 5 Mg Tab) 2.5 mg PO QAM RONDA Stop: 04/18/22 08:59 Last Admin: 03/20/22 08:16 Dose: 2.5 mg Aspirin (Aspirin 81 Mg Ectab) 81 mg PO DAILY RONDA Stop: 04/18/22 08:59 Last Admin: 03/20/22 08:14 Dose: 81 mg Atorvastatin Calcium (Atorvastatin 20 Mg Tab) 20 mg PO QAM RONDA Stop: 04/18/22 11:59 Last Admin: 03/20/22 08:15 Dose: 20 mg Gabapentin (Gabapentin 600 Mg Tab) 600 mg PO HS RONDA Stop: 04/17/22 21:35 Last Admin: 03/19/22 20:31 Dose: 600 mg Ceftriaxone Sodium 1,000 mg/ (Dextrose) 60 mls @ 100 mls/hr IV Q24H [facility]; Protocol Stop: 03/23/22 21:59 Last Infusion: 03/19/22 21:54 Dose: Infused Isosorbide Mononitrate (Isosorbide Cotton Extended Rel 60 Mg Tabcr) 60 mg PO QAM [facility] Stop: 04/18/22 08:59 Last Admin: 03/20/22 08:15 Dose: 60 mg Latanoprost (Latanoprost 0.005% Op Soln 2.5 Ml Btl) 1 drops OPL HS [facility] Stop: 04/17/22 21:35 Last Admin: 03/19/22 20:31 Dose: 1 drops Losartan Potassium (Losartan Potassium 50 Mg Tab) 100 mg PO QAM [facility] Stop: 04/18/22 08:59 Last Admin: 03/20/22 08:17 Dose: 100 mg Magnesium Oxide (Magnesium Oxide 400 Mg Tab) 400 mg PO DAILY [facility] Stop: 04/18/22 08:59 Last Admin: 03/20/22 08:15 Dose: 400 mg Pantoprazole Sodium (Pantoprazole 40 Mg Tab) 40 mg PO QAM [facility] Stop: 04/18/22 08:59 Last Admin: 03/20/22 08:14 Dose: 40 mg Prednisolone Acetate (Prednisolone Acetate 1% Op Susp 5 Ml Btl) 1 drops OPR QAM [facility] Stop: 04/18/22 08:59 Last Admin: 03/20/22 08:42 Dose: 1 drops Sotalol HCl (Sotalol Hcl 80 Mg Tab) 80 mg PO BID [facility] Stop: 04/17/22 21:35 Last Admin: 03/20/22 08:15 Dose: 80 mg Urea (Urea (Urea-Na) 15 Gm Pack) 15 gm PO AMHS [facility] Stop: 04/17/22 21:35 Last Admin: 03/20/22 08:17 Dose: 15 gm Warfarin Sodium (Warfarin Sod 7.5 Mg Tab) 7.5 mg PO DAILY@1600 [facility] Stop: 04/18/22 15:59 Last Admin: 03/19/22 15:39 Dose: 7.5 mg
[2022-03-20] MEDS: ACETAMINOPHEN 325 MG TAB PO PRN (15:37)
[2022-03-20] MEDS: LATANOPROST 0.005% OP SOLN 2.5 ML BTL OPL SCH (21:09)
[2022-03-20] MEDS: GABAPENTIN 600 MG TAB PO SCH (21:09)
[2022-03-20] MEDS: cefTRIAXone SODIUM 1,000 MG in DEXTROSE 5% 50 ML IV SCH (21:38)
[2022-03-21 06:30] LABS: BUN Creatinine Ratio 72.2 (10-20); Calcium 8.9 mg/dl (8.5-10.1); Creatinine Clr Calc Pharmacy 41.7 ml/min; Est GFR (African American) 76.9 ml/min; Est GFR (Non-African American) 66.4 ml/min; Phosphorus 3.4 mg/dl (2.5-4.9); Potassium 4.3 mmol/L (3.5-5.1)
[2022-03-21 06:34] LABS: INR 3.6 (0.9-1.1)
[2022-03-21] MEDS: ATORVASTATIN 20 MG TAB PO SCH (08:34)
[2022-03-21] MEDS: ASPIRIN 81 MG ECTAB PO SCH (08:34)
[2022-03-21] MEDS: UREA (UREA-NA) 15 GM PACK PO SCH ×2 (08:34→22:38)
[2022-03-21] MEDS: LOSARTAN POTASSIUM 50 MG TAB PO SCH (08:34)
[2022-03-21] MEDS: MAGNESIUM OXIDE 400 MG TAB PO SCH (08:34)
[2022-03-21] MEDS: PANTOprazole 40 MG TAB PO SCH (08:34)
[2022-03-21] MEDS: ISOSORBIDE MONO EXTENDED REL 60 MG TABCR PO SCH (08:34)
[2022-03-21] MEDS: amLODIPine BESYLATE 5 MG TAB PO SCH (08:35)
[2022-03-21] MEDS: SOTALOL HCL 80 MG TAB PO SCH ×2 (08:35→22:37)
[2022-03-21] MEDS: prednisoLONE acetate 1% OP SUSP 5 ML BTL OPR SCH (08:37)
--- NOTE | 2022-03-21 13:40 | Hospitalist Progress Note ---
Date of Service March 21, 2022 Assessment & Plan (1) UTI (urinary tract infection): Plan: - given presentation of weakness and fall with positive UA - treat for UTI - continue ceftriaxone while inpatient day 2 - transition to cipro fo 1 more day if discharge tomorrow 03/21/2022 pending placement - ready for discharge to SNF (2) Recurrent falls: Plan: - seems to have a history of recurrent falls and recently was discharged from rehab 10/2021 - patient denies any other complaints, no urinary symptoms - has positive UA - ceftriaxone day 07/10 - NA stable on urea - PT/OT evaluation - SNF (3) Generalized weakness: Plan: Observation to [facility] Patient presenting from home with reports of increasing generalized weakness, fr equent falls (3 falls in 2 weeks), and diarrhea Labs unremarkable, UA pending - CT hip and lumbar spine negative for acute pathology - UA positive for infection however without active symptoms - given presentation of weakness and falls will treat for 3-5 days as above - continue ceftriaxone PT/OT- SNF (4) Hypertensive urgency: Plan: Presenting BP 182/115 Likely due to missed doses of home medications Patient received home doses of isosorbide and losartan in ED with improvement in BP Continue home isosorbide, losartan, amlodipine. Make adjustments as needed. 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 (6) Paroxysmal atrial fibrillation: Plan: - on coumadin and rate controlled on sotalol - daily INR while inpatient (7) CAD (coronary artery disease): Plan: - Appears stable, no reports of chest pain - Continue ASA - unclear why not on a statin - will start moderate dose today and monitor tolerance (8) Chronic hyponatremia: Plan: Na+ 134, at baseline Continue urea Plan DVT ppx: coumadin Code Status: DNR/DNI Dispo: med/surg Darrian Dupont MD Hospital Medicine Admission and Anticipated Discharge Date Admission Date: March 19, 2022 Subjective 89 year old woman with pmh CAD, SSS s/p PPM, pAF on coumdin, 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 CT of hip and lumbar spine were unremarkable. UA positive for infection, started on ceftriaxone, IVF. Patient feels well today, denies dysuria, frequency, chest pain, shortness of breath, abdominal pain, n/v/d, cough. Reports she feels weak and is fatigued transferring from bed to chair, chair to commode, etc but otherwise well. Review of Systems Review of Systems: ROS per HPI, all other systems reviewed and negative Physical Exam Physical Exam: Constitutional:L WD/WN, vitals as a guera Eyes: PERRL, conjunctiva e normal, anicteri c sclerae ENMT: external ear and n ose normal, oropha rynx normal Respiratory: normal respiratory effort, lungs darshan ar to auscultation Cardiovascular:L Rate/Rhythm: regul ar rate and regula r rhythm Heart So unds: + murmur (Gr rock 2/6, systolic) Vessels: normal peripheral pulses Extremities: no e kristine Gastrointestinal ( Abdomen): normal bowel sound s, soft, nontender , no hepatosplenom egaly Musculoskeletal: no cyanosis or clu bbing, extremities motor strength 5/ 5 Skin: no rashes, warm an d dry Neurologic: PERRL, EOMI, accom modation nl, no fa ce palsy, no dysar thria no focal mo tor deficits Psychiatric: A+Ox3, euthymic af fect Results & Data Results & Data ([facility]) Vital Signs (Past 12 Hours) Vital Signs Temp Pulse Resp BP Pulse Ox O2 Del Method 03/21/22 07:48 36.6 C 61 16 154/93 H 96 Room Air
[2022-03-21] MEDS ORDERED: WARFARIN SOD 5 MG TAB PO SCH (16:00)
[2022-03-21] MEDS: ACETAMINOPHEN 325 MG TAB PO PRN ×2 (17:08→22:34)
[2022-03-21] MEDS: cefTRIAXone SODIUM 1,000 MG in DEXTROSE 5% 50 ML IV SCH (22:35)
[2022-03-21] MEDS: GABAPENTIN 600 MG TAB PO SCH (22:36)
[2022-03-21] MEDS: LATANOPROST 0.005% OP SOLN 2.5 ML BTL OPL SCH (22:40)
[2022-03-22 07:38] LABS: INR 2.2 (0.9-1.1); Prothrombin Time 22.4 Seconds (9.0-12.0)
[2022-03-22 07:55] LABS: BUN Creatinine Ratio 83.6 (10-20); Calcium 9.2 mg/dl (8.5-10.1); Est GFR (African American) 93.2 ml/min; Est GFR (Non-African American) 80.4 ml/min; Potassium 4.1 mmol/L (3.5-5.1)
[2022-03-22] MEDS: SOTALOL HCL 80 MG TAB PO SCH (09:05)
[2022-03-22] MEDS: prednisoLONE acetate 1% OP SUSP 5 ML BTL OPR SCH (09:06)
[2022-03-22] MEDS: PANTOprazole 40 MG TAB PO SCH (09:06)
[2022-03-22] MEDS: ATORVASTATIN 20 MG TAB PO SCH (09:06)
[2022-03-22] MEDS: ISOSORBIDE MONO EXTENDED REL 60 MG TABCR PO SCH (09:06)
[2022-03-22] MEDS: LOSARTAN POTASSIUM 50 MG TAB PO SCH (09:06)
[2022-03-22] MEDS: UREA (UREA-NA) 15 GM PACK PO SCH (09:06)
[2022-03-22] MEDS: MAGNESIUM OXIDE 400 MG TAB PO SCH (09:06)
[2022-03-22] MEDS: amLODIPine BESYLATE 5 MG TAB PO SCH (09:06)
[2022-03-22] MEDS: ASPIRIN 81 MG ECTAB PO SCH (09:06)
--- NOTE | 2022-03-22 10:47 | Hospitalist Progress Note ---
Date of Service March 22, 2022 Assessment & Plan (1) UTI (urinary tract infection): Plan: - given presentation of weakness and fall with positive UA - treat for UTI - continue ceftriaxone while inpatient day 2 - transition to cipro fo 1 more day if discharge tomorrow 03/21/2022 pending placement - ready for discharge to SNF (2) Recurrent falls: Plan: - seems to have a history of recurrent falls and recently was discharged from rehab 10/2021 - patient denies any other complaints, no urinary symptoms - has positive UA - ceftriaxone day 07/10 - NA stable on urea - PT/OT evaluation - SNF (3) Generalized weakness: Plan: Observation to [facility] Patient presenting from home with reports of increasing generalized weakness, fr equent falls (3 falls in 2 weeks), and diarrhea Labs unremarkable, UA pending - CT hip and lumbar spine negative for acute pathology - UA positive for infection however without active symptoms - given presentation of weakness and falls will treat for 3-5 days as above - continue ceftriaxone PT/OT- SNF (4) Hypertensive urgency: Plan: Presenting BP 182/115 Likely due to missed doses of home medications Patient received home doses of isosorbide and losartan in ED with improvement in BP Continue home isosorbide, losartan, amlodipine. Make adjustments as needed. 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 (6) Paroxysmal atrial fibrillation: Plan: - on coumadin and rate controlled on sotalol - daily INR while inpatient (7) CAD (coronary artery disease): Plan: - Appears stable, no reports of chest pain - Continue ASA - unclear why not on a statin - will start moderate dose today and monitor tolerance (8) Chronic hyponatremia: Plan: Na+ 134, at baseline Continue urea Plan DVT ppx: coumadin Code Status: DNR/DNI Dispo: med/surg Darrian Dupont MD Hospital Medicine Admission and Anticipated Discharge Date Admission Date: March 19, 2022 Subjective 89 year old woman with pmh CAD, SSS s/p PPM, pAF on coumdin, 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 CT of hip and lumbar spine were unremarkable. UA positive for infection, started on ceftriaxone, IVF. Patient feels well today, denies dysuria, frequency, chest pain, shortness of breath, abdominal pain, n/v/d, cough. Reports she feels weak and is fatigued transferring from bed to chair, chair to commode, etc but otherwise well. Review of Systems Review of Systems: ROS per HPI, all other systems reviewed and negative Physical Exam Physical Exam: Constitutional:L WD/WN, vitals as a guera Eyes: PERRL, conjunctiva e normal, anicteri c sclerae ENMT: external ear and n ose normal, oropha rynx normal Respiratory: normal respiratory effort, lungs darshan ar to auscultation Cardiovascular:L Rate/Rhythm: regul ar rate and regula r rhythm Heart So unds: + murmur (Gr rock 2/6, systolic) Vessels: normal peripheral pulses Extremities: no e kristine Gastrointestinal ( Abdomen): normal bowel sound s, soft, nontender , no hepatosplenom egaly Musculoskeletal: no cyanosis or clu bbing, extremities motor strength 5/ 5 Skin: no rashes, warm an d dry Neurologic: PERRL, EOMI, accom modation nl, no fa ce palsy, no dysar thria no focal mo tor deficits Psychiatric: A+Ox3, euthymic af fect Results & Data Results & Data ([facility]) Vital Signs (Past 12 Hours) Vital Signs Temp Pulse Resp BP Pulse Ox O2 Del Method 03/22/22 08:19 36.7 C 60 16 138/85 95 Room Air Diagnostic Findings Laboratory Results WBC 5.89 K/ul (4.8-10.8) 03/19/22 07:08 RBC 4.88 M/uL (3.93-5.22) 03/19/22 07:08 Hgb 13.4 g/dl (12.0-16.0) 03/19/22 07:08 Hct 40.2 % (34.1-44.9) 03/19/22 07:08 MCV 82.4 fL (80.0-100.0) 03/19/22 07:08 MCH 27.5 pg (25.0-34.0) 03/19/22 07:08 MCHC 33.3 g/dL (32.0-36.0) 03/19/22 07:08 RDW Std Deviation 48.4 fL (36.4-46.3) H 03/19/22 07:08 RDW Coeff of Elke 16.0 % (11.5-14.5) H 03/19/22 07:08 Plt Count 241 K/uL (130-400) 03/19/22 07:08 MPV 10.2 fL (9.4-12.3) 03/19/22 07:08 Immature Gran % (Auto) 0.2 % 03/18/22 15:15 Neut % (Auto) 68.2 % 03/18/22 15:15 Lymph % (Auto) 23.3 % 03/18/22 15:15 [place] % (Auto) 7.4 % 03/18/22 15:15 Eos % (Auto) 0.6 % 03/18/22 15:15 Baso % (Auto) 0.3 % 03/18/22 15:15 Neut # (Auto) 6.33 K/uL (1.4-6.5) 03/18/22 15:15 Lymph # (Auto) 2.16 K/uL (1.2-3.4) 03/18/22 15:15 [place] # (Auto) 0.69 K/uL (0.24-0.82) 03/18/22 15:15 Eos # (Auto) 0.06 K/uL (0-0.50) 03/18/22 15:15 Baso # (Auto) 0.03 K/uL (0-0.2) 03/18/22 15:15 Immature Gran # (Auto) 0.02 K/uL (0.00-0.02) 03/18/22 15:15 PT 22.4 Seconds (9.0-12.0) H 03/22/22 06:30 INR 2.2 (0.9-1.1) H 03/22/22 06:30 Sodium 134 mmol/L (136-145) L 03/22/22 06:39 Potassium 4.1 mmol/L (3.5-5.1) 03/22/22 06:39 Chloride 99 mmol/L (98-107) 03/22/22 06:39 Carbon Dioxide 30 mmol/L (21-32) 03/22/22 06:39 Anion Gap 5 (3-11) 03/22/22 06:39 BUN 51 mg/dl (6-23) H 03/22/22 06:39 Creatinine 0.61 mg/dl (0.6-1.2) 03/22/22 06:39 Est Cr Clr Drug Dosing 54.0 ml/min 03/22/22 06:39 Est GFR ( Amer) 93.2 ml/min 03/22/22 06:39 Est GFR (Non-Af Amer) 80.4 ml/min 03/22/22 06:39 BUN/Creatinine Ratio 83.6 (10-20) H 03/22/22 06:39 Glucose 100 mg/dl (70-99(Fasting)) H 03/22/22 06:39 Calcium 9.2 mg/dl (8.5-10.1) 03/22/22 06:39 Phosphorus 3.4 mg/dl (2.5-4.9) 03/21/22 05:17 Magnesium 2.0 mg/dl (1.7-2.4) 03/21/22 05:17 Total Bilirubin 0.5 mg/dl (0.2-1.0) 03/18/22 15:15 AST 17 U/L (13-39) 03/18/22 15:15 ALT 9 U/L (7-52) 03/18/22 15:15 Alkaline Phosphatase 66 U/L (34-104) 03/18/22 15:15 Troponin I High Sens 11.7 pg/ml (0-14) D 03/18/22 17:30 Total Protein 6.8 gm/dl (6.0-8.3) 03/18/22 15:15 Albumin 3.9 gm/dl (3.4-5.0) 03/18/22 15:15 Globulin 2.9 gm/dl (2.5-4.0) 03/18/22 15:15 Albumin/Globulin Ratio 1.3 (0.9-2) 03/18/22 15:15 TSH 1.287 uIu/ml (0.300-4.500) 03/18/22 17:30 Urine Color Yellow 03/18/22 17: Urine Appearance Cloudy (Clear) A 03/18/22 17: Urine pH 8.0 (4.5-7.5) H 03/18/22 17:23 Ur Specific [place] 1.011 (1.000-1.030) 03/18/22 17:23 Urine Protein Trace (Negative) H 03/18/22 17:23 Urine Glucose (UA) Negative (Negative) 03/18/22 17: Urine Ketones Negative (Negative) 03/18/22 17: Urine Blood 1+ (Negative) H 03/18/22 17:23 Urine Nitrite Negative (Negative) 03/18/22 17:23 Urine Bilirubin Negative (Negative) 03/18/22 17:23 Urine Urobilinogen Negative (Negative) 03/18/22 17:23 Ur Leukocyte Esterase 3+ (Negative) H 03/18/22 17:23 Urine WBC (Auto) >30 /hpf (0-5) H 03/18/22 17: Urine RBC (Auto) 0-4 /hpf (0-4) 03/18/22 17: U Hyaline Cast (Auto) 5-10 /lpf (0-5) H 03/18/22 17: U Epithel Cells (Auto) >30 /lpf (0-5) H 03/18/22 17: Urine Bacteria (Auto) 4+ (Negative) H 03/18/22 17:23 SARS-CoV-2, RNA, NAAT NEGATIVE (NEGATIVE) 03/18/22 17:20 Impressions Chest X-Ray 03/18/22 14:52 XR chest 2V PA/lateral CLINICAL HISTORY: Generalized weakness. COMPARISON STUDY: Chest radiograph January 27, 2022. FINDINGS: Dual lead left subclavian pacer is in place. Lung volumes are normal. Lungs are clear. There is no pneumothorax or pleural effusion. Cardiomegaly is unchanged. Mediastinal contours are normal. There is no evidence for pulmonary edema. IMPRESSION: No acute cardiopulmonary findings. No change in appearance of the chest. ACT 112: Negative or not required by law. Electronically signed by: Jose Alejandro Disla M.D. 03/18/2022 3:[address] 03/18/22 18:17 CT hip RT wo con CLINICAL HISTORY: fall, right hip pain TECHNIQUE: Multidetector row helical CT of the right hip was performed without intravenous contrast. Coronal and sagittal reformations were obtained. Automated dose lowering techniques and/or adjustment according to patient size were utilized for this examination. CT DOSE: 1128.25 mGy.cm Comparison: None available at the time of this dictation. FINDINGS: The osseous structures are without fracture or dislocation. Degenerative changes are seen in the right hip joint. No joint effusion is seen. Atherosclerotic calcifications are seen. IMPRESSION: Degenerative changes are seen. No evidence of acute fracture. ACT 112: Negative or not required by law. Electronically signed by: Victoriano Gallagher M.D. 03/18/2022 7:[address] 03/18/22 18:17 CT lumbar spine wo con CLINICAL HISTORY: fall, leg weakness TECHNIQUE: Multidetector row helical CT of the lumbar spine was performed without administration of intravenous contrast. Coronal and sagittal reformations were obtained. Automated dose lowering techniques and/or adjustment according to patient size were utilized for this exam. Comparison: Comparison is made to lumbar spine radiograph 09/22/2017 FINDINGS: Posterior fixation hardware is seen. No acute fractures are identified. Degenerative changes are noted in the visualized spine. Grade 1 retrolisthesis of L2 on L3. Aortic atherosclerosis is seen. Partial visualization of cholelithiasis. Thickening of the bilateral adrenal glands noted. Partial visualization of renal and hepatic cysts. IMPRESSION: No evidence of acute fracture. Redemonstration of postsurgical changes of posterior fixation hardware. Additional incidental findings as above. ACT 112: Negative or not required by law. Electronically signed by: Victoriano Gallagher M.D. 03/18/2022 7:09 PM Medications Administered Current Inpatient Medications Acetaminophen (Acetaminophen 325 Mg Tab) 650 mg PO Q4H PRN PRN Reason: pain/fever Stop: 04/17/22 21:35 Last Admin: 03/21/22 22:34 Dose: 650 mg Amlodipine Besylate (Amlodipine Besylate 5 Mg Tab) 2.5 mg PO QAM RONDA Stop: 04/18/22 08:59 Last Admin: 03/22/22 09:06 Dose: 2.5 mg Aspirin (Aspirin 81 Mg Ectab) 81 mg PO DAILY RONDA Stop: 04/18/22 08:59 Last Admin: 03/22/22 09:06 Dose: 81 mg Atorvastatin Calcium (Atorvastatin 20 Mg Tab) 20 mg PO QAM RONDA Stop: 04/18/22 11:59 Last Admin: 03/22/22 09:06 Dose: 20 mg Gabapentin (Gabapentin 600 Mg Tab) 600 mg PO HS RONDA Stop: 04/17/22 21:35 Last Admin: 03/21/22 22:36 Dose: 600 mg Ceftriaxone Sodium 1,000 mg/ (Dextrose) 60 mls @ 100 mls/hr IV Q24H RONDA; Protoc ol Stop: 03/23/22 21:59 Last Infusion: 03/21/22 23:27 Dose: Infused Isosorbide Mononitrate (Isosorbide [place] Extended Rel 60 Mg Tabcr) 60 mg PO QAM [facility] Stop: 04/18/22 08:59 Last Admin: 03/22/22 09:06 Dose: 60 mg Latanoprost (Latanoprost 0.005% Op Soln 2.5 Ml Btl) 1 drops OPL HS RONDA Stop: 04/17/22 21:35 Last Admin: 03/21/22 22:40 Dose: 1 drops Losartan Potassium (Losartan Potassium 50 Mg Tab) 100 mg PO QAM [facility] Stop: 04/18/22 08:59 Last Admin: 03/22/22 09:06 Dose: 100 mg Magnesium Oxide (Magnesium Oxide 400 Mg Tab) 400 mg PO DAILY RONDA Stop: 04/18/22 08:59 Last Admin: 03/22/22 09:06 Dose: 400 mg Pantoprazole Sodium (Pantoprazole 40 Mg Tab) 40 mg PO QAM [facility] Stop: 04/18/22 08:59 Last Admin: 03/22/22 09:06 Dose: 40 mg Prednisolone Acetate (Prednisolone Acetate 1% Op Susp 5 Ml Btl) 1 drops OPR QAM [facility] Stop: 04/18/22 08:59 Last Admin: 03/22/22 09:06 Dose: 1 drops Sotalol HCl (Sotalol Hcl 80 Mg Tab) 80 mg PO BID RONDA Stop: 04/17/22 21:35 Last Admin: 03/22/22 09:05 Dose: 80 mg Urea (Urea (Urea-Na) 15 Gm Pack) 15 gm PO AMHS [facility] Stop: 04/17/22 21:35 Last Admin: 03/22/22 09:06 Dose: 15 gm Warfarin Sodium (Warfarin Sod 5 Mg Tab) 5 mg PO DAILY@1600 [facility] Stop: 04/20/22 15:59
[2022-03-22] MEDS: ACETAMINOPHEN 325 MG TAB PO PRN (12:35)
--- NOTE | 2022-03-22 13:46 | Discharge Summary ---
Date of Service March 22, 2022 Admission HPI Per Admitting Provider 89-year-old female with PMH CAD, tachybradycardia syndrome s/p pacemaker, paroxysmal atrial fibrillation on sotalol and Coumadin therapy, history of CVA, HTN, aortic stenosis, GERD, osteoarthritis, history of breast cancer, and other problems listed below who presents to the ED for evaluation of generalized weakness. Patient notes increasing generalized weakness over the past few weeks. She has had 3 falls in 2 weeks. Patient states that during her first 2 falls, she started to feel very weak and her legs started to shake and she was able to lower herself to the ground. Patient had a similar episode yesterday while her daughter was helping her from the bed to the chair. Patient states that she needed to turn around to sit in the chair however her legs would not move. Patient states she then lowered herself to the ground. EMS was called to help the patient off of the floor. This morning, patient's daughter found her incontinent of a large amount of loose stool and urine. Patient states that she has chronic urinary incontinence however stool incontinence this morning was new. Patient also reports eating sauerkraut yesterday. Patient was then brought to the ED for further evaluation. Patient also reports right hip pain radiating down the lateral side of the right leg for the past 10 days. Patient denies chest pain, shortness of breath, palpitations. No lightheadedness, dizziness, diaphoresis, syncopal events. Denies any other recent illnesses, fevers, chills. No urinary symptoms. In the ED, patient was hypertensive at 185/115. Patient states not taking her medications this morning. She was given her home doses of isosorbide and losartan. Labs are unremarkable. CXR negative for acute findings. Admission Exam Per Admitting Provider Constitutional: WD/WN, vitals as above Eyes: PERRL, conjunctivae normal, anicteric sclerae ENMT: external ear and nose normal, oropharynx normal Respiratory: normal respiratory effort, lungs clear to auscultation Cardiovascular: Rate/Rhythm: regular rate and regular rhythm Heart Sounds: + murmur (Grade 2/6, systolic) Vessels: normal peripheral pulses Extremities: no edema Gastrointestinal (Abdomen): normal bowel sounds, soft, nontender, no hepatosplenomegaly Musculoskeletal: no cyanosis or clubbing, extremities motor strength 5/5 Skin: no rashes, warm and dry Neurologic: PERRL, EOMI, accommodation nl, no face palsy, no dysarthria no focal motor deficits Psychiatric: A+Ox3, euthymic affect Principal Diagnosis UTI, falls Discharge Exam Constitutional: WD/WN, vitals as above Eyes: PERRL, conjunctivae normal, anicteric sclerae ENMT: external ear and nose normal, oropharynx normal Respiratory: normal respiratory effort, lungs clear to auscultation Cardiovascular: Rate/Rhythm: regular rate and regular rhythm Heart Sounds: + murmur (Grade 2/6, systolic) Vessels: normal peripheral pulses Extremities: no edema Gastrointestinal (Abdomen): normal bowel sounds, soft, nontender, no hepatosplenomegaly Musculoskeletal: no cyanosis or clubbing, extremities motor strength 10/07 Skin: no rashes, warm and dry Neurologic: PERRL, EOMI, accommodation nl, no face palsy, no dysarthria no focal motor deficits Psychiatric: A+Ox3, euthymic affect Discharge Data Allergies Allergy/AdvReac Type Severity Reaction Status Date / Time brimonidine Allergy Mild RED ITCHY Verified 03/18/22 18:10 EYE clavulanic acid Allergy Mild headache Verified 03/18/22 18:10 sulfamethoxazole AdvReac Intermediate CHILLS/RIGORS-PER Verified 03/18/22 18:10 [From Bactrim] GMG trimethoprim [From Bactrim] AdvReac Intermediate CHILLS/RIGORS-PER Verified 03/18/22 18:10 GMG amoxicillin AdvReac Mild headache Verified 03/18/22 18:10 hydrochlorothiazide AdvReac Hyponatremi Verified 03/18/22 18:10 a Consultations 03/18/22 17:32 ED Decision to Admit Stat Ordered Studies 03/18/22 18:17 CT hip RT wo con Stat CT lumbar spine wo con Stat Hospital Course (1) UTI (urinary tract infection): - given presentation of weakness and fall with positive UA - treat for UTI - continue ceftriaxone while inpatient day 2 - transition to cipro on discharge - ready for discharge to SNF - [facility] - discharge (2) Recurrent falls: - seems to have a history of recurrent falls and recently was discharged from rehab 10/2021 - patient denies any other complaints, no urinary symptoms - has positive UA - ceftriaxone day 2 - NA stable on urea - PT/OT evaluation - SNF (3) Generalized weakness: Observation to [facility] Patient presenting from home with reports of increasing generalized weakness, frequent falls (3 falls in 2 weeks), and diarrhea Labs unremarkable, UA pending - CT hip and lumbar spine negative for acute pathology - UA positive for infection however without active symptoms - given presentation of weakness and falls will treat for 3-5 days as above - continue ceftriaxone PT/OT- SNF (4) Hypertensive urgency: Presenting BP 182/115 Likely due to missed doses of home medications Patient received home doses of isosorbide and losartan in ED with improvement in BP Continue home isosorbide, losartan, amlodipine. Make adjustments as needed. (5) Tachy-garret syndrome: - s/p PPM (6) Paroxysmal atrial fibrillation: - on coumadin and rate controlled on sotalol - daily INR while inpatient (7) CAD (coronary artery disease): - Appears stable, no reports of chest pain - Continue ASA - unclear why not on a statin - will start moderate dose today and monitor tolerance (8) Chronic hyponatremia: Na+ 134, at baseline Continue urea Plan DVT ppx: coumadin Code Status: DNR/DNI Dispo: med/surg Darrian Dupont MD [facility] Medicine Total Time Total Time Spent Total Time Spent (In Minutes): 25 Total Time Includes: Examination of the Patient, Discharge Planning and Medication Reconciliation Discharge Plan Discharge Items Patient Disposition: Transfer Care Home Fac Reason For Visit: GENERALIZED WEAKNESS Discharge Diagnosis: UTI, deconditioning Activity: As commented below Activity Comment: Per SNF Non-emergency contact: Primary Care Provider Call non-emergency contact if: you have any medication questions Follow-up/Referrals: Johnathon Jamison MD [Primary Care Provider] - Diet: Heart Healthy Addtl Attending Provider Instructions: You were admitted with weakness and found to have a urinary tract infection. You were given antibiotics with improvement and IV fluids as well. you were seen by physical therapy for weakness and they recommended you spend some time in a rehab to build your strength. You should complete 2 days of antibiotics after discharge. Pending Studies at Discharge: No Stand-Alone Forms: My [facility] Skilled Items Patient informed of condition?: Yes DNR: Yes Discharge Level of Care: Skilled Communicable Disease: No Discharge Prognosis: Stable Lines: None Urinary Catheter: No Medications and DC Order Prescriptions: New amoxicillin-pot clavulanate 875-125 mg tablet 1 tab PO BID Qty: 5 0RF warfarin 5 mg Tablet 5 mg PO DAILY@1600 Qty: 30 0RF Continued omega [id number] oil [Fish Oil] 1,200 (144-216) mg Capsule 1 cap PO DAILY magnesium oxide 400 mg magnesium Tablet 400 mg PO DAILY Ure-Na 15 gram powder in packet 1 packet PO AMHS multivitamin Tablet 1 tab PO QAM latanoprost 0.005 % Drops 1 drp OPL HS gabapentin 600 mg Tablet 600 mg PO HS sotalol 80 mg Tablet 80 mg PO BID amlodipine 2.5 mg Tablet 2.5 mg PO QAM aspirin 81 mg Tablet,Delayed Release (Dr/Ec) 81 mg PO DAILY pantoprazole [Protonix] 20 mg Tablet,Delayed Release (Dr/Ec) 20 mg PO QAM isosorbide mononitrate 60 mg Tablet Extended Release 24 Hr 60 mg PO QAM Rx Instructions: DO NOT CRUSH OR CHEW. prednisolone acetate [Pred Forte] 1 % Drops,Suspension 1 drp OPR QAM nitroglycerin [Nitrostat] 0.4 mg Tablet, Sublingual 0.4 mg sublingual DIRECTED PRN (Reason: Chest Pain) Rx Instructions: PLACE 1 TAB UNDER TONGUE EVERY 5 MIN. NEEDED FOR CHEST PAIN, MAX 3 TAB, CALL MD OR 911 IF CONTINUES. losartan 100 mg Tablet 100 mg PO QAM coenzyme Q10 [CoQ-10] 100 mg Capsule 100 mg PO QAM calcium carbonate-vitamin D3 [Calcium 600 + D(3)] 600 mg(1,500mg) -400 unit Tablet 2 tab PO QAM Discontinued warfarin 7.5 mg tablet 7.5 mg PO DAILY Discharge Orders: Discharge Order (Routine); Ordered 03/22/22 Ordered By: Darrian Dupont Admission Data Admit Date/Time: 03/19/22 14:13 Attending Provider: Darrian Dupont Admit Provider: Rubén Vasquez Primary Care Provider: Johnathon Jamison Other [facility]: Rubén Vasquez ; [facility]
== END 2022-03-22 15:40 | DRG 690 ==
LOC: 3N 14:36 → ED 14:36 → SUATTDRO 17:40 → 3N 20:00
DX: Z86.73 Personal history of transient ischemic attack (TIA), and cerebral infarction without residual deficits; Z95.5 Presence of coronary angioplasty implant and graft; I16.0 Hypertensive urgency; Z66 Do not resuscitate; Z79.82 Long term (current) use of aspirin; R29.6 Repeated falls; N39.0 Urinary tract infection, site not specified; I49.5 Sick sinus syndrome; Z98.1 Arthrodesis status; Z95.0 Presence of cardiac pacemaker; Z88.2 Allergy status to sulfonamides; R19.7 Diarrhea, unspecified; I25.10 Atherosclerotic heart disease of native coronary artery without angina pectoris; I73.9 Peripheral vascular disease, unspecified; I48.0 Paroxysmal atrial fibrillation; E87.1 Hypo-osmolality and hyponatremia; Z79.01 Long term (current) use of anticoagulants; I35.0 Nonrheumatic aortic (valve) stenosis

== ENCOUNTER 2022-05-22 10:46 | Inpatient (IN) ==
[2022-05-22 11:39] LABS: Basophils # (auto) 0.03 K/uL (0-0.2); Basophils % (auto) 0.3 %; Hematocrit (blood only) 41.8 % (34.1-44.9); Hemoglobin 13.8 g/dl (12.0-16.0); Immature Granulocytes # (auto) 0.02 K/uL (0.00-0.02); Immature Granulocytes % (auto) 0.2 %; Lymphocytes # (auto) 2.05 K/uL (1.2-3.4); Lymphocytes % (auto) 19.8 %; Mean Corpuscular Hemoglobin 28.3 pg (25.0-34.0); Mean Corpuscular Volume 85.7 fL (80.0-100.0); Mean Platelet Volume 10.3 fL (9.4-12.3); Monocytes # (auto) 0.73 K/uL (0.24-0.82); Monocytes % (auto) 7.1 %; Neutrophils # (auto) 7.42 K/uL (1.4-6.5); Neutrophils % (auto) 71.6 %; Platelet Count 288 K/uL (130-400); RDW Coefficient of Variation 15.2 % (11.5-14.5); RDW Standard Deviation 47.1 fL (36.4-46.3); Red Blood Count 4.88 M/uL (3.93-5.22); White Blood Count 10.35 K/ul (4.8-10.8)
--- NOTE | 2022-05-22 11:40 | Emergency Department Note ---
History of Present Illness General Chief complaint: Weakness Time Seen by Provider: 05/22/22 11:13 Source: patient Mode of arrival: EMS Limitations: no limitations History of Present Illness Provider complaint: Weakness, fall This is an 89-year-old female presents emergency department due to concern from a caregiver for weakness. Caregiver reported that patient has been increasingly weak over the course of the last week and she also noticed some increased confusion. Patient here gives history and states she has not noticed any acute changes, although admits to falling this week. She states she does typically use a walker. She states she was checked by her PCP for UTI and it was found to be negative. She denies any recent change in medications. She denies any change in appetite. She denies any injury from the fall stating she holds onto her walker and her legs give out and she slowly crumpled to the ground. She states with assistance she was able to get back up and she felt well. She denies headaches, chest pain, abdominal pain, back pain, vomiting or diarrhea. She denies any recent fevers, chills, or URI symptoms. Home Medications Medication Instructions Recorded Confirmed Type amlodipine 2.5 mg tablet 2.5 mg PO [facility] 08/07/20 05/22/22 History aspirin 81 mg tablet,delayed 81 mg PO DAILY 08/07/20 05/22/22 History release calcium carbonate 600 mg-vitamin 2 tab PO [facility] 08/07/20 05/22/22 History D3 10 mcg (400 unit) tablet (Calcium 600 + D(3)) coenzyme Q10 100 mg capsule 100 mg PO [facility] 08/07/20 05/22/22 History (CoQ-10) gabapentin 600 mg tablet 600 mg PO 08/07/20 05/22/22 History isosorbide mononitrate 60 mg 60 mg PO [facility] 08/07/20 05/22/22 History tablet,extended release 24 hr latanoprost 0.005 % eye drops 1 drp OPL 08/07/20 05/22/22 History losartan 100 mg tablet 100 mg PO [facility] 08/07/20 05/22/22 History multivitamin 1 tab PO [facility] 08/07/20 05/22/22 History nitroglycerin 0.4 mg sublingual 0.4 mg sublingual DIRECTED PRN 08/07/20 05/22/22 History tablet (Nitrostat) Chest Pain pantoprazole 20 mg tablet,delayed 20 mg PO QAM 08/07/20 05/22/22 History release (Protonix) prednisolone acetate 1 % eye 1 drp OPR QAM 08/07/20 05/22/22 History drops,suspension (Pred Forte) sotalol 80 mg tablet 80 mg PO BID 08/07/20 05/22/22 History magnesium oxide 400 mg PO DAILY 03/18/22 05/22/22 History omega 9-iaw-hbd-fish oil 1,200 mg 1 cap PO DAILY 03/18/22 05/22/22 History (144 mg-216 mg) capsule (Fish Oil) urea 15 gram oral powder packet 1 packet PO [facility] 03/18/22 05/22/22 History (Ure-Na) warfarin 10 mg tablet 10 mg PO MOWE@1600 05/22/22 05/22/22 History warfarin 5 mg tablet 5 mg PO SUTUTHFRSA@1600 05/22/22 05/22/22 History Allergies Allergy/AdvReac Type Severity Reaction Status Date / Time brimonidine Allergy Mild RED ITCHY Verified 05/22/22 13:04 EYE clavulanic acid Allergy Mild headache Verified 05/22/22 13:04 sulfamethoxazole AdvReac Intermediate CHILLS/RIGORS-PER Verified 05/22/22 13:04 [From Bactrim] GMG trimethoprim [From Bactrim] AdvReac Intermediate CHILLS/RIGORS-PER Verified 05/22/22 13:04 GMG amoxicillin AdvReac Mild headache Verified 05/22/22 13:04 hydrochlorothiazide AdvReac Hyponatremi Verified 05/22/22 13:04 a Past Med/Surg History Medical History CAD (coronary artery disease) "2009 - PTCA/stent to LAD, balloon angioplasty to LAD diagonal branch" Carotid stenosis, non-symptomatic COVID-19 CVA (cerebral vascular accident) GERD (gastroesophageal reflux disease) Glaucoma History of breast cancer Hypertension Hypertensive urgency MGUS (monoclonal gammopathy of unknown significance) Moderate aortic stenosis Osteoarthritis Pacemaker Paroxysmal atrial fibrillation PVD (peripheral vascular disease) Tachy-garret syndrome TIA (transient ischemic attack) UTI (urinary tract infection) Surgical History H/O hernia repair H/O partial mastectomy History of bladder surgery History of cataract surgery History of hysterectomy History of spinal fusion Hx of tubal ligation S/P tonsillectomy and adenoidectomy Family History Father Heart disease Social History Smoking Status: Never smoker Hx Alcohol Use: No Hx Substance Use: No Preferred Language: [place]er Communication Ability: Effective [employer] Required: No Beliefs That Will Affect Care: None marital status: / Current Living Situation: Alone Current Living Situation Comment: Lives with dog, friend nearby How many Children do You have: 2 Feels Safe at Home: Yes Assistive Devices: Walker Review of Systems A total of 10 systems reviewed and were otherwise negative All systems reviewed & are unremarkable except as noted in HPI & below Physical Exam Vital Signs Vital Signs - 24 hr 05/22/22 11:06 05/22/22 11:06 05/22/22 11:06 Temperature 36.7 C Temperature Source Oral Pulse Rate 61 Pulse Rate [Apical] 61 Pulse Rhythm Regular Pulse Rhythm [Apical] Regular Pulse Strength Normal Pulse Strength [Apical] Normal Respiratory Rate 18 18 Respiratory Effort / Characteristics Non-Labored Non-Labored Respiratory Depth Normal Normal Respiratory Pattern Regular Blood Pressure 160/94 H Blood Pressure [Left Arm] 160/94 H Blood Pressure Mean 116 Blood Pressure Mean [Left Arm] 116 Pulse Oximetry 97 97 97 Oxygen Delivery Method Room Air Room Air Room Air Oxygen Flow Rate 0 Sepsis Recent Fever Within 48 Hours No Sepsis New/Unexplained Change in Mental Status No Sepsis Action Taken by Nursing No Action Required 05/22/22 13:00 05/22/22 15:00 Temperature Temperature Source Pulse Rate Pulse Rate [Apical] 60 60 Pulse Rhythm Pulse Rhythm [Apical] Pulse Strength Pulse Strength [Apical] Respiratory Rate 16 19 Respiratory Effort / Characteristics Non-Labored Respiratory Depth Normal Respiratory Pattern Regular Blood Pressure Blood Pressure [Left Arm] 121/72 128/73 Blood Pressure Mean Blood Pressure Mean [Left Arm] 88 91 Pulse Oximetry 95 96 Oxygen Delivery Method Room Air Room Air Oxygen Flow Rate Sepsis Recent Fever Within 48 Hours Sepsis New/Unexplained Change in Mental Status Sepsis Action Taken by Nursing GENERAL: alert, well appearing, well nourished, no distress, non-toxic EYE EXAM: normal conjunctiva, PERRL and EOM's grossly intact OROPHARYNX: no exudate, no erythema, lips, buccal mucosa, and tongue normal and mucous membranes are moist NECK: supple, no nuchal rigidity, no adenopathy, non-tender LUNGS: Clear to auscultation. Normal chest wall mechanics, no w/r/r HEART: no murmurs, S1 normal and S2 normal ABDOMEN: abdomen soft, non-tender, normo-active bowel sounds, no masses, no rebound or guarding. BACK: Back is symmetrical on inspection and there is no deformity, no midline tenderness, no CVA tenderness. SKIN: no rashes and no bruising UPPER EXTREMITIES: upper extremities are grossly normal. FROM, nml pulses b/l. LOWER EXTREMITIES: No pitting edema. FROM, nml pulses b/l. NEURO EXAM: Normal sensorium, cranial nerves II-XII grossly intact, normal speech, no gross weakness of arms, no gross weakness of legs. Gross sensation intact. Course Course 1315: Pt updated on results. 1520: Discussed with Lisa Thornton, pt's daughter and POA. States on 06/02 she is moving into assisted living. She only has help in the mornings from 7 to 11 AM. I discussed with her my concern given COVID-positive status and increased weakness especially with ambulatory trial here. I am concerned that given the falls she reported over the course of this past week that she is still at risk of recurrent falls and given there are no other options for additional home care this afternoon, that we do not have a safe discharge plan for her. Daughter cell [phone]. Administered Medications Sodium Chloride (Nss 1000ml) 1,000 mls @ 250 mls/hr IV .Q4H RONDA Stop: 06/21/22 12: Last Admin: 05/22/22 19:17 Dose: 250 mls/hr Documented By: Infusion: 05/22/22 16:27 Dose: 0 mls/hr Documented By: Admin: 05/22/22 12: Dose: 250 mls/hr Documented By: OAM Medical Decision Making Differential Diagnosis Differential Diagnosis includes but is not limited to dehydration, stroke, anemia, hypoglycemia, hyponatremia, hypernatremia, urinary tract infection, pneumonia, bronchitis, sepsis, gastroenteritis, additional abdominal pathology, metabolic abnormalities and infections. Medical Records Attestation: I reviewed the patient's medical records. Home Medications Current Medication List: was personally reviewed by me Laboratory Data Attestation: I reviewed the patient's lab results. Result diagrams: 05/22/22 11:04 05/22/22 11:04 Lab Results 05/22/22 05/22/22 05/22/22 Range/Units 11:04 11:04 11:04 WBC 10.35 (4.8-10.8) K/ul RBC 4.88 (3.93-5.22) M/uL Hgb 13.8 (12.0-16.0) g/dl Hct 41.8 (34.1-44.9) % MCV 85.7 (80.0-100.0) fL MCH 28.3 (25.0-34.0) pg MCHC 33.0 (32.0-36.0) g/dL RDW Std Deviation 47.1 H (36.4-46.3) fL RDW Coeff of Elke 15.2 H (11.5-14.5) % Plt Count 288 (130-400) K/uL MPV 10.3 (9.4-12.3) fL Immature Gran % (Auto) 0.2 % Neut % (Auto) 71.6 % Lymph % (Auto) 19.8 % [place] % (Auto) 7.1 % Eos % (Auto) 1.0 % Baso % (Auto) 0.3 % Neut # (Auto) 7.42 H (1.4-6.5) K/uL Lymph # (Auto) 2.05 (1.2-3.4) K/uL Norman # (Auto) 0.73 (0.24-0.82) K/uL Eos # (Auto) 0.10 (0-0.50) K/uL Baso # (Auto) 0.03 (0-0.2) K/uL Immature Gran # (Auto) 0.02 (0.00-0.02) K/uL PT (9.0-12.0) Seconds INR (0.9-1.1) Sodium 133 L (136-145) mmol/L Potassium 4.0 (3.5-5.1) mmol/L Chloride 97 L (98-107) mmol/L Carbon Dioxide 31 (21-32) mmol/L Anion Gap 5 (3-11) BUN 62 H (6-23) mg/dl Creatinine 0.70 (0.6-1.2) mg/dl Est Cr Clr Drug Dosing 47.8 ml/min Est GFR ( Amer) 89.0 ml/min Est GFR (Non-Af Amer) 76.8 ml/min BUN/Creatinine Ratio 88.6 H (10-20) Glucose 111 H (70-99(Fasting)) mg/dl Calcium 9.0 (8.5-10.1) mg/dl Total Bilirubin 0.4 (0.2-1.0) mg/dl AST 14 (13-39) U/L ALT 8 (7-52) U/L Alkaline Phosphatase 50 (34-104) U/L Troponin I High Sens 5.6 (0-14) pg/ml Total Protein 7.0 (6.0-8.3) gm/dl Albumin 3.7 (3.4-5.0) gm/dl Globulin 3.3 (2.5-4.0) gm/dl Albumin/Globulin Ratio 1.1 (0.9-2) TSH 0.806 (0.300-4.500) uIu/ml Urine Color Urine Appearance (Clear) Urine pH (4.5-7.5) Ur Specific [place] (1.000-1.030) Urine Protein (Negative) Urine Glucose (UA) (Negative) Urine Ketones (Negative) Urine Blood (Negative) Urine Nitrite (Negative) Urine Bilirubin (Negative) Urine Urobilinogen (Negative) Ur Leukocyte Esterase (Negative) Urine WBC (Auto) (0-5) /hpf Urine RBC (Auto) (0-4) /hpf U Hyaline Cast (Auto) (0-5) /lpf U Epithel Cells (Auto) (0-5) /lpf Urine Bacteria (Auto) (Negative) SARS-CoV-2 (PCR) (Negative) Influenza Type A (PCR) (Neg) Influenza Type B (PCR) (Neg) RSV (RT-PCR) (Neg) 05/22/22 05/22/22 05/22/22 Range/Units 11:04 11:35 13:48 WBC (4.8-10.8) K/ul RBC (3.93-5.22) M/uL Hgb (12.0-16.0) g/dl Hct (34.1-44.9) % MCV (80.0-100.0) fL MCH (25.0-34.0) pg MCHC (32.0-36.0) g/dL RDW Std Deviation (36.4-46.3) fL RDW Coeff of Elke (11.5-14.5) % Plt Count (130-400) K/uL MPV (9.4-12.3) fL Immature Gran % (Auto) % Neut % (Auto) % Lymph % (Auto) % Norman % (Auto) % Eos % (Auto) % Baso % (Auto) % Neut # (Auto) (1.4-6.5) K/uL Lymph # (Auto) (1.2-3.4) K/uL [place] # (Auto) (0.24-0.82) K/uL Eos # (Auto) (0-0.50) K/uL Baso # (Auto) (0-0.2) K/uL Immature Gran # (Auto) (0.00-0.02) K/uL PT 12.3 H (9.0-12.0) Seconds INR 1.2 H (0.9-1.1) Sodium (136-145) mmol/L Potassium (3.5-5.1) mmol/L Chloride (98-107) mmol/L Carbon Dioxide (21-32) mmol/L Anion Gap (3-11) BUN (6-23) mg/dl Creatinine (0.6-1.2) mg/dl Est Cr Clr Drug Dosing ml/min Est GFR ( Amer) ml/min Est GFR (Non-Af Amer) ml/min BUN/Creatinine Ratio (10-20) Glucose (70-99(Fasting)) mg/dl Calcium (8.5-10.1) mg/dl Total Bilirubin (0.2-1.0) mg/dl AST (13-39) U/L ALT (7-52) U/L Alkaline Phosphatase (34-104) U/L Troponin I High Sens (0-14) pg/ml Total Protein (6.0-8.3) gm/dl Albumin (3.4-5.0) gm/dl Globulin (2.5-4.0) gm/dl Albumin/Globulin Ratio (0.9-2) TSH (0.300-4.500) uIu/ml Urine Color Yellow Urine Appearance Clear (Clear) Urine pH 6.5 (4.5-7.5) Ur Specific [place] 1.018 (1.000-1.030) Urine Protein Negative (Negative) Urine Glucose (UA) Negative (Negative) Urine Ketones Negative (Negative) Urine Blood Negative (Negative) Urine Nitrite Negative (Negative) Urine Bilirubin Negative (Negative) Urine Urobilinogen Negative (Negative) Ur Leukocyte Esterase 2+ H (Negative) Urine WBC (Auto) 10-30 H (0-5) /hpf Urine RBC (Auto) 0-4 (0-4) /hpf U Hyaline Cast (Auto) 0 (0-5) /lpf U Epithel Cells (Auto) >30 H (0-5) /lpf Urine Bacteria (Auto) Negative (Negative) SARS-CoV-2 (PCR) POSITIVE A* (Negative) Influenza Type A (PCR) Negative (Neg) Influenza Type B (PCR) Negative (Neg) RSV (RT-PCR) Negative (Neg) Imaging Data Radiologist's Impression: Chest X-Ray 05/22/22 11:13 XR chest 1V portable CLINICAL HISTORY: weakness TECHNIQUE: Single frontal radiograph of the chest was obtained. Comparison: Comparison is made to chest radiograph 03/18/2022 FINDINGS: Dual lead pacemaker is seen. Calcified aortic knob is seen. The lungs are clear. No evidence of pleural effusion or pneumothorax. IMPRESSION: No acute chest disease. ACT 112: Negative or not required by law. Electronically signed by: Victoriano Gallagher M.D. 05/22/2022 11:[address] 05/22/22 11:26 CT cervical spine wo con CLINICAL HISTORY: trauma TECHNIQUE: Multidetector row helical CT of the cervical spine was performed without administration of intravenous contrast. Coronal and sagittal reformations were obtained. Automated dose lowering techniques and/or adjustment according to patient size were utilized for this exam. Comparison: Comparison is made to CT cervical spine 01/27/2022 FINDINGS: No acute fractures or subluxations are identified. Degenerative changes are seen in the visualized spine. Grade 1 anterolisthesis of L3-L4 and L4-L5 are seen. Subcentimeter thyroid nodules are seen which do not require follow-up by ACR criteria. IMPRESSION: 1. Degenerative changes without evidence of acute bony injury. 2. Incidental note of thyroid nodules. If not previously evaluated, nonemergent ultrasound can be performed. ACT 112: Negative or not required by law. Electronically signed by: Victoriano Gallagher M.D. 05/22/2022 12:[address] 05/22/22 11:26 CT head/brain wo con CLINICAL HISTORY: trauma Technique: Contiguous axial CT images of the head were acquired from the base of the skull to the vertex without intravenous contrast administration. Images were viewed in brain, subdural and bone windows. Automated dose lowering techniques and/or adjustment according to patient size were utilized for this exam. Comparison: None available at the time of this dictation. Findings: Areas of decreased attenuation are present in the periventricular and subcortical white matter bilaterally consistent with small vessel ischemic disease. Generalized cerebral atrophy with commensurate enlargement of the ventricles, sulci, and cisterns is also present. There is no acute intracranial hemorrhage or evidence of acute territorial infarction. No shift of the midline structures, mass effect, or extra-axial abnormalities are shown. Atherosclerotic calcifications are present in the intracranial segments of the internal carotid arteries. Imaged portions of the paranasal sinuses and mastoid air cells are clear. The orbits appear normal. There are no acute fractures of the calvaria or scalp swelling. Impression: No acute intracranial hemorrhage, no evidence of acute territorial infarction or other acute intracranial disease process. ACT 112: Negative or not required by law. Electronically signed by: Victoriano Gallagher M.D. 05/22/2022 11:52 AM Pelvis X-Ray 05/22/22 11:28 XR pelvis 1-2V routine CLINICAL HISTORY: trauma TECHNIQUE: A single frontal view of the pelvis was obtained. Comparison: Comparison is made to pelvis radiograph 06/22/2012 FINDINGS: There is no evidence of an acute fracture. Posterior fixation hardware seen in the lumbar spine. Vascular calcifications are noted. IMPRESSION: Degenerative changes without evidence of acute abnormality. ACT 112: Negative or not required by law. Electronically signed by: Victoriano Gallagher M.D. 05/22/2022 11:58 AM ECG Data Attestation: I personally reviewed and interpreted this ECG as follows: Indication: + weakness Rate (beats per minute): 74 Rhythm: + other ECG Intervals/blocks: + First degree AV block, + Normal QRS and + Normal QT ECG [place]: + Normal ECG ST segments: + Nonspecific ST abnormalities MDM Narrative An order was placed for continuous cardiac monitoring. The monitor shows a rate of _72__ with _paced__ rhythm. This is an 89-year-old female presents from home due to concern for increased weakness and several falls. Patient denies any concern for injury, and states she was using her walker. Patient oriented here although caregivers have reported intermittent confusion. Labs drawn and sent and patient sent for imaging. Although warfarin is listed on patient's medication list her INR was only 1.2. Patient does have a history of chronic hyponatremia and sodium here this evening was 133. Patient's other labs and imaging reassuring. No evidence of UTI. CT and x-ray imaging unremarkable. Patient made hemodynamically stable throughout. All results were discussed with her and then with her daughter/POA via the phone. Given patient only has caregivers for 4 hours daily and otherwise lives alone and we are concerned for her weakness, ambulatory dysfunction, and safety, decision made to monitor patient as an inpatient as her symptoms are likely related to COVID. Daughter is going to try and make additional arrangements for care at home as she is beginning to transition her to assisted living next week. Case discussed with [facility] hospitalist team. Impression & Plan Weakness, COVID-19, Fall Discharge Plan Visit Data Chief Complaint: Weakness ED Provider: Jeni Crystal Discharge Problem: Weakness, COVID-19, Fall Patient Disposition: Being Evaluated by Hospitalist Condition: Good
--- NOTE | 2022-05-22 11:53 | CT Scan Report ---
CT head/brain wo con CLINICAL HISTORY: trauma Technique: Contiguous axial CT images of the head were acquired from the base of the skull to the zay sindy without intravenous contrast administration. Images were viewed in brain, subdural and bone [facility]. Automated dose lowering techniques and/or adjustment according to patient size were utilized for this exam. Comparison: None available at the time of this dictation. Findings: Areas of decreased attenuation are present in the periventricular and subcortical white matter bilate rally consistent with small vessel ischemic disease. Generalized cerebral atrophy with commensurate e nlargement of the ventricles, sulci, and cisterns is also present. There is no acute intracranial hem orrhage or evidence of acute territorial infarction. No shift of the midline structures, mass effect, or extra-axial abnormalities are shown. Atherosclerotic calcifications are present in the intracran ial segments of the internal carotid arteries. Imaged portions of the paranasal sinuses and mastoid air cells are clear. The orbits appear normal. There are no acute fractures of the calvaria or scalp swelling. Impression: No acute intracranial hemorrhage, no evidence of acute territorial infarction or other acute intracra nial disease process. ACT 112: Negative or not required by law. Electronically signed by: Victoriano Gallagher M.D. 05/22/2022 11:52 AM
[2022-05-22 11:56] LABS: Troponin I High Sensitivity 5.6 pg/ml (0-14)
--- NOTE | 2022-05-22 11:58 | XRay Report ---
XR chest 1V portable CLINICAL HISTORY: weakness TECHNIQUE: Single frontal radiograph of the chest was obtained. Comparison: Comparison is made to chest radiograph 03/18/2022 FINDINGS: Dual lead pacemaker is seen. Calcified aortic knob is seen. The lungs are clear. No evidence of pleur al effusion or pneumothorax. IMPRESSION: No acute chest disease. ACT 112: Negative or not required by law. Electronically signed by: Victoriano Gallagher M.D. 05/22/2022 11:57 AM
[2022-05-22 11:59] LABS: INR 1.2 (0.9-1.1); Prothrombin Time 12.3 Seconds (9.0-12.0)
--- NOTE | 2022-05-22 12:00 | XRay Report ---
XR pelvis 1-2V routine CLINICAL HISTORY: trauma TECHNIQUE: A single frontal view of the pelvis was obtained. Comparison: Comparison is made to pelvis radiograph 06/22/2012 FINDINGS: There is no evidence of an acute fracture. Posterior fixation hardware seen in the lumbar spine. Vas cular calcifications are noted. IMPRESSION: Degenerative changes without evidence of acute abnormality. ACT 112: Negative or not required by law. Electronically signed by: Victoriano Gallagher M.D. 05/22/2022 11:58 AM
[2022-05-22 12:05] LABS: Albumin Globulin Ratio 1.1 (0.9-2); Albumin Level 3.7 gm/dl (3.4-5.0); BUN Creatinine Ratio 88.6 (10-20); Bilirubin,Total 0.4 mg/dl (0.2-1.0); Creatinine Clr Calc Pharmacy 47.8 ml/min; Est GFR (Non-African American) 76.8 ml/min; Globulin 3.3 gm/dl (2.5-4.0)
--- NOTE | 2022-05-22 12:06 | CT Scan Report ---
CT cervical spine wo con CLINICAL HISTORY: trauma TECHNIQUE: Multidetector row helical CT of the cervical spine was performed without administration of intravenous contrast. Coronal and sagittal reformations were obtained. Automated dose lowering techn iques and/or adjustment according to patient size were utilized for this exam. Comparison: Comparison is made to CT cervical spine 01/27/2022 FINDINGS: No acute fractures or subluxations are identified. Degenerative changes are seen in the visualized sp ine. Grade 1 anterolisthesis of L3-L4 and L4-L5 are seen. Subcentimeter thyroid nodules are seen whic h do not require follow-up by ACR criteria. IMPRESSION: 1. Degenerative changes without evidence of acute bony injury. 2. Incidental note of thyroid nodules. If not previously evaluated, nonemergent ultrasound can be pe rformed. ACT 112: Negative or not required by law. Electronically signed by: Victoriano Gallagher M.D. 05/22/2022 12:04 PM
[2022-05-22] MEDS: SODIUM CHLORIDE 0.9% 1000ML 1,000 ML IV SCH ×2 (12:27→19:17)
[2022-05-22 13:05] LABS: Influenza A virus by PCR Negative (Neg); Influenza B virus by PCR Negative (Neg); RSV by PCR Negative (Neg)
[2022-05-22 13:13] LABS: SARS CoV2 RNA(COVID-19) Ceph POSITIVE (Negative)
[2022-05-22 14:36] LABS: Appearance Urine Clear (Clear); Bacteria Urine Automated Negative (Negative); Bilirubin Urine Negative (Negative); Blood Urine Negative (Negative); Cast Urine Automated 0 /lpf (0-5); Color Urine Yellow; Epithelial Cell Urine Auto >30 /lpf (0-5); Glucose Urine UA Negative (Negative); Ketones Urine Negative (Negative); Leukocyte Esterase Urine 2+ (Negative); Nitrite Urine Negative (Negative); Protein Urine Negative (Negative); RBC Urine Automated 0-4 /hpf (0-4); Specific Gravity Urine 1.018 (1.000-1.030); Urobilinogen Urine Negative (Negative); pH Urine 6.5 (4.5-7.5)
--- NOTE | 2022-05-22 16:15 | History & Physical Report ---
Date of Service May 22, 2022 Assessment & Plan (1) Generalized weakness: Plan: as above. No underlying UTI or other reversible issue present other than covid. Cont plan as above. (2) COVID-19: Plan: Asymptomatic aside from weakness. No pneumonia on xray and no need for supplemental oxygen. No indication for covid specific therapies at this time. Cont isolation (3) Fall: Plan: related to weakness and possibly underlying covid infection. PT/OT evals requested. (4) Chronic hyponatremia: Plan: Na is 133 today, chronic, stable. Cont urea supplementation per home regimen. (5) Paroxysmal atrial fibrillation: Plan: Atrial paced rhythm on EKG today. Cont sotalol and coumadin per home regimen. Of note, INR is subtherapeutic. Will start heparin if she goes into afib on the monitor but for now continue with coumadin clinic plan for elevated dose coumadin. Trend INR daily. (6) CAD (coronary artery disease): Plan: chronic, controlled. Denies any symptoms. Cont medical management of CAD. DVT proph: warfarin Full Code as confirmed with her on admission. Dispo-pending PT and OT evaluation and recs. Notably she was already preparing to enter into assisted living at [place], however, couldn't get in until after hol. Appreciate case management investigation into this further. We may want to go from here to there. Kirstin Cheema DO [facility] Hospitalist History of Present Illness Chief Complaint: weakness Primary Care Provider: Johnathon Jamison MD 89 yo F presents with progressively worsening weakness and falls this week, found to be covid +. She is elderly and lives alone at home with caregivers for 4 hours in the morning. Daughter lives in [facility]. She reports to ER physician that she was planning to get the patient into assisted living at [facility], but that they couldn't accept her until 05/30 or after. No pain, has severe knee OA and weakness in her legs. Pain is present in the knees when she tries to walk. USes a rollator to ambulate. She lives in a one floor home and uses ramps in the home. Denies cough, fevers, chills. She has been eating well. No nasal symptoms. 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 Also takes collagen. Allergies Allergy/AdvReac Type Severity Reaction Status Date / Time brimonidine Allergy Mild RED ITCHY Verified 05/22/22 13:04 EYE clavulanic acid Allergy Mild headache Verified 05/22/22 13:04 sulfamethoxazole AdvReac Intermediate CHILLS/RIGORS-PER Verified 05/22/22 13:04 [From Bactrim] GMG trimethoprim [From Bactrim] AdvReac Intermediate CHILLS/RIGORS-PER Verified 05/22/22 13:04 GMG amoxicillin AdvReac Mild headache Verified 05/22/22 13:04 hydrochlorothiazide AdvReac Hyponatremi Verified 05/22/22 13:04 a Home Medications Medication Instructions Recorded Confirmed Type amlodipine 2.5 mg tablet 2.5 mg PO QA 08/07/20 05/22/22 History aspirin 81 mg tablet,delayed 81 mg PO DAILY 08/07/20 05/22/22 History release calcium carbonate 600 mg-vitamin 2 tab PO QA 08/07/20 05/22/22 History D3 10 mcg (400 unit) tablet (Calcium 600 + D(3)) coenzyme Q10 100 mg capsule 100 mg PO [facility] 08/07/20 05/22/22 History (CoQ-10) gabapentin 600 mg tablet 600 mg PO 08/07/20 05/22/22 History isosorbide mononitrate 60 mg 60 mg PO QAM 08/07/20 05/22/22 History tablet,extended release 24 hr latanoprost 0.005 % eye drops 1 drp OPL HS 08/07/20 05/22/22 History losartan 100 mg tablet 100 mg PO QA 08/07/20 05/22/22 History multivitamin 1 tab PO [facility] 08/07/20 05/22/22 History nitroglycerin 0.4 mg sublingual 0.4 mg sublingual DIRECTED PRN 08/07/20 05/22/22 History tablet (Nitrostat) Chest Pain pantoprazole 20 mg tablet,delayed 20 mg PO QAM 08/07/20 05/22/22 History release (Protonix) prednisolone acetate 1 % eye 1 drp OPR QA 08/07/20 05/22/22 History drops,suspension (Pred Forte) sotalol 80 mg tablet 80 mg PO BID 08/07/20 05/22/22 History magnesium oxide 400 mg PO DAILY 03/18/22 05/22/22 History omega [id number]-fish oil 1,200 mg 1 cap PO DAILY 03/18/22 05/22/22 History (144 mg-216 mg) capsule (Fish Oil) urea 15 gram oral powder packet 1 packet PO AMHS 03/18/22 05/22/22 History (Ure-Na) warfarin 10 mg tablet 10 mg PO MOWE@1600 05/22/22 05/22/22 History warfarin 5 mg tablet 5 mg PO SUTUTHFRSA@1600 05/22/22 05/22/22 History Past Med/Surg History Medical History CAD (coronary artery disease) "2009 - PTCA/stent to LAD, balloon angioplasty to LAD diagonal branch" Carotid stenosis, non-symptomatic COVID-19 CVA (cerebral vascular accident) GERD (gastroesophageal reflux disease) Glaucoma History of breast cancer Hypertension Hypertensive urgency MGUS (monoclonal gammopathy of unknown significance) Moderate aortic stenosis Osteoarthritis Pacemaker Paroxysmal atrial fibrillation PVD (peripheral vascular disease) Tachy-garret syndrome TIA (transient ischemic attack) UTI (urinary tract infection) Surgical History H/O hernia repair H/O partial mastectomy History of bladder surgery History of cataract surgery History of hysterectomy History of spinal fusion Hx of tubal ligation S/P tonsillectomy and adenoidectomy Family History Father Heart disease Social History Smoking Status: Never smoker Hx Alcohol Use: No Hx Substance Use: No Preferred Language: Bengali Communication Ability: Effective Fur Blender Required: No Beliefs That Will Affect Care: None marital status: / Current Living Situation: Alone Current Living Situation Comment: Lives with dog, friend nearby How many Children do You have: 2 Feels Safe at Home: Yes Assistive Devices: Walker Review of Systems Review of Systems: All systems were reviewed and negative except as indicated on HPI above and has a long history of urinary incontinence, uses pads, and no recent changes. Physical Exam Physical Exam: CONSTITUTIONAL: WNWD, vitals as above, generally well- appearing, NAD EYES: pupils are round and equal bilaterally, normal conjunctivae, no scleral icterus ENT: external ear and nose normal NECK: trachea midline RESPIRATORY: clear to auscultation bilaterally, no crackles, rales or wheezes, normal respiratory effort CARDIOVASCULAR: regular rate and rhythm, S1 and 2 heard without murmurs, gallops or rubs, no JVD, no peripheral edema CHEST: inspection of chest was normal GASTROINTESTINAL: soft, nontender, ND, no guarding MUSCULOSKELETAL: strength 5/5 throughout, can sit up without much issue independently with using the bedrails, can bend her knees but noted tremor in all extremities with any intentional movement. head is normocephalic and atraumatic SKIN: warm and dry NEUROLOGIC: CN 2-12 grossly intact, no sensory deficit, normal cognition, nor mal speech, +tremor with movement. PSYCHIATRIC: alert cooperative and oriented to person, place and time. Euthymic mood, makes good eye contact, language grossly intact, recent and remote memory grossly intact. Results & Data Results & Data ([facility]) Vital Signs (Past 12 Hours) Vital Signs Temp Pulse Pulse Resp BP BP Pulse Ox 05/22/22 15:00 60 19 128/73 96 05/22/22 13:00 60 16 121/72 95 05/22/22 11:06 61 18 160/94 H 97 05/22/22 11:06 97 05/22/22 11:06 36.7 C 61 18 160/94 H 97 O2 Del Method O2 Flow Rate 05/22/22 15:00 Room Air 05/22/22 13:00 Room Air 05/22/22 11:06 Room Air 05/22/22 11:06 Room Air 0 05/22/22 11:06 Room Air Laboratory Results Short CBC 05/22/22 Range/Units 11:04 WBC 10.35 (4.8-10.8) K/ul Hgb 13.8 (12.0-16.0) g/dl Hct 41.8 (34.1-44.9) % Plt Count 288 (130-400) K/uL BMP 05/22/22 11:04 Sodium 133 L Potassium 4.0 Chloride 97 L Carbon Dioxide 31 BUN 62 H Creatinine 0.70 Glucose 111 H Calcium 9.0 Liver Function 05/22/22 Range/Units 11:04 Total Bilirubin 0.4 (0.2-1.0) mg/dl AST 14 (13-39) U/L ALT 8 (7-52) U/L Alkaline Phosphatase 50 (34-104) U/L Albumin 3.7 (3.4-5.0) gm/dl Urine 05/22/22 Range/Units 13:48 Urine Color Yellow Urine Appearance Clear (Clear) Urine pH 6.5 (4.5-7.5) Ur Specific [place] 1.018 (1.000-1.030) Urine Protein Negative (Negative) Urine Glucose (UA) Negative (Negative) Diagnostic Findings Chest X-Ray 05/22/22 11:13 XR chest 1V portable CLINICAL HISTORY: weakness TECHNIQUE: Single frontal radiograph of the chest was obtained. Comparison: Comparison is made to chest radiograph 03/18/2022 FINDINGS: Dual lead pacemaker is seen. Calcified aortic knob is seen. The lungs are clear. No evidence of pleural effusion or pneumothorax. IMPRESSION: No acute chest disease. ACT 112: Negative or not required by law. Electronically signed by: Victoriano Gallagher M.D. 05/22/2022 11:[address] 05/22/22 11:26 CT cervical spine wo con CLINICAL HISTORY: trauma TECHNIQUE: Multidetector row helical CT of the cervical spine was performed without administration of intravenous contrast. Coronal and sagittal reformations were obtained. Automated dose lowering techniques and/or adjustment according to patient size were utilized for this exam. Comparison: Comparison is made to CT cervical spine 01/27/2022 FINDINGS: No acute fractures or subluxations are identified. Degenerative changes are seen in the visualized spine. Grade 1 anterolisthesis of L3-L4 and L4-L5 are seen. Subcentimeter thyroid nodules are seen which do not require follow-up by ACR criteria. IMPRESSION: 1. Degenerative changes without evidence of acute bony injury. 2. Incidental note of thyroid nodules. If not previously evaluated, nonemergent ultrasound can be performed. ACT 112: Negative or not required by law. Electronically signed by: Victoriano Gallagher M.D. 05/22/2022 12:[address] 05/22/22 11:26 CT head/brain wo con CLINICAL HISTORY: trauma Technique: Contiguous axial CT images of the head were acquired from the base of the skull to the vertex without intravenous contrast administration. Images were viewed in brain, subdural and bone windows. Automated dose lowering techniques and/or adjustment according to patient size were utilized for this exam. Comparison: None available at the time of this dictation. Findings: Areas of decreased attenuation are present in the periventricular and subcortical white matter bilaterally consistent with small vessel ischemic disease. Generalized cerebral atrophy with commensurate enlargement of the ventricles, sulci, and cisterns is also present. There is no acute intracranial hemorrhage or evidence of acute territorial infarction. No shift of the midline structures, mass effect, or extra-axial abnormalities are shown. Atherosclerotic calcifications are present in the intracranial segments of the internal carotid arteries. Imaged portions of the paranasal sinuses and mastoid air cells are clear. The orbits appear normal. There are no acute fractures of the calvaria or scalp swelling. Impression: No acute intracranial hemorrhage, no evidence of acute territorial infarction or other acute intracranial disease process. ACT 112: Negative or not required by law. Electronically signed by: Victoriano Gallagher M.D. 05/22/2022 11:52 AM Pelvis X-Ray 05/22/22 11:28 XR pelvis 1-2V routine CLINICAL HISTORY: trauma TECHNIQUE: A single frontal view of the pelvis was obtained. Comparison: Comparison is made to pelvis radiograph 06/22/2012 FINDINGS: There is no evidence of an acute fracture. Posterior fixation hardware seen in the lumbar spine. Vascular calcifications are noted. IMPRESSION: Degenerative changes without evidence of acute abnormality. ACT 112: Negative or not required by law. Electronically signed by: Victoriano Gallagher M.D. 05/22/2022 11:58 AM Code Status & VTE Plan VTE Prophylaxis Plan VTE Prophylaxis will be ordered: Yes
[2022-05-22] MEDS ORDERED: POLYETHYLENE (MIRALAX) 17 GM PACK PO PRN (18:33)
[2022-05-22] MEDS ORDERED: ACETAMINOPHEN 325 MG TAB PO PRN (18:33)
[2022-05-23] MEDS: SODIUM CHLORIDE 0.9% 1000ML 1,000 ML IV SCH ×2 (00:30→03:55)
[2022-05-23] MEDS ORDERED: WARFARIN SOD 10 MG TAB PO ONE (03:39)
[2022-05-23] MEDS ORDERED: SODIUM CHLORIDE 0.9% 1000ML 1,000 ML IV ONE (03:45)
[2022-05-23] MEDS: SOTALOL HCL 80 MG TAB PO SCH ×2 (04:38→20:32)
--- NOTE | 2022-05-23 06:08 | Electrocardiogram Report ---
Test Reason : Blood Pressure : / mmHG Vent. Rate : 074 BPM Atrial Rate : 074 BPM P-R Int : 278 ms QRS Dur : 092 ms QT Int : 386 ms P-R-T Axes : 045 -02 041 degrees QTc Int : 428 ms Atrial-paced rhythm with prolonged AV conduction Anterior infarct (cited on or before 07-AUG-2020) Abnormal ECG When compared with ECG of 18-MAR-2022 14:58, No significant change was found Confirmed by Giorgio Singh ([id number]) on 05/23/2022 6:07:43 AM Referred By: REFERRED SELF Confirmed By:Giorgio Singh
[2022-05-23] MEDS: LOSARTAN POTASSIUM 50 MG TAB PO SCH (08:19)
[2022-05-23] MEDS: ASPIRIN 81 MG ECTAB PO SCH (08:20)
[2022-05-23] MEDS: ISOSORBIDE MONO EXTENDED REL 60 MG TABCR PO SCH (08:20)
[2022-05-23] MEDS: amLODIPine BESYLATE 5 MG TAB PO SCH (08:20)
[2022-05-23] MEDS: PANTOprazole 40 MG TAB PO SCH (08:21)
[2022-05-23] MEDS: MULTIVITAMIN TAB PO SCH (08:21)
[2022-05-23] MEDS: UREA (UREA-NA) 15 GM PACK PO SCH ×2 (08:22→20:32)
[2022-05-23] MEDS: prednisoLONE acetate 1% OP SUSP 5 ML BTL OPR SCH (08:23)
[2022-05-23 09:55] LABS: Hematocrit (blood only) 37.7 % (34.1-44.9); Hemoglobin 12.3 g/dl (12.0-16.0); Mean Corpuscular Hemoglobin 28.2 pg (25.0-34.0); Mean Corpuscular Hgb Conc 32.6 g/dL (32.0-36.0); Mean Corpuscular Volume 86.5 fL (80.0-100.0); Platelet Count 248 K/uL (130-400); RDW Standard Deviation 47.8 fL (36.4-46.3); Red Blood Count 4.36 M/uL (3.93-5.22)
[2022-05-23 10:08] LABS: INR 1.5 (0.9-1.1); Prothrombin Time 15.6 Seconds (9.0-12.0)
[2022-05-23 10:38] LABS: Anion Gap 2 (3-11); BUN Creatinine Ratio 60.7 (10-20); Blood Urea Nitrogen 34 mg/dl (6-23); C Reactive Protein < 0.50 mg/dl (0-0.5); Calcium 8.1 mg/dl (8.5-10.1); Carbon Dioxide 30 mmol/L (21-32); Chloride 102 mmol/L (98-107); Est GFR (African American) 95.8 ml/min; Est GFR (Non-African American) 82.7 ml/min; Glucose 151 mg/dl (70-99(Fasting)); Potassium 4.5 mmol/L (3.5-5.1); Sodium 134 mmol/L (136-145)
--- NOTE | 2022-05-23 16:39 | Hospitalist Progress Note ---
Date of Service May 23, 2022 Assessment & Plan (1) Generalized weakness: Plan: as above. No underlying UTI or other reversible issue present other than covid. Rehab recommended. Case management working on logistics. (2) COVID-19: Plan: Asymptomatic aside from weakness. No pneumonia on xray and no need for supplemental oxygen. No indication for covid specific therapies at this time. Cont isolation (3) Fall: Plan: related to weakness and possibly underlying covid infection. ? Rehab recommended, plan as above. (4) Chronic hyponatremia: Plan: Na is 133 today, chronic, stable. Cont urea supplementation per home regimen. (5) Paroxysmal atrial fibrillation: Plan: Chronic, stable. Cont sotalol and coumadin per home regimen. Of note, INR is subtherapeutic but improved from 1.2-1.5. Will start heparin if she goes into afib on the monitor but for now continue with coumadin clinic plan for elevated dose coumadin. Trend INR daily. (6) CAD (coronary artery disease): Plan: chronic, controlled. Denies any symptoms. Cont medical management of CAD. DVT proph: warfarin Full Code as confirmed with her on admission. Dispo-to rehab per PT recommendations. Request sent into [facility]. Kirstin Cheema DO [employer] Hospitalist Admission and Anticipated Discharge Date Admission Date: May 22, 2022 Subjective 89-year-old female presented with weakness and incidental finding of COVID. She is asymptomatic from a respiratory standpoint. She has no issues that she is reporting today. She has chronic incontinence. She worked with therapy and the recommendation is to do rehab. She was able to get out of bed and walk to the window and back again. Discussed the care plan with her daughter Marah and there is a referral request in for home would which patient was planning to move to in roughly 10 days anyway. Defer logistics to case management. All questions answered to her satisfaction. Review of Systems Review of Systems: All systems reviewed negative except as indicated above. Physical Exam Physical Exam: CONSTITUTIONAL: WNWD, vitals as above, generally well- appearing, NAD EYES: pupils are round and equal bilaterally, normal conjunctivae, no scleral icterus ENT: external ear and nose normal NECK: trachea midline RESPIRATORY: clear to auscultation bilaterally, no crackles, rales or wheezes, normal respiratory effort CARDIOVASCULAR: regular rate and rhythm, S1 and 2 heard without murmurs, gallops or rubs, no JVD, no peripheral edema CHEST: inspection of chest was normal GASTROINTESTINAL: soft, nontender, ND, no guarding MUSCULOSKELETAL: strength 5/5 throughout, difficulty standing up independently. Head is normocephalic and atraumatic SKIN: warm and dry NEUROLOGIC: CN 2-12 grossly intact, no sensory deficit, normal cognition, normal speech, +tremor with movement, appears improved today PSYCHIATRIC: alert cooperative and oriented to person, place and time. Euthymic mood, makes good eye contact, language grossly intact, recent and remote memory grossly intact. Results & Data Results & Data ([facility]) Vital Signs (Past 12 Hours) Vital Signs Temp Pulse Resp BP Pulse Ox O2 Del Method 05/23/22 14:44 36.6 C 62 16 165/89 H 97 Room Air 05/23/22 08:45 Room Air 05/23/22 07:17 36.8 C 60 18 155/86 H 97 Room Air Laboratory Results Short CBC 05/23/22 Range/Units 09:33 WBC 6.70 (4.8-10.8) K/ul Hgb 12.3 (12.0-16.0) g/dl Hct 37.7 (34.1-44.9) % Plt Count 248 (130-400) K/uL BMP 05/23/22 09:33 Sodium 134 L Potassium 4.5 Chloride 102 Carbon Dioxide 30 BUN 34 H D Creatinine 0.56 L Glucose 151 H Calcium 8.1 L Medications Administered Current Inpatient Medications Acetaminophen (Acetaminophen 325 Mg Tab) 650 mg PO Q4H PRN PRN Reason: Pain or Fever Stop: 06/21/22 18:32 Amlodipine Besylate (Amlodipine Besylate 5 Mg Tab) 2.5 mg PO QAM RONDA Stop: 06/22/22 08:59 Last Admin: 05/23/22 08:20 Dose: 2.5 mg Aspirin (Aspirin 81 Mg Ectab) 81 mg PO DAILY RONDA Stop: 06/22/22 08:59 Last Admin: 05/23/22 08:20 Dose: 81 mg Gabapentin (Gabapentin 600 Mg Tab) 600 mg PO HS [facility] Stop: 06/22/22 20:59 Sodium Chloride (Nss 1000ml) 1,000 mls @ 60 mls/hr IV .[id number] ONE Stop: 05/23/22 20:24 Last Infusion: 05/23/22 04:03 Dose: 60 mls/hr Isosorbide Mononitrate (Isosorbide [place] Extended Rel 60 Mg Tabcr) [facility] Stop: 06/22/22 08:59 Last Admin: 05/23/22 08:20 Dose: 60 mg Latanoprost (Latanoprost 0.005% Op Soln 2.5 Ml Btl) 1 drops OPL HS [facility] Stop: 06/22/22 20:59 Losartan Potassium (Losartan Potassium 50 Mg Tab) 100 mg PO [facility] Stop: 06/22/22 08:59 Last Admin: 05/23/22 08:19 Dose: 100 mg Multivitamins (Multivitamin Tab) 1 tab PO [facility] Stop: 06/22/22 08:59 Last Admin: 05/23/22 08:21 Dose: 1 tab Pantoprazole Sodium (Pantoprazole 40 Mg Tab) 40 mg PO [facility] Stop: 06/22/22 08:59 Last Admin: 05/23/22 08:21 Dose: 40 mg Polyethylene Glycol (Polyethylene (Miralax) 17 Gm Pack) 17 gm PO DAILY PRN PRN Reason: Constipation Stop: 06/21/22 18:32 Prednisolone Acetate (Prednisolone Acetate 1% Op Susp 5 Ml Btl) 1 drops OPR [facility] Stop: 06/22/22 08:59 Last Admin: 05/23/22 08:23 Dose: 1 drops Sotalol HCl (Sotalol Hcl 80 Mg Tab) 80 mg PO BID [facility] Stop: 06/22/22 03:39 Last Admin: 05/23/22 04:38 Dose: 80 mg Urea (Urea (Urea-Na) 15 Gm Pack) 15 gm PO AMHS [facility] Stop: 06/22/22 08:59 Last Admin: 05/23/22 08:22 Dose: 15 gm Warfarin Sodium (Warfarin Sod 5 Mg Tab) 5 mg PO DAILY@1600 [facility] Stop: 06/23/22 15:59
[2022-05-23] MEDS: GABAPENTIN 600 MG TAB PO SCH (20:32)
[2022-05-23] MEDS: LATANOPROST 0.005% OP SOLN 2.5 ML BTL OPL SCH (20:33)
[2022-05-24] MEDS: SOTALOL HCL 80 MG TAB PO SCH ×2 (07:28→21:02)
[2022-05-24] MEDS: ASPIRIN 81 MG ECTAB PO SCH (07:29)
[2022-05-24] MEDS: LOSARTAN POTASSIUM 50 MG TAB PO SCH (07:29)
[2022-05-24] MEDS: MULTIVITAMIN TAB PO SCH (07:30)
[2022-05-24] MEDS: amLODIPine BESYLATE 5 MG TAB PO SCH (07:30)
[2022-05-24] MEDS: PANTOprazole 40 MG TAB PO SCH (07:31)
[2022-05-24] MEDS: ISOSORBIDE MONO EXTENDED REL 60 MG TABCR PO SCH (07:31)
[2022-05-24] MEDS: prednisoLONE acetate 1% OP SUSP 5 ML BTL OPR SCH (07:32)
[2022-05-24] MEDS: UREA (UREA-NA) 15 GM PACK PO SCH ×2 (08:55→21:00)
[2022-05-24 11:45] LABS: Prothrombin Time 20.3 Seconds (9.0-12.0)
--- NOTE | 2022-05-24 14:51 | Hospitalist Progress Note ---
Date of Service May 24, 2022 Assessment & Plan (1) Generalized weakness: Plan: as above. No underlying UTI or other reversible issue present other than covid. Rehab recommended. Case management working on logistics. (2) COVID-19: Plan: Asymptomatic aside from weakness. No pneumonia on xray and no need for supplemental oxygen. No indication for covid specific therapies at this time. Cont isolation (3) Fall: Plan: related to weakness and possibly underlying covid infection. ? Rehab recommended, plan as above. (4) Chronic hyponatremia: Plan: Na is 133 today, chronic, stable. Cont urea supplementation per home regimen. (5) Paroxysmal atrial fibrillation: Plan: Chronic, stable. Cont sotalol and coumadin per home regimen. Of note, INR is subtherapeutic but improved from 1.2-1.5. Will start heparin if she goes into afib on the monitor but for now continue with coumadin clinic plan for elevated dose coumadin. Trend INR daily. (6) CAD (coronary artery disease): Plan: chronic, controlled. Denies any symptoms. Cont medical management of CAD. DVT proph: warfarin Full Code as confirmed with her on admission. Dispo-to rehab per PT recommendations. Request sent into [place]. Kirstin Cheema DO [facility] Hospitalist Admission and Anticipated Discharge Date Admission Date: May 22, 2022 Subjective 89-year-old female presented with weakness and incidental finding of COVID. She is asymptomatic from a respiratory standpoint. She has no issues that she is reporting today. She has chronic incontinence. She has worked with therapy and the recommendation is to do rehab. She is planned for [facility] inpatient rehab. Discussed with case management who is waiting on bed availability. Review of Systems Review of Systems: All systems reviewed negative except as indicated above. Physical Exam Physical Exam: CONSTITUTIONAL: WNWD, vitals as above, generally well- appearing, NAD EYES: pupils are round and equal bilaterally, normal conjunctivae, no scleral icterus ENT: external ear and nose normal NECK: trachea midline RESPIRATORY: clear to auscultation bilaterally, no crackles, rales or wheezes, normal respiratory effort CARDIOVASCULAR: regular rate and rhythm, S1 and 2 heard without murmurs, gallops or rubs, no JVD, no peripheral edema CHEST: inspection of chest was normal GASTROINTESTINAL: soft, nontender, ND, no guarding MUSCULOSKELETAL: strength 5/5 throughout, difficulty standing up independently. Head is normocephalic and atraumatic SKIN: warm and dry NEUROLOGIC: CN 2-12 grossly intact, no sensory deficit, normal cognition, normal speech, +tremor with movement, appears improved today PSYCHIATRIC: alert cooperative and oriented to person, place and time. Euthymic mood, makes good eye contact, language grossly intact, recent and remote memory grossly intact. Results & Data Results & Data ([facility]) Vital Signs (Past 12 Hours) Vital Signs Temp Pulse Resp BP BP Pulse Ox O2 Del Method 05/24/22 08:58 137/88 05/24/22 07:49 Room Air 05/24/22 07:17 36.5 C 67 18 195/105 H 99 Room Air Medications Administered Current Inpatient Medications Acetaminophen (Acetaminophen 325 Mg Tab) 650 mg PO Q4H PRN PRN Reason: Pain or Fever Stop: 06/21/22 18:32 Amlodipine Besylate (Amlodipine Besylate 5 Mg Tab) 2.5 mg PO [facility] Stop: 06/22/22 08:59 Last Admin: 05/24/22 07:30 Dose: 2.5 mg Aspirin (Aspirin 81 Mg Ectab) 81 mg PO DAILY RONDA Stop: 06/22/22 08:59 Last Admin: 05/24/22 07:29 Dose: 81 mg Gabapentin (Gabapentin 600 Mg Tab) 600 mg PO [facility] Stop: 06/22/22 20:59 Last Admin: 05/23/22 20:32 Dose: 600 mg Isosorbide Mononitrate (Isosorbide [place] Extended Rel 60 Mg Tabcr) 60 mg PO [facility] Stop: 06/22/22 08:59 Last Admin: 05/24/22 07:31 Dose: 60 mg Latanoprost (Latanoprost 0.005% Op Soln 2.5 Ml Btl) 1 drops OPL [facility] Stop: 06/22/22 20:59 Last Admin: 05/23/22 20:33 Dose: 1 drops Losartan Potassium (Losartan Potassium 50 Mg Tab) [facility]: 06/22/22 08:59 Last Admin: 05/24/22 07:29 Dose: 100 mg Multivitamins (Multivitamin Tab) [facility] Stop: 06/22/22 08:59 Last Admin: 05/24/22 07:30 Dose: 1 tab Pantoprazole Sodium (Pantoprazole 40 Mg Tab) 40 mg PO QAM [facility] Stop: 06/22/22 08:59 Last Admin: 05/24/22 07:31 Dose: 40 mg Polyethylene Glycol (Polyethylene (Miralax) 17 Gm Pack) 17 gm PO DAILY PRN PRN Reason: Constipation Stop: 06/21/22 18:32 Prednisolone Acetate (Prednisolone Acetate 1% Op Susp 5 Ml Btl) 1 drops [facility] Stop: 06/22/22 08:59 Last Admin: 05/24/22 07:32 Dose: 1 drops Sotalol HCl (Sotalol Hcl 80 Mg Tab) 80 mg PO BID [facility] Stop: 06/22/22 03:39 Last Admin: 05/24/22 07:28 Dose: 80 mg Urea (Urea (Urea-Na) 15 Gm Pack) 15 gm PO AMHS [facility] Stop: 06/22/22 08:59 Last Admin: 05/24/22 08:55 Dose: 15 gm Warfarin Sodium (Warfarin Sod 5 Mg Tab) 5 mg PO DAILY@1600 [facility] Stop: 06/23/22 15:59
[2022-05-24] MEDS ORDERED: WARFARIN SOD 5 MG TAB PO SCH (16:00)
[2022-05-24] MEDS: LATANOPROST 0.005% OP SOLN 2.5 ML BTL OPL SCH (21:01)
[2022-05-24] MEDS: GABAPENTIN 600 MG TAB PO SCH (21:02)
[2022-05-25] MEDS: ASPIRIN 81 MG ECTAB PO SCH (07:43)
[2022-05-25] MEDS: SOTALOL HCL 80 MG TAB PO SCH (07:43)
[2022-05-25] MEDS: amLODIPine BESYLATE 5 MG TAB PO SCH (07:44)
[2022-05-25] MEDS: PANTOprazole 40 MG TAB PO SCH (07:45)
[2022-05-25] MEDS: LOSARTAN POTASSIUM 50 MG TAB PO SCH (07:45)
[2022-05-25] MEDS: ISOSORBIDE MONO EXTENDED REL 60 MG TABCR PO SCH (07:45)
[2022-05-25] MEDS: UREA (UREA-NA) 15 GM PACK PO SCH (07:46)
[2022-05-25] MEDS: prednisoLONE acetate 1% OP SUSP 5 ML BTL OPR SCH (07:46)
[2022-05-25 08:01] LABS: INR 1.9 (0.9-1.1); Prothrombin Time 19.9 Seconds (9.0-12.0)
[2022-05-25] MEDS: MULTIVITAMIN TAB PO SCH (08:59)
--- NOTE | 2022-05-25 12:57 | Discharge Summary ---
Date of Service May 25, 2022 Admission HPI Per Admitting Provider 89 yo F presents with progressively worsening weakness and falls this week, found to be covid +. She is elderly and lives alone at home with caregivers for 4 hours in the morning. Daughter lives in [facility]. She reports to ER physician that she was planning to get the patient into assisted living at [facility], but that they couldn't accept her until 05/30 or after. No pain, has severe knee OA and weakness in her legs. Pain is present in the knees when she tries to walk. USes a rollator to ambulate. She lives in a one floor home and uses ramps in the home. Denies cough, fevers, chills. She has been eating well. No nasal symptoms. 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 Also takes collagen. Admission Exam Per Admitting Provider CONSTITUTIONAL: WNWD, vitals as above, generally well-appearing, NAD EYES: pupils are round and equal bilaterally, normal conjunctivae, no scleral icterus ENT: external ear and nose normal NECK: trachea midline RESPIRATORY: clear to auscultation bilaterally, no crackles, rales or wheezes, normal respiratory effort CARDIOVASCULAR: regular rate and rhythm, S1 and 2 heard without murmurs, gallops or rubs, no JVD, no peripheral edema CHEST: inspection of chest was normal GASTROINTESTINAL: soft, nontender, ND, no guarding MUSCULOSKELETAL: strength 5/5 throughout, can sit up without much issue independently with using the bedrails, can bend her knees but noted tremor in all extremities with any intentional movement. head is normocephalic and atraumatic SKIN: warm and dry NEUROLOGIC: CN 2-12 grossly intact, no sensory deficit, normal cognition, normal speech, +tremor with movement. PSYCHIATRIC: alert cooperative and oriented to person, place and time. Euthymic mood, makes good eye contact, language grossly intact, recent and remote memory grossly intact. Principal Diagnosis generalized weakness ?secondary to COVID Discharge Exam CONSTITUTIONAL: WNWD, generally well-appearing, NAD EYES: pupils are round and equal bilaterally, normal conjunctivae, no scleral icterus ENT: external ear and nose normal NECK: trachea midline RESPIRATORY: clear to auscultation bilaterally, no crackles, rales or wheezes, normal respiratory effort CARDIOVASCULAR: regular rate and rhythm, S1 and 2 heard without murmurs, gallops or rubs, no JVD, no peripheral edema CHEST: inspection of chest was normal GASTROINTESTINAL: soft, nontender, ND, no guarding MUSCULOSKELETAL: strength 5/5 throughout, difficulty standing up independently. Head is normocephalic and atraumatic SKIN: warm and dry NEUROLOGIC: CN 2-12 grossly intact, no sensory deficit, normal cognition, normal speech, +tremor with movement, appears improved today PSYCHIATRIC: alert cooperative and oriented to person, place and time. Euthymic mood, makes good eye contact, language grossly intact, recent and remote memory grossly intact. Discharge Data Allergies Allergy/AdvReac Type Severity Reaction Status Date / Time brimonidine Allergy Mild RED ITCHY Verified 05/22/22 13:04 EYE clavulanic acid Allergy Mild headache Verified 05/22/22 13:04 sulfamethoxazole AdvReac Intermediate CHILLS/RIGORS-PER Verified 05/22/22 13:04 [From Bactrim] GMG trimethoprim [From Bactrim] AdvReac Intermediate CHILLS/RIGORS-PER Verified 05/22/22 13:04 GMG amoxicillin AdvReac Mild headache Verified 05/22/22 13:04 hydrochlorothiazide AdvReac Hyponatremi Verified 05/22/22 13:04 a Consultations 05/22/22 16:05 ED Decision to Admit Stat Ordered Studies 05/22/22 11:26 CT cervical spine wo con Stat CT head/brain wo con Stat Hospital Course (1) Generalized weakness: as above. No underlying UTI or other reversible issue present other than covid. Rehab recommended. Case management working on logistics. (2) COVID-19: Asymptomatic aside from weakness. No pneumonia on xray and no need for sup plemental oxygen. No indication for covid specific therapies at this time. Cont isolation (3) Fall: related to weakness and possibly underlying covid infection. ? Rehab rec ommended, plan as above. (4) Chronic hyponatremia: Na is 133 today, chronic, stable. Cont urea supplementation per home regimen. (5) Paroxysmal atrial fibrillation: Chronic, stable. Cont sotalol and coumadin per home regimen. Of note, INR is subtherapeutic but improved from 1.2-1.5. Will start heparin if she goes into afib on the monitor but for now continue with coumadin clinic plan for elevated dose coumadin. Trend INR daily. (6) CAD (coronary artery disease): chronic, controlled. Denies any symptoms. Cont medical management of CAD. DVT proph: warfarin Full Code as confirmed with her on admission. Dispo-to rehab per PT recommendations. Request sent into [facility] - accepted and discharge to [facility] 05/25/2022 Total Time Total Time Spent Total Time Spent (In Minutes): 27 Total Time Includes: Examination of the Patient, Discharge Planning and Medication Reconciliation Discharge Plan Discharge Items Patient Disposition: [facility] Reason For Visit: WEAKNESS,FALLS,COVID+ Discharge Diagnosis: generalized weakness Condition on Discharge: Good Activity: Resume your previous activity Non-emergency contact: Primary Care Provider Call non-emergency contact if: you have any medication questions and your symptoms worsen Follow-up/Referrals: Johnathon Jamison MD [Primary Care Provider] - Diet: Regular Diet Texture: Easy to Chew Addtl Attending Provider Instructions: You were admitted with weakness. You had positive COVID19 but were not requiring oxygen. You did not have any other evidence of infection and so antibiotics were not started. You were seen by physical therapy who recommend rehab on discharge. Please follow up with [facility] care provider in the next 1-2 weeks after discharge. Pending Studies at Discharge: No Stand-Alone Forms: My [facility] Skilled Items Patient informed of condition?: Yes DNR: No Discharge Level of Care: Skilled Communicable Disease: No Discharge Prognosis: Stable Lines: None Urinary Catheter: No Medications and DC Order Prescriptions: Continued omega 1-dkj-[id number]-fish oil [Fish Oil] 1,200 (144-216) mg Capsule 1 cap PO DAILY magnesium oxide 400 mg magnesium Tablet 400 mg PO DAILY Ure-Na 15 gram powder in packet 1 packet PO AMHS warfarin 10 mg Tablet 10 mg PO MOWE@1600 warfarin 5 mg tablet 5 mg PO SUTUTHFRSA@1600 multivitamin Tablet 1 tab PO QAM latanoprost 0.005 % Drops 1 drp OPL HS gabapentin 600 mg Tablet 600 mg PO HS sotalol 80 mg Tablet 80 mg PO BID amlodipine 2.5 mg Tablet 2.5 mg PO QAM aspirin 81 mg Tablet,Delayed Release (Dr/Ec) 81 mg PO DAILY pantoprazole [Protonix] 20 mg Tablet,Delayed Release (Dr/Ec) 20 mg PO QAM isosorbide mononitrate 60 mg Tablet Extended Release 24 Hr 60 mg PO QAM Rx Instructions: DO NOT CRUSH OR CHEW. prednisolone acetate [Pred Forte] 1 % Drops,Suspension 1 drp OPR QAM nitroglycerin [Nitrostat] 0.4 mg Tablet, Sublingual 0.4 mg sublingual DIRECTED PRN (Reason: Chest Pain) Rx Instructions: PLACE 1 TAB UNDER TONGUE EVERY 5 MIN. NEEDED FOR CHEST PAIN, MAX 3 TAB, CALL MD OR 911 IF CONTINUES. losartan 100 mg Tablet 100 mg PO QAM coenzyme Q10 [CoQ-10] 100 mg Capsule 100 mg PO QAM calcium carbonate-vitamin D3 [Calcium 600 + D(3)] 600 mg(1,500mg) -400 unit Tablet 2 tab PO QAM Discharge Orders: Discharge Order (Routine); Ordered 05/25/22 Ordered By: Darrian Catherine/Other Patient Handouts: COVID-19 Home Care Admission Data Admit Date/Time: 05/22/22 16:08 Attending Provider: Darrian Dupont Admit Provider: Kirstin Cheema Primary Care Provider: Johnathon Jamison Other Providers: Kirstin Cheema ; [facility] Other Interventions: Discharge Summary Assessment (RN) Last Done: 05/25/22 10:36
== END 2022-05-25 11:01 | DRG 178 ==
LOC: ED 10:46 → SUATTDRO 16:08 → EDINP 16:08 → 3E 18:20